=== PATIENT | female | born 1980 | race Caucasian/White ===

== ENCOUNTER → 2020-10-15 07:30 | Outpatient (BNVA) | payer MEDICAID, SELFPAY | PROVIDERS: Visit Provider Internal Medicine | DX: Z13.89 Encounter for screening for other disorder (principal) ==

== ENCOUNTER → 2020-12-03 07:49 | Outpatient (BNVA) | payer MEDICAID, SELFPAY | PROVIDERS: PCP Registered Nurse; Visit Provider Internal Medicine ==

== ENCOUNTER 2020-12-09 08:33 | Outpatient (REF) | payer MEDICAID, SELFPAY ==
--- NOTE | 2020-12-09 08:45 | US_ITS ---
EXAMINATION: US THYROID CLINICAL INFORMATION: Hyperparathyroidism. COMPARISON: None TECHNIQUE: Linear transducer sahni-scale and color Doppler examination with attention to the region of the thyroid. FINDINGS: SIZE: Measurements of the thyroid lobes and nodules are given in sagittal, anteroposterior and transverse dimensions respectively. Right Thyroid Lobe: 4.6 x 1.8 x 1.4 cm, volume 5.9 mL. Parenchyma: The gland echotexture is homogeneous. Thyroid vascularity is normal. Left Thyroid Lobe: 4.2 x 1.5 x 1.3 cm, volume 4.0 mL. Parenchyma: The gland echotexture is homogeneous. Thyroid vascularity is normal. Isthmus: 0.4 cm in maximum AP dimension. RIGHT THYROID LOBE: No nodules. ISTHMUS: No nodules. LEFT THYROID LOBE: No nodules. NODES: No lymphadenopathy is seen in the tissue surrounding the thyroid gland. No parathyroid adenoma is seen. US/US thyroid IMPRESSION: Normal thyroid ultrasound. No parathyroid adenoma identified by ultrasound.
[2020-12-09 09:40] LABS: Albumin Level 4.5 g/dL (3.5-5.0); Calcium 9.3 mg/dL (8.4-10.2); Estimated Glomerular Filt Rate > 60; Phosphorus 2.6 mg/dL (2.7-4.5)
[2020-12-09 10:03] LABS: Vitamin D 25-OH Total 23.5 ng/mL (>30)
[2020-12-10 15:07] LABS: Calcium, Ionized 5.1 mg/dL (4.8-5.6)
[2020-12-10 15:52] LABS: Calcium (PTHI) 9.6 mg/dL (8.6-10.2); PTHI 89 pg/mL (14-64)
== END 2020-12-09 08:34 | disposition home or self-care (01) ==
LOC: HO.US 08:33
PROVIDERS: Visit Provider Internal Medicine
DX: E21.3 Hyperparathyroidism, unspecified (principal); E55.9 Vitamin D deficiency, unspecified
CPT/HCPCS: 36415; 76536; 82040; 82306; 82310; 82330; 82565; 83970; 84100

== ENCOUNTER 2021-01-08 10:47 | Outpatient (REF) | payer MEDICAID, SELFPAY ==
--- NOTE | 2021-01-08 10:55 | ECG_ITS ---
Test Reason : R42 Blood Pressure : / mmHG Vent. Rate : 095 BPM Atrial Rate : 095 BPM P-R Int : 154 ms QRS Dur : 072 ms QT Int : 330 ms P-R-T Axes : 057 062 041 degrees QTc Int : 414 ms Normal sinus rhythm Possible Left atrial enlargement Borderline ECG No previous ECGs available Referred By: Carolynn Humphreys Electronically Signed By:THOMPSON SUE MD
== END 2021-01-08 10:48 | disposition home or self-care (01) ==
LOC: HO.LAB 10:47
PROVIDERS: PCP Registered Nurse; Visit Provider Registered Nurse
DX: M79.602 Pain in left arm (principal); R03.0 Elevated blood-pressure reading, without diagnosis of hypertension; R07.9 Chest pain, unspecified; R11.2 Nausea with vomiting, unspecified; R19.7 Diarrhea, unspecified; R42 Dizziness and giddiness; R61 Generalized hyperhidrosis
CPT/HCPCS: 93005

== ENCOUNTER → 2021-01-14 08:35 | Outpatient (BNVA) | payer MEDICAID, SELFPAY | PROVIDERS: PCP Registered Nurse; Visit Provider Internal Medicine ==

== ENCOUNTER 2021-02-03 09:11 | Outpatient (REF) | payer MEDICAID, SELFPAY ==
--- NOTE | ~2021-02-03 | MM_ITS ---
EXAMINATION: BONE DENSITOMETRY CLINICAL INDICATION: Hyperparathyroidism, unspecified. COMPARISON: Baseline BD dated 07/04/2020. TECHNIQUE: Using a ip.access DXA System (software version: 13.1) manufactured by [employer], dual-energy x-ray absorptiometry was performed of the lumbar spine, left hip and left forearm radius 33%. The images are of good technical quality. Based on ISCD (International Society for Clinical Densitometry) standards of reporting, Z-scores instead of T-scores are reported in this premenopausal woman. Summary results are attached. FINDINGS: AP SPINE L1-L3 (excluding L4): The data of L1-L4 has been changed to exclude the L4 vertebral body, because probable degenerative changes at this level may cause overestimation of lumbar spine density. Current: BMD 1.258 g/cm2, T-score 0.7, Z-score 0.6, Z-score within expected range for age, 2.1% increase from baseline (<5% change is not significant). Baseline: BMD 1.232 g/cm2. LEFT FEMUR, NECK: Current: BMD 1.073 g/cm2, T-score 0.3, Z-score 0.6, Z-score within expected range for age. Baseline: BMD 1.001 g/cm2. LEFT FEMUR, TOTAL: Current: BMD 1.153 g/cm2, T-score 1.2, Z-score 1.3, Z-score within expected range for age, 9.1% increase from baseline (<5% change is not significant). Baseline: BMD 1.057 g/cm2. LEFT FOREARM RADIUS 33%: Current: BMD 0.865 g/cm2, T-score -0.1, Z-score -0.1, Z-score within expected range for age, 1.9% decrease from baseline (<5% change is not significant). Baseline: BMD 0.882 g/cm2. IDENTIFIED RISK FACTORS: Hyperparathyroidism. Low calcium intake. Rheumatoid arthritis. HISTORY OF FRACTURE: None listed. MEDICATIONS: Vitamin D. MM/XR DEXA appendicular skeleton IMPRESSION: 1. DIAGNOSIS: Based on the lowest Z-score value of -0.1 in the left forearm radius 33%, the patient's bone density is within the expected range for age. 2. 10-YEAR FRACTURE RISK PREDICTION, FRAX: Not performed in this patient outside the age range of 40-90 years. 3. Treatment Recommendations: NOF guidelines recommend consideration for treatment in postmenopausal women and men age 50 and older presenting with the following: -A hip or vertebral (clinical or morphometric) fracture. -T-score less than or equal to -2.5 at the femoral neck or spine after appropriate evaluation to exclude secondary causes. -Low bone mass at the hip or spine and a 10-year fracture probability by FRAX of greater than or equal to 3% for hip fracture or greater than or equal to 20% for major osteoporotic fracture based on the [place] adapted WHO algorithm. 4. Other Recommendations: All treatment decisions require clinical judgment and consideration of individual patient factors, including patient preferences, comorbidities, previous drug use, risk factors not captured in the FRAX model (e.g. frailty, falls, vitamin D deficiency, increased bone turnover, interval significant decline in bone density) and possible under or overestimation of fracture risk by FRAX. FUTURE SCAN RECOMMENDATION: People with diagnosed cases of osteoporosis or at high risk for fracture should have regular bone mineral density tests. For patients eligible for Medicare, routine testing is allowed once every 2 years. The testing frequency can be increased to one year for patients who have rapidly progressing disease, those who are receiving or discontinuing medical therapy to restore bone mass, or have additional risk factors.
== END 2021-02-03 09:12 | disposition home or self-care (01) ==
LOC: HO.MAMMO 09:11
PROVIDERS: Visit Provider Internal Medicine
DX: Z13.820 Encounter for screening for osteoporosis (principal); E21.3 Hyperparathyroidism, unspecified; M06.9 Rheumatoid arthritis, unspecified
CPT/HCPCS: 77081

== ENCOUNTER 2021-03-09 08:35 | Outpatient (REF) | payer MEDICAID, SELFPAY ==
--- NOTE | ~2021-03-09 | XR_ITS ---
EXAMINATION: XR CHEST CLINICAL INFORMATION: Cough. Chest pain. COMPARISON: None TECHNIQUE: 2 views of the chest were obtained. FINDINGS: The cardiac and mediastinal contours are normal. The lungs are clear. There is no pleural effusion or pneumothorax. There is a thoracolumbar scoliosis. XR/XR chest 2V IMPRESSION: No evidence for acute disease in the chest. Thoracolumbar scoliosis.
== END 2021-03-09 08:36 | disposition home or self-care (01) ==
LOC: HO.XRAY 08:35
PROVIDERS: PCP Registered Nurse; Visit Provider Registered Nurse
DX: R07.9 Chest pain, unspecified (principal); R05 Cough
CPT/HCPCS: 71046

== ENCOUNTER 2021-03-19 08:45 | Outpatient (REF) | payer MEDICAID, SELFPAY ==
[2021-03-19 11:46] LABS: Albumin Level 4.7 g/dL (3.5-5.0); Calcium 9.7 mg/dL (8.4-10.2)
[2021-03-19 11:55] LABS: Vitamin D 25-OH Total 26.5 ng/mL (>30)
[2021-03-20 17:57] LABS: Calcium (PTHI) 9.8 mg/dL (8.6-10.2); PTHI 76 pg/mL (14-64)
== END 2021-03-19 08:46 | disposition home or self-care (01) ==
LOC: HO.LAB 08:45
PROVIDERS: PCP Registered Nurse; Visit Provider Internal Medicine
DX: E21.3 Hyperparathyroidism, unspecified (principal); E55.9 Vitamin D deficiency, unspecified; E83.52 Hypercalcemia; F41.9 Anxiety disorder, unspecified; Z79.899 Other long term (current) drug therapy
CPT/HCPCS: 36415; 82040; 82306; 82310; 82330; 83970; 84100

== ENCOUNTER 2021-06-19 14:21 | Outpatient (REF) | payer MEDICAID, SELFPAY ==
--- NOTE | ~2021-06-19 | MR_ITS ---
EXAMINATION: MR ABDOMEN WITHOUT CONTRAST CLINICAL INFORMATION: Abdominal pain. Hepatomegaly. Tiny nonspecific hypodense lesion liver on outside ultrasound (6 x 4 x 6 mm). COMPARISON: Outside abdominal ultrasound 03/12/2021 ([facility]), CT abdomen and pelvis with contrast 04/11/2020. TECHNIQUE: MR abdomen without and with gadolinium contrast was originally protocoled. Patient experienced claustrophobia during scanning and unable to continue. Noncontrast images in 3 planes were obtained. FINDINGS: LUNG BASES: The visualized lung bases are unremarkable. LIVER, GALLBLADDER, AND BILIARY TREE: The liver is borderline enlarged measuring 19.6 cm in length. The liver surface is smooth. There is mild decreased signal on out of phase imaging consistent with hepatic steatosis. There is a solitary 0.5 cm subcapsular lesion inferior medial right hepatic lobe corresponding to the finding on ultrasound. This shows circumscribed margins and uniform high signal on T2 imaging. Finding is new from the CT 2019. This may represent a tiny benign hepatic hemangioma or cyst. The remainder of the liver is homogeneous with no other hepatic parenchymal lesions. The gallbladder is unremarkable. There is no stone or wall thickening. No intrahepatic or extrahepatic biliary ductal dilatation. PANCREAS: Unremarkable. SPLEEN: Unremarkable. ADRENAL GLANDS: Unremarkable. KIDNEYS AND URETERS: The kidneys are normal in size and shape. No hydronephrosis. No perinephric stranding. GASTROINTESTINAL TRACT: No bowel obstruction. No ascites or fluid collection. ABDOMINAL WALL: Abdominal wall mesh is seen with scattered dephasing artifacts from the mesh tacks. LYMPH NODES: No lymphadenopathy. VASCULAR: Unremarkable. OSSEOUS STRUCTURES: Curvature lower thoracic and lumbar spine. Normal marrow signal. ADDITIONAL: The pelvis is partly included in the large [id number] planning images. There are fibroids present in the uterus both anterior and posterior body similar to CT. MR/MR abdomen wo con IMPRESSION: 1. Patient experienced claustrophobia and only noncontrast images obtained. 2. Borderline hepatomegaly secondary to hepatic steatosis. 3. Subcentimeter subcapsular lesion inferior medial right lobe corresponding to recent ultrasound. This most likely represents a tiny cyst or benign hemangioma. Finding may be followed with right upper quadrant ultrasound in 1 year. 4. Uterine fibroids.
== END 2021-06-19 14:22 | disposition home or self-care (01) ==
LOC: HO.MRI 14:21
PROVIDERS: PCP Registered Nurse; Visit Provider Registered Nurse
DX: R10.9 Unspecified abdominal pain (principal); R16.0 Hepatomegaly, not elsewhere classified; Z87.19 Personal history of other diseases of the digestive system
CPT/HCPCS: 74181

== ENCOUNTER → 2021-09-02 07:38 | Outpatient (BNVA) | payer MEDICAID, SELFPAY | PROVIDERS: PCP Registered Nurse; Visit Provider Internal Medicine ==

== ENCOUNTER 2021-09-04 08:44 | Outpatient (REF) | payer MEDICAID, SELFPAY ==
[2021-09-04 09:41] LABS: Alanine Aminotransferase 20 U/L (0-31); Albumin Level 4.4 g/dL (3.5-5.0); Alkaline Phosphatase 43 U/L (39-117); Anion Gap 9 (12-20); Aspartate Amino Transferase 18 U/L (5-31); Bilirubin Total 0.3 mg/dL (0.0-1.0); Blood Urea Nitrogen 14 mg/dL (9-16); Calcium 9.9 mg/dL (8.4-10.2); Carbon Dioxide 29 mmol/L (22-29); Chloride 104 mmol/L (96-108); Estimated Glomerular Filt Rate > 60; Glucose Random 115 mg/dL (60-115); Phosphorus 2.6 mg/dL (2.7-4.5); Potassium 4.1 mmol/L (3.3-5.1); Sodium 138 mmol/L (135-145); Total Protein 7.5 g/dL (6.5-8.0)
[2021-09-04 10:03] LABS: Vitamin D 25-OH Total 24.1 ng/mL (>30)
[2021-09-08 01:37] LABS: Calcium (PTHI) 9.7 mg/dL (8.6-10.2); PTHI 60 pg/mL (14-64)
== END 2021-09-04 08:45 | disposition home or self-care (01) ==
LOC: HO.LAB 08:44
PROVIDERS: PCP Registered Nurse Community Health; Visit Provider Internal Medicine
DX: E55.9 Vitamin D deficiency, unspecified (principal); E21.3 Hyperparathyroidism, unspecified
CPT/HCPCS: 36415; 80053; 82306; 83970; 84100

== ENCOUNTER 2022-03-03 10:13 | Emergency (ER) | payer MEDICAID, SELFPAY ==
[2022-03-03 10:34] VITALS: BP 135/65; PULSE 83; RESP 16; TEMP 36.7; O2SAT 98; BMI 26.6
--- NOTE | 2022-03-03 10:38 | ED.GENADULT ---
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 Patient states that she has been having pain with urination and is having lower abdominal pain for the last few days. Patient denies any dizziness, lightheadedness, nausea, vomiting, fever, chills, blurry vision, double vision, loss of vision, chest pain, difficulty breathing, shortness of breath, back pain, night sweats, increased urinary frequency, increased urinary urgency, blood in her urine or stool, syncope or a near syncopal episode, recent trauma or falls, bowel incontinence, bladder incontinence, bowel retention, bladder retention, or any other complaints at this time. Onset (ago): day(s) Location: abdomen Radiation: non-radiation Severity: mild Severity scale (1-10): 3 Quality: dull Pain Consistency: constant Relieving factors: none Exacerbating factors: none Associated symptoms: denies other symptoms Treatments prior to arrival: none Related Data Home Medications Medication Instructions Recorded Confirmed citalopram 20 mg tablet 20 mg PO DAILY 01/14/21 09/02/21 naproxen 500 mg tablet 500 mg PO DAILY PRN tab 01/14/21 09/02/21 Previous Rx's Medication Instructions Recorded cholecalciferol (vitamin D3) 50 50 mcg PO DAILY 30 Days #30 cap 09/02/21 mcg (2,000 unit) capsule cephalexin 500 mg capsule 500 mg PO Q6H 7 Days #28 cap 03/03/22 Allergies Allergy/AdvReac Type Severity Reaction Status Date / Time aspirin Allergy Unknown swelling Verified 09/02/21 07:50 Review of Systems Constitutional: Constitutional: Reports no additional constitutional complaints, Denies chills, Denies fever(s) and Denies night sweats Eyes: Eyes: Reports no additional eye complaints, Denies blurry vision, Denies change in vision, Denies diplopia, Denies eye discharge, Denies loss of vision and Denies eye pain ENT: Denies dizziness Cardiovascular: Cardiovascular: Reports no additional cardiovascular complaints, Denies chest pain, Denies lightheadedness, Denies Loss of Consciousness and Denies dyspnea Respiratory: Respiratory: Reports no additional respiratory complaints and Denies dyspnea Gastrointestinal: Gastrointestinal: Reports no additional gastrointestinal complaints, Reports abdominal pain, Denies melena, Denies hematochezia, Denies change in bowel habits and Denies change in stool character Genitourinary: Genitourinary: Denies hematuria, Denies urinary frequency, Reports dysuria, Denies urinary incontinence, Denies urinary hesitancy and Denies urinary urgency Musculoskeletal: Musculoskeletal: Reports no additional musculoskeletal complaints, Denies numbness and Denies tingling Neurologic: Denies dizziness, Denies loss of vision, Denies numbness and Denies tingling Psychiatric: Psychiatric: Reports no additional psychiatric complaints Endocrine: Endocrine: Reports no additional endocrine complaints Hematologic/Lymphatic: Hematologic/Lymphatic: Reports no additional hematologic/lymphatic complaints Allergic/Immunologic: Allergic/Immunologic: Reports no additional allergic/immunologic complaints PMFSH Past Medical History Attestation statement: The following information was validated with the patient. Source: old records reviewed Medical History Hypercalcemia Hyperparathyroidism Vitamin D deficiency Surgical History History of umbilical hernia repair Hx of section Family History Family History Father Diabetes Hypertension Alzheimer disease FH: prostate cancer Emphysema of lung Mother Hypertension Diabetes Social History Social History Alcohol intake: never Patient Tobacco Use Status: Never used Tobacco Advance Directives: No Advance Directives Information Provided: No Patient : No Physical Exam ED Vital Signs: Vital Signs - 24 hr 03/03/22 10:34 03/03/22 11:16 03/03/22 13:11 Temperature 98.0 F 98.7 F 98.5 F Pulse Rate 83 85 77 Respiratory Rate 16 18 19 Blood Pressure 135/65 119/72 118/71 Pulse Oximetry 98 98 100 BMI result Body Mass Index 26.6 Const General: cooperative, no acute distress, alert and awake Nutritional Appearance: well nourished Orientation/consciousness: patient oriented x3 Limitations: no limitations HENMT Head: Yes normal to inspection and Yes atraumatic Ears: hearing grossly normal bilaterally and external ears normal General nose exam: Normal external nose present, no nasal discharge noted and no epistaxis Face and sinus: Yes normal facial exam, No abrasion and No laceration Mouth: Normal oral and palatal mucosa present, no drooling and no muffled voice Eyes General: appearance normal, both eyes and all related structures Periorbital: periorbital findings normal Eyelids: Yes eyelids normal Conjunctivae: conjunctivae normal Pupils: Equal, round and reactive pupils present EOM: EOMs intact bilaterally Neck Neck: Yes normal visual inspection, Yes full ROM and Yes no lymphadenopathy Chest Chest palpation & inspection: normal inspection of the chest Resp Effort & Inspection: normal respiratory effort and able to speak in complete sentences Auscultation: clear to auscultation bilaterally Cardio Rate: regular rate Rhythm: regular rhythm GI Inspection: Yes normal to inspection Palpation (GI): Soft to palpation, not firm, nontender, no guarding and not rigid Auscultation: normal bowel sounds Neuro General: patient oriented x3 and moves all extremities Cranial nerves: Yes Equal, round and reactive pupils present Cognition (Neuro): normal cognition Motor exam (neuro): 5/5 motor strength present throughout Sensory Exam: Normal double simultaneous stimulation for sensation Coordination: [id number] test normal Extrem General: Yes normal to inspection, Yes full ROM and Yes capillary refill normal Psych Appearance: grossly normal Mental Status: mental status grossly normal Affect: normal affect Attitude: cooperative Thought process: Normal thought process present Thought content: Normal thought content present Insight: Good insight present (Psych) Medical Decision Making MDM Narrative Medical decision making narrative: Patient is a 41 year old female presenting to the emergency department today with painful urination and lower abdominal pain. Patient's physical exam was unremarkable. Patient's blood work was unremarkable. Patient's urine showed an acute urinary tract infection. I explained my physical exam findings as well as all test results to the patient. I answered all questions asked by the patient. I stressed the importance of the patient taking her medication as prescribed. I stressed the importance of the patient following up with her primary care provider. I stressed the importance of the patient returning to the emergency department immediately if her symptoms were to worsen or if she were to develop any dizziness, shortness of breath, difficulty breathing, chest pain, blurry vision, loss of vision, nausea, vomiting, abdominal pain, fever, chills, back pain, or any other complaints. Patient verbalized agreement and understanding with this treatment plan and discharge. Differential Diagnosis Differential Diagnosis: urinary tract infection Medical Records Medical records reviewed: Yes I reviewed the patient's medical records. Lab Data Lab results reviewed: Yes I reviewed the patient's lab results. Result diagrams: 03/03/22 12:44 03/03/22 12:44 Labs: Lab Results 03/03/22 03/03/22 03/03/22 Range/Units 10:48 12:44 12:44 WBC 7.2 (4.8-10.8) X10*3/uL RBC 4.47 (4.20-5.50) X10*6/uL Hgb 12.5 (12.0-16.0) g/dl Hct 39.0 (37.0-47.0) % MCV 87.2 (80.0-98.0) fL MCH 28.0 (27.0-33.0) pg MCHC 32.1 (31.0-35.0) g/dl RDW 13.2 (11.0-16.0) % Plt Count 276 (160-400) X10*3/uL MPV 9.7 (9.4-12.3) fL Immature Gran % (Auto) 0.4 (0.0-0.4) % Neut % (Auto) 72.2 (45-73) % Lymph % (Auto) 20.7 (20-40) % [place] % (Auto) 6.0 (2-11) % Eos % (Auto) 0.4 (0-4) % Baso % (Auto) 0.3 (0-2) % Lymph # (Auto) 1.5 (1.2-4.9) X10*3/uL [place] # (Auto) 0.4 (0.1-1.2) X10*3/uL Eos # (Auto) 0.0 (0.0-0.4) X10*3/uL Baso # (Auto) 0.0 (0.0-0.2) X10*3/uL Abs Immat Gran (auto) 0.03 (0.00-0.03) X10*3/uL Absolute Neuts (auto) 5.2 (2.0-8.3) x10*3/uL Absolute Nucleated RBC 0.000 (0.0-0.012) X10*3/uL Nucleated RBC % (auto) 0.0 (0.0-0.2) /100WBC Sodium 137 (135-145) mmol/L Potassium 4.6 (3.3-5.1) mmol/L Chloride 106 (96-108) mmol/L Carbon Dioxide 25 (22-29) mmol/L Anion Gap 11 L (12-20) BUN 12 (9-16) mg/dL Creatinine 0.75 (0.5-1.4) mg/dL Estim Creat Clear Calc 95.9 Estimated GFR > 60 Random Glucose 70 (60-115) mg/dL Calcium 9.9 (8.4-10.2) mg/dL Total Bilirubin 0.3 (0.0-1.0) mg/dL AST 15 (5-31) U/L ALT 17 (0-31) U/L Alkaline Phosphatase 40 (39-117) U/L Total Protein 7.6 (6.5-8.0) g/dL Albumin 4.5 (3.5-5.0) g/dL Beta HCG, Quant < 2 mIU/mL Urine Color YELLOW Urine Appearance CLEAR Urine pH 5.5 (5.0-8.0) Ur Specific [place] >= 1.030 H (1.005-1.025) Urine Protein NEG (NEG-TRACE) MG/DL Urine Glucose (UA) NEG (NEG) MG/DL Urine Ketones NEG (NEG) MG/DL Urine Blood 1+ H (NEG) Urine Nitrite NEG (NEG) Ur Leukocyte Esterase NEG (NEG) Urine RBC 5-9 H (0) /HPF Urine WBC 5-9 H (0-4) /HPF Ur Squamous Epith Cells 2+ /LPF Urine Bacteria TRACE /LPF Urine Mucus 3+ /LPF Discharge Plan Discharge Clinical Impression: Urinary tract infection Patient Disposition: Home, Self-Care Instructions: Urinary Tract Infection in Women (DC) Additional Instructions: Follow up with your primary care provider. Return to the emergency department immediately if your symptoms worsen or if you develop any dizziness, shortness of breath, difficulty breathing, chest pain, blurry vision, loss of vision, nausea, vomiting, abdominal pain, fever, chills, back pain, or any other complaints. Prescriptions: New cephalexin 500 mg capsule 500 mg PO Q6H 7 Days Qty: 28 0RF No Action naproxen 500 mg tablet 500 mg PO DAILY PRN0RF citalopram 20 mg tablet 20 mg PO DAILY 0RF cholecalciferol (vitamin D3) 50 mcg (2,000 unit) capsule 50 mcg PO DAILY 30 Days Qty: 30 11RF Referrals: Temi Herrera NP [Primary Care Provider] - Stand Alone Forms: Work/School Release Interventions: ED Discharge Assessment Last Done: 03/03/22 13:48 Discharge Date/Time: 03/03/22 13:49 Print Language: [place]
[2022-03-03 10:58] LABS: Appearance Urine CLEAR; Color Urine YELLOW; Glucose Urine UA NEG (NEG); Leukocyte Esterase Urine NEG (NEG); Nitrite Urine NEG (NEG); PH 5.5 (5.0-8.0); Specific Gravity - Urine >= 1.030 (1.005-1.025); UACC Culture Trigger NO; Urine Blood 1+ (NEG); Urine Ketones NEG (NEG); Urine Protein NEG (NEG-TRACE)
[2022-03-03 11:09] LABS: Mucus Urine 3+ /LPF; Squamous Epithelial Cell Urine 2+ /LPF
[2022-03-03 11:10] LABS: Bacteria Urine TRACE /LPF; UACC CULT YES
[2022-03-03] MEDS: Ondansetron ODT 4 MG TAB.RAPDIS TRANSLINGU (11:14)
[2022-03-03 11:16] VITALS: BP 119/72; PULSE 85; RESP 18; TEMP 37.1; O2SAT 98
[2022-03-03 13:02] LABS: MANUAL DIFF FLAG NO
[2022-03-03 13:04] LABS: Basophils Percent Auto 0.3 % (0-2); Eosinophils Percent Auto 0.4 % (0-4); Hemoglobin 12.5 g/dl (12.0-16.0); Imm Gran Abs Auto 0.03 X10*3/uL (0.00-0.03); Imm Gran Pct Auto 0.4 % (0.0-0.4); Lymphocytes Absolute Auto 1.5 X10*3/uL (1.2-4.9); Lymphocytes Percent Auto 20.7 % (20-40); Mean Corpuscular HGB Conc 32.1 g/dl (31.0-35.0); Mean Corpuscular Volume 87.2 fL (80.0-98.0); Mean Platelet Volume 9.7 fL (9.4-12.3); Monocytes Absolute Auto 0.4 X10*3/uL (0.1-1.2); Neutrophils Absolute Auto 5.2 x10*3/uL (2.0-8.3); Neutrophils Percent Auto 72.2 % (45-73); Platelet Count 276 X10*3/uL (160-400); Red Blood Count 4.47 X10*6/uL (4.20-5.50); Red Cell Distribution Width 13.2 % (11.0-16.0); White Blood Count 7.2 X10*3/uL (4.8-10.8)
[2022-03-03 13:11] VITALS: BP 118/71; PULSE 77; RESP 19; TEMP 36.9; O2SAT 100
[2022-03-03 13:34] LABS: Alanine Aminotransferase 17 U/L (0-31); Albumin Level 4.5 g/dL (3.5-5.0); Alkaline Phosphatase 40 U/L (39-117); Anion Gap 11 (12-20); Aspartate Amino Transferase 15 U/L (5-31); Bilirubin Total 0.3 mg/dL (0.0-1.0); Blood Urea Nitrogen 12 mg/dL (9-16); Calcium 9.9 mg/dL (8.4-10.2); Carbon Dioxide 25 mmol/L (22-29); Chloride 106 mmol/L (96-108); Creatinine Clr Calc Pharmacy 95.9; Estimated Glomerular Filt Rate > 60; Glucose Random 70 mg/dL (60-115); Potassium 4.6 mmol/L (3.3-5.1); Sodium 137 mmol/L (135-145); Total Protein 7.6 g/dL (6.5-8.0)
[2022-03-03 13:40] LABS: HCG Quantitative < 2 mIU/mL
== END 2022-03-03 13:49 | disposition home or self-care (01) ==
PROVIDERS: Physician Assistant Medical; Emergency Provider Emergency Medicine; PCP Registered Nurse Community Health
DX: N39.0 Urinary tract infection, site not specified (principal)
CPT/HCPCS: 36415; 80053; 81001; 81003; 84702; 85025; 87086; 99283; 99284

== ENCOUNTER → 2022-04-08 07:32 | Outpatient (BNVA) | payer MEDICAID, SELFPAY | PROVIDERS: PCP Registered Nurse Community Health; Visit Provider Internal Medicine | DX: Z13.89 Encounter for screening for other disorder (principal) ==

== ENCOUNTER 2022-04-09 09:13 | Outpatient (REF) | payer MEDICAID, SELFPAY ==
[2022-04-09 10:46] LABS: Alanine Aminotransferase 20 U/L (0-31); Albumin Level 4.4 g/dL (3.5-5.0); Alkaline Phosphatase 44 U/L (39-117); Anion Gap 12 (12-20); Aspartate Amino Transferase 17 U/L (5-31); Bilirubin Total 0.6 mg/dL (0.0-1.0); Blood Urea Nitrogen 12 mg/dL (9-16); Calcium 9.8 mg/dL (8.4-10.2); Carbon Dioxide 26 mmol/L (22-29); Chloride 103 mmol/L (96-108); Estimated Glomerular Filt Rate > 60; Glucose Random 73 mg/dL (60-115); Potassium 4.4 mmol/L (3.3-5.1); Sodium 137 mmol/L (135-145); Total Protein 7.5 g/dL (6.5-8.0)
[2022-04-09 11:09] LABS: Thyroid Stimulating Hormone 1.35 uIU/mL (0.32-4.0); Vitamin D 25-OH Total 21.5 ng/mL (>30)
[2022-04-13 13:41] LABS: Calcium (PTHI) 9.7 mg/dL (8.6-10.2); PTHI 85 pg/mL (16-77)
== END 2022-04-09 09:14 | disposition home or self-care (01) ==
LOC: HO.LAB 09:13
PROVIDERS: PCP Registered Nurse Community Health; Visit Provider Internal Medicine
DX: E21.3 Hyperparathyroidism, unspecified (principal); E55.9 Vitamin D deficiency, unspecified
CPT/HCPCS: 36415; 80053; 82306; 83970; 84100; 84443

== ENCOUNTER 2022-04-13 12:27 | Outpatient (REF) | payer MEDICAID, SELFPAY ==
[2022-04-13 13:01] LABS: Total Volume 24 Hour Urine 1400 mL
[2022-04-13 13:38] LABS: Creatinine, 24Hr Urine 1.3 G/Day (1.0-2.0); Creatinine, mg/dL 93.34
[2022-04-14 18:51] LABS: Calcium, 24 Hr Urine 293 mg/24 h; Calcium/Creatinine Ratio 222 mg/g creat (30-275); Creatinine 24Hr Urine 1.32 g/24 h (0.50-2.15)
== END 2022-04-13 12:28 | disposition home or self-care (01) ==
LOC: HO.LNP 12:27
PROVIDERS: Visit Provider Internal Medicine
DX: E21.3 Hyperparathyroidism, unspecified (principal)
CPT/HCPCS: 82340; 82570

== ENCOUNTER 2022-06-10 10:24 | Outpatient (REF) | payer MEDICAID, SELFPAY ==
--- NOTE | ~2022-06-10 | US_ITS ---
EXAMINATION: US PELVIS TRANSVAGINAL CLINICAL INFORMATION: Pelvic pain. COMPARISON: Previous CT of the abdomen and pelvis March 2020. TECHNIQUE: Ultrasound of the pelvis is performed using both transabdominal and transvaginal transducers along with Doppler. Transvaginal imaging is performed due to inadequate visualization transabdominally. FINDINGS: The uterus is anteverted and measures 11 x 7 x 7 cm in dimension. There are multiple uterine lesions suggestive of fibroids. At least 5 separate fibroids are identified measuring 2.5 x 2.3 x 2.5 cm in the posterior uterine body, 2.9 x 3 x 3.3 cm in the posterior upper uterine body or posterior fundus, 3.1 x 2.1 x 2.2 cm in the high anterior uterine body, 1 x 1.1 x 1.2 cm in the uterine fundus and 2 x 1.8 x 1.7 cm in the right cornual region. Endometrial thickness is normal measuring 1.2 cm. There are nabothian cysts in the cervix. The right ovary measures 3.3 x 2.1 x 2.2 cm. There is a 2.7 x 2 x 2 cm complex right ovarian cyst with thick echogenic wall probably representing a corpus luteum. The left ovary measures 2.5 x 2 x 2.2 cm and is normal-appearing. There is a ljrjr-ib-jjzjnysa amount of fluid in the pelvis. US/US pelvic and transvaginal IMPRESSION: Enlarged fibroid uterus. 2.7 x 2 x 2 cm complex right ovarian cyst probably representing a physiologic cyst. Normal left ovary. Small to moderate amount of fluid in the pelvis
--- NOTE | ~2022-06-10 | US_ITS ---
EXAMINATION: US ABDOMEN COMPLETE CLINICAL INFORMATION: Abdominal pain. COMPARISON: MR abdomen 06/19/2021. CT abdomen pelvis 04/11/2020. TECHNIQUE: Real-time imaging of the abdominal viscera. FINDINGS: PANCREAS: Normal. ABDOMINAL AORTA: The proximal, mid, and distal segments are normal in caliber. INFERIOR VENA CAVA: Visualized portions are normal. LIVER: Normal. The liver is normal in size. The liver contour is normal. Parenchymal echogenicity is normal. No focal hepatic lesion is appreciated. There is no intrahepatic biliary duct dilatation seen. GALLBLADDER: Normal. The gallbladder is physiologically distended without evidence of stones, sludge, polyps, wall thickening or pericholecystic fluid. COMMON BILE DUCT: Normal in caliber measuring 0.3 cm in diameter. RIGHT KIDNEY: Normal. No hydronephrosis. No renal calculi or focal parenchymal lesions. The kidney measures 11.6 cm in maximum dimension. LEFT KIDNEY: Normal. No hydronephrosis. No renal calculi or focal parenchymal lesions. The kidney measures 10.8 cm in maximum dimension. SPLEEN: Normal. The spleen measures 9.5 cm in maximum dimension. FREE FLUID: None. US/US abdomen complete IMPRESSION: Unremarkable exam.
== END 2022-06-10 10:25 | disposition home or self-care (01) ==
LOC: HO.US 10:24
PROVIDERS: PCP Registered Nurse Community Health; Visit Provider Registered Nurse Community Health
DX: R10.2 Pelvic and perineal pain (principal); R10.84 Generalized abdominal pain; R16.0 Hepatomegaly, not elsewhere classified
CPT/HCPCS: 76700; 76830; 76856

== ENCOUNTER 2022-07-05 16:36 | Emergency (ER) | payer MEDICAID, SELFPAY ==
[2022-07-05 16:45] VITALS: BP 143/94; PULSE 102; RESP 18; TEMP 37; O2SAT 98; BMI 25.7
--- NOTE | 2022-07-05 16:48 | PC.NURSE ---
pt was triaged and decided she was leaving and going to [facility] because she wasnt being brought right back to a room. pt was left without being seen.
== END 2022-07-05 18:52 | disposition left against medical advice (07) ==
PROVIDERS: Emergency Provider Emergency Medicine; PCP Registered Nurse Community Health
DX: R51.9 Headache, unspecified (principal); R11.0 Nausea; M79.10 Myalgia, unspecified site
CPT/HCPCS: 99281

== ENCOUNTER 2022-07-15 11:27 | Outpatient (REF) | payer MEDICAID, SELFPAY ==
[2022-07-15 13:23] LABS: Hematocrit 37.8 % (37.0-47.0); Hemoglobin 12.2 g/dl (12.0-16.0); Mean Corpuscular HGB Conc 32.3 g/dl (31.0-35.0); Mean Corpuscular Hemoglobin 27.7 pg (27.0-33.0); Mean Corpuscular Volume 85.7 fL (80.0-98.0); Mean Platelet Volume 9.7 fL (9.4-12.3); Platelet Count 311 X10*3/uL (160-400); Red Blood Count 4.41 X10*6/uL (4.20-5.50); Red Cell Distribution Width 13.2 % (11.0-16.0); White Blood Count 6.5 X10*3/uL (4.8-10.8)
[2022-07-15 14:15] LABS: HCG Quantitative < 2 mIU/mL; TSH reflex Free T4 1.44 uIU/mL (0.32-4.0)
[2022-07-15 17:04] LABS: CT PCR NOT DETECTED (Not Detect.); NG PCR NOT DETECTED (Not Detect.)
[2022-07-17 08:37] LABS: CA-125 7 U/mL (<35)
[2022-07-21 00:37] LABS: HPV mRNA E6/E7 rflx Not Detected (Not Detected)
== END 2022-07-15 11:28 | disposition home or self-care (01) ==
LOC: HO.LAB 11:27
PROVIDERS: PCP Registered Nurse Community Health; Visit Provider Obstetrics & Gynecology
DX: Z01.419 Encounter for gynecological examination (general) (routine) without abnormal findings (principal); Z11.51 Encounter for screening for human papillomavirus (HPV); N83.299 Other ovarian cyst, unspecified side; N93.9 Abnormal uterine and vaginal bleeding, unspecified; D25.9 Leiomyoma of uterus, unspecified
CPT/HCPCS: 36415; 84443; 84702; 85027; 86304; 87491; 87591; 87624; 88142; 99202

== ENCOUNTER 2022-07-28 16:39 | Outpatient (REF) | payer MEDICAID, SELFPAY | END 2022-07-28 16:40 | disposition home or self-care (01) | LOC: HO.LNP 16:39 | PROVIDERS: Visit Provider Obstetrics & Gynecology | DX: N93.9 Abnormal uterine and vaginal bleeding, unspecified (principal) | CPT/HCPCS: 58100; 88305 ==

== ENCOUNTER 2022-08-17 09:34 | Outpatient (REF) | payer MEDICAID, SELFPAY ==
--- NOTE | ~2022-08-17 | MM_ITS ---
EXAMINATION: MM SCREENING DIGITAL BREAST TOMOSYNTHESIS, BILATERAL CLINICAL INFORMATION: Screening. Asymptomatic. No prior breast imaging. Age 42. No known family history breast cancer. The lifetime risk of breast cancer based on the Tyrer-Cuzick Model is 12%. COMPARISON: None (current study represents initial baseline exam). TECHNIQUE: Digital breast tomosynthesis is performed in both the craniocaudal and mediolateral oblique views along with computer-aided detection (CAD). Synthesized 2D images are generated from the tomosynthesis. Additional left MLO view is provided. FINDINGS: The breasts are heterogeneously dense, which may obscure small masses (ACR BI-RADS breast composition Category c). There is no significant mass or architectural abnormality. Diffuse bilateral similar appearing punctate and some coarse calcifications are present in both breasts. A minority of the calcifications show layering on the MLO views. The axilla and skin contours are unremarkable. MM/MM tomosynthesis screening BI IMPRESSION: No mammographic evidence of malignancy. ASSESSMENT: BI-RADS 2: Benign RECOMMENDATION: Routine annual mammography screening. This patient's information was entered into a reminder system with a target due date for their next mammogram.
== END 2022-08-17 09:35 | disposition home or self-care (01) ==
LOC: HO.MAMMO 09:34
PROVIDERS: PCP Registered Nurse Community Health; Visit Provider Obstetrics & Gynecology
DX: Z12.31 Encounter for screening mammogram for malignant neoplasm of breast (principal); N93.9 Abnormal uterine and vaginal bleeding, unspecified; N83.299 Other ovarian cyst, unspecified side
CPT/HCPCS: 77063; 77067; 99212

== ENCOUNTER 2022-08-20 07:27 | Emergency (ER) | payer MEDICAID, SELFPAY | END 2022-08-20 08:23 | disposition left against medical advice (07) | PROVIDERS: Emergency Provider Emergency Medicine | DX: R07.89 Other chest pain (principal) ==

== ENCOUNTER 2022-08-20 09:23 | Outpatient (REF) | payer MEDICAID, SELFPAY ==
--- NOTE | ~2022-08-20 | XR_ITS ---
EXAMINATION: XR CHEST CLINICAL INFORMATION: Cough COMPARISON: Previous chest x-ray February 2021 TECHNIQUE: 2 views of the chest were obtained. FINDINGS: No significant abnormality is noted involving the heart, lungs, mediastinum, bony thorax or soft tissues. There is a lumbar scoliosis convex to the left. There is evidence of previous abdominal wall hernia repair with mesh. XR/XR chest 2V IMPRESSION: No evidence for acute chest.
== END 2022-08-20 09:24 | disposition home or self-care (01) ==
LOC: HO.XRAY 09:23
PROVIDERS: Absent Provider Registered Nurse; PCP Registered Nurse; Visit Provider Emergency Medicine
DX: R05.1 Acute cough (principal)
CPT/HCPCS: 71046

== ENCOUNTER → 2022-08-26 11:23 | Outpatient (BNVA) | payer MEDICAID, SELFPAY | PROVIDERS: PCP Registered Nurse Community Health; Visit Provider Obstetrics & Gynecology | DX: N93.9 Abnormal uterine and vaginal bleeding, unspecified (principal) | CPT/HCPCS: 99212 ==

== ENCOUNTER 2022-09-10 06:14 | Day surgery (SDC) | payer MEDICAID, SELFPAY ==
--- NOTE | 2022-09-09 08:43 | HO.ANESPROP2 ---
Documented by User: Kia Valdes NP 09/09/22 08:44 HPI - Anesthesia Eval Consult details Narrative: 42yo F for D&C Hysteroscopy, possible polypectomy and myomectomy PMFSH Active Problems Active Problems: All Active Problems (Updated 08/26/22 @ 11:40 by Fly De Souza MD) Abnormal uterine bleeding (AUB) (Acute) Complex ovarian cyst (Acute) Uterine myoma (Acute) Vitamin D deficiency (Acute) Hyperparathyroidism (Acute) Hypercalcemia (Acute) Past Medical History Medical History Hypercalcemia Hyperparathyroidism Vitamin D deficiency Family History Family History Father Diabetes Hypertension Alzheimer disease FH: prostate cancer Emphysema of lung Mother Hypertension Diabetes Surgical History Surgical History History of umbilical hernia repair Hx of section Social History Social History Alcohol intake: never Patient Tobacco Use Status: Never used Tobacco Use of substances other than those prescribed or required for medical reasons: No Are you DNR?: No Advance Directives: No Advance Directives Information Provided: Yes Meds Allergies Allergy/AdvReac Type Severity Reaction Status Date / Time aspirin Allergy Unknown swelling Verified 09/06/22 12:25 Home Medications Medication Instructions Recorded Confirmed Last Taken Type citalopram 20 mg tablet 20 mg PO DAILY 01/14/21 09/06/22 Unknown History hydroxyzine pamoate 25 mg capsule 1 cap PO BID PRN Anxiety 09/06/22 09/06/22 Unknown History montelukast 10 mg tablet 1 tab PO BEDTIME 09/06/22 09/06/22 Unknown History Exam Exam Date and Time: September 09, 2022 0843 Pertinent Lab Results Pertinent Lab Results: Laboratory Tests 04/09/22 07/15/22 09:40 12:30 WBC 6.5 Hgb 12.2 Hct 37.8 Plt Count 311 Sodium 137 Potassium 4.4 Chloride 103 Carbon Dioxide 26 BUN 12 Creatinine 0.74 Assessment and Plan Assessment Anesthesia Assessment: Chart Reviewed Documented by User: Ghazala Ly MD 09/10/22 07:29 [facility] Active Problems Active Problems: All Active Problems (Updated 08/26/22 @ 11:40 by Fly De Souza MD) Abnormal uterine bleeding (AUB) (Acute) Complex ovarian cyst (Acute) Uterine myoma (Acute) Vitamin D deficiency (Acute) Hyperparathyroidism (Acute) Hypercalcemia (Acute) asthma Past Medical History Medical History Hypercalcemia Hyperparathyroidism Vitamin D deficiency Family History Family History Father Diabetes Hypertension Alzheimer disease FH: prostate cancer Emphysema of lung Mother Hypertension Diabetes Surgical History Surgical History History of umbilical hernia repair Hx of section History of Problems with Anesthesia: No Social History Social History Alcohol intake: never Patient Tobacco Use Status: Never used Tobacco Use of substances other than those prescribed or required for medical reasons: No Are you DNR?: No Advance Directives: No Advance Directives Information Provided: Yes Meds Allergies Allergy/AdvReac Type Severity Reaction Status Date / Time aspirin Allergy Unknown swelling Verified 09/06/22 12:25 Home Medications Medication Instructions Recorded Confirmed Last Taken Type citalopram 20 mg tablet 20 mg PO DAILY 01/14/21 09/06/22 Unknown History hydroxyzine pamoate 25 mg capsule 1 cap PO BID PRN Anxiety 09/06/22 09/06/22 Unknown History montelukast 10 mg tablet 1 tab PO BEDTIME 09/06/22 09/06/22 Unknown History Exam Airway Mallampati Class: II TM Dist: >3cm Neck ROM: Full Loose/Missing/Broken Teeth: No Heart: RRR Lungs: CTA Assessment and Plan Assessment Anesthesia Assessment: Anesthesia Plan Discussed Final Anesthetic Review History of Problems with Anesthesia: No NPO: Yes ASA Class: II Final Preanesthetic Review: Meds/Allgs Chart Reviewed, Consent Obtained/Reviewed and Anes Risks/Benef Reviewed Patient Risk: Low Procedure Risk: Low Anesthetic Plan Anesthetic Plan: GA Disposition: Standard PACU
[2022-09-10] VITALS (12 sets, daily range): BP systolic 107–146; BP diastolic 59–95; PULSE 66–109; RESP 18; TEMP 36.7–37.3; O2SAT 98–99; BMI 26.4
[2022-09-10 06:55] LABS: UPreg QC Valid YES; Urine Pregnancy NEGATIVE (NEGATIVE)
[2022-09-10] MEDS: Lactated Ringers 1,000 ML 100 ML IVCONT (07:29)
[2022-09-10 07:30] LABS: COVID-19 Test Negative (Negative); IDNOW Serial# 16C4AD1C
--- NOTE | 2022-09-10 08:05 | MHC.SHP ---
Pre-Procedural Eval Section A Date of Service: 09/10/22 The patient is an INPATIENT: No Changes since office visit: No Cold of Flu in the past 2 weeks, No New Medical Problems, No Changes in Medication and No Patient answered all questions The History & Physical has been completed within 30 days and I have reviewed it.: Yes Section B Chief Complaint: Abnormal uterine and vaginal bleeding, unspecified Allergies: Allergies Allergy/AdvReac Type Severity Reaction Status Date / Time aspirin Allergy Unknown swelling Verified 09/06/22 12:25 Plan Diagnosis/Plan: Unchanged I have reviewed the history and physical and performed a pertinent physical examination on my patient. No changes have occurred unless specified.
--- NOTE | 2022-09-10 08:37 | P.BOP_ITS ---
Brief Operative Note Date of Service: 09/10/22 Pre-op diagnosis: AUB, features of a polyp by pathology Post-op diagnosis: same (AUB, no evidence of endometrial/endocervical polyp) Procedure: Hysteroscopy D& Surgeon: Fly De Souza MD Anesthesia: GLMA Was an Facilities Officer used for this Procedure?: No Estimated blood loss (mL): 0 Pathology: other (Endometrial Scrapping.) Condition: stable Disposition: PACU
--- NOTE | 2022-09-10 08:38 | W.PM.OPN ---
Operative Note Operative Note Date of Service: 09/10/22 Narrative: Preop Diagnosis: Abnormal uterine bleeding, features of a polyp by pathology Operation: Diagnostic Hysteroscopy, Dilataion & Curettage Post Op Diagnosis: Normal endometrial and endocervical cavity, no evidence of pathology QBL: Minimal Anesthesia: GLMA Surgeon: Fly De Souza MD Waste Cotton Cleaner: None Complication: None Pathology: Endometrial Scrapings Procedure: The patient was put in the dorsal lithotomy position, scrubbed, and draped in the usual manner. A sterile speculum was inserted in the patient's vagina. The anterior lip of the cervix was grasped with a single tooth tenaculum. The cervix was dilated up to 5 mm, then the scope was inserted in the patient's uterus. Inspection revealed normal endocervical & endometrial cavity with no evidence of pathology. The scope was taken out of the uterine cavity , then sharp curetting was carried on with no complications. At the end of the procedure, all instruments were taken out of the patient uterine and vaginal cavity. The single tooth tenaculum was removed and homeostasis was assured using pressure. The patient tolerated the procedure well and was transferred to the PACU in a stable condition.
[2022-09-10] MEDS: oxyCODONE HCl Immed Release 5 MG TABLET PO (09:23)
[2022-09-10] MEDS: fentaNYL citrate/PF 100 MCG/2 ML VIAL 25 MCG IVPUSH (09:23)
== END 2022-09-10 11:08 | disposition home or self-care (01) ==
PROVIDERS: Anesthesiology; Nurse Practitioner; Visit Provider Obstetrics & Gynecology
PROC: 0UDB8ZZ Extraction of Endometrium, Via Natural or Artificial Opening Endoscopic (ICD-10-PCS; CPT 58558; principal; 2022-09-10 08:10)
DX: N93.9 Abnormal uterine and vaginal bleeding, unspecified (principal); E83.52 Hypercalcemia; E21.3 Hyperparathyroidism, unspecified; E55.9 Vitamin D deficiency, unspecified; Z79.899 Other long term (current) drug therapy; Z88.8 Allergy status to other drugs, medicaments and biological substances; Z20.822 Contact with and (suspected) exposure to COVID-19
CPT/HCPCS: 58558; 81025; 87635; 88305; J1100; J1885; J2250; J2405; J3010

== ENCOUNTER → 2022-09-23 08:48 | Outpatient (BNVA) | payer MEDICAID, SELFPAY | PROVIDERS: PCP Registered Nurse Community Health; Visit Provider Obstetrics & Gynecology | DX: N93.9 Abnormal uterine and vaginal bleeding, unspecified (principal); D25.9 Leiomyoma of uterus, unspecified; N83.299 Other ovarian cyst, unspecified side | CPT/HCPCS: 99212 ==

== ENCOUNTER 2022-10-05 09:26 | Outpatient (REF) | payer MEDICAID, SELFPAY ==
[2022-10-05 10:53] LABS: Alanine Aminotransferase 21 U/L (0-31); Albumin Level 4.4 g/dL (3.5-5.0); Alkaline Phosphatase 48 U/L (39-117); Anion Gap 13 (12-20); Aspartate Amino Transferase 17 U/L (5-31); Bilirubin Total 0.5 mg/dL (0.0-1.0); Blood Urea Nitrogen 14 mg/dL (9-16); Calcium 9.3 mg/dL (8.4-10.2); Carbon Dioxide 26 mmol/L (22-29); Chloride 104 mmol/L (96-108); Estimated Glomerular Filt Rate > 60; Glucose Random 81 mg/dL (60-115); Phosphorus 3.1 mg/dL (2.7-4.5); Sodium 139 mmol/L (135-145); Total Protein 7.4 g/dL (6.5-8.0)
[2022-10-05 13:38] LABS: Vitamin D 25-OH Total 21.9 ng/mL (>30)
[2022-10-08 13:06] LABS: Calcium (PTHI) 9.5 mg/dL (8.6-10.2); PTHI 83 pg/mL (16-77)
== END 2022-10-05 09:27 | disposition home or self-care (01) ==
LOC: HO.LAB 09:26
PROVIDERS: Absent Provider Physician Assistant; PCP Registered Nurse Community Health; Visit Provider Internal Medicine
DX: E21.3 Hyperparathyroidism, unspecified (principal); E55.9 Vitamin D deficiency, unspecified; T78.1XXD Other adverse food reactions, not elsewhere classified, subsequent encounter
CPT/HCPCS: 36415; 80053; 82306; 82785; 83970; 84100; 86003

== ENCOUNTER → 2022-10-11 07:30 | Outpatient (BNVA) | payer MEDICAID, SELFPAY | PROVIDERS: PCP Registered Nurse Community Health; Visit Provider Internal Medicine | DX: E21.3 Hyperparathyroidism, unspecified (principal); E55.9 Vitamin D deficiency, unspecified | CPT/HCPCS: 99212 ==

== ENCOUNTER 2022-10-14 10:58 | Outpatient (REF) | payer MEDICAID, SELFPAY ==
--- NOTE | ~2022-10-14 | US_ITS ---
EXAMINATION: US PELVIS CLINICAL INFORMATION: Ovarian cyst. COMPARISON: Previous pelvic ultrasound May 2022. TECHNIQUE: Ultrasound of the pelvis is performed using both transabdominal and transvaginal transducers along with Doppler. Transvaginal imaging is performed due to inadequate visualization transabdominally. FINDINGS: UTERUS: The uterus is anteverted and measures 11.3 x 7 x 7.4 cm. There are multiple at least 7 focal uterine lesions seen suggestive of fibroids. Largest measure 4 x 3.6 x 3.5 cm in the upper right uterine body, 3.1 x 3.4 x 3 cm in the lower right uterine body and 2.9 x 2.9 x 2.8 cm in the left uterine body. Endometrial thickness is normal measuring 1.4 cm. There are nabothian cysts in the cervix. The right ovary measures 4.3 x 2.9 x 2.8 cm. There is a 2.1 x 2.4 x 2 cm minimally complex right ovarian cyst with slightly thickened echogenic wall. The left ovary measures 3.3 x 2.3 x 2.6 cm. There is a small echogenic focus in the left ovary questionable for calcification. There is a thick-walled echogenic structure with hypoechoic or cystic center that is new. This measures 7 x 6 x 8 mm, appears avascular, and probably represents a complex cyst. This is new from previous exam. There is no fluid in the pelvis. US/US pelvic and transvaginal IMPRESSION: Enlarged fibroid uterus. Small bilateral ovarian complex cysts.
== END 2022-10-14 10:59 | disposition home or self-care (01) ==
LOC: HO.US 10:58
PROVIDERS: Visit Provider Obstetrics & Gynecology
DX: N83.299 Other ovarian cyst, unspecified side (principal)
CPT/HCPCS: 76830; 76856

== ENCOUNTER → 2022-10-28 10:02 | Outpatient (BNVA) | payer MEDICAID, SELFPAY | PROVIDERS: PCP Registered Nurse Community Health; Visit Provider Obstetrics & Gynecology | DX: N83.299 Other ovarian cyst, unspecified side (principal); D25.9 Leiomyoma of uterus, unspecified | CPT/HCPCS: 99212 ==

== ENCOUNTER 2022-11-01 09:02 | Outpatient (REF) | payer MEDICAID, SELFPAY ==
[2022-11-04 09:43] LABS: CA-125 7 U/mL (<35)
== END 2022-11-01 09:03 | disposition home or self-care (01) ==
LOC: HO.LAB 09:02
PROVIDERS: PCP Registered Nurse Community Health; Visit Provider Obstetrics & Gynecology
DX: N83.299 Other ovarian cyst, unspecified side (principal)
CPT/HCPCS: 36415; 86304

== ENCOUNTER 2022-11-29 07:27 | Emergency (ER) | payer MEDICAID, SELFPAY ==
[2022-11-29 07:48] VITALS: BP 138/89; PULSE 104; RESP 18; TEMP 36.6; O2SAT 96; BMI 27.4
--- NOTE | 2022-11-29 09:13 | ED.URI ---
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 Patient tells me she travels from [place] 1 week ago. No known sick contact. No fevers, chills, difficulty breathing, chest pain, abdominal pain. Related Data Home Medications Medication Instructions Recorded Confirmed citalopram 20 mg tablet 20 mg PO DAILY 01/14/21 10/11/22 hydroxyzine pamoate 25 mg capsule 1 cap PO BID PRN Anxiety 09/06/22 10/11/22 montelukast 10 mg tablet 1 tab PO BEDTIME 09/06/22 10/11/22 Previous Rx's Medication Instructions Recorded cholecalciferol (vitamin D3) 50 50 mcg PO DAILY 30 days #30 caps 10/11/22 mcg (2,000 unit) capsule benzonatate 200 mg capsule 200 mg PO TID PRN cough #30 caps 11/29/22 ondansetron 4 mg disintegrating 4 mg PO Q6H PRN nausea and 11/29/22 tablet vomiting #10 tabs Allergies Allergy/AdvReac Type Severity Reaction Status Date / Time aspirin Allergy Unknown swelling Verified 10/11/22 07:58 Review of Systems Review of Systems: Yes all other systems are reviewed and are negative Constitutional: Constitutional: Reports no additional constitutional complaints, Denies body ache(s), Denies chills, Denies fever(s), Denies headache(s) and Reports weakness Eyes: Eyes: Reports no additional eye complaints and Denies change in vision ENT: Reports system reviewed and no additional complaints, except as documented, Denies dizziness, Denies headache(s), Denies nasal congestion, Denies nasal discharge and Denies neck pain Cardiovascular: Cardiovascular: Reports no additional cardiovascular complaints, Denies chest pain, Denies leg edema and Denies dyspnea Respiratory: Respiratory: Reports no additional respiratory complaints, Reports cough and Denies dyspnea Gastrointestinal: Gastrointestinal: Reports no additional gastrointestinal complaints, Denies abdominal pain, Reports diarrhea, Reports nausea and Denies vomiting Genitourinary: Genitourinary: Reports no additional female genitourinary complaints and Denies urinary incontinence Musculoskeletal: Musculoskeletal: Reports no additional musculoskeletal complaints, Denies back pain, Denies arthralgias, Denies joint swelling, Denies neck pain, Denies numbness and Denies tingling Integumentary/Breasts: Skin/Breast: Reports system reviewed and no additional complaints, except as docu and Denies rash Neurologic: Reports system reviewed and no additional complaints, except as documented, Denies Abnormal speech present, Denies dizziness, Denies headache(s), Denies numbness, Denies tingling and Reports weakness PMFSH Past Medical History Attestation statement: The following information was validated with the patient. Source: old records reviewed and nursing notes reviewed Medical History Goiter Hypercalcemia Hyperparathyroidism Vitamin D deficiency Surgical History History of surgery History of umbilical hernia repair Hx of section Family History Family History Father Diabetes Hypertension Alzheimer disease FH: prostate cancer Emphysema of lung Mother Hypertension Diabetes Social History Social History Alcohol intake: never Patient Tobacco Use Status: Never used Tobacco Smoked in Last 30 Days: No Advance Directives: No Advance Directives Information Provided: Yes Patient : No Physical Exam Vital Signs: Vital Signs: Last Vital Signs Temp 97.9 F 11/29/22 07:48 Pulse 104 H 11/29/22 07:48 Resp 18 11/29/22 07:48 BP 138/89 11/29/22 07:48 Pulse Ox 96 11/29/22 07:48 O2 Del Method 11/29/22 07:48 BMI result Body Mass Index 27.4 Const: General: cooperative, healthy appearing, comfortable and no acute distress Orientation/consciousness: patient oriented x3 Limitations: no limitations HEENT: Head: Yes normal to inspection Ears: hearing grossly normal bilaterally and TM's normal bilaterally General nose exam: Normal external nose present Face and sinus: Yes normal facial exam Mouth: Normal oral and palatal mucosa present Throat: Yes posterior oropharynx normal, Yes tonsils normal and Yes uvula midline Eyes: General: appearance normal, both eyes and all related structures Pupils: Equal, round and reactive pupils present Neck: Neck: Yes normal visual inspection, Yes full ROM, Yes no lymphadenopathy and Yes no meningeal signs Chest: Chest palpation & inspection: normal inspection of the chest Resp: Effort & Inspection: normal respiratory effort Auscultation: clear to auscultation bilaterally Cardio: Rate: regular rate Rhythm: regular rhythm Peripheral pulses: Peripheral pulses 2+ throughout GI: Inspection: Yes normal to inspection Palpation (GI): Soft to palpation and nontender Auscultation: normal bowel sounds Back/Spine/Pelvis: Thoracic/Lumbar Spine: thoracic and lumbar spine normal to inspection Skin: General skin exam: no rashes or lesions noted Neuro: General: patient oriented x3, no meningeal signs, no focal motor deficits and normal sensation to monofilament Cranial nerves: Yes Equal, round and reactive pupils present Cognition (Neuro): normal cognition Speech: No Abnormal speech present Gait exam (Neuro): Normal gait present Motor exam (neuro): 5/5 motor strength present throughout Extrem: General: Yes normal to inspection, Yes no pedal edema and Yes no calf tenderness Medical Decision Making Medical Decision Making [facility] Narrative: 42-year-old female here with flu-like symptoms for 3 days. Vitals stable. Lungs clear. Abdomen soft nontender. Likely viral syndrome. Will send testing for flu, COVID, RSV Differential Diagnosis Differential Diagnoses: The differential diagnosis associated with the presentation includes Viral syndrome, influenza Lab Data [facility] Lab Attestation statement: I reviewed the patient's lab results. Labs: Lab Results 11/29/22 Range/Units 08:43 Influenza Type A (PCR) NEGATIVE (Negative) Influenza Type B (PCR) NEGATIVE (Negative) RSV RNA Qual (PCR) NEGATIVE (Negative) SARS-CoV-2 RNA (RT-PCR) POSITIVE A (Negative) Prescription Management I considered prescription management with: Antiviral COVID screen is positive. I did consider Paxlovid and discuss this with the patient. However due to her GI symptoms already I did not think that it would be helpful and may actually be harmful This was discussed with the patient and she was agreeable plan of care Discharge Plan Discharge Clinical Impression: COVID-19 Patient Disposition: Home, Self-Care Instructions: COVID-19 (Coronavirus Disease 2019) (ED) Additional Instructions: Tu positivo por COVID. Por favor, ponga en cuarentena ángel 5 d?as y luego use saravanan mascarilla ángel 5 d?as m?s. Aumenta los l?quidos, descansa. Alterne Motrin o Tylenol si es posible seg?n sea necesario para el dolor o la fiebre Discutimos que hay un medicamento disponible para COVID, sin embargo, tiene efectos secundarios de v?mitos y diarrea, por lo que creo que esto lo philomena?a sentir peor. Por lo tanto, no estamos prescribiendo lucien medicamento. Regrese si hay s?ntomas que empeoran. Your positive for COVID. Please quarantine for 5 days then mask up for additional 5 more days. Increase fluids, rest. Alternate Motrin or Tylenol if able as needed for pain or fever We discussed that there is an available medication for COVID however it has side effects of vomiting and diarrhea so I believe this would make you feel worse. Therefore we are not prescribing this medication. Please return for any worsening symptoms Prescriptions: New ondansetron 4 mg tablet,disintegrating 4 mg PO Q6H PRN (Reason: nausea and vomiting) Qty: 10 0RF benzonatate 200 mg capsule 200 mg PO TID PRN (Reason: cough) Qty: 30 0RF No Action montelukast 10 mg tablet 1 tab PO BEDTIME hydroxyzine pamoate 25 mg capsule 1 cap PO BID PRN (Reason: Anxiety) citalopram 20 mg tablet 20 mg PO DAILY cholecalciferol (vitamin D3) 50 mcg (2,000 unit) capsule 50 mcg PO DAILY 30 Days Qty: 30 11RF Referrals: Temi Herrera NP [Primary Care Provider] - 1 week Interventions: ED Discharge Assessment Last Done: 11/29/22 10:05 Discharge Date/Time: 11/29/22 10:05 Print Language: Wallisian
[2022-11-29 09:45] LABS: Influenza A PCR NEGATIVE (Negative); Influenza B PCR NEGATIVE (Negative); Resp Syncy Virus RNA Qual PCR NEGATIVE (Negative); SARS COV2 PCR INHOUSE POSITIVE (Negative)
== END 2022-11-29 10:05 | disposition home or self-care (01) ==
PROVIDERS: Emergency Provider Emergency Medicine; PCP Registered Nurse Community Health
DX: U07.1 COVID-19 (principal)
CPT/HCPCS: 0241U; 99283; 99284

== ENCOUNTER 2023-01-26 10:51 | Outpatient (REF) | payer MEDICAID, SELFPAY ==
--- NOTE | ~2023-01-26 | US_ITS ---
EXAMINATION: US PELVIS CLINICAL INFORMATION: Ovarian cyst. COMPARISON: Pelvic ultrasound 10/14/2022. TECHNIQUE: Ultrasound of the pelvis is performed using both transabdominal and transvaginal transducers along with Doppler. Transvaginal imaging is performed due to inadequate visualization transabdominally. FINDINGS: UTERUS: The uterus is anteverted and enlarged measuring 12.1 x 6.7 x 8.3 cm for a volume of 352 mL. The double wall endometrial thickness is 1.0 cm. 3 uterine fibroids are measured, ranging in size from 2 cm to 4.4 cm. There has been no significant interval change when compared to the prior study. ADNEXA: Both ovaries are visualized. There is normal color flow to the adnexa. There is no ovarian torsion. There is no pelvic ascites or fluid collection. Right ovary measures 3.9 x 2.4 x 2.0 cm for a volume of 9.8 mL. A single benign-appearing cyst present measuring 1.6 cm. The previously seen 2.7 cm complex right ovarian cyst is no longer present. Left ovary measures 3.3 x 2.3 x 2.5 cm for a volume of 9.9 mL with small follicular cysts. A tiny amount of free fluid is present adjacent to the left ovary as well as in the cul-de-sac. US/US pelvic and transvaginal IMPRESSION: 1. Multiple uterine fibroids without significant change. 2. Resolved complex right ovarian cyst.
== END 2023-01-26 10:52 | disposition home or self-care (01) ==
LOC: HO.US 10:51
PROVIDERS: PCP Registered Nurse Community Health; Visit Provider Obstetrics & Gynecology
DX: D25.9 Leiomyoma of uterus, unspecified (principal); N83.299 Other ovarian cyst, unspecified side
CPT/HCPCS: 76830; 76856

== ENCOUNTER → 2023-02-09 10:15 | Outpatient (BNVA) | payer MEDICAID, SELFPAY | PROVIDERS: PCP Registered Nurse Community Health; Visit Provider Obstetrics & Gynecology | DX: N83.299 Other ovarian cyst, unspecified side (principal); D25.9 Leiomyoma of uterus, unspecified | CPT/HCPCS: 99212 ==

== ENCOUNTER 2023-02-15 | Outpatient (REF) | payer MEDICAID, SELFPAY ==
[2023-02-17 13:29] LABS: OBS Int Ctl Valid YES; OBS1 NEGATIVE (NEGATIVE); OBS2 NEGATIVE (NEGATIVE); OBS3 NEGATIVE (NEGATIVE)
== END 2023-02-15 00:01 | disposition home or self-care (01) ==
LOC: HO.LNP
PROVIDERS: Visit Provider Registered Nurse
DX: R10.13 Epigastric pain (principal)
CPT/HCPCS: 82270

== ENCOUNTER 2023-03-09 12:51 | Outpatient (REF) | payer MEDICAID, SELFPAY ==
--- NOTE | ~2023-03-09 | US_ITS ---
EXAMINATION: US SOFT TISSUE OF THE NECK CLINICAL INFORMATION: Dysphagia. History of thyroid dysfunction. COMPARISON: Ultrasound soft tissue head/neck thyroid dated 12/09/2020. TECHNIQUE: Linear transducer grayscale and color Doppler examination of the midline neck proximal to distal. FINDINGS: Imaging through the midline neck there is no soft tissue mass, nodules or lymph nodes seen. US/US soft tiss head and/or neck IMPRESSION: Unremarkable ultrasound of the soft tissue of the neck.
== END 2023-03-09 12:52 | disposition home or self-care (01) ==
LOC: HO.US 12:51
PROVIDERS: Visit Provider Registered Nurse
DX: R13.10 Dysphagia, unspecified (principal)
CPT/HCPCS: 76536

== ENCOUNTER 2023-03-28 10:22 | Outpatient (REF) | payer MEDICAID, SELFPAY ==
[2023-03-28 11:46] LABS: Alanine Aminotransferase 14 U/L (0-31); Albumin Level 4.2 g/dL (3.5-5.0); Alkaline Phosphatase 46 U/L (39-117); Anion Gap 9 (12-20); Aspartate Amino Transferase 14 U/L (5-31); Bilirubin Total 0.6 mg/dL (0.0-1.0); Blood Urea Nitrogen 15 mg/dL (9-16); Calcium 9.3 mg/dL (8.4-10.2); Carbon Dioxide 28 mmol/L (22-29); Chloride 105 mmol/L (96-108); Estimated Glomerular Filt Rate > 60; Glucose Random 81 mg/dL (60-115); Phosphorus 2.8 mg/dL (2.7-4.5); Potassium 4.2 mmol/L (3.3-5.1); Sodium 138 mmol/L (135-145); Total Protein 7.1 g/dL (6.5-8.0)
[2023-03-28 12:05] LABS: Free T4 (Free Thyroxine) 0.95 ng/dL (0.71-1.85); Thyroid Stimulating Hormone 1.07 uIU/mL (0.32-4.0)
[2023-03-29 16:25] LABS: Calcium (PTHI) 9.6 mg/dL (8.6-10.2); PTHI 98 pg/mL (16-77)
== END 2023-03-28 10:23 | disposition home or self-care (01) ==
LOC: HO.LAB 10:22
PROVIDERS: Visit Provider Internal Medicine
DX: E55.9 Vitamin D deficiency, unspecified (principal); E04.9 Nontoxic goiter, unspecified; E21.3 Hyperparathyroidism, unspecified
CPT/HCPCS: 36415; 80053; 82306; 83970; 84100; 84439; 84443

== ENCOUNTER 2023-03-30 10:56 | Outpatient (REF) | payer MEDICAID, SELFPAY ==
[2023-03-30 11:58] LABS: Creatinine, mg/dL 97.32
[2023-03-30 14:13] LABS: Creatinine, 24Hr Urine 1.2 G/Day (1.0-2.0); Total Volume 24 Hour Urine 1225 mL
[2023-04-01 17:03] LABS: Calcium, 24 Hr Urine 246 mg/24 h; Calcium/Creatinine Ratio 203 mg/g creat (30-275); Creatinine 24Hr Urine 1.21 g/24 h (0.50-2.15)
== END 2023-03-30 10:57 | disposition home or self-care (01) ==
LOC: HO.LNP 10:56
PROVIDERS: Visit Provider Internal Medicine
DX: E21.3 Hyperparathyroidism, unspecified (principal)
CPT/HCPCS: 82340; 82570

== ENCOUNTER → 2023-04-04 08:42 | Outpatient (BNVA) | payer MEDICAID, SELFPAY | PROVIDERS: PCP Registered Nurse Community Health; Visit Provider Internal Medicine | DX: E21.3 Hyperparathyroidism, unspecified (principal); E55.9 Vitamin D deficiency, unspecified | CPT/HCPCS: 99212 ==

== ENCOUNTER 2023-06-07 12:10 | Emergency (ER) | payer MEDICAID, SELFPAY ==
[2023-06-07 12:42] VITALS: BP 132/70; PULSE 93; RESP 18; TEMP 36.1; O2SAT 100; BMI 26.6
--- NOTE | 2023-06-07 12:43 | ED.GENADULT ---
HPI - General Adult General Chief complaint: Upper Respiratory Symptoms Stated complaint: Not Feeling Well Time Seen by Provider: 06/07/23 15:01 Source: patient, RN notes reviewed and certified court/medical interpreter Mode of arrival: ambulatory Limitations: language barrier History of Present Illness HPI narrative: This is a 42-year-old female, with a past medical history of asthma, presenting to the emergency department with complaints of sore throat, congestion, cough, body aches x4 days. No shortness of breath. Patient endorses subjective fevers. She reports she has been unable today use her albuterol solution as she has been without this medication at home. She has been taking TheraFlu for her symptoms without any relief. Last dose was this morning. No sick contacts. No abdominal pain, nausea or diarrhea. No urinary symptoms. No other complaints or concerns at this time. Onset (ago): day(s) Relieving factors: none Exacerbating factors: none Associated symptoms: cough, fever/chills and shortness of breath Treatments prior to arrival: none Related Data Home Medications Medication Instructions Recorded Confirmed citalopram 20 mg tablet 20 mg PO DAILY 01/14/21 04/04/23 hydroxyzine pamoate 25 mg capsule 1 cap PO BID PRN Anxiety 09/06/22 04/04/23 montelukast 10 mg tablet 1 tab PO BEDTIME 09/06/22 04/04/23 Previous Rx's Medication Instructions Recorded cholecalciferol (vitamin D3) 50 50 mcg PO DAILY 30 days #30 caps 10/11/22 mcg (2,000 unit) capsule benzonatate 200 mg capsule 200 mg PO TID PRN cough #30 caps 11/29/22 ondansetron 4 mg disintegrating 4 mg PO Q6H PRN nausea and 11/29/22 tablet vomiting #10 tabs albuterol sulfate 2.5 mg/3 mL 2.5 mg (3 mL) inhalation QID PRN 06/07/23 (0.083 %) solution for nebulization shortness of breath or wheezing #75 mL benzonatate 200 mg capsule 200 mg PO TID PRN cough #14 caps 06/07/23 Allergies Allergy/AdvReac Type Severity Reaction Status Date / Time aspirin Allergy Unknown swelling Verified 06/07/23 12:42 Review of Systems Review of Systems: Yes all other systems are reviewed and are negative Constitutional: Constitutional: Reports as per HPI [facility] Past Medical History Medical History Goiter Hypercalcemia Hyperparathyroidism Vitamin D deficiency Surgical History History of surgery History of umbilical hernia repair Hx of section Family History Family History Father Diabetes Hypertension Alzheimer disease FH: prostate cancer Emphysema of lung Mother Hypertension Diabetes Social History Social History Alcohol intake: never Patient Tobacco Use Status: Never used Tobacco Advance Directives: No Advance Directives Information Provided: No Physical Exam ED Vital Signs: Vital Signs - 24 hr 06/07/23 12:42 06/07/23 15:03 06/07/23 15:10 Temperature 96.9 F 99.0 F Pulse Rate 93 77 Respiratory Rate 18 16 Blood Pressure 132/70 124/73 Pulse Oximetry 100 100 Oxygen Delivery Method Room Air Room Air 06/07/23 15:11 Temperature Pulse Rate Respiratory Rate Blood Pressure Pulse Oximetry 100 Oxygen Delivery Method Room Air BMI result Body Mass Index 26.6 Const General: cooperative, comfortable and no acute distress Orientation/consciousness: patient oriented x3 Limitations: no limitations HENMT Other: Posterior oropharynx is mildly erythematous, no tonsillar hypertrophy or exudates noted, uvula is midline. No trismus or drooling. Head: Yes normal to inspection, Yes normocephalic and Yes atraumatic Ears: hearing grossly normal bilaterally and TM's normal bilaterally General nose exam: Normal external nose present Face and sinus: Yes normal facial exam Throat: Yes posterior oropharynx normal Eyes General: appearance normal, both eyes and all related structures Eyelids: Yes eyelids normal Conjunctivae: conjunctivae normal Sclerae: sclerae normal Pupils: Equal, round and reactive pupils present EOM: EOMs intact bilaterally Neck Neck: Yes normal visual inspection, Yes full ROM and Yes no lymphadenopathy Lymphatic: no lymphadenopathy noted Chest Chest palpation & inspection: normal inspection of the chest Resp Effort & Inspection: normal respiratory effort and able to speak in complete sentences Auscultation: clear to auscultation bilaterally, no crackles, no rales, no rhonchi and no wheezes Cardio Rate: regular rate Rhythm: regular rhythm Heart sounds: S1 normal heart sound present and S2 normal heart sound present GI Inspection: Yes normal to inspection Skin General skin exam: no rashes or lesions noted Trauma: no lacerations or abrasions Wounds: no wounds Neuro General: patient oriented x3 and moves all extremities Cranial nerves: Yes Equal, round and reactive pupils present Extrem General: Yes normal to inspection Right upper extremity: normal to inspection Left upper extremity: normal to inspection Right lower extremity: normal to inspection Left lower extremity: normal to inspection Course Course Course Narrative: RME- 42-year-old female presents for evaluation of sinus congestion, sore throat, cough. Plan for strep test and COVID test Medical Decision Making Medical Decision Making [facility] Narrative: 42-year-old female presenting to the emergency department for evaluation of congestion, sore throat, body aches, cough, and shortness of breath. On arrival, all vital signs within normal limits, oxygen saturation 100% on room air. Oropharynx is mildly erythematous, no tonsillar hypertrophy or exudates. Lungs clear to auscultation bilaterally. Normal respiratory effort. Strep testing, and COVID testing negative today. Patient has no sinus tenderness on examination, vital signs within normal limits, lungs clear to auscultation bilaterally. Patient symptoms likely viral, will discharge with conservative measures. Given lungs are clear to auscultation bilaterally and vital signs are within normal limits I am deferring chest x-ray at this time. Advised to drink plenty of fluids get plenty of rest. Discussed the importance of following up with primary care physician regarding this visit and to return if any new or worsening symptoms occur. Patient understands and agrees with plan. Patient stable for discharge. Plan: Viral swab, strep test Differential Diagnosis Differential Diagnoses: The differential diagnosis associated with the presentation includes Viral syndrome, upper respiratory infection, sinusitis, pharyngitis, pneumonia-unlikely, strep pharyngitis Lab Data [facility] Lab Attestation statement: I reviewed the patient's lab results. See above Labs: Lab Results 06/07/23 06/07/23 Range/Units 15:05 15:05 COVID-19 (SANJAY) Negative (Negative) COVID-19 Clin Com See Note S. pyogenes GrpA DEBORA Negative (Negative) Radiology Impression Discussion of test interpretation with radiology: I have reviewed the radiologist's reading. Discharge Plan Discharge Clinical Impression: Acute viral syndrome, Cough Patient Disposition: Home, Self-Care Instructions: Viral Syndrome (ED), Cold Symptoms (ED), Acute Cough (ED) Additional Instructions: You tested negative for COVID today. You likely have a virus causing you to have the symptoms. You do not need antibiotics at this time to treat your symptoms. Please drink plenty of fluids, and get plenty of rest. Take ibuprofen and Tylenol as needed for your symptoms. Please follow-up with your primary care physician, call tomorrow to make an appointment. If any new or worsening symptoms occur please return for re-evaluation. Prescriptions: New benzonatate 200 mg capsule 200 mg PO TID PRN (Reason: cough) Qty: 14 0RF albuterol sulfate 2.5 mg /3 mL (0.083 %) solution for nebulization 2.5 mg inhalation QID PRN (Reason: shortness of breath or wheezing) Qty: 75 0RF No Action montelukast 10 mg tablet 1 tab PO BEDTIME hydroxyzine pamoate 25 mg capsule 1 cap PO BID PRN (Reason: Anxiety) ondansetron 4 mg tablet,disintegrating 4 mg PO Q6H PRN (Reason: nausea and vomiting) Qty: 10 0RF benzonatate 200 mg capsule 200 mg PO TID PRN (Reason: cough) Qty: 30 0RF citalopram 20 mg tablet 20 mg PO DAILY cholecalciferol (vitamin D3) 50 mcg (2,000 unit) capsule 50 mcg PO DAILY 30 Days Qty: 30 11RF Interventions: ED Discharge Assessment Last Done: 06/07/23 16:51 Discharge Date/Time: 06/07/23 16:52
[2023-06-07 15:03] VITALS: BP 124/73; PULSE 77; RESP 16; O2SAT 100
[2023-06-07 15:10] VITALS: TEMP 37.2
[2023-06-07 15:11] VITALS: O2SAT 100
--- NOTE | 2023-06-07 15:12 | PC.NURSE ---
pt a&ox3. respirations even and unlabored o2 sats 100%.pt resting comfortably.
[2023-06-07 15:20] LABS: IDNOW Serial# 08D9AD1C; Strep A Nucleic Acid Negative (Negative)
[2023-06-07 15:28] LABS: COVID-19 Test Negative (Negative); IDNOW Serial# BCCEAD1C
== END 2023-06-07 16:52 | disposition home or self-care (01) ==
PROVIDERS: Physician Assistant; Emergency Provider Emergency Medicine; PCP Registered Nurse
DX: B34.9 Viral infection, unspecified (principal); J02.9 Acute pharyngitis, unspecified; Z20.822 Contact with and (suspected) exposure to COVID-19; Z20.828 Contact with and (suspected) exposure to other viral communicable diseases; Z79.899 Other long term (current) drug therapy
CPT/HCPCS: 87635; 87651; 99283; 99284

== ENCOUNTER 2023-06-27 11:08 | Outpatient (AMB) | payer MEDICAID, SELFPAY ==
--- NOTE | 2023-06-27 11:09 | MHC.OFFVIS ---
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 No complaints. Ultrasound done in 02/03 showed multiple uterine myomas. Last Pap/HPV was negative in 08/05 Last Mammogram was BI-RADS 2 in 09/04 [facility] Medical History Goiter Hypercalcemia Hyperparathyroidism Vitamin D deficiency Surgical History History of surgery History of umbilical hernia repair Hx of section Family History Father Diabetes Hypertension Alzheimer disease FH: prostate cancer Emphysema of lung Mother Hypertension Diabetes Social History Household Members: Spouse Household Members Other:: son Housing: Apartment Alcohol intake: never Patient Tobacco Use Status: Never used Tobacco Current occupational status: unemployed Sexually active: Yes Sexual orientation: Straight/Heterosexual Gender identity: Female Female Reproductive History Menstrual Age of Menarche: 13 Duration of menses: 3-5 days Date of last menstrual period: 06/12/23 Total pregnancies: 1 Full term: 1 Number of Living Children: 1 Date of last pap smear: 07/16/22 Date of Mammogram: 08/17/22 Review of Systems Const All systems reviewed & are unremarkable except as noted in HPI and below Card Reports as per HPI Resp Reports as per HPI GI Reports as per HPI and Reports no additional complaints Reports as per HPI Physical Exam Vital Signs: BMI result Body Mass Index 26.5 Const General: cooperative, healthy appearing and comfortable Chest Chest palpation & inspection: normal inspection of the chest and normal palpation of entire chest wall Breast/axilla inspection: normal inspection of the breasts and normal inspection of the axillae Breast/axilla palpation: normal palpation of the breasts, normal palpation of the axillae and no axillary lymphadenopathy Resp Effort & Inspection: normal respiratory effort Auscultation: clear to auscultation bilaterally Percussion: percussion normal Cardio Palpation: normal PMI Rate: regular rate Rhythm: regular rhythm Heart sounds: no murmurs and no rubs Peripheral pulses: Peripheral pulses 2+ throughout GI Inspection: Yes normal to inspection Palpation (GI): Soft to palpation, nontender, no guarding, not rigid and No hepatosplenomegaly present Percussion: Yes normal to percussion Auscultation: normal bowel sounds Rectal Exam - Female: deferred General: Yes bladder normal to palpation External Female Exam: No lesion Speculum Exam - Vagina: normal appearance of the vagina, normal palpation, normal vaginal discharge and not erythematous Speculum Exam - Cervix: normal appearance of the cervix and normal palpation Bimanual exam- vagina & uterus: normal bimanual exam, normal palpation, uterine size normal, bladder normal to palpation, consistency normal and normal palpation Bimanual Exam- Adnexa, other: normal adnexae, no masses and no tenderness Assessment & Plan Assessment & Plan (1) Well woman exam: Code(s): Z01.419 - Encounter for gynecological examination (general) (routine) without abnormal findings Plan: Cotesting not indicated this year. Mammogram ordered. Counseled the patient about the recommended dietary allowance of 1000 mg of Calcium & 600 IU of vitamin D. The patient was instructed to perform monthly self-breast exams and to schedule an annual exam in a year; All questions answered and the patient verbalized understanding. Instructed the patient to schedule annual exam in a year (2) Uterine myoma: Code(s): D25.9 - Leiomyoma of uterus, unspecified Plan: Will order pelvic ultrasound to follow-up on the previous identified myomas on an ultrasound done in 02/03. Instructions given the patient to schedule a follow-up ultrasound appointment in few weeks. Orders: Orders MM screening mammo BI Today Z12.31 - Encounter for screening mammogram for malignant neoplasm of breast US pelvic and transvaginal Today D25.9 - Leiomyoma of uterus, unspecified Coding Level of Care Code Est Pt Prev Care 40-64y(25131) Diagnoses Well woman exam Z01.419 Uterine myoma D25.9
[2023-06-27 11:10] VITALS: BP 120/72; BMI 26.5
== END 2023-06-27 11:54 | disposition home or self-care (01) ==
LOC: HO.HWS 11:08
PROVIDERS: PCP Registered Nurse; Visit Provider Obstetrics & Gynecology
DX: Z01.419 Encounter for gynecological examination (general) (routine) without abnormal findings (principal); D25.9 Leiomyoma of uterus, unspecified
CPT/HCPCS: 99396

== ENCOUNTER → 2023-06-27 11:08 | Outpatient (BNVA) | payer MEDICAID, SELFPAY | PROVIDERS: PCP Registered Nurse; Visit Provider Obstetrics & Gynecology ==

== ENCOUNTER 2023-07-05 10:52 | Outpatient (REF) | payer MEDICAID, SELFPAY ==
--- NOTE | ~2023-07-05 | US_ITS ---
EXAMINATION: US PELVIS COMPLETE CLINICAL INFORMATION: Uterine fibroids; the last menstrual period was on 06/12/2023. COMPARISON: Pelvic ultrasound dated 01/26/2023. TECHNIQUE: Transabdominal and transvaginal imaging were performed. FINDINGS: The uterus is of normal size and echogenicity, measuring 12.1 x 8 0.5, 8.1 cm. The uterus is anteverted. A regular, homogeneous endometrium is identified measuring 1.7 cm. Nabothian cysts are seen within the cervix. FIBROIDS: There are 4 fibroids seen. 1. Location: Upper rightward body, myometrial. Size: 3.6 x 3.8 x 3.4 cm. Prior: 4.0 x 3.6 x 4.4 cm. Fibroid characteristics: Allergies echotexture. 2. Location: Lower rightward body, myometrial. Size: 2.5 x 2.2 x 2.2 cm. Prior: 3.1 x 3.4 x 3.0 cm. Fibroid characteristics: Heterogeneous echotexture. 3. Location: Mid leftward body, myometrial. Size: 3.7 x 4.0 x 4.2 cm. Prior: 2.9 x 2.9 x 2.8 cm. Fibroid characteristics: Heterogeneously hyperechoic. 4. Location: Mid fundal, subserosal. Size: 1.8 x 1.5 x 1.9 cm. Prior: Not seen. Fibroid characteristics: Hypoechoic. Both ovaries are of normal size and echogenicity. The right ovary measures 4.9 x 2.0 x 2.6 cm for a volume of 13.3 mL. The left ovary measures 3.3 x 2.7 x 2.2 cm for a volume of 10.3 mL. Physiologic follicles are seen within the bilateral ovaries. There is no pelvic free fluid. US/US pelvic and transvaginal IMPRESSION: 1. There is increased endometrial thickness to 1.7 cm. Gynecology evaluation management is recommended, with consideration for tissue sampling. 2. There are multiple uterine fibroids again seen. 3. Nabothian cysts are seen within the cervix.
== END 2023-07-05 10:53 | disposition home or self-care (01) ==
LOC: HO.US 10:52
PROVIDERS: PCP Registered Nurse; Visit Provider Obstetrics & Gynecology
DX: D25.9 Leiomyoma of uterus, unspecified (principal)
CPT/HCPCS: 76830; 76856

== ENCOUNTER 2023-07-08 09:58 | Outpatient (AMB) | payer MEDICAID, SELFPAY ==
--- NOTE | 2023-07-08 10:00 | MHC.OFFVIS ---
Intake Vital Signs 07/08/23 10:04 Height 5 ft 4 in Weight 156 lb 15.506 oz BMI 26.9 BP 131/81 Blood Pressure Location Lt brachial Position Sitting Pulse 90 Intake Visit Reasons: Epigastric Pain Intake Note: Patient presents to in office visit today as a new patient for epiagastric pain. CC: Patient c/o tiredness, weakness, and about 10 years of episodes of sudden excrutiating abdominal pain. She states she feels pain comes for her intestines, and she gets diarrhea, vomiting and sweats when she gets pain. She states sometimes pain wakes her up. Per patient she gets about 3 episodes of excruciating abdominal pain per year. Patient states that she also suffers from constipation. Reports blood in stool in the past, rectal pressure, and pain. Last episode was a few weeks ago, and states I feel like Im going to when I get this pain . Manager Leadership Development Required: Yes Accompanied by: Spouse Allergies aspirin Allergy (Unknown, Verified 06/27/23 11:13) swelling HPI Epigastric Pain HPI Details 42-year-old female here for initial evaluation of epigastric pain. She is referred by Haydee Jacinto NP of [facility]. PMX Hyperparathyroidism Dysphagia Uterine leiomyoma Hepatomegaly Chronic low back pain/generalized arthralgias a Anxiety/depression Varicose veins History of chronic abdominal pain * SURGICAL HISTORY section Umbilical hernia repair * ALLERGIES Aspirin-anaphylaxis * [employer] LABS: Laboratory Tests 03/28/23 03/28/23 10:40 10:40 Estimated GFR > 60 Total Bilirubin 0.6 AST 14 ALT 14 Alkaline Phosphata se 46 TSH 1.07 PTH Intact 98 H Calcium (PTH Intac t) 9.6 Review of [address] Dunaway RECAP ?chronic abdominal pain for years ?intestines feel twisted in side, usu around umbilicus, cramps a lot ?she sweats and she has nausea and vomiting, diarrhea ?attacks last for 30 mins at a time ?can be intermittent can go days or weeks without attacks ?there are no triggers she has identiifed, can happen at any time 1. Periumbilical abdominal pain - R 10.33 (Primary) 1/ episodic attac ks of abdominal pa in, with sweats, n ausea and diarrhea , no triggers samantha ntified ddx: hormo ne secreting tumou rs, phaeo, carcino id, mast cell d/o , mastocytosis, fo od allergies, IBD madi crohns, intus sception PLAN: 1/ labs with only fi nding of mild egg white allergy, ra ised cortisol--ref er endocrinology 2/ EGd, colonsocop y, may need VCE, t dinesh bx for mast c ell staining 3/ c ont with levsin as needed, miralax 4/ she can try av oiding eggs see if helps symptoms or not time sent 15 mins. Treatment1.?Perium bilical abdominal pain? Start SuPre p Bowel Prep Kit ( Na Sulfate-K Sulf ate-Mg Sulfate) So lution, 17.5g/1.13 g/1.6g per 6 ounce s, Follow instruc tion sheet given t o you at your doct or's office, Orall y, as directed, 1 day, 1 kit, Refil ls 0 ?IMAGING: Colonoscopy ? IMAGING: EGD Follow Up3 Months after endoscopies and endocrine appt m THE EGD/COLONOSCOPY WERE NEVER OBTAINED. TODAY'S VISIT [place] # [place] She has had troubles for many years (10 years) with HB, diarrhea, vomiting, and a feeling like her intestines are gathering together and then she has pain that leads to N/V. She will have sweating and feel very weak. The pain starts periumbilically but when it is bad will radiate down to her midline to her rectum. This happens 4-5 times a year. She does not feel it is food related as it can start, sometimes, in the middle of the night. There is no consistent time of onset. It iwll be a 10/10 and will last 30 minutes and is colicky in nature. She will have the pain r/t when she tries to take laxatives or teas to lose weight. She admits she suffers CIC. She will only move her bowels every 3-4 days and the stools are hard and she has only had some success with mag citrate which she takes not very often but this also causes her pain. Her father has similar problems and she has an older aunt who will get very weak with this. She does not remember ever seeing Dr. Dunaway in the past I have only been in the ER. She has not been good about following up with endo and is not on any diuretic therapy. She generally does not like to take medications. She has troubler swallowing pills and frequently she has to crush them. She has an extreme fear of choking since childhood and she has anxiety. She has GERD and is on famotidine but she only take is prn. She has a FHX of crc and polyps in her father, but she fears prepping for scope r/t fear of invoking the pain. ROV 5 weeks. PFS Medical History Chronic abdominal pain Goiter Hypercalcemia Hyperparathyroidism Vitamin D deficiency Surgical History History of surgery History of umbilical hernia repair Hx of section Family History Father Diabetes Hypertension Alzheimer disease FH: prostate cancer Emphysema of lung Mother Hypertension Diabetes Social History Household Members: Spouse Household Members Other:: son Housing: Apartment Alcohol intake: never Patient Tobacco Use Status: Never used Tobacco Current occupational status: unemployed Sexual orientation: Straight/Heterosexual Gender identity: Female Female Reproductive History Menstrual Age of Menarche: 13 Review of Systems Const Denies fatigue, Denies fever(s), Denies night sweats, Denies poor appetite and Denies weight loss ENT Reports Normal hearing present, Denies dental pain, Reports dysphagia, Denies hearing loss, Denies mouth pain, Denies odynophagia, Denies throat swelling, Denies tongue swelling and Reports other (Dentition adequate) Card Reports no additional complaints Resp Reports no additional complaints GI Reports abdominal pain, Denies melena, Reports bloating, Denies hematochezia, Reports constipation, Denies GI cramping, Reports dysphagia, Denies excessive flatus, Denies early satiety, Reports heartburn, Denies diarrhea, Reports nausea, Denies odynophagia, Denies vomiting and Denies hematemesis Skin/Breast Denies pruritus, Denies lesions, Denies rash and Denies jaundice Neuro Reports Normal hearing present and Denies Abnormal speech present Psych Reports anxiety Endo Denies fatigue Aller/Immun Denies throat swelling and Denies tongue swelling Physical Exam Vital Signs: Last Vital Signs Pulse 90 07/08/23 10:04 BP 131/81 07/08/23 10:04 BMI result Body Mass Index 26.9 Const General: cooperative, no acute distress, well developed and well groomed Nutritional Appearance: average body habitus and well nourished Orientation/consciousness: oriented to person, oriented to place and oriented to time Limitations: language barrier HEENT Head: Yes normocephalic and Yes atraumatic Eyes General: appearance normal, both eyes and all related structures Pupils: Equal, round and reactive pupils present Neck Neck: Yes normal visual inspection and Yes no lymphadenopathy Thyroid: Thyroid normal Resp Effort & Inspection: normal respiratory effort and able to speak in complete sentences Auscultation: clear to auscultation bilaterally Cardio Rate: regular rate Rhythm: regular rhythm Heart sounds: Normal, physiologic split S2 sound present Peripheral pulses: radial pulses present and posterior tibial pulses present GI Inspection: Yes distended, No Abdominal panniculus present, Yes obesity, Yes scar and Yes striae Palpation (GI): Soft to palpation, Tenderness to palpation present (GI) periumbilically, no guarding, not rigid and No hepatosplenomegaly present Percussion: Yes normal to percussion Auscultation: normal bowel sounds Rectal Exam - Female: deferred Abdomen image: 1. surgical scar Skin General skin exam: no rashes or lesions noted, turgor normal, skin not dry, no jaundice, No spider nevi and no striae Rashes: no rashes Nails: normal Neuro General: oriented to person, oriented to place and oriented to time Cranial nerves: Yes Equal, round and reactive pupils present and Yes Normal hearing present Speech: No Abnormal speech present Extrem General: Yes normal to inspection, No clubbing, No cyanosis and No edema Psych Appearance: grossly normal and well kempt Mental Status: mental status grossly normal Speech and movement: Normal speech and movement present Affect: normal affect Attitude: cooperative Thought process: Normal thought process present and not confabulating Thought content: Normal thought content present Insight: Limited insight present (Psych) Judgement: Limited judgement present (Psych) Assessment & Plan Assessment & Plan (1) Chronic abdominal pain: Code(s): R10.9 - Unspecified abdominal pain; G89.29 - Other chronic pain Plan: [place] # [place] She has had troubles for many years (10 years) with HB, diarrhea, vomiting, and a feeling like her intestines are gathering together and then she has pain that leads to N/V. She will have sweating and feel very weak. The pain starts periumbilically but when it is bad will radiate down to her midline to her rectum. This happens 4-5 times a year. She does not feel it is food related as it can start, sometimes, in the middle of the night. There is no consistent time of onset. It iwll be a 10/10 and will last 30 minutes and is colicky in nature. She will have the pain r/t when she tries to take laxatives or teas to lose weight. She admits she suffers CIC. She will only move her bowels every 3-4 days and the stools are hard and she has only had some success with mag citrate which she takes not very often but this also causes her pain. Her father has similar problems and she has an older aunt who will get very weak with this. She does not remember ever seeing Dr. Dunaway in the past I have only been in the ER. She has not been good about following up with endo and is not on any diuretic therapy. She generally does not like to take medications. She has troubler swallowing pills and frequently she has to crush them. She has an extreme fear of choking since childhood and she has anxiety. She has GERD and is on famotidine but she only take is prn. She has a FHX of crc and polyps in her father, but she fears prepping for scope r/t fear of invoking the pain. ROV 5 weeks. (2) Hyperparathyroidism: Code(s): E21.3 - Hyperparathyroidism, unspecified (3) Chronic idiopathic constipation: Code(s): K59.04 - Chronic idiopathic constipation Orders: Orders FL upper GI small bowel 07/08/23 G89.29 - Other chronic pain, K59.04 - Chronic idiopathic constipation, R10.9 - Unspecified abdominal pain Medications: New linaclotide (Linzess) 145 mcg PO QAM 30 caps 3RF G89.29 - Other chronic pain, K59.04 - Chronic idiopathic constipation, R10.9 - Unspecified abdominal pain Coding Level of Care Code New Pt Level 3 (92532) Diagnoses Chronic abdominal pain R10.9; G89.29 Hyperparathyroidism E21.3 Chronic idiopathic constipation K59.04
[2023-07-08 10:04] VITALS: BP 131/81; PULSE 90; BMI 26.9
== END 2023-07-08 11:02 | disposition home or self-care (01) ==
PROVIDERS: PCP Registered Nurse; Visit Provider Nurse Practitioner
DX: R10.9 Unspecified abdominal pain (principal); G89.29 Other chronic pain; E21.3 Hyperparathyroidism, unspecified; K59.04 Chronic idiopathic constipation
CPT/HCPCS: 99203

== ENCOUNTER → 2023-07-08 09:58 | Outpatient (BNVA) | payer MEDICAID, SELFPAY | PROVIDERS: PCP Registered Nurse; Visit Provider Nurse Practitioner | DX: G89.29 Other chronic pain (principal); R10.9 Unspecified abdominal pain; E21.3 Hyperparathyroidism, unspecified; K59.04 Chronic idiopathic constipation | CPT/HCPCS: 99212 ==

== ENCOUNTER 2023-08-09 13:49 | Outpatient (AMB) | payer MEDICAID, SELFPAY ==
--- NOTE | 2023-08-09 14:04 | A.OFFVIS_ITS ---
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 Complaints include swelling and some spider telangiectasias in particular the ankle. It has been affecting there daily activities including walking. It is noted more so in left leg. Patient denies any previous venous surgery or injections. Patient denies any history of DVT/ PE. Patient denies any history of phlebitis. Trial of compression includes - [id number] They now present for vascular evaluation regarding their varicose veins. PFSH Medical History Chronic abdominal pain Goiter Hypercalcemia Hyperparathyroidism Vitamin D deficiency Surgical History History of surgery History of umbilical hernia repair Hx of section Family History Father Diabetes Hypertension Alzheimer disease FH: prostate cancer Emphysema of lung Mother Hypertension Diabetes Social History Household Members: Spouse Household Members Other:: son Housing: Apartment Alcohol intake: never Patient Tobacco Use Status: Never used Tobacco Current occupational status: unemployed Sexual orientation: Straight/Heterosexual Gender identity: Female Female Reproductive History Menstrual Age of Menarche: 13 Review of Systems Const All systems reviewed & are unremarkable except as noted in HPI and below Reports no additional complaints ENT Reports Normal hearing present Card Denies chest pain, Denies chest pain at rest, Denies chest pain with activity and Denies pedal edema Resp Denies cough GI Denies abdominal pain Musc Denies abnormal gait, Denies muscle cramps and Denies radiating pain into limb Skin/Breast Denies skin ulcer and Denies wounds Neuro Reports Normal hearing present and Denies abnormal gait Psych Reports no additional complaints Physical Exam Vital Signs: BMI result Body Mass Index 25.7 Const General: cooperative, healthy appearing and comfortable Orientation/consciousness: oriented to person, oriented to place and oriented to time HEENT Head: Yes normal to inspection Neck Neck: Yes normal visual inspection Carotids: no bruits Chest Chest palpation & inspection: normal inspection of the chest Resp Effort & Inspection: normal respiratory effort and able to speak in complete sentences Auscultation: clear to auscultation bilaterally, no crackles, no rales, no rhonchi and no wheezes Cardio Rate: regular rate Rhythm: regular rhythm Heart sounds: S1 normal heart sound present and S2 normal heart sound present Bruits: no carotid bruits Peripheral pulses: Peripheral pulses 2+ throughout GI Inspection: Yes normal to inspection Skin Wounds: no wounds Hair: normal Neuro General: oriented to person, oriented to place and oriented to time Cranial nerves: Yes CN's II-XII intact bilaterally and Yes Normal hearing present Cognition (Neuro): normal cognition Motor exam (neuro): 5/5 motor strength present throughout Extrem Other: venous exam: +1 edema with spider telangiectasias left greater than right General: No clubbing, No cyanosis and Yes edema Psych Appearance: grossly normal Mental Status: mental status grossly normal Speech and movement: Normal speech and movement present Assessment & Plan Assessment & Plan (1) Varicose veins of left lower extremity with inflammation: Code(s): I83.12 - Varicose veins of left lower extremity with inflammation Plan: In short patient has some mild swelling with concerns spider telangiectasias. We did discuss conservative measures including compression elevation and exercise. I did take the liberty of ordering venous insufficiency to rule that out. Thank you for allowing us to assist in her care. Coding Level of Care Code New Pt Level 4 (65191) Diagnoses Varicose veins of left lower extremity with inflammation I83.12
[2023-08-09 14:05] VITALS: BMI 25.7
== END 2023-08-09 14:46 | disposition home or self-care (01) ==
PROVIDERS: PCP Registered Nurse; Visit Provider Surgery Vascular Surgery
DX: I83.12 Varicose veins of left lower extremity with inflammation (principal)
CPT/HCPCS: 99203

== ENCOUNTER → 2023-08-09 13:49 | Outpatient (BNVA) | payer MEDICAID, SELFPAY | PROVIDERS: PCP Registered Nurse; Visit Provider Surgery Vascular Surgery ==

== ENCOUNTER 2023-08-18 10:02 | Outpatient (REF) | payer MEDICAID, SELFPAY ==
--- NOTE | ~2023-08-18 | MM_ITS ---
EXAMINATION: MM SCREENING DIGITAL BREAST TOMOSYNTHESIS, BILATERAL CLINICAL INFORMATION: Screening. Asymptomatic. COMPARISON: Mammography: This study is compared with prior exams dating back to 2021. TECHNIQUE: Digital breast tomosynthesis is performed in both the craniocaudal and mediolateral oblique views along with computer-aided detection (CAD). Synthesized 2D images are generated from the tomosynthesis. FINDINGS: The breasts are heterogeneously dense, which may obscure small masses (ACR BI-RADS breast composition Category c). There are no significant masses, abnormal calcifications, or other abnormalities. There are scattered, benign calcifications present in each breast. MM/MM tomosynthesis screening BI IMPRESSION: No mammographic evidence of malignancy. ASSESSMENT: BI-RADS BI-RADS 2 - Benign Findings RECOMMENDATION: Routine annual mammography screening. 1 year F/U This examination should not preclude the clinical evaluation of a suspicious palpable abnormality. This patient's information was entered into a reminder system with a target due date for their next mammogram.
== END 2023-08-18 10:03 | disposition home or self-care (01) ==
LOC: HO.MAMMO 10:02
PROVIDERS: PCP Registered Nurse; Visit Provider Registered Nurse Community Health
DX: Z12.31 Encounter for screening mammogram for malignant neoplasm of breast (principal)
CPT/HCPCS: 77063; 77067

== ENCOUNTER → 2023-08-18 10:15 | Outpatient (BNV) | payer MEDICAID, SELFPAY | PROVIDERS: PCP Registered Nurse; Visit Provider Radiology Diagnostic Radiology | DX: Z12.31 Encounter for screening mammogram for malignant neoplasm of breast (principal) | CPT/HCPCS: 77063; 77067 ==

== ENCOUNTER 2023-08-25 10:15 | Outpatient (REF) | payer MEDICAID, SELFPAY ==
--- NOTE | ~2023-08-25 | US_ITS ---
EXAMINATION: US LOWER EXTREMITY VENOUS (REFLUX EXAM), BILATERAL CLINICAL INDICATION: Chronic venous insufficiency with lower extremity varicose veins with inflammation COMPARISON: None. TECHNIQUE: Color flow triplex imaging and compression Doppler was performed to evaluate both the deep and the superficial systems bilaterally. To evaluate the superficial system, the examination was performed in the upright position. Color-flow Doppler ultrasound and compression ultrasound were utilized. In addition, maneuvers were utilized to demonstrate reflux. FINDINGS: 1. DEEP VENOUS ULTRASOUND OF THE RIGHT LOWER EXTREMITY: Common Femoral Vein: Compressible, normal respiratory variation and augmented flow. Femoral Vein: Compressible, normal color flow and augmentation. Popliteal Vein: Compressible, normal augmentation. Deep Reflux: There is no evidence of reflux in the deep system in either the common femoral vein or the popliteal vein. There is no evidence of a Brunson's cyst. 2. SUPERFICIAL ULTRASOUND WITH DOPPLER OF RIGHT LOWER EXTREMITY: GREAT SAPHENOUS VEIN: Saphenofemoral Junction: 0.7 cm; Reflux: 0 ms Proximal Thigh: 0.4 cm; Reflux: 0 ms Mid Thigh: 0.4 cm; Reflux: 0 ms Above Knee: 0.3 cm; Reflux: 1924 ms At Knee: 0.3 cm; Reflux: 0 ms Below Knee: 0.3 cm; Reflux: 2344 ms Mid Calf: 0.3 cm; Reflux: 1500 ms Ankle: 0.2 cm; Reflux: 2340 ms DUPLICATED MEDIAL GREAT SAPHENOUS VEIN: Diameter: None imaged Reflux: NA DUPLICATED LATERAL GREAT SAPHENOUS VEIN: Diameter: 0.4 cm Reflux: None SMALL SAPHENOUS VEIN: Proximal: 0.2 cm; Reflux: 0 ms Distal: 0.2 cm; Reflux: 0 ms VEIN OF GIACOMINI: Size: NA Reflux: NA PERFORATORS: Location: Mid thigh and midcalf Size: 0.2 to 0.3 cm Reflux: None VARICOSITIES: Location: None significant Size: NA Reflux: NA 3. DEEP VENOUS ULTRASOUND OF THE LEFT LOWER EXTREMITY: Common Femoral Vein: Compressible, normal respiratory variation and augmented flow. Femoral Vein: Compressible, normal color flow and augmentation. Popliteal Vein: Compressible, normal augmentation. Deep Reflux: Deep venous reflux is seen within the mid to superficial femoral vein measuring 1216 ms There is no evidence of a Brunson's cyst. 4. SUPERFICIAL ULTRASOUND WITH DOPPLER OF LEFT LOWER EXTREMITY: GREAT SAPHENOUS VEIN: Saphenofemoral Junction: 0.6 cm; Reflux: 0 ms Proximal Thigh: 0.6 cm; Reflux: 0 ms Mid Thigh: 0.3 cm; Reflux: 1024 ms Above Knee: 0.4 cm; Reflux: 1268 ms At Knee: 0.3 cm; Reflux: 0 ms Below Knee: 0.3 cm; Reflux: 0 ms Mid Calf: 0.3 cm; Reflux: 0 ms Ankle: 0.2 cm; Reflux: 0 ms DUPLICATED MEDIAL GREAT SAPHENOUS VEIN: Diameter: None imaged Reflux: NA DUPLICATED LATERAL GREAT SAPHENOUS VEIN: Diameter: 0.3 cm Reflux: None SMALL SAPHENOUS VEIN: Proximal: 0.2 cm; Reflux: 0 ms Distal: 0.2 cm; Reflux: 0 ms VEIN OF GIACOMINI: Size: NA Reflux: NA PERFORATORS: Location: None significant Size: NA Reflux: NA VARICOSITIES: Location: Mid thigh Size: 0.3 cm Reflux: None US/US venous duplex LE BI IMPRESSION: Right: Segmental areas of reflux within the great saphenous vein in the distal thigh and throughout the calf as described above. No significant varicose veins. Left: Segmental areas of reflux within the great saphenous vein in the mid and distal thigh. There is an associated varicose vein in the mid to thigh without significant reflux. Deep venous reflux is seen in the mid superficial femoral vein
== END 2023-08-25 10:16 | disposition home or self-care (01) ==
LOC: HO.US 10:15
PROVIDERS: PCP Registered Nurse; Visit Provider Surgery Vascular Surgery
DX: I83.12 Varicose veins of left lower extremity with inflammation (principal)
CPT/HCPCS: 93970

== ENCOUNTER 2023-08-31 09:32 | Outpatient (AMB) | payer MEDICAID, SELFPAY ==
--- NOTE | 2023-08-31 09:39 | MHC.OFFVIS ---
Intake Vital Signs 08/31/23 09:41 Height 5 ft 4 in Weight 149 lb 14.629 oz BMI 25.7 BP 130/72 Intake Visit Reasons: ultrasound follow up Wagon Person Required: Yes Wagon Person Language: Case Finisher Name: Ailin DSOUZA Information Interpreted: non-clinical & clinical Accompanied by: Self / Same As Patient Allergies aspirin Allergy (Unknown, Verified 08/31/23 09:42) swelling HPI HPI Comments History of Present Illness Details Presenting for follow-up ultrasound regarding myoma seen on ultrasound in 02/03. The patient is doing well with no complaints no pelvic pain, pressure or abnormal uterine bleeding. Ultrasound done recently showed the following: The uterus is of normal size and echogenicity, measuring 12.1 x 8 0.5, 8.1 cm. The uterus is anteverted. A regular, homogeneous endometrium is identified measuring 1.7 cm. Nabothian cysts are seen within the cervix. FIBROIDS: There are 4 fibroids seen. 1. Location: Upper rightward body, myometrial. Size: 3.6 x 3.8 x 3.4 cm. Prior: 4.0 x 3.6 x 4.4 cm. Fibroid characteristics: Allergies echotexture. 2. Location: Lower rightward body, myometrial. Size: 2.5 x 2.2 x 2.2 cm. Prior: 3.1 x 3.4 x 3.0 cm. Fibroid characteristics: Heterogeneous echotexture. 3. Location: Mid leftward body, myometrial. Size: 3.7 x 4.0 x 4.2 cm. Prior: 2.9 x 2.9 x 2.8 cm. Fibroid characteristics: Heterogeneously hyperechoic. 4. Location: Mid fundal, subserosal. Size: 1.8 x 1.5 x 1.9 cm. Prior: Not seen. Fibroid characteristics: Hypoechoic. Both ovaries are of normal size and echogenicity. The right ovary measures 4.9 x 2.0 x 2.6 cm for a volume of 13.3 mL. The left ovary measures 3.3 x 2.7 x 2.2 cm for a volume of 10.3 mL. Physiologic follicles are seen within the bilateral ovaries. There is no pelvic free fluid. [facility] Medical History Chronic abdominal pain Goiter Vitamin D deficiency Hyperparathyroidism Hypercalcemia Surgical History History of surgery History of umbilical hernia repair Hx of section Family History Father Diabetes Hypertension Alzheimer disease FH: prostate cancer Emphysema of lung Mother Hypertension Diabetes Social History Household Members: Spouse Household Members Other:: son Housing: Apartment Alcohol intake: never Patient Tobacco Use Status: Never used Tobacco Current occupational status: unemployed Sexual orientation: Straight/Heterosexual Gender identity: Female Female Reproductive History Menstrual Age of Menarche: 13 Review of Systems Const All systems reviewed & are unremarkable except as noted in HPI and below Reports as per HPI and Reports no additional complaints GI Reports no additional complaints Reports no additional complaints Physical Exam Vital Signs: Last Vital Signs BP 130/72 08/31/23 09:41 BMI result Body Mass Index 25.7 Assessment & Plan Assessment & Plan (1) Uterine myoma: Code(s): D25.9 - Leiomyoma of uterus, unspecified Plan: Discussed with the patient the findings on pelvic ultrasound & the risk of myosarcoma; discussed with the patient the options of treatment including expectant management versus hysterectomy; the pros and cons, risks benefits of each approach were discussed with the patient including the fact that in cases of myosarcoma, surgical treatment can lead to early diagnosis and positively affects the prognosis; after further discussion, the patient decided to proceed with expectant management. Will repeat pelvic ultrasound periodically. Instructions given to patient to call in case any of the following occurs: pressure symptoms, abnormal uterine bleeding, pelvic pain; and to schedule a future office follow-up appointment for reassessment and to order a repeat ultrasound . All questions answered, the patient verbalized understanding and agreed with the plan . Coding Level of Care Code Est Pt Level 3 (35765) Diagnoses Uterine myoma D25.9
[2023-08-31 09:41] VITALS: BP 130/72; BMI 25.7
== END 2023-08-31 10:05 | disposition home or self-care (01) ==
PROVIDERS: PCP Registered Nurse; Visit Provider Obstetrics & Gynecology
DX: D25.9 Leiomyoma of uterus, unspecified (principal)
CPT/HCPCS: 99213

== ENCOUNTER → 2023-08-31 09:32 | Outpatient (BNVA) | payer MEDICAID, SELFPAY | PROVIDERS: PCP Registered Nurse; Visit Provider Obstetrics & Gynecology | DX: D25.9 Leiomyoma of uterus, unspecified (principal) | CPT/HCPCS: 99212 ==

== ENCOUNTER 2023-09-14 10:55 | Outpatient (REF) | payer MEDICAID, SELFPAY ==
[2023-09-14 11:09] LABS: MANUAL DIFF FLAG NO
[2023-09-14 11:53] LABS: Basophils Percent Auto 0.6 % (0-2); Eosinophils Absolute Auto 0.1 X10*3/uL (0.0-0.4); Hematocrit 37.9 % (37.0-47.0); Hemoglobin 12.3 g/dl (12.0-16.0); Imm Gran Abs Auto 0.01 X10*3/uL (0.00-0.03); Imm Gran Pct Auto 0.2 % (0.0-0.4); Lymphocytes Percent Auto 39.1 % (20-40); Mean Corpuscular HGB Conc 32.5 g/dl (31.0-35.0); Mean Corpuscular Hemoglobin 28.1 pg (27.0-33.0); Mean Corpuscular Volume 86.7 fL (80.0-98.0); Mean Platelet Volume 9.8 fL (9.4-12.3); Monocytes Absolute Auto 0.4 X10*3/uL (0.1-1.2); Monocytes Percent Auto 8.6 % (2-11); Neutrophils Absolute Auto 2.5 x10*3/uL (2.0-8.3); Neutrophils Percent Auto 49.5 % (45-73); Platelet Count 286 X10*3/uL (160-400); Red Blood Count 4.37 X10*6/uL (4.20-5.50); Red Cell Distribution Width 12.9 % (11.0-16.0)
[2023-09-14 12:23] LABS: Alanine Aminotransferase 20 U/L (0-31); Albumin Level 4.6 g/dL (3.5-5.0); Alkaline Phosphatase 46 U/L (39-117); Anion Gap 12 (12-20); Aspartate Amino Transferase 18 U/L (5-31); Bilirubin Total 0.5 mg/dL (0.0-1.0); Blood Urea Nitrogen 12 mg/dL (9-16); Calcium 9.8 mg/dL (8.4-10.2); Carbon Dioxide 28 mmol/L (22-29); Chloride 104 mmol/L (96-108); Cholesterol 223 mg/dL (<200); Estimated Glomerular Filt Rate > 60; Glucose Random 76 mg/dL (60-115); HDL Cholesterol 46 mg/dL (>40); LDL Cholesterol Calculated 157 mg/dL (<100); Potassium 3.9 mmol/L (3.3-5.1); Sodium 140 mmol/L (135-145); Total Protein 8.1 g/dL (6.5-8.0); Triglycerides 102 mg/dL (<150)
[2023-09-14 12:46] LABS: Ferritin 23 ng/mL (10-250); Vitamin D 25-OH Total 24.3 ng/mL (>30)
== END 2023-09-14 10:56 | disposition home or self-care (01) ==
LOC: HO.LAB 10:55
PROVIDERS: PCP Registered Nurse; Visit Provider Registered Nurse
DX: R53.83 Other fatigue (principal); E78.5 Hyperlipidemia, unspecified
CPT/HCPCS: 36415; 80053; 80061; 82306; 82728; 85025

== ENCOUNTER 2023-09-26 08:26 | Outpatient (REF) | payer MEDICAID, SELFPAY ==
--- NOTE | ~2023-09-26 | FL_ITS ---
EXAMINATION: XR FLUOROSCOPY UPPER GI WITH AIR CLINICAL INFORMATION: Abdominal pain, constipation COMPARISON: None TECHNIQUE: Fluoroscopic air contrast upper GI examination was performed utilizing standard techniques with thin and thick barium and effervescent granules. Numerous spot images were obtained. FINDINGS: Patient is status post ventral hernia repair Dual and single contrast images of the esophagus demonstrate normal caliber, contour, and mucosal pattern. No evidence of stricture, mass, or ulcerations identified. Primary esophageal peristalsis was normal. There are some nonpropulsive tertiary contractions of the distal esophagus. A small hiatal hernia is identified. No significant gastroesophageal reflux was seen during the course of the examination and on reflux views. Dual contrast and single contrast images of the stomach demonstrated normal contour and mucosal pattern without evidence of mass, ulceration, or other abnormality. Contrast freely passed into the gastric antrum and duodenal bulb without delay. Single and air-contrast images of the duodenal bulb demonstrate no abnormality. The duodenal sweep has a normal appearance, course, and mucosal fold appearance. The imaged proximal jejunum has a normal fold pattern and caliber. There are no dilated loops of small bowel noted. No mucosal abnormality or strictures. No small bowel masses. Terminal ileum is normal. The barium enters the right colon at the 1 hour simone. Herniorrhaphy clips were noted. 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 There is a mild levoconvex lumbar scoliosis. FLUOROSCOPY TIME: 3 minutes 29 seconds Number of Spot Images: 9 Number of Cine: 8 DOSE AREA PRODUCT: 3105 uGy-m2 (microgray-meter squared) FL/FL upper GI small bowel IMPRESSION: 1. Mild esophageal dysmotility 2. Small hiatal hernia 3. Status post ventral hernia repair 4. Normal small bowel series. This procedure was performed by Pasquale Chamorro PA-C, and supervised by Dr. Colon
== END 2023-09-26 08:27 | disposition home or self-care (01) ==
LOC: HO.XRAY 08:26
PROVIDERS: PCP Registered Nurse; Visit Provider Nurse Practitioner
DX: R10.9 Unspecified abdominal pain (principal); K59.04 Chronic idiopathic constipation; G89.29 Other chronic pain
CPT/HCPCS: 74240; 74246; 74248

== ENCOUNTER → 2023-09-26 08:27 | Outpatient (BNV) | payer MEDICAID, SELFPAY | PROVIDERS: PCP Registered Nurse; Visit Provider Radiology Diagnostic Radiology | DX: K22.4 Dyskinesia of esophagus (principal) | CPT/HCPCS: 74246 ==

== ENCOUNTER 2023-10-11 08:46 | Emergency (ER) | payer MEDICAID, SELFPAY ==
--- NOTE | ~2023-10-11 | XR_ITS ---
EXAMINATION: XR CHEST CLINICAL INFORMATION: Cough for 6 days. COMPARISON: August 20, 2022. TECHNIQUE: 2 views of the chest were obtained. FINDINGS: No significant abnormality is noted involving the heart, lungs, mediastinum, or soft tissues. Partially imaged spinal curvature. XR/XR chest 2V IMPRESSION: No acute finding.
[2023-10-11 08:54] VITALS: BP 148/81; PULSE 84; RESP 16; TEMP 36.5; O2SAT 97; BMI 27.1
[2023-10-11 09:53] LABS: Influenza A PCR NEGATIVE (Negative); Influenza B PCR NEGATIVE (Negative); Resp Syncy Virus RNA Qual PCR NEGATIVE (Negative); SARS COV2 PCR INHOUSE NEGATIVE (Negative)
--- NOTE | 2023-10-11 11:55 | PC.NURSE ---
patient a&ox3, vss, swab performed, xray performed, noted non productive cough- chest rise equal and non labored, pt awaiting radiology results, call ornelas within reach, will continue to monitor
--- NOTE | 2023-10-11 12:50 | ED_ITS ---
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 She denies fever, sore throat, ear pain. Denies chest pain, palpitations. States she has used OTC medications with little relief. Specifically requesting a chest x-ray to rule out pneumonia. MD complaint: cough Onset (ago): day(s) Location: chest Severity: moderate Relieving factors: none Exacerbating factors: movement Associated symptoms: cough Treatments prior to arrival: other (OTC cold medicine) Related Data Home Medications Medication Instructions Recorded Confirmed citalopram 20 mg tablet 20 mg PO DAILY 01/14/21 04/04/23 hydroxyzine pamoate 25 mg capsule 1 cap PO BID PRN Anxiety 09/06/22 04/04/23 montelukast 10 mg tablet 1 tab PO BEDTIME 09/06/22 04/04/23 famotidine 20 mg tablet 20 mg PO BID 07/08/23 sertraline 100 mg tablet 100 mg PO QAM 07/08/23 triamcinolone acetonide 0.025 % appl topical 07/08/23 topical cream Previous Rx's Medication Instructions Recorded cholecalciferol (vitamin D3) 50 50 mcg PO DAILY 30 days #30 caps 10/11/22 mcg (2,000 unit) capsule ondansetron 4 mg disintegrating 4 mg PO Q6H PRN nausea and 11/29/22 tablet vomiting #10 tabs albuterol sulfate 2.5 mg/3 mL 2.5 mg (3 mL) inhalation QID PRN 06/07/23 (0.083 %) solution for nebulization shortness of breath or wheezing #75 mL benzonatate 200 mg capsule 200 mg PO TID PRN cough #14 caps 06/07/23 linaclotide 145 mcg capsule 145 mcg PO QAM #30 caps 07/08/23 (Linzess) albuterol sulfate 90 mcg/actuation 2 puff inhalation Q4-6H PRN 10/11/23 aerosol inhaler shortness of breath or wheezing #6.7 grams azithromycin 250 mg tablet See Rx Instructions PO .COMPLEX #6 10/11/23 tabs benzonatate 100 mg capsule 100 mg PO TID PRN cough #20 caps 10/11/23 prednisone 20 mg tablet 40 mg (2 x 20 mg) PO DAILY #10 tabs 10/11/23 Allergies Allergy/AdvReac Type Severity Reaction Status Date / Time aspirin Allergy Unknown swelling Verified 08/31/23 09:42 Review of Systems Review of Systems: As per HPI. Yes all other systems are reviewed and are negative Constitutional: Constitutional: Reports as per HPI [facility] Past Medical History Medical History Chronic abdominal pain Goiter Vitamin D deficiency Hyperparathyroidism Hypercalcemia Surgical History History of surgery History of umbilical hernia repair Hx of section Family History Family History Father Diabetes Hypertension Alzheimer disease FH: prostate cancer Emphysema of lung Mother Hypertension Diabetes Social History Social History Household Members: Spouse Household Members Other:: son Housing: Apartment Alcohol intake: never Patient Tobacco Use Status: Never used Tobacco Advance Directives: No Current occupational status: unemployed Sexual orientation: Straight/Heterosexual Gender identity: Female Physical Exam ED Vital Signs: Vital Signs - 24 hr 10/11/23 08:54 Temperature 97.7 F Pulse Rate 84 Respiratory Rate 16 Blood Pressure 148/81 H Pulse Oximetry 97 Oxygen Delivery Method Room Air BMI result Body Mass Index 27.1 Vital signs have been reviewed and appear to be correct. Blood pressure normal. Heart rate normal. Respiratory rate normal. Temperature normal. Oxygen saturation normal. Const General: cooperative, healthy appearing and no acute distress Orientation/consciousness: oriented to person, oriented to place, oriented to time and patient oriented x3 Limitations: no limitations HENMT Head: Yes normocephalic and Yes atraumatic Ears: external ears normal, TM's normal bilaterally and EAC's normal General nose exam: Normal external nose present and Normal nasal mucous membranes and turbinates present Face and sinus: Yes face symmetric Mouth: Normal oral and palatal mucosa present, oropharynx normal and moist mucous membranes Throat: Yes posterior oropharynx normal, Yes tonsils normal, Yes uvula midline and No uvular edema Eyes Pupils: Equal, round and reactive pupils present Neck Neck: Yes normal visual inspection, Yes no lymphadenopathy and Yes supple Resp Effort & Inspection: normal respiratory effort and able to speak in complete sentences Auscultation: clear to auscultation bilaterally and wheezes scattered wheezes Cardio Rate: regular rate Rhythm: regular rhythm Heart sounds: S1 normal heart sound present and S2 normal heart sound present GI Palpation (GI): Soft to palpation and nontender Auscultation: normoactive bowel sounds General: Yes no CVA tenderness Back/Spine/Pelvis Back: no CVA tenderness Skin General skin exam: elasticity normal and turgor normal Neuro General: oriented to person, oriented to place, oriented to time, patient oriented x3, moves all extremities, no focal motor deficits and CN's II-XI intact bilaterally Cranial nerves: Yes Equal, round and reactive pupils present Cognition (Neuro): normal cognition Extrem General: Yes full ROM, Yes no pedal edema and Yes no calf tenderness Psych Mental Status: mental status grossly normal Affect: normal affect Thought process: Normal thought process present Medical Decision Making Medical Decision Making [facility] Narrative: Patient is a 43-year-old Pakistani speaking female presenting to the emergency department with complaint of 6 days of nonproductive cough and hoarse voice. On exam patient is awake, A+Ox3, VS WNL, afebrile, normal neurological exam without focal deficits, physical exam findings as above. Given reported symptoms and physical exam findings, initial differential includes viral illness, Covid, flu, bronchitis, pneumonia. Swabs for flu and Covid negative. X-ray notable for no evidence of pneumonia. My interpretation is in agreement with the radiologist's interpretation. Will treat for bronchitis with azithromycin, prednisone, benzonatate and albuterol. Instructed patient to follow-up with primary care provider. Return precautions discussed at bedside. Patient verbalized unde rstanding of and agreement with plan. Differential Diagnosis Differential Diagnoses: The differential diagnosis associated with the present ation includes As per [facility]. Lab Data [facility] Lab Attestation statement: I reviewed the patient's lab results. As per MDM. Labs: Lab Results 10/11/23 Range/Units 09:06 Influenza Type A (PCR) NEGATIVE (Negative) Influenza Type B (PCR) NEGATIVE (Negative) RSV RNA Qual (PCR) NEGATIVE (Negative) SARS-CoV-2 RNA (RT-PCR) NEGATIVE (Negative) Independent Interpretation I performed an independent interpretation of an: Plain X-Ray Interpretation: No evidence of pneumonia Radiology Impression Discussion of test interpretation with radiology: I have reviewed the radiologist's reading. Radiologist Impression: XR/XR chest 2V IMPRESSION: No acute finding. External Record Review External record reviewed: Inpatient record, Office record and Outpatient record Prescription Management I considered prescription management with: Antibiotic and Other Discharge Plan Discharge Clinical Impression: Bronchitis Patient Disposition: Home, Self-Care Instructions: How to Use a Metered-Dose Inhaler (ED), Acute Bronchitis (ED) Additional Instructions: Usted fue evaluado hoy en el departamento de emergencias por tos y dificultad para respirar. Est? recibiendo tratamiento para la bronquitis con un antibi?isaak; complete el tratamiento completo seg?n lo prescrito. Tambi?n le recetan un tratamiento breve con esteroides para disminuir la inflamaci?n. Le recetan un inhalador que puede usar cada 4 a 6 horas seg?n sea necesario para la dificultad para respirar. Le recetan medicamentos para la tos que puede usar cada 8 horas seg?n sea necesario. Melissa un seguimiento con huber proveedor de atenci?n primaria esta semana. Regrese al departamento de emergencias si presenta dificultad para respirar que empeora, dolor en el pecho, fiebre que no mejora con Tylenol o ibuprofeno, o cualquier otro s?ntoma preocupante. Prescriptions: New azithromycin 250 mg tablet See Rx Instructions .ROUTE .COMPLEX Qty: 6 0RF Rx Instructions: For 250 mg dose pack: take 500 mg today (day 1), then 250 mg for 4 days (days 2-5) prednisone 20 mg tablet 40 mg PO DAILY Qty: 10 0RF albuterol sulfate 90 mcg/actuation HFA aerosol inhaler 2 puff inhalation Q4-6H PRN (Reason: shortness of breath or wheezing) Qty: 6.7 0RF benzonatate 100 mg capsule 100 mg PO TID PRN (Reason: cough) Qty: 20 0RF No Action montelukast 10 mg tablet 1 tab PO BEDTIME hydroxyzine pamoate 25 mg capsule 1 cap PO BID PRN (Reason: Anxiety) ondansetron 4 mg tablet,disintegrating 4 mg PO Q6H PRN (Reason: nausea and vomiting) Qty: 10 0RF benzonatate 200 mg capsule 200 mg PO TID PRN (Reason: cough) Qty: 14 0RF albuterol sulfate 2.5 mg /3 mL (0.083 %) solution for nebulization 2.5 mg inhalation QID PRN (Reason: shortness of breath or wheezing) Qty: 75 0RF citalopram 20 mg tablet 20 mg PO DAILY cholecalciferol (vitamin D3) 50 mcg (2,000 unit) capsule 50 mcg PO DAILY 30 Days Qty: 30 11RF famotidine 20 mg tablet 20 mg PO BID sertraline 100 mg tablet 100 mg PO QAM triamcinolone acetonide 0.025 % cream topical Linzess 145 mcg capsule 145 mcg PO QAM Qty: 30 3RF
== END 2023-10-11 13:04 | disposition home or self-care (01) ==
PROVIDERS: Emergency Provider Emergency Medicine; PCP Registered Nurse
DX: J40 Bronchitis, not specified as acute or chronic (principal); Z20.822 Contact with and (suspected) exposure to COVID-19; Z20.828 Contact with and (suspected) exposure to other viral communicable diseases
CPT/HCPCS: 0241U; 71046; 99282; 99283

== ENCOUNTER → 2023-10-28 10:57 | Outpatient (REF) | payer MEDICAID, SELFPAY ==
--- NOTE | 2023-10-28 11:01 | CA_ITS ---
Acquisition Time: 2023-10-28 11:04:52 Total Exercise Time: 00:07:46 Test Indications: CP Medications: SEE H Protocol: ADY Max HR: 184 BPM 103% of Pred: 178 BPM Max BP: 162/070 mmHG Max Work Load: 9.7 METS Exercise stress test exercise 7 min 46 sec of Ady protocol achieivng 92% MPHR, with 9/10 stabbing center chest pain, mild SOB, with nromotensive response to exercuse, without EKG changes. Echo images obtained by tech at rest and immediately post peak exercise. Definity contrast used. Chest pain slowly resolved with rest, Test reviewed with Dr. Garza. Referred By: Homero Basilio Overread By: Rhea Colon
== END ==
LOC: HO.CARD 10:57
PROVIDERS: PCP Registered Nurse; Visit Provider Internal Medicine Cardiovascular Disease
DX: R07.9 Chest pain, unspecified (principal)
CPT/HCPCS: 93350; Q9957

== ENCOUNTER → 2023-10-28 11:01 | Outpatient (BNV) | payer MEDICAID, SELFPAY | PROVIDERS: PCP Registered Nurse; Visit Provider Nurse Practitioner | DX: R07.9 Chest pain, unspecified (principal) | CPT/HCPCS: 93350 ==

== ENCOUNTER 2023-11-16 13:02 | Outpatient (AMB) | payer MEDICAID, SELFPAY ==
[2023-11-16 14:04] VITALS: BMI 27.8
--- NOTE | 2023-11-16 14:04 | MHC.OFFVIS ---
Intake Vital Signs 11/16/23 14:04 Height 5 ft 4 in Weight 161 lb 13.109 oz BMI 27.8 Intake Visit Reasons: follow up Intake Note: Patient presents to in office visit today in follow up of upper GI and small darren x ray CC: Patient reports she hasn't have the epigastric pain. She reports constipation, and occasional pain below rib cage, and nausea Associate Application Developer Required: Yes Accompanied by: Spouse Allergies aspirin Allergy (Unknown, Verified 11/16/23 14:09) swelling HPI follow up HPI Details Assessment & Plan (1) Chronic abdominal pain: Code(s): R10.9 - Unspecified abdominal pain; G89.29 - Other chronic pain Plan: Swedish # [place] She has had troubles for many years (10 years) with HB, diarrhea, vomiting, and a feeling like her intestines are gathering together and then she has pain that leads to N/V. She will have sweating and feel very weak. The pain starts periumbilically but when it is bad will radiate down to her midline to her rectum. This happens 4-5 times a year. She does not feel it is food related as it can start, sometimes, in the middle of the night. There is no consistent time of onset. It iwll be a 10/10 and will last 30 minutes and is colicky in nature. She will have the pain r/t when she tries to take laxatives or teas to lose weight. She admits she suffers CIC. She will only move her bowels every 3-4 days and the stools are hard and she has only had some success with mag citrate which she takes not very often but this also causes her pain. Her father has similar problems and she has an older aunt who will get very weak with this. She does not remember ever seeing Dr. Dunaway in the past I have only been in the ER. She has not been good about following up with endo and is not on any diuretic therapy. She generally does not like to take medications. She has troubler swallowing pills and frequently she has to crush them. She has an extreme fear of choking since childhood and she has anxiety. She has GERD and is on famotidine but she only take is prn. She has a FHX of crc and polyps in her father, but she fears prepping for scope r/t fear of invoking the pain. ROV 5 weeks. (2) Hyperparathyroidism: Code(s): E21.3 - Hyperparathyroidism, unspecified (3) Chronic idiopathic constipation: Code(s): K59.04 - Chronic idiopathic constipation Orders: Orders FL upper GI small bowel 07/08/23 G89.29 - Other chr onic pain, K59.04 - Chronic idiopath ic constipation, R 10.9 - Unspecified abdominal pain Medications: New linaclotide (Linze ss) 145 mcg PO QAM 30 caps 3RF G89.29 - Other chr onic pain, K59.04 - Chronic idiopath ic constipation, R 10.9 - Unspecified abdominal pain UPPER GI WITH SMALL-BOWEL FOLLOW-THROUGH 09/26/23 FINDINGS: Patient is status post ventral hernia repair Dual and single contrast images of the esophagus demonstrate normal caliber, contour, and mucosal pattern. No evidence of stricture, mass, or ulcerations identified. Primary esophageal peristalsis was normal. There are some nonpropulsive tertiary contractions of the distal esophagus. A small hiatal hernia is identified. No significant gastroesophageal reflux was seen during the course of the examination and on reflux views. Dual contrast and single contrast images of the stomach demonstrated normal contour and mucosal pattern without evidence of mass, ulceration, or other abnormality. Contrast freely passed into the gastric antrum and duodenal bulb without delay. Single and air-contrast images of the duodenal bulb demonstrate no abnormality. The duodenal sweep has a normal appearance, course, and mucosal fold appearance. The imaged proximal jejunum has a normal fold pattern and caliber. There are no dilated loops of small bowel noted. No mucosal abnormality or strictures. No small bowel masses. Terminal ileum is normal. The barium enters the right colon at the 1 hour simone. Herniorrhaphy clips were noted. 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 There is a mild levoconvex lumbar scoliosis. FLUOROSCOPY TIME: 3 minutes 29 seconds Number of Spot Images: 9 Number of Cine: 8 DOSE AREA PRODUCT: 3105 uGy-m2 (microgray-meter squared) FL/FL upper GI small bowel IMPRESSION: 1. Mild esophageal dysmotility 2. Small hiatal hernia 3. Status post ventral hernia repair 4. Normal small bowel series. TODAY'S VISIT Swedish Sandi Kelly (She has had troubles for many years (10 years) with HB, diarrhea, vomiting, and a feeling like her intestines are gathering together and then she has pain that leads to N/V. She will have sweating and feel very weak. The pain starts periumbilically but when it is bad will radiate down to her midline to her rectum. ) She did not try the LInzess because she feared it would cause her severe colick pain as all OTC's do to her. Now she says that she only has the severe attacks 3-4 times a year and the pain is of very sudden onset and she can not ID any foods, medicines or exact timing that seem to set it off. I considered an EGD/colonoscpoy, but she has fear that this will also set off her cramping r/t the prep. BUT I understand today that she has severe diarrhea when she has the pain and can be on the toilet all day. I do not think I understood that last time. Given these factors and the normal small-bowel follow-through study I think we should do a trial of dicyclomine at the onset of pain to see if we can abort it. She has associated symptoms of nausea vomiting diaphoresis and dizziness so it certainly sounds like she has a vasovagal reaction secondary to the pain and nausea and vomiting secondary to the overactivity of the bowels. It can frequently be difficult to figure out what is setting the bowels off but usually it is not something of severe pathology. Of note she does suffer hyperparathyroidism so it is difficult to say if there are any hormonal shifts that may be provoking her bowels. I explained this to her and she is agreeable for now. We will hold on the Linzess and she does not feel that constipation is the problem and because of her fears even though I tried to educate her that also addresses pain of irritable bowel syndrome. Return office visit in 8 weeks. [facility] Medical History Chronic abdominal pain Goiter Vitamin D deficiency Hyperparathyroidism Hypercalcemia Surgical History History of surgery History of umbilical hernia repair Hx of section Family History Father Diabetes Hypertension Alzheimer disease FH: prostate cancer Emphysema of lung Mother Hypertension Diabetes Social History Household Members: Spouse Household Members Other:: son Housing: Apartment Alcohol intake: never Patient Tobacco Use Status: Never used Tobacco Current occupational status: unemployed Sexual orientation: Straight/Heterosexual Gender identity: Female Female Reproductive History Menstrual Age of Menarche: 13 Review of Systems Const Denies fatigue, Denies fever(s), Denies night sweats, Denies poor appetite and Denies weight loss ENT Reports Normal hearing present, Denies dental pain, Denies dysphagia, Denies hearing loss, Denies mouth pain, Denies odynophagia, Denies throat swelling, Denies tongue swelling and Reports other (Dentition adequate) Card Reports no additional complaints Resp Reports no additional complaints GI Denies abdominal pain, Denies melena, Denies bloating, Denies hematochezia, Reports constipation, Reports GI cramping, Denies dysphagia, Denies excessive flatus, Denies early satiety, Reports heartburn, Denies diarrhea, Reports nausea, Denies odynophagia, Reports vomiting and Denies hematemesis Skin/Breast Denies pruritus, Denies lesions, Denies rash and Denies jaundice Neuro Reports Normal hearing present and Denies Abnormal speech present Endo Denies fatigue Aller/Immun Denies throat swelling and Denies tongue swelling Physical Exam Vital Signs: BMI result Body Mass Index 27.8 Const General: cooperative, no acute distress, well developed and well groomed Nutritional Appearance: average body habitus and well nourished Orientation/consciousness: oriented to person, oriented to place and oriented to time Limitations: No language barrier HEENT Head: Yes normocephalic and Yes atraumatic Eyes General: appearance normal, both eyes and all related structures Pupils: Equal, round and reactive pupils present Neck Neck: Yes normal visual inspection and Yes no lymphadenopathy Thyroid: Thyroid normal Resp Effort & Inspection: normal respiratory effort and able to speak in complete sentences Auscultation: clear to auscultation bilaterally Cardio Rate: regular rate Rhythm: regular rhythm Heart sounds: Normal, physiologic split S2 sound present Peripheral pulses: radial pulses present and posterior tibial pulses present GI Inspection: No distended and No Abdominal panniculus present Palpation (GI): Soft to palpation, nontender, no guarding, not rigid and No hepatosplenomegaly present Percussion: Yes normal to percussion Auscultation: normal bowel sounds Rectal Exam - Female: deferred Skin General skin exam: no rashes or lesions noted, turgor normal, skin not dry, no jaundice, No spider nevi and no striae Rashes: no rashes Nails: normal Neuro General: oriented to person, oriented to place and oriented to time Cranial nerves: Yes Equal, round and reactive pupils present and Yes Normal hearing present Speech: No Abnormal speech present Extrem General: Yes normal to inspection, No clubbing, No cyanosis and No edema Psych Appearance: grossly normal and well kempt Mental Status: mental status grossly normal Speech and movement: Normal speech and movement present Affect: normal affect Attitude: cooperative Thought process: Normal thought process present and not confabulating Thought content: Normal thought content present Insight: Fair insight present (Psych) Judgement: Fair judgement present (Psych) Results Reviewed Results Reviewed: UPPER GI WITH SMALL-BOWEL FOLLOW-THROUGH 09/26/23 FINDINGS: Patient is status post ventral hernia repair Dual and single contrast images of the esophagus demonstrate normal caliber, contour, and mucosal pattern. No evidence of stricture, mass, or ulcerations identified. Primary esophageal peristalsis was normal. There are some nonpropulsive tertiary contractions of the distal esophagus. A small hiatal hernia is identified. No significant gastroesophageal reflux was seen during the course of the examination and on reflux views. Dual contrast and single contrast images of the stomach demonstrated normal contour and mucosal pattern without evidence of mass, ulceration, or other abnormality. Contrast freely passed into the gastric antrum and duodenal bulb without delay. Single and air-contrast images of the duodenal bulb demonstrate no abnormality. The duodenal sweep has a normal appearance, course, and mucosal fold appearance. The imaged proximal jejunum has a normal fold pattern and caliber. There are no dilated loops of small bowel noted. No mucosal abnormality or strictures. No small bowel masses. Terminal ileum is normal. The barium enters the right colon at the 1 hour simone. Herniorrhaphy clips were noted. 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 There is a mild levoconvex lumbar scoliosis. FLUOROSCOPY TIME: 3 minutes 29 seconds Number of Spot Images: 9 Number of Cine: 8 DOSE AREA PRODUCT: 3105 uGy-m2 (microgray-meter squared) FL/FL upper GI small bowel IMPRESSION: 1. Mild esophageal dysmotility 2. Small hiatal hernia 3. Status post ventral hernia repair 4. Normal small bowel series. Assessment & Plan Assessment & Plan (1) Chronic abdominal pain: Code(s): R10.9 - Unspecified abdominal pain; G89.29 - Other chronic pain (2) Chronic idiopathic constipation: Code(s): K59.04 - Chronic idiopathic constipation Plan Swedish #[place]ois Robin (She has had troubles for many years (10 years) with HB, diarrhea, vomiting, and a feeling like her intestines are gathering together and then she has pain that leads to N/V. She will have sweating and feel very weak. The pain starts periumbilically but when it is bad will radiate down to her midline to her rectum. ) She did not try the LInzess because she feared it would cause her severe colick pain as all OTC's do to her. Now she says that she only has the severe attacks 3-4 times a year and the pain is of very sudden onset and she can not ID any foods, medicines or exact timing that seem to set it off. I considered an EGD/colonoscpoy, but she has fear that this will also set off her cramping r/t the prep. BUT I understand today that she has severe diarrhea when she has the pain and can be on the toilet all day. I do not think I understood that last time. Given these factors and the normal small-bowel follow-through study I think we should do a trial of dicyclomine at the onset of pain to see if we can abort it. She has associated symptoms of nausea vomiting diaphoresis and dizziness so it certainly sounds like she has a vasovagal reaction secondary to the pain and nausea and vomiting secondary to the overactivity of the bowels. It can frequently be difficult to figure out what is setting the bowels off but usually it is not something of severe pathology. Of note she does suffer hyperparathyroidism so it is difficult to say if there are any hormonal shifts that may be provoking her bowels. I explained this to her and she is agreeable for now. We will hold on the Linzess and she does not feel that constipation is the problem and because of her fears even though I tried to educate her that also addresses pain of irritable bowel syndrome. Return office visit in 8 weeks. Medications: New dicyclomine 20 mg PO QID 120 tabs 1RF 30 days On Hold linaclotide (Linzess) Hold Comment: Doctor's Order 145 mcg PO QAM 30 caps 3RF G89.29 - Other chronic pain, K59.04 - Chronic idiopathic constipation, R10.9 - Unspecified abdominal pain Coding Level of Care Code Est Pt Level 3 (36127) Diagnoses Chronic abdominal pain R10.9; G89.29 Chronic idiopathic constipation K59.04
== END 2023-11-16 15:02 | disposition home or self-care (01) ==
PROVIDERS: PCP Registered Nurse; Visit Provider Nurse Practitioner
DX: R10.9 Unspecified abdominal pain (principal); G89.29 Other chronic pain; K59.04 Chronic idiopathic constipation
CPT/HCPCS: 99213

== ENCOUNTER → 2023-11-16 13:02 | Outpatient (BNVA) | payer MEDICAID, SELFPAY | PROVIDERS: PCP Registered Nurse; Visit Provider Nurse Practitioner | DX: R10.9 Unspecified abdominal pain (principal); K59.04 Chronic idiopathic constipation; G89.29 Other chronic pain | CPT/HCPCS: 99212 ==

== ENCOUNTER 2023-12-15 18:56 | Emergency (ER) | payer MEDICAID, SELFPAY ==
[2023-12-15 19:25] VITALS: BP 150/95; PULSE 123; RESP 20; TEMP 37.4; O2SAT 97; BMI 25.7
--- NOTE | 2023-12-15 19:25 | ED_ITS ---
HPI - General Adult General Chief complaint: Upper Respiratory Symptoms Stated complaint: throat/ head/ ear infection Time Seen by Provider: 12/15/23 20:25 Source: patient Mode of arrival: ambulatory Limitations: language barrier (Lao-speaking boat engine mechanic utilized) History of Present Illness HPI narrative: Patient is a 43-year-old female who presents emergency department for evaluation of 2 days with nasal congestion, sore throat, fever, nausea without vomiting, intermittent headache, and left ear pain. Reports that she is trialed Tylenol, Chloraseptic throat spray, Cepacol drops without any improvement in her symptoms. She reports that her son was ill about 3 weeks ago with strep, otherwise denies any additional sick contacts. Related Data Home Medications Medication Instructions Recorded Confirmed citalopram 20 mg tablet 20 mg PO DAILY 01/14/21 04/04/23 hydroxyzine pamoate 25 mg capsule 1 cap PO BID PRN Anxiety 09/06/22 04/04/23 montelukast 10 mg tablet 1 tab PO BEDTIME 09/06/22 04/04/23 famotidine 20 mg tablet 20 mg PO BID 07/08/23 sertraline 100 mg tablet 100 mg PO QAM 07/08/23 triamcinolone acetonide 0.025 % appl topical 07/08/23 topical cream Previous Rx's Medication Instructions Recorded cholecalciferol (vitamin D3) 50 50 mcg PO DAILY 30 days #30 caps 10/11/22 mcg (2,000 unit) capsule ondansetron 4 mg disintegrating 4 mg PO Q6H PRN nausea and 11/29/22 tablet vomiting #10 tabs albuterol sulfate 2.5 mg/3 mL 2.5 mg (3 mL) inhalation QID PRN 06/07/23 (0.083 %) solution for nebulization shortness of breath or wheezing #75 mL linaclotide 145 mcg capsule 145 mcg PO QAM #30 caps 07/08/23 (Linzess) albuterol sulfate 90 mcg/actuation 2 puff inhalation Q4-6H PRN 10/11/23 aerosol inhaler shortness of breath or wheezing #6.7 grams dicyclomine 20 mg tablet 20 mg PO QID 30 days #120 tabs 11/16/23 amoxicillin 875 mg-potassium 1 tab PO BID #14 tabs 12/15/23 clavulanate 125 mg tablet Allergies Allergy/AdvReac Type Severity Reaction Status Date / Time aspirin Allergy Unknown swelling Verified 11/16/23 14:09 Review of Systems Review of Systems: Yes all other systems are reviewed and are negative [facility] Past Medical History Attestation statement: The following information was validated with the patient. Source: old records reviewed Medical History Chronic abdominal pain Goiter Vitamin D deficiency Hyperparathyroidism Hypercalcemia Surgical History History of surgery History of umbilical hernia repair Hx of section Family History Family History Father Diabetes Hypertension Alzheimer disease FH: prostate cancer Emphysema of lung Mother Hypertension Diabetes Social History Social History Household Members: Spouse Household Members Other:: son Housing: Apartment Alcohol intake: never Patient Tobacco Use Status: Never used Tobacco Advance Directives: No Advance Directives Information Provided: No Current occupational status: unemployed Sexual orientation: Straight/Heterosexual Gender identity: Female Physical Exam ED Vital Signs: Vital Signs - 24 hr 12/15/23 19:25 Temperature 99.4 F Pulse Rate 123 H Respiratory Rate 20 Blood Pressure 150/95 H Pulse Oximetry 97 Oxygen Delivery Method Room Air BMI result Body Mass Index 25.7 Appearance: Alert.?Oriented to person, place and time. No acute distress.?Normal affect. Eyes: Pupils equal, round and reactive to light.? ENT: Pharynx erythematous with 1+ tonsillar hypertrophy, no exudates. Uvula midline. No trismus. No drooling. Right TM normal. Left TM erythematous and bulging Neck: Normal inspection.? Neck supple.??No nuchal rigidity. No cervical lymphadenopathy. CVS: Heart sounds normal. Normal heart rate and rhythm.? Pulses normal.?? Respiratory: No respiratory distress.? Lung sounds clear to auscultation bilaterally?? Abdomen: Soft and non-tender. Normoactive bowel sounds. No pulsatile mass.?? Skin: Skin warm and dry.? Normal skin color.? Normal skin turgor.?? Extremities: No lower extremity edema.? No calf ttp? Neuro: Moves all extremities spontaneously. Sensation intact bilaterally. CN II- XII intact. No focal neuro deficits. Ambulates with normal steady gait. Course Course Course Narrative: RME- 43 year old female presents for evaluation of headaches, body aches, congestion, sore throat, fevers, and chills. Plan for viral swabs and strep swab Medications Administered Discontinued Medications Generic Name Dose Route Start Last Admin Trade Name Rogerioq PRN Reason Stop Dose Admin Lidocaine HCl 15 ml 12/15/23 21:02 12/15/23 21:21 Lidocaine Hcl Viscous 2 % 15 Ml Solution MUCOUS MEM 12/15/23 21:03 15 ml ONCE ONE Administration Medical Decision Making Medical Decision Making [facility] Narrative: Patient is a 43-year-old female, presenting for evaluation of upper respiratory symptoms. COVID-19 /influenza/strep a testing are negative.. At this time history and physical exam not consistent with ACS/PE/pneumonia. No evidence of peritonsillar retropharyngeal abscess. Left TM concerning for acute otitis media without spontaneous rupture. She appears fatigued, is mildly tachycardic with low-grade temp, she is without hypoxia or tachypnea. I do not suspect sepsis. Speaking clear full sentences, ambulatory with steady gait. Will send prescription for antibiotic to pharmacy, and Discussed conservative treatment including rest, hydration, Tylenol/ibuprofen as needed for fever and body aches, saline nasal spray, humidifier, [id number] cold medication. Advised to follow-up with primary care provider as needed, discussed reasons to return back to the emergency department. All questions were answered. Patient discharged home in stable condition. Differential Diagnosis Differential Diagnoses: The differential diagnosis associated with the presentation includes (As noted above) Admission/Observation Consideration of admission/observation: Escalation of care including admission/observation considered (As noted above) Lab Data [facility] Lab Attestation statement: I reviewed the patient's lab results. (As noted above) Labs: Lab Results 12/15/23 12/15/23 Range/Units 20:06 20:56 COVID-19 (SANJAY) Negative (Negative) COVID-19 Clin Com See Note Influenza Type A (DEBORA) Negative (Negative) Influenza Type B ([facility]ORA) Negative (Negative) Influenza A & B Note See Note S. pyogenes GrpA [place]A Negative (Negative) Independent Historian Clinical information obtained from an independent historian. History obtained from or confirmed by: Spouse (Present who confirms history) Prescription Management I considered prescription management with: Antibiotic Discharge Plan Discharge Clinical Impression: Upper respiratory infection Acute otitis media Qualifiers: Laterality: left Recurrence: non-recurrent Spontaneous tympanic membrane rupture: without spontaneous rupture Patient Disposition: Home, Self-Care Instructions: Ear Infection (ED), Upper Respiratory Infection (ED) Additional Instructions: Do not insert anything into the ear canal as this may increase the chances of ruptured your ear drum Be sure to rest, stay well hydrated drinking plenty of fluids, eat small frequent meals. Tylenol/ibuprofen can be used as needed for fever/pain. [id number] cold medications may be helpful as well for symptoms. Saline nasal spray, humidifier may be helpful for nasal congestion. You may return to the emergency department with any new or worsening symptoms or concerns. Follow-up with your primary care provider as needed. Should remain out of school/ work until symptoms have resolved and have been without a fever for 24 hours without the use of Tylenol or ibuprofen. Prescriptions: New amoxicillin-pot clavulanate 875-125 mg tablet 1 tab PO BID Qty: 14 0RF No Action montelukast 10 mg tablet 1 tab PO BEDTIME hydroxyzine pamoate 25 mg capsule 1 cap PO BID PRN (Reason: Anxiety) ondansetron 4 mg tablet,disintegrating 4 mg PO Q6H PRN (Reason: nausea and vomiting) Qty: 10 0RF albuterol sulfate 2.5 mg /3 mL (0.083 %) solution for nebulization 2.5 mg inhalation QID PRN (Reason: shortness of breath or wheezing) Qty: 75 0RF albuterol sulfate 90 mcg/actuation HFA aerosol inhaler 2 puff inhalation Q4-6H PRN (Reason: shortness of breath or wheezing) Qty: 6.7 0RF citalopram 20 mg tablet 20 mg PO DAILY cholecalciferol (vitamin D3) 50 mcg (2,000 unit) capsule 50 mcg PO DAILY 30 Days Qty: 30 11RF dicyclomine 20 mg tablet 20 mg PO QID 30 Days Qty: 120 1RF famotidine 20 mg tablet 20 mg PO BID sertraline 100 mg tablet 100 mg PO QAM triamcinolone acetonide 0.025 % cream topical Linzess 145 mcg capsule 145 mcg PO QAM Qty: 30 3RF Hold Instructions: Doctor's Order Referrals: Haydee Jacinto, BINDERY MACHINE OPERATOR [Primary Care Provider] -
[2023-12-15 20:40] LABS: COVID-19 Test Negative (Negative); IDNOW Serial# 08D9AD1C; IDNOW Serial# 152EDE1D; Influenza A Negative (Negative); Influenza B2 Negative (Negative)
[2023-12-15 21:09] LABS: IDNOW Serial# 58CA691E; Strep A Nucleic Acid Negative (Negative)
[2023-12-15] MEDS: Lidocaine HCl Viscous 2 % 15 ML SOLUTION MUCOUS MEM (21:21)
[2023-12-15] MEDS: Acetaminophen Oral Liquid 650 MG/20.3 ML SOLUTION PO (22:05)
--- NOTE | 2023-12-15 22:12 | PC.NURSE ---
pt continues to be tearful sending her son and spouse to advise this greeting card writer that the medication (lidocaine) is making her throat burn. pt managing secretions, airway patent. [facility] parachute panel joiner called to bedside, advised pt has an ear infection and throat pain is common- pt tells nurse via parachute panel joiner that she needs something else for pain, because she cannot swallow Attempted to provide education on analgesia, APAP administered per order. pt extremely tearful, stating that she needs somthing more for pain. MOLD SANDER Maninder notified via [employer]
[2023-12-15 22:36] VITALS: BP 130/90; PULSE 98; RESP 20; TEMP 37.4; O2SAT 98
== END 2023-12-15 22:54 | disposition home or self-care (01) ==
PROVIDERS: Physician Assistant; Emergency Provider Student in an Organized Health Care Education/Training Program; PCP Registered Nurse
DX: J06.9 Acute upper respiratory infection, unspecified (principal); H66.92 Otitis media, unspecified, left ear; Z11.52 Encounter for screening for COVID-19
CPT/HCPCS: 87502; 87635; 87651; 99283

== ENCOUNTER 2024-01-11 11:04 | Outpatient (AMB) | payer MEDICAID, SELFPAY ==
--- NOTE | 2024-01-11 11:15 | MHC.OFFVIS ---
Intake Vital Signs 01/11/24 11:16 Height 5 ft 4 in Weight 160 lb 14.999 oz BMI 27.6 BP 141/82 H Blood Pressure Location Lt brachial Position Sitting Pulse 83 Intake Visit Reasons: 8 week f/u IBS Intake Note: Patient presents to in office visit today in follow up of IBS. CC: Patient reports that she only took the dicyclomine only once but then she d/c d/t fear to have abdominal pain flare up. 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 She will have sweating and feel very weak. The pain starts periumbilically but when it is bad will radiate down to her midline to her rectum. ) She did not try the LInzess because she feared it would cause her severe colick pain as all OTC's do to her. Now she says that she only has the severe attacks 3-4 times a year and the pain is of very sudden onset and she can not ID any foods, medicines or exact timing that seem to set it off. I considered an EGD/colonoscpoy, but she has fear that this will also set off her cramping r/t the prep. BUT I understand today that she has severe diarrhea when she has the pain and can be on the toilet all day. I do not think I understood that last time. Given these factors and the normal small-bowel follow-through study I think we should do a trial of dicyclomine at the onset of pain to see if we can abort it. She has associated symptoms of nausea vomiting diaphoresis and dizziness so it certainly sounds like she has a vasovagal reaction secondary to the pain and nausea and vomiting secondary to the over- beactivity of the bowels. It can frequently be difficult to figure out what is setting the bowels off but usually it is not something of severe pathology. Of note she does suffer hyperparathyroidism so it is difficult to say if there are any hormonal shifts that may be provoking her bowels. I explained this to her and she is agreeable for now. We will hold on the Linzess and she does not feel that constipation is the problem and because of her fears even though I tried to educate her that also addresses pain of irritable bowel syndrome. Return office visit in 8 weeks. Medications: New dicyclomine 20 mg PO QID 120 t abs 1RF 30 days On Hold linaclotide (Linze ss) Hold Commen t: Doctor's Order 145 mcg PO QAM 30 caps 3RF G89.29 - Other chr onic pain, K59.04 - Chronic idiopath ic constipation, R 10.9 - Unspecified abdominal pain TODAY'S VISIT Georgian #Adamaris Live (She has had troubles for many years (10 years) with HB, diarrhea, vomiting, and a feeling like her intestines are gathering together and then she has pain that leads to N/V. She will have sweating and feel very weak. The pain starts periumbilically but when it is bad will radiate down to her midline to her rectum. ) Her strong pain has not happened since [facility] last saw me. She has a new pain in the LUQ recently. She says I don't know of it is CIC or the spleen. She got the bentyl and took one because she thought it was a laxative and I am afraid to take anything that would make me move my bowels that may make the pain come back. This is the pain when she will have N/V and a vasovagal response. This happens about 3 times a year. LONG TIME educating her and convincing her to try the bentyl if she has pain or for the LUQ pain. Also again mentioned the sacral iliac dysfunction and wrote it down for her seen on small bowel study. For now we will watch and wait to see if her symptoms return and if the Bentyl is affective. ROEdson 3 mos. [facility] Medical History Chronic abdominal pain Goiter Vitamin D deficiency Hyperparathyroidism Hypercalcemia Surgical History History of surgery History of umbilical hernia repair Hx of section Family History Father Diabetes Hypertension Alzheimer disease FH: prostate cancer Emphysema of lung Mother Hypertension Diabetes Social History Household Members: Spouse Household Members Other:: son Housing: Apartment Alcohol intake: never Patient Tobacco Use Status: Never used Tobacco Current occupational status: unemployed Sexual orientation: Straight/Heterosexual Gender identity: Female Female Reproductive History Menstrual Age of Menarche: 13 Review of Systems Const Denies fatigue, Denies fever(s), Denies night sweats, Denies poor appetite and Denies weight loss ENT Reports Normal hearing present, Denies dental pain, Denies dysphagia, Denies hearing loss, Denies mouth pain, Denies odynophagia, Denies throat swelling, Denies tongue swelling and Reports other (Dentition adequate) Card Reports no additional complaints Resp Reports no additional complaints GI Details: Denies abdominal pain, Denies melena, Denies bloating, Denies hematochezia, Reports constipation, Denies GI cramping, Denies dysphagia, Denies excessive flatus, Denies early satiety, Denies heartburn, Denies diarrhea, Denies nausea, Denies odynophagia, Denies vomiting and Denies hematemesis Musc Reports back pain Skin/Breast Denies pruritus, Denies lesions, Denies rash and Denies jaundice Neuro Reports Normal hearing present and Denies Abnormal speech present Psych Reports anxiety Endo Denies fatigue Aller/Immun Denies throat swelling and Denies tongue swelling Physical Exam Vital Signs: Last Vital Signs Pulse 83 01/11/24 11:16 BP 141/82 H 01/11/24 11:16 BMI result Body Mass Index 27.6 Const General: cooperative, no acute distress, well developed and well groomed Nutritional Appearance: average body habitus and well nourished Orientation/consciousness: oriented to person, oriented to place and oriented to time Limitations: language barrier HEENT Head: Yes normocephalic and Yes atraumatic Eyes General: appearance normal, both eyes and all related structures Pupils: Equal, round and reactive pupils present Neck Neck: Yes normal visual inspection and Yes no lymphadenopathy Thyroid: Thyroid normal Resp Effort & Inspection: normal respiratory effort and able to speak in complete sentences Auscultation: clear to auscultation bilaterally Cardio Rate: regular rate Rhythm: regular rhythm Heart sounds: Normal, physiologic split S2 sound present Peripheral pulses: radial pulses present and posterior tibial pulses present GI Inspection: No distended and No Abdominal panniculus present Palpation (GI): Soft to palpation, nontender, no guarding, not rigid and No hepatosplenomegaly present Percussion: Yes normal to percussion Auscultation: normal bowel sounds Rectal Exam - Female: deferred Skin General skin exam: no rashes or lesions noted, turgor normal, skin not dry, no jaundice, No spider nevi and no striae Rashes: no rashes Nails: normal Neuro General: oriented to person, oriented to place and oriented to time Cranial nerves: Yes Equal, round and reactive pupils present and Yes Normal hearing present Speech: No Abnormal speech present Extrem General: Yes normal to inspection, No clubbing, No cyanosis and No edema Psych Appearance: grossly normal and well kempt Mental Status: mental status grossly normal Speech and movement: Normal speech and movement present Affect: normal affect Attitude: cooperative Thought process: Circumstantial thought process present and not confabulating Thought content: Normal thought content present Insight: Limited insight present (Psych) Judgement: Limited judgement present (Psych) Assessment & Plan Assessment & Plan (1) Chronic abdominal pain: Code(s): R10.9 - Unspecified abdominal pain; G89.29 - Other chronic pain (2) Chronic idiopathic constipation: Code(s): K59.04 - Chronic idiopathic constipation (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 She will have sweating and feel very weak. The pain starts periumbilically but when it is bad will radiate down to her midline to her rectum. ) Her strong pain has not happened since [facility] last saw me. She has a new pain in the LUQ recently. She says I don't know of it is CIC or the spleen. She got the bentyl and took one because she thought it was a laxative and I am afraid to take anything that would make me move my bowels that may make the pain come back. This is the pain when she will have N/V and a vasovagal response. This happens about 3 times a year. LONG TIME educating her and convincing her to try the bentyl if she has pain or for the LUQ pain. Also again mentioned the sacral iliac dysfunction and wrote it down for her seen on small bowel study. For now we will watch and wait to see if her symptoms return and if the Bentyl is affective. ROV 3 mos. Coding Level of Care Code Est Pt Level 3 (13827) Diagnoses Chronic abdominal pain R10.9; G89.29 Chronic idiopathic constipation K59.04 Osteitis condensans ilii M85.38
[2024-01-11 11:16] VITALS: BP 141/82; PULSE 83; BMI 27.6
== END 2024-01-11 12:11 | disposition home or self-care (01) ==
PROVIDERS: PCP Registered Nurse; Visit Provider Nurse Practitioner
DX: R10.9 Unspecified abdominal pain (principal); G89.29 Other chronic pain; K59.04 Chronic idiopathic constipation; M85.38 Osteitis condensans, other site
CPT/HCPCS: 99213

== ENCOUNTER → 2024-01-11 11:04 | Outpatient (BNVA) | payer MEDICAID, SELFPAY | PROVIDERS: PCP Registered Nurse; Visit Provider Nurse Practitioner | DX: K59.04 Chronic idiopathic constipation (principal); R10.9 Unspecified abdominal pain; M85.38 Osteitis condensans, other site; G89.29 Other chronic pain | CPT/HCPCS: 99212 ==

== ENCOUNTER 2024-02-18 10:19 | Emergency (ER) | payer MEDICAID, SELFPAY ==
--- NOTE | ~2024-02-18 | XR_ITS ---
EXAMINATION: XR CHEST CLINICAL INFORMATION: Cough COMPARISON: Chest x-ray on 10/03/2023 TECHNIQUE: Frontal view of the chest was obtained. FINDINGS: The cardiac silhouette is normal. There is mild diffuse bronchial wall thickening. There are no areas of consolidation. There are no pleural effusions or pneumothoraces. The bones and soft tissues are unremarkable for the patient's age. XR/XR chest 1V IMPRESSION: Bronchial wall thickening may be infectious and/or inflammatory in etiology.
[2024-02-18 10:25] VITALS: BP 143/82; PULSE 107; RESP 18; TEMP 36.5; O2SAT 98; BMI 28.3
--- NOTE | 2024-02-18 10:28 | PC.NURSE ---
walked to x-ray well. no distress. in x-ray
--- NOTE | 2024-02-18 10:38 | ED.URI ---
HPI - URI/Sore Throat General Chief Complaint: Upper Respiratory Symptoms Stated Complaint: Cough, Congestion Time Seen by Provider: 02/18/24 10:37 Source: patient Mode of arrival: ambulatory Limitations: no limitations History of Present Illness HPI Narrative: 43 year old female with PMH: osteitis, condensans II, chronic abdominal pain chronic constipation,hyperparathyroidism who presents for to the ED for two days of not feeling well cough, sore throat congestion and chest tightness. She states her sister has influenza she has not been vaccinated for COVID or flu this year she denies any falls or injuries she has no lung problems at baseline she has had bronchitis in the past. MD elicited complaint: cough and nasal congestion Related Data Home Medications ?Medication ?Instructions ?Recorded ?Confirmed citalopram 20 mg tablet 20 mg PO DAILY 01/14/21 04/04/23 hydroxyzine pamoate 25 mg capsule 1 cap PO BID PRN Anxiety 09/06/22 04/04/23 montelukast 10 mg tablet 1 tab PO BEDTIME 09/06/22 04/04/23 famotidine 20 mg tablet 20 mg PO BID 07/08/23 sertraline 100 mg tablet 100 mg PO QAM 07/08/23 triamcinolone acetonide 0.025 % appl topical 07/08/23 topical cream Previous Rx's ?Medication ?Instructions ?Recorded cholecalciferol (vitamin D3) 50 50 mcg PO DAILY 30 days #30 caps 10/11/22 mcg (2,000 unit) capsule ondansetron 4 mg disintegrating 4 mg PO Q6H PRN nausea and 11/29/22 tablet vomiting #10 tabs albuterol sulfate 2.5 mg/3 mL 2.5 mg (3 mL) inhalation QID PRN 06/07/23 (0.083 %) solution for nebulization shortness of breath or wheezing #75 mL linaclotide 145 mcg capsule 145 mcg PO QAM #30 caps 07/08/23 (Linzess) albuterol sulfate 90 mcg/actuation 2 puff inhalation Q4-6H PRN 10/11/23 aerosol inhaler shortness of breath or wheezing #6.7 grams dicyclomine 20 mg tablet 20 mg PO QID 90 days #360 tabs 12/16/23 benzonatate 100 mg capsule 100 mg PO BID PRN cough #20 caps 02/18/24 Allergies Allergy/AdvReac Type Severity Reaction Status Date / Time aspirin Allergy Unknown swelling Verified 02/18/24 10:27 Review of Systems Review of Systems: Review of systems: General: Patient denies any fever chills recent illness or falls Musculoskeletal: Denies back pain or body aches or other injuries HEENT: runny nose headache denies , ear pain Respiratory: cough denies shortness of breath, Cardiovascular: no chest pain or palpitations : denies dysuria, frequency Abdomen: no nausea vomiting denies abdominal pain Extremities: no swelling, no pain Skin: no diaphoresis Yes all other systems are reviewed and are negative PMFSH Past Medical History Medical History Chronic abdominal pain Goiter Vitamin D deficiency Hyperparathyroidism Hypercalcemia Surgical History History of surgery History of umbilical hernia repair Hx of section Family History Family History Father Diabetes Hypertension Alzheimer disease FH: prostate cancer Emphysema of lung Mother Hypertension Diabetes Social History Social History Household Members: Spouse Household Members Other:: son Housing: Apartment Alcohol intake: never Patient Tobacco Use Status: Never used Tobacco Advance Directives: No Advance Directives Information Provided: No Current occupational status: unemployed Sexual orientation: Straight/Heterosexual Gender identity: Female Physical Exam Vital Signs: Vital Signs: Last Vital Signs Temp 97.7 F 02/18/24 10:25 Pulse 107 H 02/18/24 10:25 Resp 18 02/18/24 10:25 BP 143/82 H 02/18/24 10:25 Pulse Ox 98 02/18/24 10:25 O2 Del Method Room Air 02/18/24 10:25 BMI result Body Mass Index 28.3 General: Well-appearing well-nourished in no signs of distress HEENT: Normocephalic atraumatic Neck: No signs of JVD, no masses no tenderness or lymphadenopathy Cardiovascular: Regular rate and rhythm Respiratory: Clear to auscultation bilaterally Abdomen: Soft nontender no masses rectal exam performed guiac negative 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 Extremities: Normal pedal pulses no signs of edema Skin: Dry warm no rashes Back: No tenderness full ROM Course Reevaluation(s) Reevaluation #1: Patient looks well I explained all the results the patient will discharge home with close PCP follow-up Time: 11:37 Medications Administered Discontinued Medications Generic Name Dose Route Start Last Admin Trade Name Freq PRN Reason Stop Dose Admin Acetaminophen 650 mg 02/18/24 10:45 02/18/24 11:08 Acetaminophen 325 Mg Tablet PO 02/18/24 10:46 650 mg ONCE ONE Administration Benzonatate 100 mg 02/18/24 10:45 02/18/24 10:56 Benzonatate 100 Mg Capsule PO 02/18/24 10:46 Not Given ONCE ONE Ibuprofen 400 mg 02/18/24 10:45 02/18/24 11:08 Ibuprofen 400 Mg Tablet PO 02/18/24 10:46 400 mg ONCE ONE Administration Medical Decision Making Medical Decision Making [facility] Narrative: Patient looks well I will check labs including RSV COVID and flu patient did not want to have a strep swab x-ray was done which was unremarkable Differential Diagnosis Differential Diagnoses: The differential diagnosis associated with the presentation includes Pneumonia RSV COVID flu dehydration pharyngitis Admission/Observation Consideration of admission/observation: Escalation of care including admission/observation considered Lab Data [facility] Lab Attestation statement: I reviewed the patient's lab results. Labs: Lab Results 02/18/24 Range/Units 10:45 Influenza Type A (PCR) NEGATIVE (Negative) Influenza Type B (PCR) NEGATIVE (Negative) RSV RNA Qual (PCR) NEGATIVE (Negative) SARS-CoV-2 RNA (RT-PCR) NEGATIVE (Negative) Discharge Plan Discharge Clinical Impression: Laryngitis, acute, Cough, Headache, Bronchitis Patient Disposition: Home, Self-Care Instructions: Laryngitis (ED), Acute Bronchitis (ED), Acute Headache (DC), Acute Cough (ED) Additional Instructions: You were seen today for cough shortness of breath and loss of voice. You had swab sent for COVID flu RSV and an x-ray which were all normal Please call follow up with her doctor also new home with [facility] and please take Tylenol or ibuprofen for headache. Prescriptions: New benzonatate 100 mg capsule 100 mg PO BID PRN (Reason: cough) Qty: 20 0RF No Action dicyclomine 20 mg tablet 20 mg PO QID 90 Days Qty: 360 1RF montelukast 10 mg tablet 1 tab PO BEDTIME hydroxyzine pamoate 25 mg capsule 1 cap PO BID PRN (Reason: Anxiety) ondansetron 4 mg tablet,disintegrating 4 mg PO Q6H PRN (Reason: nausea and vomiting) Qty: 10 0RF albuterol sulfate 2.5 mg /3 mL (0.083 %) solution for nebulization 2.5 mg inhalation QID PRN (Reason: shortness of breath or wheezing) Qty: 75 0RF albuterol sulfate 90 mcg/actuation HFA aerosol inhaler 2 puff inhalation Q4-6H PRN (Reason: shortness of breath or wheezing) Qty: 6.7 0RF citalopram 20 mg tablet 20 mg PO DAILY cholecalciferol (vitamin D3) 50 mcg (2,000 unit) capsule 50 mcg PO DAILY 30 Days Qty: 30 11RF famotidine 20 mg tablet 20 mg PO BID sertraline 100 mg tablet 100 mg PO QAM triamcinolone acetonide 0.025 % cream topical Linzess 145 mcg capsule 145 mcg PO QAM Qty: 30 3RF Hold Instructions: Doctor's Order Print Language: Kittitian
--- NOTE | 2024-02-18 11:00 | PC.NURSE ---
provider mary gleason declined strep test multiple times
[2024-02-18] MEDS: Ibuprofen 400 MG TABLET PO (11:08)
[2024-02-18] MEDS: Acetaminophen 325 MG TABLET 650 MG PO (11:08)
[2024-02-18 11:35] LABS: Influenza A PCR NEGATIVE (Negative); Influenza B PCR NEGATIVE (Negative); Resp Syncy Virus RNA Qual PCR NEGATIVE (Negative); SARS COV2 PCR INHOUSE NEGATIVE (Negative)
[2024-02-18 11:53] VITALS: BP 125/80; PULSE 85; RESP 22; TEMP 35.7; O2SAT 98
[2024-02-18 12:05] VITALS: O2SAT 98
[2024-02-18 12:10] VITALS: BP 125/80; PULSE 85; RESP 20; TEMP 36.1; O2SAT 98
== END 2024-02-18 12:09 | disposition home or self-care (01) ==
PROVIDERS: Emergency Provider Student in an Organized Health Care Education/Training Program; PCP Registered Nurse
DX: J04.0 Acute laryngitis (principal); J40 Bronchitis, not specified as acute or chronic; R51.9 Headache, unspecified; J02.9 Acute pharyngitis, unspecified; R05.9 Cough, unspecified; Z11.52 Encounter for screening for COVID-19; Z20.822 Contact with and (suspected) exposure to COVID-19
CPT/HCPCS: 0241U; 71045; 99283; 99285

== ENCOUNTER 2024-03-12 11:38 | Outpatient (REF) | payer MEDICAID, SELFPAY ==
[2024-03-12 13:13] LABS: MANUAL DIFF FLAG NO
[2024-03-12 13:25] LABS: Basophils Percent Auto 0.4 % (0-2); Eosinophils Absolute Auto 0.1 X10*3/uL (0.0-0.4); Eosinophils Percent Auto 1.4 % (0-4); Hematocrit 38.8 % (37.0-47.0); Hemoglobin 12.3 g/dl (12.0-16.0); Imm Gran Abs Auto 0.02 X10*3/uL (0.00-0.03); Imm Gran Pct Auto 0.4 % (0.0-0.4); Lymphocytes Absolute Auto 1.8 X10*3/uL (1.2-4.9); Lymphocytes Percent Auto 35.9 % (20-40); Mean Corpuscular HGB Conc 31.7 g/dl (31.0-35.0); Mean Corpuscular Hemoglobin 27.5 pg (27.0-33.0); Mean Corpuscular Volume 86.6 fL (80.0-98.0); Mean Platelet Volume 9.8 fL (9.4-12.3); Monocytes Absolute Auto 0.4 X10*3/uL (0.1-1.2); Monocytes Percent Auto 7.8 % (2-11); Neutrophils Absolute Auto 2.7 x10*3/uL (2.0-8.3); Neutrophils Percent Auto 54.1 % (45-73); Platelet Count 318 X10*3/uL (160-400); Red Blood Count 4.48 X10*6/uL (4.20-5.50); Red Cell Distribution Width 13.4 % (11.0-16.0); White Blood Count 4.9 X10*3/uL (4.8-10.8)
[2024-03-12 14:01] LABS: Anion Gap 8 (12-20); Blood Urea Nitrogen 16 mg/dL (9-16); Calcium 10.3 mg/dL (8.4-10.2); Carbon Dioxide 29 mmol/L (22-29); Chloride 103 mmol/L (96-108); Estimated Glomerular Filt Rate > 60; Glucose Random 83 mg/dL (60-115); Potassium 3.9 mmol/L (3.3-5.1); Sodium 136 mmol/L (135-145)
[2024-03-12 14:07] LABS: Parathyroid Hormone Intact 66.6 pg/mL (8.7-77.1)
[2024-03-12 14:09] LABS: Vitamin D 25-OH Total 35.4 ng/mL (>30)
== END 2024-03-12 11:39 | disposition home or self-care (01) ==
LOC: HO.HHCL 11:38
PROVIDERS: Visit Provider Registered Nurse
DX: E21.3 Hyperparathyroidism, unspecified (principal)
CPT/HCPCS: 36415; 80048; 82306; 83970; 85025

== ENCOUNTER 2024-04-10 09:14 | Outpatient (AMB) | payer MEDICAID, SELFPAY ==
[2024-04-10 09:19] VITALS: BP 130/64; PULSE 90; BMI 28.3
--- NOTE | 2024-04-10 09:19 | A.OFFVIS_ITS ---
Vital Signs 3 04/10/24 09:19 Height 5 ft 4 in Weight 164 lb 14.492 oz BMI 28.3 BP 130/64 Blood Pressure Location Rt brachial Position Sitting Pulse 90 Intake Visit Reasons: 3 month follow up abdominal pain Intake Note: Patient returns to in office follow up of abd pain and CIC. CC: Patient states that she recently had an episode of abdominal pain. She states that tried taking the dicyclomine but it was making her too drowsy and she d/c'd. 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 She will have sweating and feel very weak. The pain starts periumbilically but when it is bad will radiate down to her midline to her rectum. ) Her strong pain has not happened since she last saw me. She has a new pain in the LUQ recently. She says I don't know of it is CIC or the spleen. She got the bentyl and took one because she thought it was a laxative and I am afraid to take anything that would make me move my bowels that may make the pain come back. This is the pain when she will have N/V and a vasovagal response. This happens about 3 times a year. LONG TIME educating her and convincing her to try the bentyl if she has pain or for the LUQ pain. Also again mentioned the sacral iliac dysfunction and wrote it down for her seen on small bowel study. For now we will watch and wait to see if her symptoms return and if the Bentyl is effective. ROV 3 mos. TODAY'S VISIT Czech #[id number], Jeff (She has had troubles for many years (10 years) with HB, diarrhea, vomiting, and a feeling like her intestines are gathering together and then she has pain that leads to N/V. She will have sweating and feel very weak. The pain starts periumbilically but when it is bad will radiate down to her midline to her rectum. ) The strong pain returned and she tried the bentyl and it did help, but it made her very sleepy. When she has the pain she can not leave the house, so this is very life limiting. But she does not feel that the bentyl is a fit for her (she also had this medication in [place]). She never tried the LInzess at 145mcg because she was fearful of more pain. I try to explain that this medication is geared to relieving the pain as well as acting as a laxative. She suffers underlying CIC with very hard, small pebble- like Bm's and a lot of straining. She had a small bowel follow through study 09/2023 that was unremarkable. She has never had an EGD/colonoscopy and would desire these studies. She has had a cough for 3 mos with hoarse voice and rhonchi w/o a specific dx, has upcoming CT of lungs with PCP. Will refer to Pulmonlolgy to be safe and get PFT's to help her along. Sh eis u sing albuterol. She has a heart murmur followed by cardiology. There are no prior problems with anesthesia or sedation. NO ID problems. She had a cousin with CRC but no known 1st degree relatives. Her father has a history of intestinal torsion and a lot of colon problems. She was told in the past that she had a fatty liver or an enlarged liver and this is not noted in my diagnostic list. She has normal liver function tests and an ultrasound showing a normal size of the liver; however, she had an MRI in 2020 showing an undetermined liver lesion with the recommendation of a 1 year follow-up that does not appear to have been ordered. This was not ordered by me but another provider and I am uncertain what prompted the initial study. However, I will see if we can get a repeat MRI to be safe. She says she has claustrophobia so I will request an open MRI if possible. We can also consider a benzodiazepine. ROV 2 weeks to [facility] Medical History Chronic abdominal pain Goiter Vitamin D deficiency Hyperparathyroidism Hypercalcemia Surgical History History of surgery History of umbilical hernia repair Hx of section Family History Father Diabetes Hypertension Alzheimer disease FH: prostate cancer Emphysema of lung Mother Hypertension Diabetes Social History Household Members: Spouse Household Members Other:: son Housing: Apartment Alcohol intake: never Patient Tobacco Use Status: Never used Tobacco Current occupational status: unemployed Sexual orientation: Straight/Heterosexual Gender identity: Female Female Reproductive History Menstrual Age of Menarche: 13 Review of Systems Const Denies fatigue, Denies fever(s), Denies night sweats, Denies poor appetite and Denies weight loss ENT Reports Normal hearing present, Denies dental pain, Denies dysphagia, Denies hearing loss, Denies mouth pain, Denies odynophagia, Denies throat swelling, Denies tongue swelling and Reports other (Dentition adequate) Card Reports no additional complaints and Reports dyspnea on exertion Resp Reports cough and Reports dyspnea on exertion GI Details: Reports abdominal pain, Denies melena, Reports bloating, Denies hematochezia, Reports constipation, Reports GI cramping, Denies dysphagia, Denies excessive flatus, Denies early satiety, Denies heartburn, Reports diarrhea, Denies nausea, Denies odynophagia, Denies vomiting and Denies hematemesis Skin/Breast Denies pruritus, Denies lesions, Denies rash and Denies jaundice Neuro Reports Normal hearing present and Denies Abnormal speech present Endo Denies fatigue Aller/Immun Denies throat swelling and Denies tongue swelling Physical Exam Vital Signs: Last Vital Signs Pulse 90 04/10/24 09:19 BP 130/64 04/10/24 09:19 BMI result Body Mass Index 28.3 Const General: cooperative, no acute distress, well developed and well groomed Nutritional Appearance: well nourished and overweight Orientation/consciousness: oriented to person, oriented to place and oriented to time Limitations: language barrier HEENT Head: Yes normocephalic and Yes atraumatic Eyes General: appearance normal, both eyes and all related structures Pupils: Equal, round and reactive pupils present Neck Neck: Yes normal visual inspection and Yes no lymphadenopathy Thyroid: Thyroid normal Resp Other: hoarse voice, chest hurts from coughing Effort & Inspection: normal respiratory effort, able to speak in complete sentences and Actively coughing Quality: productive (moderate yellow/green) Auscultation: clear to auscultation bilaterally Cardio Rate: regular rate Rhythm: regular rhythm Heart sounds: Normal, physiologic split S2 sound present Peripheral pulses: radial pulses present and posterior tibial pulses present GI Inspection: Yes distended, No Abdominal panniculus present, Yes obesity, Yes scar and Yes striae Palpation (GI): Soft to palpation, nontender, no guarding, not rigid and No hepatosplenomegaly present Percussion: Yes normal to percussion Auscultation: normal bowel sounds Rectal Exam - Female: deferred Abdomen image: 2 1. surgical scars 2. 3. Skin General skin exam: no rashes or lesions noted, turgor normal, skin not dry, no jaundice, No spider nevi and no striae Rashes: no rashes Nails: normal Neuro General: oriented to person, oriented to place and oriented to time Cranial nerves: Yes Equal, round and reactive pupils present and Yes Normal hearing present Speech: No Abnormal speech present Extrem General: Yes normal to inspection, No clubbing, No cyanosis and No edema Psych Appearance: grossly normal and well kempt Mental Status: mental status grossly normal Speech and movement: Normal speech and movement present Affect: normal affect Attitude: cooperative Thought process: Normal thought process present and not confabulating Thought content: Normal thought content present Insight: Limited insight present (Psych) Judgement: Limited judgement present (Psych) Assessment & Plan Assessment & Plan (1) Chronic idiopathic constipation: Code(s): K59.04 - Chronic idiopathic constipation Category: Medical (2) Chronic abdominal pain: Code(s): R10.9 - Unspecified abdominal pain; G89.29 - Other chronic pain Category: Medical (3) Periumbilical abdominal pain: Code(s): R10.33 - Periumbilical pain Category: Medical (4) Nausea and vomiting: Code(s): R11.2 - Nausea with vomiting, unspecified Category: Medical (5) Asthma: Code(s): J45.909 - Unspecified asthma, uncomplicated Category: Medical (6) Cough due to bronchospasm: Comment: ongoing for 3 mos Code(s): J98.01 - Acute bronchospasm Category: Medical (7) Shortness of breath: Code(s): R06.02 - Shortness of breath Category: Medical (8) Liver lesion: Comment: Liver MRI 2020: . Subcentimeter subcapsular lesion inferior medial right lobe corresponding to recent ultrasound. This most likely represents a tiny cyst or benign hemangioma. Finding may be followed with right upper quadrant ultrasound in 1 year. Code(s): K76.9 - Liver disease, unspecified Category: Medical Plan Czech #[id number], Jeff (She has had troubles for many years (10 years) with HB, diarrhea, vomiting, and a feeling like her intestines are gathering together and then she has pain that leads to N/V. She will have sweating and feel very weak. The pain starts periumbilically but when it is bad will radiate down to her midline to her rectum. ) The strong pain returned and she tried the bentyl and it did help, but it made her very sleepy. When she has the pain she can not leave the house, so this is very life limiting. But she does not feel that the bentyl is a fit for her (she also had this medication in [place]). She never tried the LInzess at 145mcg because she was fearful of more pain. I try to explain that this medication is geared to relieving the pain as well as acting as a laxative. She suffers underlying CIC with very hard, small pebble- like Bm's and a lot of straining. She had a small bowel follow through study 09/2023 that was unremarkable. She has never had an EGD/colonoscopy and would desire these studies. She has had a cough for 3 mos with hoarse voice and rhonchi w/o a specific dx, has upcoming CT of lungs with PCP. Will refer to Pulmonlolgy to be safe and get PFT's to help her along. Sh bren u sing albuterol. She has a heart murmur followed by cardiology. There are no prior problems with anesthesia or sedation. NO ID problems. She had a cousin with CRC but no known 1st degree relatives. Her father has a history of intestinal torsion and a lot of colon problems. She was told in the past that she had a fatty liver or an enlarged liver and this is not noted in my diagnostic list. She has normal liver function tests and an ultrasound showing a normal size of the liver; however, she had an MRI in 2020 showing an undetermined liver lesion with the recommendation of a 1 year follow-up that does not appear to have been ordered. This was not ordered by me but another provider and I am uncertain what prompted the initial study. However, I will see if we can get a repeat MRI to be safe. She says she has claustrophobia so I will request an open MRI if possible. We can also consider a benzodiazepine. ROV 2 weeks to [facility] Orders: Orders 2 EGD/[place] Combo - GI Use Only Today R10.33 - Periumbilical pain, R11.2 - Nausea with vomiting, unspecified MR abdomen wo/w con Today K76.9 - Liver disease, unspecified PFT pulmonary function test Today J98.01 - Acute bronchospasm, R06.02 - Shortness of breath Referrals 2 Pulmonology Referral J98.01 - Acute bronchospasm, R06.02 - Shortness of breath Medications: New 2 peg 3350-electrolytes 236-22.74-6.74 -5.86 gram (Golytely) until fecal effluent is clear; do not exceed a total volume of 2,000 mL 240 mL PO Q10M 4,000 mL 0RF 1 day Z12.11 - Encounter for screening for malignant neoplasm of colon bisacodyl (Dulcolax (bisacodyl)) 10 mg (2 x 5 mg) PO BEDTIME 4 tabs 0RF 2 days Resumed 2 linaclotide (Linzess) 145 mcg PO QAM 30 caps 3RF G89.29 - Other chronic pain, K59.04 - Chronic idiopathic constipation, R10.9 - Unspecified abdominal pain linaclotide (Linzess) 145 mcg PO QAM 30 caps 3RF G89.29 - Other chronic pain, K59.04 - Chronic idiopathic constipation, R10.9 - Unspecified abdominal pain Coding Level of Care Code Est Pt Level 4 (73867) Diagnoses Chronic idiopathic constipation K59.04 Chronic abdominal pain R10.9; G89.29 Periumbilical abdominal pain R10.33 Nausea and vomiting R11.2 Asthma J45.909 Cough due to bronchospasm J98.01 Shortness of breath R06.02 Liver lesion K76.9
== END 2024-04-10 10:42 | disposition home or self-care (01) ==
PROVIDERS: PCP Registered Nurse; Visit Provider Nurse Practitioner
DX: K59.04 Chronic idiopathic constipation (principal); R11.2 Nausea with vomiting, unspecified; K76.9 Liver disease, unspecified; J45.909 Unspecified asthma, uncomplicated; J98.01 Acute bronchospasm; R06.02 Shortness of breath
CPT/HCPCS: 99214

== ENCOUNTER → 2024-04-10 09:14 | Outpatient (BNVA) | payer MEDICAID, SELFPAY | PROVIDERS: PCP Registered Nurse; Visit Provider Nurse Practitioner | DX: K59.04 Chronic idiopathic constipation (principal); R10.33 Periumbilical pain; G89.29 Other chronic pain; R11.2 Nausea with vomiting, unspecified; K76.9 Liver disease, unspecified; J98.01 Acute bronchospasm; R06.02 Shortness of breath | CPT/HCPCS: 99212 ==

== ENCOUNTER 2024-04-11 09:48 | Outpatient (REF) | payer MEDICAID, SELFPAY ==
--- NOTE | ~2024-04-11 | US_ITS ---
EXAMINATION: US ABDOMEN LIMITED CLINICAL INFORMATION: 43-year-old female with suspected umbilical hernia. COMPARISON: MRI abdomen 06/19/2021. CT abdomen and pelvis 04/11/2020. TECHNIQUE: Real-time imaging of the periumbilical area in the region of pain. FINDINGS: Targeted ultrasound images were obtained by the back tender cloth printing of the area of concern as indicated by the patient in the periumbilical region. Echogenic shadowing material may be related to postsurgical change, but is difficult to characterize. Radiologist was not in attendance. Images were later provided for intpretation. US/US abdomen limited IMPRESSION: Targeted ultrasound images were obtained by the back tender cloth printing of the area of concern as indicated by the patient in the periumbilical region. CT scan could be considered for further evaluation.
== END 2024-04-11 09:49 | disposition home or self-care (01) ==
LOC: HO.US 09:48
PROVIDERS: PCP Registered Nurse; Visit Provider Registered Nurse
DX: K42.9 Umbilical hernia without obstruction or gangrene (principal)
CPT/HCPCS: 76705

== ENCOUNTER 2024-04-30 08:59 | Outpatient (AMB) | payer MEDICAID, SELFPAY ==
--- NOTE | 2024-04-30 09:04 | MHC.OFFVIS ---
Vital Signs 04/30/24 09:07 Height 5 ft 4 in Weight 166 lb 7.184 oz BMI 28.6 BP 120/56 L Blood Pressure Location Lt brachial Position Sitting Pulse 91 Pulse Source Pulse Oximeter Pulse Oximetry (%) 98 Oxygen Delivery Method Room Air Intake Visit Reasons: Shortness of Breath/Clearance EGD/Colonoscopy Director Of Casework Services Required: Yes Director Of Casework Services Name: [id number] sebastian Information Interpreted: non-clinical & clinical Allergies aspirin Allergy (Unknown, Verified 04/30/24 09:12) swelling HPI HPI Shortness of Breath/Clearance EGD/Colonoscopy: Details: Jocelynn is a pleasant 43 year old female, never smoker, with underlying asthma, hyperparathyroidism and hypercalcemia. She was referred by GI for preoperative pulmonary evaluation for proposed EGD/colonscopy. She reports worsening respiratory control over the last year with dry cough, wheezing, chest tightness, and hoarseness. She was recently seen in the ED for bronchitis, treated with bezonatate. She notes every two months she has worsening symptoms. She reports asthma diagnosis as an adult, never requiring intubations. Recent PFT performed at [facility], report not available. She has an upcoming chest CT ordered by PCP scheduled in 2 weeks. She has been using Symbicort 80 mcg, albuterol MDI 1-2 per day and singulair with suboptimal effect. She reports seasonal allergies and dog at home, no recent allergy tesing. She reports father, smoker, with emphysema otherwise no pertinent family history. She denies any occupational exposures. [facility] Medical History Chronic abdominal pain Goiter Vitamin D deficiency Hyperparathyroidism Hypercalcemia Surgical History History of surgery History of umbilical hernia repair Hx of section Family History Father Diabetes Hypertension Alzheimer disease FH: prostate cancer Emphysema of lung Mother Hypertension Diabetes Social History Household Members: Spouse Household Members Other:: son Housing: Apartment Alcohol intake: never Patient Tobacco Use Status: Never used Tobacco Current occupational status: unemployed Sexual orientation: Straight/Heterosexual Gender identity: Female Female Reproductive History Menstrual Age of Menarche: 13 Review of Systems Const Denies chills, Denies excessive sweating, Denies fever(s), Denies headache(s) and Denies night sweats Eyes Denies dry eyes, Denies irritation and Denies itchy eyes ENT Reports Normal hearing present, Denies headache(s), Denies nasal congestion, Denies nasal discharge, Denies post nasal drip and Denies sore throat Card Denies chest pain, Denies chest pain at rest, Denies chest pain with activity, Denies claudication, Denies leg edema, Reports dyspnea and Denies paroxysmal nocturnal dyspnea Resp Denies chest congestion, Reports cough, Denies excessive phlegm production, Denies pain on inspiration, Denies pain with cough, Reports dyspnea, Denies stridor and Reports wheezing Musc Denies myalgias Neuro Reports Normal hearing present and Denies headache(s) Endo Denies excessive sweating Frank/Lymph Denies lymphadenopathy Aller/Immun Denies itchy eyes, Denies seasonal rhinorrhea and Reports wheezing Physical Exam Vital Signs: Last Vital Signs Pulse 91 04/30/24 09:07 BP 120/56 L 04/30/24 09:07 Pulse Ox 98 04/30/24 09:07 Oxygen Delivery Method Room Air 04/30/24 09:07 BMI result Body Mass Index 28.6 Const General: cooperative, healthy appearing, comfortable, no acute distress, well developed and alert Nutritional Appearance: average body habitus Orientation/consciousness: patient oriented x3 Limitations: no limitations HEENT Head: Yes normal to inspection, Yes normocephalic and Yes atraumatic Ears: hearing grossly normal bilaterally and external ears normal Eyes General: appearance normal, both eyes and all related structures Eyelids: Yes eyelids normal Sclerae: sclerae normal EOM: EOMs intact bilaterally Neck Neck: Yes normal visual inspection and Yes no lymphadenopathy Lymphatic: no lymphadenopathy noted Chest Chest palpation & inspection: normal inspection of the chest Resp Effort & Inspection: normal respiratory effort, able to speak in complete sentences, no audible wheezes, no stridor, not tachypneic, no tripod positioning and no use of accessory muscles Auscultation: clear to auscultation bilaterally Cardio Jugular venous distension: no JVD Rate: regular rate Rhythm: regular rhythm Skin Other: warm, dry General skin exam: no rashes or lesions noted Neuro General: patient oriented x3 Cranial nerves: Yes Normal hearing present Cognition (Neuro): normal cognition Gait exam (Neuro): Normal gait present Extrem General: Yes normal to inspection, Yes capillary refill normal, Yes no clubbing, cyanosis or edema and Yes no pedal edema Psych Appearance: grossly normal and well kempt Speech and movement: Normal speech and movement present and Clear speech present Affect: normal affect Attitude: cooperative Thought process: Normal thought process present Thought content: Normal thought content present Insight: Good insight present (Psych) Judgement: Good judgement present (Psych) Assessment & Plan Assessment & Plan (1) Asthma: Code(s): J45.909 - Unspecified asthma, uncomplicated Category: Medical (2) Shortness of breath: Code(s): R06.02 - Shortness of breath Category: Medical (3) Environmental allergies: Code(s): Z91.09 - Other allergy status, other than to drugs and biological substances Category: Medical (4) Encounter for preoperative pulmonary examination: Code(s): Z01.811 - Encounter for preprocedural respiratory examination Category: Medical Plan Jocelynn presents for preoperative evaluation for proposed EGD/colonscopy. She reports poorly controlled asthma with persistent dry cough, chest tigthness, dyspnea and wheezing. She was prescribed Symbicort 80 mcg, albuterol MDI and singulair however patient denies symptomatic relief. Will increase to Symbicort 160 mcg. Will also send for RAST testing and obtain prior PFT. Will follow-up to review results to further risk stratify as well as response to Symbicort. She is aware she needs to be seen sooner to call the office. All questions were answered and patient is in agreement of plan. Orders: Orders Complete Blood Count Auto Diff 04/30/24 J45.909 - Unspecified asthma, uncomplicated Immunoglobulin E 04/30/24 Z91.09 - Other allergy status, other than to drugs and biological substances Resp Allergy Profile Region I 04/30/24 Z91.09 - Other allergy status, other than to drugs and biological substances Medications: New budesonide-formoterol 160-4.5 mcg/actuation (Symbicort) 2 puffs inhalation Q12H 10.2 grams 3RF Coding Level of Care Code New Pt Level 4 (72915) Diagnoses Asthma J45.909 Shortness of breath R06.02 Environmental allergies Z91.09 Encounter for preoperative pulmonary examination Z01.811
[2024-04-30 09:07] VITALS: BP 120/56; PULSE 91; O2SAT 98; BMI 28.6
== END 2024-04-30 09:43 | disposition home or self-care (01) ==
PROVIDERS: PCP Registered Nurse; Referring Provider Nurse Practitioner; Visit Provider Nurse Practitioner Family
DX: J45.909 Unspecified asthma, uncomplicated (principal); R06.02 Shortness of breath; Z91.09 Other allergy status, other than to drugs and biological substances; Z01.811 Encounter for preprocedural respiratory examination
CPT/HCPCS: 99204

== ENCOUNTER 2024-04-30 08:59 | Outpatient (REF) | payer MEDICAID, SELFPAY ==
[2024-04-30 10:03] LABS: MANUAL DIFF FLAG NO
[2024-04-30 10:41] LABS: Basophils Percent Auto 0.6 % (0-2); Eosinophils Absolute Auto 0.1 X10*3/uL (0.0-0.4); Eosinophils Percent Auto 1.2 % (0-4); Hematocrit 38.5 % (37.0-47.0); Hemoglobin 12.4 g/dl (12.0-16.0); Imm Gran Abs Auto 0.02 X10*3/uL (0.00-0.03); Imm Gran Pct Auto 0.4 % (0.0-0.4); Lymphocytes Absolute Auto 1.4 X10*3/uL (1.2-4.9); Lymphocytes Percent Auto 29.1 % (20-40); Mean Corpuscular HGB Conc 32.2 g/dl (31.0-35.0); Mean Corpuscular Hemoglobin 27.9 pg (27.0-33.0); Mean Corpuscular Volume 86.5 fL (80.0-98.0); Mean Platelet Volume 9.7 fL (9.4-12.3); Monocytes Absolute Auto 0.4 X10*3/uL (0.1-1.2); Monocytes Percent Auto 7.3 % (2-11); Neutrophils Percent Auto 61.4 % (45-73); Platelet Count 292 X10*3/uL (160-400); Red Blood Count 4.45 X10*6/uL (4.20-5.50); Red Cell Distribution Width 13.4 % (11.0-16.0)
[2024-05-02 05:38] LABS: Class Alternaria alternata 0; Class Aspergillus fumigatus 0; Class Bermuda Grass 0; Class Birch 0; Class Cat Dander 0; Class Cladosporium herbarum 0; Class Cockroach 0; Class Common Ragweed 0; Class Cottonwood 0; Class Derm. pterony 0; Class Dermatophagoides farinae 0; Class Dog Dander 0/1; Class Elm 0; Class Maple Box Elder 0; Class Mountain Cedar 0; Class Mouse Urine Protein 0; Class Mugwort 0; Class Oak 0; Class Penicillium crysogenum 0; Class Rough Pigweed 0; Class Sheep Sorrel 0; Class Sycamore 0; Class Timothy Grass 0; Class Walnut Tree 0; Class White Ash 0; Class White Mulberry 0; D001 IgE D pteronyssinus <0.10 kU/L; D002 - IgE D farinae <0.10 kU/L; E001 - IgE Cat Dander <0.10 kU/L; E005 - IgE Dog Dander 0.18 kU/L; E072-IgE Mouse Urine <0.10 kU/L; G002 IgE Bermuda Grass <0.10 kU/L; G006 - IgE Timothy Grass <0.10 kU/L; I006-IgE Cockroach, German <0.10 kU/L; Immunoglobulin E 119 kU/L (<OR=114); M001 IgE Penicillium chrysogen <0.10 kU/L; M002 - IgE Cladosporium herbar <0.10 kU/L; M003 - IgE Aspergillus fumigat <0.10 kU/L; M006 - IgE Alternaria alternat <0.10 kU/L; T001 IgE Maple/Box Elder <0.10 kU/L; T003 IgE Common Silver Birch <0.10 kU/L; T006 - IgE Cedar, Mountain <0.10 kU/L; T007 - IgE Oak, White <0.10 kU/L; T008 IgE Elm, American <0.10 kU/L; T010 - IgE Walnut <0.10 kU/L; T011 - IgE Maple Leaf Sycamore <0.10 kU/L; T014 - IgE Cottonwood <0.10 kU/L; T015 - IgE Ash, White <0.10 kU/L; T070 - IgE White Mulberry <0.10 kU/L; W001 - IgE Ragweed, Short <0.10 kU/L; W006 - IgE Mugwort <0.10 kU/L; W014 IgE Pigweed, Common <0.10 kU/L; W018 IgE Sheep Sorrel <0.10 kU/L
== END 2024-04-30 09:00 | disposition home or self-care (01) ==
LOC: HO.LAB 08:59
PROVIDERS: PCP Registered Nurse; Referring Provider Nurse Practitioner; Visit Provider Nurse Practitioner Family
DX: J45.909 Unspecified asthma, uncomplicated (principal); Z91.09 Other allergy status, other than to drugs and biological substances
CPT/HCPCS: 36415; 82785; 85025; 86003; 99212

== ENCOUNTER 2024-05-02 09:27 | Outpatient (AMB) | payer MEDICAID, SELFPAY ==
--- NOTE | 2024-05-02 09:42 | A.OFFVIS_ITS ---
Vital Signs 05/02/24 09:48 Height 5 ft 4 in Weight 165 lb BMI 28.3 BP 130/62 Blood Pressure Location Rt brachial Position Sitting Pulse 79 Intake Visit Reasons: Umbilical Hernia Intake Note: Patient referred by pcp for umbilical hernia. Hx of previous hernia 9yrs ago. Patient c/o: bulging out. Stabbing pain when laying on it. ABD US on 04-11-24. Accounting Software Specialist Required: Yes Accounting Software Specialist Name: Linda CastanedaBrendan MEET Accompanied by: Self / Same As Patient Allergies aspirin Allergy (Unknown, Verified 05/02/24 09:48) swelling HPI Comments Details: Patient presents for evaluation of her umbilicus. She had umbilical hernia repair in recent past and has had discomfort at the hernia site. She has not noticed any bulge or swelling. She has otherwise tolerating a diet, having regular bowel habits. Her activity levels are not limited. Patient had ultrasound of the area was demonstrated no obvious pathology. [facility] Medical History Chronic abdominal pain Goiter Vitamin D deficiency Hyperparathyroidism Hypercalcemia Surgical History History of surgery History of umbilical hernia repair Hx of section Family History Father Diabetes Hypertension Alzheimer disease FH: prostate cancer Emphysema of lung Mother Hypertension Diabetes Social History Household Members: Spouse Household Members Other:: son Housing: Apartment Alcohol intake: never Patient Tobacco Use Status: Never used Tobacco Current occupational status: unemployed Sexual orientation: Straight/Heterosexual Gender identity: Female Female Reproductive History Menstrual Age of Menarche: 13 Physical Exam Vital Signs: Last Vital Signs Pulse 79 05/02/24 09:48 BP 130/62 05/02/24 09:48 BMI result Body Mass Index 28.3 GI Other: Patient was evaluated both supine and standing with Valsalva. Abdomen is soft and benign. Umbilical hernia incision clean dry and intact . No evidence of any recurrence. No evidence of any infection. Assessment & Plan Assessment & Plan (1) Periumbilical abdominal pain: Code(s): R10.33 - Periumbilical pain Category: Surgical Plan At present, no acute surgical issues. Patient was reassured. Her symptoms may be related to scar tissue which is expected after this type of procedure. Should she have persistence of her symptoms or develop a bulge or swelling in the area, she has been instructed to call the office. She will otherwise follow-up p.r.n.. All questions answered. Coding Level of Care Code New Pt Level 4 (66510) Diagnoses Periumbilical abdominal pain R10.33
[2024-05-02 09:48] VITALS: BP 130/62; PULSE 79; BMI 28.3
== END 2024-05-02 09:57 | disposition home or self-care (01) ==
PROVIDERS: PCP Registered Nurse; Referring Provider Registered Nurse; Visit Provider Surgery
DX: R10.33 Periumbilical pain (principal)
CPT/HCPCS: 99203

== ENCOUNTER → 2024-05-02 09:27 | Outpatient (BNVA) | payer MEDICAID, SELFPAY | PROVIDERS: PCP Registered Nurse; Visit Provider Surgery | DX: R10.33 Periumbilical pain (principal) | CPT/HCPCS: 99202 ==

== ENCOUNTER 2024-05-16 08:28 | Outpatient (REF) | payer MEDICAID, SELFPAY ==
--- NOTE | ~2024-05-16 | CT_ITS ---
EXAMINATION: CT CHEST WITH CONTRAST CLINICAL INFORMATION: Cough, shortness of breath, hoarseness, bronchial thickening. COMPARISON: No prior CT available. Correlation made with chest radiograph 02/18/2024, 10/03/2023. TECHNIQUE: Multidetector volumetric CT imaging of the chest was obtained after the administration of 65 mL of Omnipaque 350 intravenous contrast without immediate adverse reactions. Axial MIP volume rendering provided. Sagittal and coronal reformatted images were obtained. This CT examination was performed using dose optimization techniques as appropriate, variously including the following: *Automated exposure control *Adjustment of mA and/or kV according to patient size (this includes techniques or standardized protocols for targeted exams where dose is matched to indication/reason for exam; i.e. extremities or head) *Use of iterative reconstruction technique DLP: 115 mGy-cm Please note, due to [employer] technical systems, staffing issues, and internal issues, this examination was not available for dictation until 06/22/2024. 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 There is a mild to moderate right convex thoracolumbar scoliosis with compensatory left convex lumbar scoliosis. LUNGS: -Respiratory motion artifact is present in the mid and lower aspect of the thorax, mildly limiting sensitivity for subtle findings and nodules. -There is no bronchiectasis, or evidence of bronchial wall thickening or filling defect. A small airways, main bronchi, and trachea appear normal. -There are no consolidations or abnormal groundglass opacities. -Within the confines of motion artifact, there are no suspicious pulmonary nodules. -Trace atelectasis or scarring in the medial segment right middle lobe. -In review of the recent x-ray 02/18/2024, I personally appreciate no bronchial thickening (which was mentioned by the reading radiologist as a finding). This x-ray appears normal. -Pulmonary arteries appear somewhat larger than their accompanying bronchi, which could indicate pulmonary hypertension. PLEURA: There is no pleural effusion. No pleural mass or thickening. MEDIASTINUM: -Heart is borderline enlarged based on cardiothoracic ratio. -No significant coronary calcifications. -Aorta normal in caliber and course. Two-vessel branching pattern. -Main pulmonary artery is normal in size and configuration. -Normal thyroid. -No mediastinal lymphadenopathy or hilar lymphadenopathy. -Distal esophagus appears mildly patulous with a probable small type I hiatus hernia. AXILLA/CHEST WALL: No masses or lymphadenopathy identified. UPPER ABDOMEN: -there is mild diffuse fatty infiltration of the liver. Remainder of the imaged upper abdominal viscera appear normal. OSSEOUS STRUCTURES: -No suspicious lytic or blastic bone lesions. -S-shaped thoracolumbar scoliosis as described above. Associated mild spinal degenerative changes, more significant in the lumbar region. CT/CT chest w IV con IMPRESSION: 1. Exam mildly limited by respiratory motion. There is no active pulmonary disease identified. Specifically, there is no bronchial or small airway thickening, bronchiectasis, or filling defects. No consolidations or pulmonary opacities. 2. Borderline cardiac enlargement based on cardiothoracic ratio. 3. Segmental and small pulmonary arteries are somewhat larger than their accompanying bronchi, raising the possibility of pulmonary hypertension. Consider correlating with echocardiogram. 4. No suspicious pulmonary nodules identified. 5. Mild fatty infiltration of the liver. Fleischner guidelines were followed.
[2024-05-16] MEDS: iohexoL 350 MG/ML 75 ML INFUS..BTL 65 ML IV (10:51)
== END 2024-05-16 08:29 | disposition home or self-care (01) ==
LOC: HO.CT 08:28
PROVIDERS: PCP Registered Nurse; Visit Provider Registered Nurse
DX: R06.02 Shortness of breath (principal); R05.9 Cough, unspecified; R49.0 Dysphonia
CPT/HCPCS: 71260; Q9967

== ENCOUNTER → 2024-05-16 08:36 | Outpatient (BNV) | payer MEDICAID, SELFPAY | PROVIDERS: PCP Registered Nurse; Visit Provider Radiology Diagnostic Radiology | DX: R05.9 Cough, unspecified (principal); R49.0 Dysphonia; R06.02 Shortness of breath | CPT/HCPCS: 71260 ==

== ENCOUNTER 2024-06-06 13:25 | Outpatient (AMB) | payer MEDICAID, SELFPAY ==
--- NOTE | 2024-06-06 13:27 | A.OFFVIS_ITS ---
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 She was initially referred by GI for preoperative pulmonary evaluation for proposed EGD/colonscopy. She had reported worsening respiratory control over the last year with dry cough, wheezing, chest tightness, and hoarseness. She was switched from Symbicort 80 mcg to 160mcg with significant improvement in symptoms. Patient was sent for chest CT from PCP however not officially read by radiology. She denies any visits to urgent care or hospitalizations since the last visit. At this time she feels symptoms are well controlled. [facility] Medical History Chronic abdominal pain Goiter Vitamin D deficiency Hyperparathyroidism Hypercalcemia Surgical History History of surgery History of umbilical hernia repair Hx of section Family History Father Diabetes Hypertension Alzheimer disease FH: prostate cancer Emphysema of lung Mother Hypertension Diabetes Social History (Reviewed 06/06/24 @ 13:34 by [place] Howard [facility]) Household Members: Spouse Household Members Other:: son Housing: Apartment Alcohol intake: never Patient Tobacco Use Status: Never used Tobacco Current occupational status: unemployed Sexual orientation: Straight/Heterosexual Gender identity: Female Female Reproductive History Menstrual Age of Menarche: 13 Review of Systems Const Denies chills, Denies excessive sweating, Denies fever(s), Denies headache(s) and Denies night sweats Eyes Denies dry eyes, Denies irritation and Denies itchy eyes ENT Reports Normal hearing present, Denies headache(s), Denies nasal congestion, Denies nasal discharge, Denies post nasal drip and Denies sore throat Card Denies chest pain, Denies chest pain at rest, Denies chest pain with activity, Denies claudication, Denies leg edema, Denies dyspnea, Denies dyspnea on exertion, Denies orthopnea and Denies paroxysmal nocturnal dyspnea Resp Denies chest congestion, Denies cough, Denies excessive phlegm production, Denies pain on inspiration, Denies pain with cough, Denies dyspnea, Denies dyspnea on exertion, Denies stridor and Denies wheezing Musc Denies myalgias Neuro Reports Normal hearing present and Denies headache(s) Endo Denies excessive sweating Frank/Lymph Denies lymphadenopathy Aller/Immun Denies itchy eyes, Denies seasonal rhinorrhea and Denies wheezing Physical Exam Vital Signs: Last Vital Signs Pulse 88 06/06/24 13:28 BP 108/60 06/06/24 13:28 Pulse Ox 98 06/06/24 13:28 Oxygen Delivery Method Room Air 06/06/24 13:28 BMI result Body Mass Index 28.0 Const General: cooperative, healthy appearing, comfortable, no acute distress, well developed and alert Orientation/consciousness: patient oriented x3 Limitations: no limitations HEENT Head: Yes normal to inspection, Yes normocephalic and Yes atraumatic Ears: hearing grossly normal bilaterally and external ears normal Eyes General: appearance normal, both eyes and all related structures Eyelids: Yes eyelids normal Sclerae: sclerae normal EOM: EOMs intact bilaterally Neck Neck: Yes normal visual inspection and Yes no lymphadenopathy Lymphatic: no lymphadenopathy noted Chest Chest palpation & inspection: normal inspection of the chest Resp Effort & Inspection: normal respiratory effort, able to speak in complete sentences, no audible wheezes, no cough, no stridor, not tachypneic, no tripod positioning and no use of accessory muscles Auscultation: clear to auscultation bilaterally Cardio Jugular venous distension: no JVD Rate: regular rate Rhythm: regular rhythm Skin Other: warm, dry General skin exam: no rashes or lesions noted Neuro General: patient oriented x3 Cranial nerves: Yes Normal hearing present Cognition (Neuro): normal cognition Gait exam (Neuro): Normal gait present Extrem General: Yes normal to inspection, Yes capillary refill normal, Yes no clubbing, cyanosis or edema and Yes no pedal edema Psych Appearance: grossly normal and well kempt Speech and movement: Normal speech and movement present and Clear speech present Affect: normal affect Attitude: cooperative Thought process: Normal thought process present Thought content: Normal thought content present Insight: Good insight present (Psych) Judgement: Good judgement present (Psych) Office Procedures Spirometry Testing Spirometry Comments: In office spirometry completed with results given to provider. [id number]- Spirometry Assessment & Plan Assessment & Plan (1) Asthma: Code(s): J45.909 - Unspecified asthma, uncomplicated Category: Medical (2) Shortness of breath: Code(s): R06.02 - Shortness of breath Category: Medical (3) Environmental allergies: Code(s): Z91.09 - Other allergy status, other than to drugs and biological substances Category: Medical Plan Jocelynn reports good control of symptoms on current regimen, advised to continue. RAST revealed allergy to dog, otherwise negative. Denies respiratory symptoms today. Respiratory exam unremarkable. Denies any recent need for prednisone or antibiotics. Spirometry attempted in office however poor effort. Will again attempt to obtain prior PFT. At this time, she is considered low risk for perioperative pulmonary complications. Consider bronchodilators during the perioperative period. All questions were answered and patient is in agreement of plan. Will follow up for regularly scheduled appointment or sooner if needed.? Coding Level of Care Code Est Pt Level 4 (45263) Diagnoses Asthma J45.909 Shortness of breath R06.02 Environmental allergies Z91.09 CPT Codes Spirometry - CPT: 08307- Spirometry ([id number])
[2024-06-06 13:28] VITALS: BP 108/60; PULSE 88; O2SAT 98; BMI 28.0
== END 2024-06-06 14:13 | disposition home or self-care (01) ==
PROVIDERS: PCP Registered Nurse; Visit Provider Nurse Practitioner Family
DX: J45.909 Unspecified asthma, uncomplicated (principal); R06.02 Shortness of breath; Z91.09 Other allergy status, other than to drugs and biological substances
CPT/HCPCS: 94010; 99214

== ENCOUNTER → 2024-06-06 13:25 | Outpatient (BNVA) | payer MEDICAID, SELFPAY | PROVIDERS: PCP Registered Nurse; Visit Provider Nurse Practitioner Family | DX: J45.909 Unspecified asthma, uncomplicated (principal); Z91.09 Other allergy status, other than to drugs and biological substances; R06.02 Shortness of breath | CPT/HCPCS: 94010; 99212 ==

== ENCOUNTER 2024-07-04 12:57 | Outpatient (AMB) | payer MEDICAID, SELFPAY ==
--- NOTE | 2024-07-04 12:59 | MHC.OFFVIS ---
Vital Signs 07/04/24 13:01 Height 5 ft 4 in Weight 165 lb 12.602 oz BMI 28.5 BP 120/68 Blood Pressure Location Lt brachial Position Sitting Pulse 101 H Pulse Source Pulse Oximeter Intake Visit Reasons: Hyperparathyroidism/CONFIRMED Intake Note: Patient present today for Hyperparathyroidism follow up visit. 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 Was previously seeing Dr. Marin. Last visit was 04/05. HPI from prior visit The patient had been complaining of chronic abdominal pain. She has episodes with severe cramping abdominal pain accompanied by watery diarrhea, facial flushing and sweating. She also has nausea at these times. She was referred to GI and underwent a thorough evaluation. 5HIAA was negative. Serum and Urinary 24 hour metanephrines were negative. Her 24 hour urine free cortisol level was elevated to 56.9. This was an adequate collection with a volume of 1.45 L and a Creatinine of 1.27. She was subsequently referred to Endocrinology. She had a CT of the abdomen 04/11/2020 which revealed no adrenal adenoma. This was not a dedicated adrenal protocol. After our initial visit we repeated her 24 hour urine cortisol, which was WNL. She also had a DSST which was WNL. Midnight salivary Cortisol was also WNL, effectively ruling out bandar's disease. She underwent lab workup for hypoglycemia, and this was also WNL. Gastrin was WNL. Her Calcium was, however, noted to have been elevated in the past. She underwent a biochemical evaluation for hyperparathyroidism which is concerning with Vitamin D 22.1, Calcium 9.9, and PTH inappropriately normal at 50. Albumin in the past was 5.0. Her 24 hour urine Calcium was elevated to 396 and this was an adequate collection. Labs were repeated 12/09/2020 with Calcium 9.6, Albumin 4.5, Vitamin D 23.5, PTH elevated to 89 and Phos 2.6. She was asked to increase her Vitamin D to 2000 IU daily and have labs repeated. Repeat labs 03/19/2021 with Calcium 9.8, PTH 76, Vitamin D 26.5 and Albumin 4.7. She had an US of the neck which revealed no evidence of a parathyroid adenoma. DEXA was completely WNL. Last visit she was noted to have poor adherence with vitamin-D. Most recent blood work done in March 07, Laboratory Tests 03/12/24 11:40 Creatinine 0.70 Estimated GFR > 60 Calcium 10.3 H 25-OH Vitamin D Total 35.4 PTH Intact 66.6 currently, not taking vitamin D. Describes she cannot swallow big pills but she can do gummies. No kidney stones No fractures. Father: lots of kidney stones She is also complaining of ongoing abdominal pain episodes of diarrhea associated with episodes of anxiety. She is following with Gastroenterology and is due for a colonoscopy. In the past we have done an extensive workup as outlined above. She is also noted to be tachycardic today. With pulse of 101. Work up reviewed Thyroid US: 12/09/2020 Right Thyroid Lobe: 4.6 x 1.8 x 1.4 cm, volume 5.9 mL. Parenchyma: The gland echotexture is homogeneous. Thyroid vascularity is normal. Left Thyroid Lobe: 4.2 x 1.5 x 1.3 cm, volume 4.0 mL. Parenchyma: The gland echotexture is homogeneous. Thyroid vascularity is normal. Isthmus: 0.4 cm in maximum AP dimension. RIGHT THYROID LOBE: No nodules. ISTHMUS: No nodules. LEFT THYROID LOBE: No nodules. NODES: No lymphadenopathy is seen in the tissue surrounding the thyroid gland. No parathyroid adenoma is seen. DEXA 02/03/2021: FINDINGS: AP SPINE L1-L3 (excluding L4): The data of L1-L4 has been changed to exclude the L4 vertebral body, because probable degenerative changes at this level may cause overestimation of lumbar spine density. Current: BMD 1.258 g/cm2, T-score 0.7, Z-score 0.6, Z-score within expected range for age, 2.1% increase from baseline (<5% change is not significant). Baseline: BMD 1.232 g/cm2. LEFT FEMUR, NECK: Current: BMD 1.073 g/cm2, T-score 0.3, Z-score 0.6, Z-score within expected range for age. Baseline: BMD 1.001 g/cm2. LEFT FEMUR, TOTAL: Current: BMD 1.153 g/cm2, T-score 1.2, Z-score 1.3, Z-score within expected range for age, 9.1% increase from baseline (<5% change is not significant). Baseline: BMD 1.057 g/cm2. LEFT FOREARM RADIUS 33%: Current: BMD 0.865 g/cm2, T-score -0.1, Z-score -0.1, Z-score within expected range for age, 1.9% decrease from baseline (<5% change is not significant). Baseline: BMD 0.882 g/cm2. Labs: Laboratory Tests 03/28/23 03/28/23 03/30/23 10:40 10:40 08:25 Sodium 138 Potassium 4.2 Creatinine 0.77 Estimated GFR > 60 Albumin 4.2 25-OH Vitamin D Total 26.0 PTH Intact 98 H Calcium (PTH Intact) 9.6 Ur 24 Hour Volume Ur Creatinine 24 Hour 1.21 Ur Calcium 24 Hr 246 03/30/23 08:25 Sodium Potassium Creatinine Estimated GFR Albumin 25-OH Vitamin D Total PTH Intact Calcium (PTH Intact) Ur 24 Hour Volume 1225 Ur Creatinine 24 Hour Ur Calcium 24 Hr Review of systems Constitutional: no fevers, chills or weight loss HEENT: no changes in vision Cardiac: Does report intermittent palpitations Pulmonary: No SOB GI: Chronic abdominal pain and diarrhea : no burning micturition, dysuria or increase in urinary frequency Neurologic: No dizziness, no weakness in extremities MSK: no back pain or joint stiffness Physical exam General: sitting comfortably in bed in no acute distress HEENT: normocephalic/atraumatic, moist oral mucosa Neck: supple, symmetrical, no thyromegaly , no dorsocervical or supraclavicular fat pads Cardiac: normal heart sounds Pulm: normal breath sounds B/L, no added breath sounds Abd: not distended, no tenderness Extremities: no edema, no signs of myxedema Neuro: AAO x3, Speech: normal, no facial droop, moving all 4 extremities Skin: no rash PFSH Medical History Chronic abdominal pain Goiter Vitamin D deficiency Hyperparathyroidism Hypercalcemia Surgical History History of surgery History of umbilical hernia repair Hx of section Family History Father Diabetes Hypertension Alzheimer disease FH: prostate cancer Emphysema of lung Mother Hypertension Diabetes Social History Household Members: Spouse Household Members Other:: son Housing: Apartment Alcohol intake: never Patient Tobacco Use Status: Never used Tobacco Current occupational status: unemployed Sexual orientation: Straight/Heterosexual Gender identity: Female Female Reproductive History Menstrual Age of Menarche: 13 Physical Exam Vital Signs: Last Vital Signs Pulse 101 H 07/04/24 13:01 BP 120/68 07/04/24 13:01 BMI result Body Mass Index 28.5 Results Reviewed Results Reviewed: Laboratory Tests 04/11/20 04/21/20 05/29/20 12:27 09:00 10:45 Creatinine Estimated GFR Calcium 25-OH Vitamin D Total PTH Intact Plasma Free Metaneph <25 Plasma Free Normeta 68 Plas Total Metaneph 68 Ur Calcium 24 Hr Calcium/Creat 24 Hr U 5-Hydroxyindoleacetic 3.3 Saliva Cortisol Chromogranin A 62 Tiss Transglutamin IgG 3 Tiss Transglutamin IgA 1 06/01/20 06/02/20 04/13/22 23:00 08:20 11:30 Creatinine Estimated GFR Calcium 25-OH Vitamin D Total PTH Intact Plasma Free Metaneph Plasma Free Normeta Plas Total Metaneph Ur Calcium 24 Hr 396 H 293 H Calcium/Creat 24 Hr 257 222 U 5-Hydroxyindoleacetic Saliva Cortisol <0.03 Chromogranin A Tiss Transglutamin IgG Tiss Transglutamin IgA 03/30/23 03/12/24 08:25 11:40 Creatinine 0.70 Estimated GFR > 60 Calcium 10.3 H 25-OH Vitamin D Total 35.4 PTH Intact 66.6 Plasma Free Metaneph Plasma Free Normeta Plas Total Metaneph Ur Calcium 24 Hr 246 Calcium/Creat 24 Hr 203 U 5-Hydroxyindoleacetic Saliva Cortisol Chromogranin A Tiss Transglutamin IgG Tiss Transglutamin IgA Assessment & Plan Assessment & Plan (1) Anxiety: Code(s): F41.9 - Anxiety disorder, unspecified Category: Medical Plan: She has longstanding history of severe cramping abdominal pain accompanied by watery diarrhea, facial flushing and sweating. She also has nausea at these times. Also has episodes of anxiety. She was referred to GI and underwent a thorough evaluation. In 2019 we did an extensive workup. 5HIAA was negative. Serum and Urinary 24 hour metanephrines were negative. Her 24 hour urine free cortisol level was elevated to 56.9. This was an adequate collection with a volume of 1.45 L and a Creatinine of 1.27.. She had a CT of the abdomen 04/11/2020 which revealed no adrenal adenoma. This was not a dedicated adrenal protocol. After our initial visit we repeated her 24 hour urine cortisol, which was WNL. She also had a DSST which was WNL. Midnight salivary Cortisol was also WNL, effectively ruling out bandar's disease. She underwent lab workup for hypoglycemia, and this was also WNL. Gastrin was WNL. At this point it has been around 4 years since she had testing for metanephrines, and she continues to have these symptoms. She is also reporting anxiety. We will plan to repeat her plasma metanephrine and normetanephrine levels. She is also tachycardic during today's visit, and I will check her TSH. Plan: -ordered TSH, plasma metanephrine and normetanephrine levels (2) Hypercalcemia: Code(s): E83.52 - Hypercalcemia Category: Medical Plan: In the past she has history of hypercalcemia. More recent blood work over the last few years, showed elevated PTH levels, normal calcium levels and low vitamin-D levels. Was thought that she has secondary hyperparathyroidism in the setting of vitamin-D deficiency. She has had trouble being adherent to her vitamin-D tablets due to anxiety with swallowing big pills. I discussed with her today to start taking gummies. She is amenable to that idea. Once she has been adherent to vitamin-D for 2 months, I have asked her to repeat her blood work. Her more recent blood work in March 07, showed improved vitamin-D levels of 35, and her PTH level is normal. Her total calcium level is mildly elevated at 10.3, though no albumin or ionized calcium was done. It could be that the total calcium as high in the setting of high albumin albumin. I would like to repeat this test after she is adequately supplemented with vitamin-D Plan: -start vitamin-D gummies 2000 units for 2 months -repeat blood work in 2 months -follow up in 2 months Plan I spent 30 minutes in reviewing the record, seeing the patient and documenting in the medical record. Orders: Orders Albumin Level 2 Months E83.52 - Hypercalcemia, F41.9 - Anxiety disorder, unspecified Calcium, Ionized 2 Months E83.52 - Hypercalcemia, F41.9 - Anxiety disorder, unspecified Vitamin D 25-OH Total 2 Months E83.52 - Hypercalcemia, F41.9 - Anxiety disorder, unspecified Metanephrines, Plasma 2 Months E83.52 - Hypercalcemia, F41.9 - Anxiety disorder, unspecified Parathyroid Hormone Intact 2 Months E83.52 - Hypercalcemia, F41.9 - Anxiety disorder, unspecified Calcium 2 Months E83.52 - Hypercalcemia, F41.9 - Anxiety disorder, unspecified Phosphorus 2 Months E83.52 - Hypercalcemia, F41.9 - Anxiety disorder, unspecified TSH reflex Free T4 2 Months E83.52 - Hypercalcemia, F41.9 - Anxiety disorder, unspecified Magnesium 2 Months E83.52 - Hypercalcemia, F41.9 - Anxiety disorder, unspecified Patient Instructions: Start taking vitamin D 2000 units daily you can do gummies, chewables Do blood work 2 months after doing this which would be before your follow up visit with me do blood work 1.5 weeks / 10 days before seeing me next so we can discuss the results Comienza a joe vitamina D 2000 unidades diarias puedes hacer gomitas, masticables H?gase un an?lisis de derrell 2 meses despu?s de hacer esto, que ser?a antes de huber visita de seguimiento conmigo. hacer an?lisis de derrell 1,5 semanas / 10 d?as antes de verme la pr?xima vez para que podamos discutir los resultados Coding Level of Care Code Est Pt Level 4 (49409) Diagnoses Anxiety F41.9 Hypercalcemia E83.52
[2024-07-04 13:01] VITALS: BP 120/68; PULSE 101; BMI 28.5
== END 2024-07-04 13:40 | disposition home or self-care (01) ==
PROVIDERS: PCP Registered Nurse; Referring Provider Registered Nurse; Visit Provider Student in an Organized Health Care Education/Training Program
DX: E83.52 Hypercalcemia (principal); F41.9 Anxiety disorder, unspecified
CPT/HCPCS: 99214

== ENCOUNTER → 2024-07-04 12:57 | Outpatient (BNVA) | payer MEDICAID, SELFPAY | PROVIDERS: PCP Registered Nurse; Visit Provider Student in an Organized Health Care Education/Training Program | DX: E21.3 Hyperparathyroidism, unspecified (principal); E83.52 Hypercalcemia; R10.9 Unspecified abdominal pain; G89.29 Other chronic pain; F41.9 Anxiety disorder, unspecified | CPT/HCPCS: 99212 ==

== ENCOUNTER 2024-07-17 10:43 | Outpatient (AMB) | payer MEDICAID, SELFPAY ==
--- NOTE | 2024-07-17 10:47 | MHC.OFFVIS ---
Vital Signs 07/17/24 10:49 Height 5 ft 4 in Weight 164 lb 8 oz BMI 28.2 BP 116/64 Blood Pressure Location Rt brachial Position Sitting Pulse 93 Pulse Source Pulse Oximeter Pulse Oximetry (%) 98 Oxygen Delivery Method Room Air Intake Visit Reasons: Shortness of breath Wood Handler Required: Yes Wood Handler Language: Director Food And Beverage Name: [id number] Stephie Allergies dog dander Allergy (Intermediate, Verified 07/17/24 10:57) Unknown seafood Allergy (Intermediate, Verified 07/17/24 10:55) Itching aspirin Allergy (Unknown, Verified 07/17/24 10:55) swelling HPI HPI Shortness of breath: Details: Jocelynn is a pleasant 43 year old female, never smoker, with underlying asthma, hyperparathyroidism and hypercalcemia. She has been moderately controlled on Symbicort 160 mcg and albuterol MDI PRN, however continues with dry cough and chest tightness which she attributes to allergies. She has been using zyrtec with suboptimal effect. She denies any visits to urgent care or hospitalizations since the last visit. She has been followed by cardiology for cardiomegaly and has an upcoming echo scheduled this week. Recent chest CT revealed mild enlargement of pulmonary arteries suggestive of pulmonary hypertension. [facility] Medical History (Updated 07/04/24 @ 14:36 by Ginger White MD) Flushing Anxiety Chronic abdominal pain Goiter Vitamin D deficiency Hyperparathyroidism Hypercalcemia Surgical History History of surgery History of umbilical hernia repair Hx of section Family History Father Diabetes Hypertension Alzheimer disease FH: prostate cancer Emphysema of lung Mother Hypertension Diabetes Social History Household Members: Spouse Household Members Other:: son Housing: Apartment Alcohol intake: never Patient Tobacco Use Status: Never used Tobacco Current occupational status: unemployed Sexual orientation: Straight/Heterosexual Gender identity: Female Female Reproductive History Menstrual Age of Menarche: 13 Review of Systems Const Denies chills, Denies excessive sweating, Denies fever(s), Denies headache(s) and Denies night sweats Eyes Denies dry eyes, Denies irritation and Denies itchy eyes ENT Reports Normal hearing present, Denies headache(s), Denies nasal congestion, Denies nasal discharge, Denies post nasal drip and Denies sore throat Card Denies chest pain, Denies chest pain at rest, Denies chest pain with activity, Denies claudication, Denies leg edema, Denies dyspnea, Denies dyspnea on exertion, Denies orthopnea and Denies paroxysmal nocturnal dyspnea Resp Denies chest congestion, Reports cough, Denies excessive phlegm production, Denies pain on inspiration, Denies pain with cough, Denies dyspnea, Denies dyspnea on exertion, Denies stridor and Denies wheezing Musc Denies myalgias Neuro Reports Normal hearing present and Denies headache(s) Endo Denies excessive sweating Frank/Lymph Denies lymphadenopathy Aller/Immun Denies itchy eyes, Denies seasonal rhinorrhea and Denies wheezing Physical Exam Vital Signs: Last Vital Signs Pulse 93 07/17/24 10:49 BP 116/64 07/17/24 10:49 Pulse Ox 98 07/17/24 10:49 Oxygen Delivery Method Room Air 07/17/24 10:49 BMI result Body Mass Index 28.2 Const General: cooperative, healthy appearing, comfortable, no acute distress, well developed and alert Orientation/consciousness: patient oriented x3 Limitations: no limitations HEENT Head: Yes normal to inspection, Yes normocephalic and Yes atraumatic Ears: hearing grossly normal bilaterally and external ears normal Eyes General: appearance normal, both eyes and all related structures Eyelids: Yes eyelids normal Sclerae: sclerae normal EOM: EOMs intact bilaterally Neck Neck: Yes normal visual inspection and Yes no lymphadenopathy Lymphatic: no lymphadenopathy noted Chest Chest palpation & inspection: normal inspection of the chest Resp Effort & Inspection: normal respiratory effort, able to speak in complete sentences, no audible wheezes, no cough, no stridor, not tachypneic, no tripod positioning and no use of accessory muscles Auscultation: clear to auscultation bilaterally Cardio Jugular venous distension: no JVD Rate: regular rate Rhythm: regular rhythm Skin Other: warm, dry General skin exam: no rashes or lesions noted Neuro General: patient oriented x3 Cranial nerves: Yes Normal hearing present Cognition (Neuro): normal cognition Gait exam (Neuro): Normal gait present Extrem General: Yes normal to inspection, Yes capillary refill normal, Yes no clubbing, cyanosis or edema and Yes no pedal edema Psych Appearance: grossly normal and well kempt Speech and movement: Normal speech and movement present and Clear speech present Affect: normal affect Attitude: cooperative Thought process: Normal thought process present Thought content: Normal thought content present Insight: Good insight present (Psych) Judgement: Good judgement present (Psych) Results Reviewed Results Reviewed: [address] [address] [address] Scan Report Signed Patient: Jocelynn Osborn MR#: [id number] : 1980 Acct:[id number] Age/Sex: 43 / F ADM Date: 05/16/24 Loc: HO.CT Attending Dr: Haydee BRADLEY Ordering Physician: Haydee Jacinto Date of Service: 05/16/24 Procedure(s): CT chest w IV con Accession Number(s): [id number] cc: Haydee Jacinto~ EXAMINATION: CT CHEST WITH CONTRAST CLINICAL INFORMATION: Cough, shortness of breath, hoarseness, bronchial thickening. COMPARISON: No prior CT available. Correlation made with chest radiograph 02/18/2024, 10/03/2023. TECHNIQUE: Multidetector volumetric CT imaging of the chest was obtained after the administration of 65 mL of Omnipaque 350 intravenous contrast without immediate adverse reactions. Axial MIP volume rendering provided. Sagittal and coronal reformatted images were obtained. This CT examination was performed using dose optimization techniques as appropriate, variously including the following: *Automated exposure control *Adjustment of mA and/or kV according to patient size (this includes techniques or standardized protocols for targeted exams where dose is matched to indication/reason for exam; i.e. extremities or head) *Use of iterative reconstruction technique DLP: 115 mGy-cm Please note, due to [employer] technical systems, staffing issues, and internal issues, this examination was not available for dictation until 06/22/2024. 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 There is a mild to moderate right convex thoracolumbar scoliosis with compensatory left convex lumbar scoliosis. LUNGS: -Respiratory motion artifact is present in the mid and lower aspect of the thorax, mildly limiting sensitivity for subtle findings and nodules. -There is no bronchiectasis, or evidence of bronchial wall thickening or filling defect. A small airways, main bronchi, and trachea appear normal. -There are no consolidations or abnormal groundglass opacities. -Within the confines of motion artifact, there are no suspicious pulmonary nodules. -Trace atelectasis or scarring in the medial segment right middle lobe. -In review of the recent x-ray 02/18/2024, I personally appreciate no bronchial thickening (which was mentioned by the reading radiologist as a finding). This x-ray appears normal. -Pulmonary arteries appear somewhat larger than their accompanying bronchi, which could indicate pulmonary hypertension. PLEURA: There is no pleural effusion. No pleural mass or thickening. MEDIASTINUM: -Heart is borderline enlarged based on cardiothoracic ratio. -No significant coronary calcifications. -Aorta normal in caliber and course. Two-vessel branching pattern. -Main pulmonary artery is normal in size and configuration. -Normal thyroid. -No mediastinal lymphadenopathy or hilar lymphadenopathy. -Distal esophagus appears mildly patulous with a probable small type I hiatus hernia. AXILLA/CHEST WALL: No masses or lymphadenopathy identified. UPPER ABDOMEN: -there is mild diffuse fatty infiltration of the liver. Remainder of the imaged upper abdominal viscera appear normal. OSSEOUS STRUCTURES: -No suspicious lytic or blastic bone lesions. -S-shaped thoracolumbar scoliosis as described above. Associated mild spinal degenerative changes, more significant in the lumbar region. CT/CT chest w IV con IMPRESSION: 1. Exam mildly limited by respiratory motion. There is no active pulmonary disease identified. Specifically, there is no bronchial or small airway thickening, bronchiectasis, or filling defects. No consolidations or pulmonary opacities. 2. Borderline cardiac enlargement based on cardiothoracic ratio. 3. Segmental and small pulmonary arteries are somewhat larger than their accompanying bronchi, raising the possibility of pulmonary hypertension. Consider correlating with echocardiogram. 4. No suspicious pulmonary nodules identified. 5. Mild fatty infiltration of the liver. Fleischner guidelines were followed. Assessment & Plan Assessment & Plan (1) Asthma: Code(s): J45.909 - Unspecified asthma, uncomplicated Category: Medical (2) Shortness of breath: Code(s): R06.02 - Shortness of breath Category: Medical (3) Environmental allergies: Code(s): Z91.09 - Other allergy status, other than to drugs and biological substances Category: Medical Plan Advised to continue Symbicort and will add Singulair. Side effects reviewed. Discussed findings of enlarged pulmonary arteries on chest CT and has upcoming echo scheduled by cardiology. Will review results when available. All questions were answered and patient is in agreement of plan. Will follow up in 6-8 weeks or sooner if needed. Medications: New montelukast (Singulair) 10 mg PO BEDTIME 30 tabs 3RF Refilled budesonide-formoterol 160-4.5 mcg/actuation (Symbicort) 2 puffs inhalation Q12H 10.2 grams 3RF Coding Level of Care Code Est Pt Level 4 (05869) Diagnoses Asthma J45.909 Shortness of breath R06.02 Environmental allergies Z91.09
[2024-07-17 10:49] VITALS: BP 116/64; PULSE 93; O2SAT 98; BMI 28.2
== END 2024-07-17 11:19 | disposition home or self-care (01) ==
PROVIDERS: PCP Registered Nurse; Visit Provider Nurse Practitioner Family
DX: J45.909 Unspecified asthma, uncomplicated (principal); R06.02 Shortness of breath; Z91.09 Other allergy status, other than to drugs and biological substances
CPT/HCPCS: 99214

== ENCOUNTER → 2024-07-17 10:43 | Outpatient (BNVA) | payer MEDICAID, SELFPAY | PROVIDERS: PCP Registered Nurse; Visit Provider Nurse Practitioner Family | DX: J45.909 Unspecified asthma, uncomplicated (principal); R06.02 Shortness of breath; Z91.09 Other allergy status, other than to drugs and biological substances | CPT/HCPCS: 99212 ==

== ENCOUNTER → 2024-07-20 14:57 | Outpatient (REF) | payer MEDICAID, SELFPAY ==
--- NOTE | 2024-07-20 15:01 | CA_ITS ---
Transthoracic Echocardiogram Patient (Last, First, Middle): Jocelynn Osborn, Gender: Female Date of : 1980 Age: 43 Procedure Date: 07/20/2024 Procedure Type: Transthoracic Echocardiogram Location: OP Height: 162.56 cm Weight: 72.58 kg BSA: 1.78 m2 Heart Rate: bpm BP: 112 / 72 mmHg Medical Investigator: TO Referring MD: Haydee BRADLEY Symptoms: I51.7 CARDIOMEGALY Study Quality: Fair/Contrast ECG Rhythm: Sinus Conclusions: - The left ventricular systolic function is normal. The calculated ejection fraction is 61% by biplane method. - No obvious valvular pathology seen on this study. Findings Procedure Information Contrast agent, definity, is being given per protocol without apparent complications. Left Ventricle Normal left ventricular cavity size. There is normal left ventricular wall thickness. The left ventricular systolic function is normal. The calculated ejection fraction is 61% by biplane method. There is no evidence of regional wall motion abnormalities. Diastolic function is normal for age. Right Ventricle Normal right ventricular cavity size and systolic function. Atria Both atria are normal in size. Aortic Valve There is a normal trileaflet aortic valve. There is no aortic valve stenosis. There is no aortic valve regurgitation. Mitral Valve The mitral valve appears normal. There is no mitral valve regurgitation. There is no mitral valve stenosis. Pulmonic Valve The pulmonic valve is likely normal. Tricuspid Valve There is trace tricuspid valve regurgitation. There is no evidence of pulmonary hypertension. Great Vessels The asc aorta and aortic arch are normal in size. Venous The inferior vena cava is normal in size and collapses greater than 50% with inspiration. Pericardium/Pleural There is no evidence of pericardial effusion. Prior Study Comparison No prior study available for comparison. Recommendations, Care & Conclusions No obvious valvular pathology seen on this study. Measurements 2D Linear Measurements IVSd: 0.75 0.6-0.9/0.6-1.0 cm LVIDd: 4.51 3.9-5.3/4.2-5.9 cm LVIDd Index: 2.53 2.4-3.2/2.2-3.1 cm/m2 LVIDs: 3.00 2.0-3.6 cm LVPWd: 0.67 0.7-1.1 cm LA Diam: 3.50 2.7-3.8/3.0-4.0 cm LAIDs Index: 1.97 1.5-2.3 cm/m2 LV Mass: 120.48 67-162/88-224 g LV Mass Index: 67.69 43-95/49-115 g/m2 LVOT Diam: 2.00 3.0+(-)1.3 cm 2D Systolic Function EF 4C: 61.40 >55% EF 2C: 60.30 >55% EF BiP: 61.30 >55% Mitral Valve MV Pk E: 0.63 MV PK A: 0.67 MV Decel Time: 191.00 E/A: 0.90 E'Lateral: 8.49 E'Medial: 6.20 E/E' Med: 10.20 E/E' Lat: 7.40 PHT: 56.00 MVA PHT: 3.93 Decel Ogle: 3.29 Aortic Valve AoV Pk Juve: 1.32 AoV Mn Juve: 0.90 AoV VTI: 0.25 AoV Pk Grad: 7.00 Aov Mn Grad: 4.00 ADENIKE Cont.VTI: 2.67 LVOT LVOT Pk Juve: 1.00 LVOT Mn Juve: 0.66 LVOT VTI: 0.22 LVOT Pk Grad: 4.00 LVOT Mn Grad: 2.00 LVOT Diam: 2.00 LVOT Area: 3.14 Diastolic Function MV Pk E: 0.63 MV Pk A: 0.67 E/A: 0.90 E'Medial: 6.20 E/E' Med: 10.20 E' Laterial: 8.49 E/E' Lat: 7.40 Right Ventricle TAPSE (mm): 21.20 TVS' Juve: 12.80 Tricuspid Valve TR Pk Juve: 1.81 TR Pk Grad: 13.00 RA Press: 3.00 RVSP: 16.00 Great Vessels Aorta Sinus of Valsalva: 2.61 2.0-3.5 cm Ao Asc: 2.60 2.1-3.4 cm Ao Arch: 2.80 Updated in Other Vendor System with Status of Final Sebastien Mcdaniel MD electronically signed on 07/21/2024 2:31:31 PM with status of Final
== END ==
LOC: HO.CARD 14:57
PROVIDERS: PCP Registered Nurse; Visit Provider Registered Nurse
DX: I51.7 Cardiomegaly (principal)
CPT/HCPCS: 93306; Q9957

== ENCOUNTER → 2024-07-20 15:01 | Outpatient (BNV) | payer MEDICAID, SELFPAY | PROVIDERS: PCP Registered Nurse; Visit Provider Internal Medicine | DX: I51.7 Cardiomegaly (principal) | CPT/HCPCS: 93306 ==

== ENCOUNTER 2024-08-10 12:32 | Outpatient (REF) | payer MEDICAID, SELFPAY ==
[2024-08-10 13:31] LABS: Anion Gap 11 (12-20); Blood Urea Nitrogen 13 mg/dL (9-16); Calcium 10.1 mg/dL (8.4-10.2); Carbon Dioxide 27 mmol/L (22-29); Chloride 105 mmol/L (96-108); Estimated Glomerular Filt Rate > 60; Glucose Random 85 mg/dL (60-115); Potassium 3.8 mmol/L (3.3-5.1); Sodium 139 mmol/L (135-145)
== END 2024-08-10 12:33 | disposition home or self-care (01) ==
LOC: HO.LAB 12:32
PROVIDERS: PCP Registered Nurse; Visit Provider Registered Nurse
DX: E83.52 Hypercalcemia (principal)
CPT/HCPCS: 36415; 80048

== ENCOUNTER 2024-08-13 10:12 | Outpatient (AMB) | payer MEDICAID, SELFPAY ==
[2024-08-13 10:25] VITALS: BMI 28.0
--- NOTE | 2024-08-13 10:25 | A.OFFVIS_ITS ---
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 Complaining of urinary frequency, urgency with urge incontinence in addition to leakage of urine upon coughing, laughing and lifting heavy objects over the last 3 months. Last Pap/HPV was negative in 08/05 Last Mammogram was BI-RADS 1 in 08/06 [facility] Medical History Flushing Anxiety Chronic abdominal pain Goiter Vitamin D deficiency Hyperparathyroidism Hypercalcemia Surgical History History of surgery History of umbilical hernia repair Hx of section Family History Father Diabetes Hypertension Alzheimer disease FH: prostate cancer Emphysema of lung Mother Hypertension Diabetes Social History Household Members: Spouse Household Members Other:: son Housing: Apartment Alcohol intake: never Patient Tobacco Use Status: Never used Tobacco Current occupational status: unemployed Sexual orientation: Straight/Heterosexual Gender identity: Female Female Reproductive History Menstrual Age of Menarche: 13 Date of last menstrual period: 07/30/24 Total pregnancies: 1 Full term: 1 Number of Living Children: 1 Date of last pap smear: 07/16/22 Date of Mammogram: 08/18/23 Review of Systems Const All systems reviewed & are unremarkable except as noted in HPI and below Card Reports as per HPI Resp Reports as per HPI GI Reports as per HPI and Reports no additional complaints Reports as per HPI Physical Exam Vital Signs: BMI result Body Mass Index 28.0 Const General: cooperative, healthy appearing and comfortable Chest Chest palpation & inspection: normal inspection of the chest and normal palpation of entire chest wall Breast/axilla inspection: normal inspection of the breasts and normal inspection of the axillae Breast/axilla palpation: normal palpation of the breasts, normal palpation of the axillae and no axillary lymphadenopathy Resp Effort & Inspection: normal respiratory effort Auscultation: clear to auscultation bilaterally Percussion: percussion normal Cardio Palpation: normal PMI Rate: regular rate Rhythm: regular rhythm Heart sounds: no murmurs and no rubs Peripheral pulses: Peripheral pulses 2+ throughout GI Inspection: Yes normal to inspection Palpation (GI): Soft to palpation, nontender, no guarding, not rigid and No hepatosplenomegaly present Percussion: Yes normal to percussion Auscultation: normal bowel sounds Rectal Exam - Female: deferred General: Yes bladder normal to palpation External Female Exam: No lesion Speculum Exam - Vagina: normal appearance of the vagina, normal palpation, normal vaginal discharge and not erythematous Speculum Exam - Cervix: normal appearance of the cervix and normal palpation Bimanual exam- vagina & uterus: normal bimanual exam, normal palpation, uterine size normal, bladder normal to palpation, consistency normal and normal palpation Bimanual Exam- Adnexa, other: normal adnexae (Left adnexa within normal), no masses, no tenderness and Other (Right adnexal fullness) Results AMB Urinalysis Dipstick UR Leukocytes Negative Last Edit by Ailin Estevez CMA on 08/13/24 11:09 UR Nitrite Negative Last Edit by Ailin Estevez CMA on 08/13/24 11:09 UR Urobilinogen Normal Last Edit by Ailin Estevez CMA on 08/13/24 11:09 UR Protein Negative Last Edit by Ailin Estevez CMA on 08/13/24 11:09 UR Ph 5.5 Last Edit by Ailin Estevez CMA on 08/13/24 11:09 UR Blood Negative Last Edit by Ailin Estevez CMA on 08/13/24 11:09 UR Specific [place] 1.025 Last Edit by Ailin Estevez CMA on 08/13/24 11:09 UR Ketone Negative Last Edit by Ailin Estevez CMA on 08/13/24 11:09 UR Bilirubin Negative Last Edit by Ailin Estevez CMA on 08/13/24 11:09 UR Glucose 1000 Last Edit by Ailin Estevez CMA on 08/13/24 11:09 Assessment & Plan Assessment & Plan (1) Well woman exam: Code(s): Z01.419 - Encounter for gynecological examination (general) (routine) without abnormal findings Category: Medical Plan: Cotesting not indicated this year. Mammogram ordered. Counseled the patient about the recommended dietary allowance of 1000 mg of Calcium & 600 IU of vitamin D. The patient was instructed to perform monthly self-breast exams and to schedule an annual exam in a year; All questions answered and the patient verbalized understanding. Instructed the patient to schedule annual exam in a year (2) Adnexal fullness: Comment: Right side Code(s): N94.9 - Unspecified condition associated with female genital organs and menstrual cycle Category: Medical Plan: Discussed with the patient the finding on pelvic exam, right adnexal fullness. Pelvic ultrasound ordered, instructions given the patient to schedule an ultrasound follow-up appointment within 2 weeks. All questions answered, the patient verbalized understanding. (3) Urine incontinence: Code(s): R32 - Unspecified urinary incontinence Category: Medical Plan: Urine dip in the office was negative. Discussed with the patient the different types of Urine incontinence, stress urinary incontinence, intrinsic sphincter deficiency, overactive bladder and its work up. We will refer to Urology. All questions answered, the patient verbalized understanding. Orders: Orders AMB Urinalysis Dipstick Today R32 - Unspecified urinary incontinence MM tomosynthesis screening BI Today Z12.31 - Encounter for screening mammogram for malignant neoplasm of breast US pelvic complete Today N94.9 - Unspecified condition associated with female genital organs and menstrual cycle Referrals Urology Referral R32 - Unspecified urinary incontinence Coding Level of Care Code Est Pt Prev Care 40-64y(38786) Diagnoses Well woman exam Z01.419 Adnexal fullness N94.9 Urine incontinence R32
== END 2024-08-13 11:38 | disposition home or self-care (01) ==
LOC: HO.HWS 10:12
PROVIDERS: PCP Registered Nurse; Visit Provider Obstetrics & Gynecology
DX: Z01.419 Encounter for gynecological examination (general) (routine) without abnormal findings (principal); N94.9 Unspecified condition associated with female genital organs and menstrual cycle; R32 Unspecified urinary incontinence
CPT/HCPCS: 99396

== ENCOUNTER → 2024-08-13 10:12 | Outpatient (BNVA) | payer MEDICAID, SELFPAY | PROVIDERS: PCP Registered Nurse; Visit Provider Obstetrics & Gynecology | DX: Z01.419 Encounter for gynecological examination (general) (routine) without abnormal findings (principal); N94.9 Unspecified condition associated with female genital organs and menstrual cycle; R32 Unspecified urinary incontinence | CPT/HCPCS: 81002; 99396 ==

== ENCOUNTER 2024-08-17 11:30 | Outpatient (REF) | payer MEDICAID, SELFPAY ==
--- NOTE | ~2024-08-17 | US_ITS ---
EXAMINATION: US PELVIS CLINICAL INFORMATION: Adnexal fullness. COMPARISON: Ultrasound pelvis 07/05/2023. TECHNIQUE: Ultrasound of the pelvis is performed using both transabdominal and transvaginal transducers along with Doppler. Transvaginal imaging is performed due to inadequate visualization transabdominally. FINDINGS: Uterus: The uterus is anteverted, anteflexed and enlarged measuring 11.4 x 7.6 x 8.9 cm for a volume of 404 mL. The double wall endometrial thickness is 13 mm. Multiple uterine fibroids are seen as follows: Right near fundus 4.0 x 3.2 x 4.0 cm (previously 3.6 x 3.8 x 3.4 cm) Right lower uterine segment 2.6 x 2.0 x 2.2 cm (previous 2.5 x 2.2 x 2.2 cm) Left uterine body 3.1 x 3.2 x 2.6 cm (3.7 x 4.0 x 4.2 cm) Fundus 1.6 x 1.2 x 1.6 cm (previously 1.8 x 1.5 x 1.9 cm). A Nabothian cyst is seen in the cervix. Adnexa: Both ovaries are visualized. There is normal color flow to the adnexa. There is no ovarian torsion. There is no pelvic ascites or fluid collection. Right ovary measures 3.0 x 2.4 x 2.2 cm for a volume of 8.3 mL which includes multiple cysts the largest 1.5 cm. Left ovary measures 4.4 x 2.3 x 2.6 cm for a volume of 13.8 mL with multiple follicular cysts present. US/US pelvic complete IMPRESSION: 1. Enlarged fibroid uterus. 2. Bilateral ovarian cysts. No follow-up is needed. Electronically signed by: Gabriel Valadez MD 10/18/2024 12:53 AM [facility]
== END 2024-08-17 11:31 | disposition home or self-care (01) ==
LOC: HO.US 11:30
PROVIDERS: PCP Registered Nurse; Visit Provider Obstetrics & Gynecology
DX: N94.9 Unspecified condition associated with female genital organs and menstrual cycle (principal)
CPT/HCPCS: 76856

== ENCOUNTER 2024-08-24 10:14 | Outpatient (REF) | payer MEDICAID, SELFPAY ==
--- NOTE | ~2024-08-24 | MM_ITS ---
EXAMINATION: MM SCREENING DIGITAL BREAST TOMOSYNTHESIS, BILATERAL CLINICAL INFORMATION: Screening. Asymptomatic. COMPARISON: Mammography: Comparison is made with available priors TECHNIQUE: Digital breast mammography with tomosynthesis is performed in both the craniocaudal and mediolateral oblique views along with computer-aided detection (CAD). FINDINGS: The breasts are heterogeneously dense, which may obscure small masses (ACR BI-RADS breast composition Category c). There are no significant masses, abnormal calcifications, or other abnormalities. MM/MM tomosynthesis screening BI IMPRESSION: No mammographic evidence of malignancy. ASSESSMENT: BI-RADS BI-RADS 1 - Negative RECOMMENDATION: Routine annual mammography screening. 1 year F/U This examination should not preclude the clinical evaluation of a suspicious palpable abnormality. This patient's information was entered into a reminder system with a target due date for their next mammogram. Electronically signed by: Arabella Glaser DO 09/05/2024 08:15 AM EDT
== END 2024-08-24 10:15 | disposition home or self-care (01) ==
LOC: HO.MAMMO 10:14
PROVIDERS: PCP Registered Nurse; Visit Provider Registered Nurse
DX: Z12.31 Encounter for screening mammogram for malignant neoplasm of breast (principal)
CPT/HCPCS: 77063; 77067

== ENCOUNTER → 2024-08-24 10:19 | Outpatient (BNV) | payer MEDICAID, SELFPAY | PROVIDERS: PCP Registered Nurse; Visit Provider Internal Medicine | DX: Z12.31 Encounter for screening mammogram for malignant neoplasm of breast (principal) | CPT/HCPCS: 77063; 77067 ==

== ENCOUNTER 2024-09-03 11:00 | Outpatient (REF) | payer MEDICAID, SELFPAY ==
[2024-09-03 11:42] LABS: MANUAL DIFF FLAG NO
[2024-09-03 12:26] LABS: Basophils Percent Auto 0.4 % (0-2); Eosinophils Absolute Auto 0.1 X10*3/uL (0.0-0.4); Eosinophils Percent Auto 1.3 % (0-4); Hematocrit 39.3 % (37.0-47.0); Hemoglobin 12.7 g/dl (12.0-16.0); Imm Gran Abs Auto 0.02 X10*3/uL (0.00-0.03); Imm Gran Pct Auto 0.4 % (0.0-0.4); Lymphocytes Absolute Auto 1.8 X10*3/uL (1.2-4.9); Lymphocytes Percent Auto 37.1 % (20-40); Mean Corpuscular HGB Conc 32.3 g/dl (31.0-35.0); Mean Corpuscular Volume 86.6 fL (80.0-98.0); Mean Platelet Volume 9.9 fL (9.4-12.3); Monocytes Absolute Auto 0.3 X10*3/uL (0.1-1.2); Monocytes Percent Auto 5.9 % (2-11); Neutrophils Absolute Auto 2.6 x10*3/uL (2.0-8.3); Neutrophils Percent Auto 54.9 % (45-73); Platelet Count 318 X10*3/uL (160-400); Red Blood Count 4.54 X10*6/uL (4.20-5.50); Red Cell Distribution Width 13.3 % (11.0-16.0); White Blood Count 4.8 X10*3/uL (4.8-10.8)
[2024-09-03 12:42] LABS: Estimated Average Glucose 114 mg/dL; Hemoglobin A1C 118.1661 umol/L; Hemoglobin A1c % 5.6 % (<6.0); Total Hemoglobin (HGBA1C) 3117.5998 umol/L
[2024-09-03 13:04] LABS: Parathyroid Hormone Intact 104.4 pg/mL (8.7-77.1)
[2024-09-03 13:09] LABS: Albumin Level 4.7 g/dL (3.5-5.0); Calcium 10.2 mg/dL (8.4-10.2); Magnesium 2.4 mg/dL (1.6-2.6); Phosphorus 2.5 mg/dL (2.7-4.5)
[2024-09-03 13:18] LABS: Ferritin 22 ng/mL (10-250)
[2024-09-03 13:28] LABS: TSH reflex Free T4 1.11 uIU/mL (0.32-4.0); Vitamin D 25-OH Total 26.8 ng/mL (>30)
[2024-09-04 13:57] LABS: Immunoglobulin E 128 kU/L (<OR=114)
[2024-09-06 11:29] LABS: Calcium, Ionized 5.1 mg/dL (4.7-5.5)
[2024-09-07 06:09] LABS: Metanephrine, Free <25 pg/mL (<=57); Normetanephrines, Free 74 pg/mL (<=148); Total Metanephrine, Free 74 pg/mL (<=205)
[2024-09-09 13:53] LABS: Calcitonin 2 pg/mL (<=5)
== END 2024-09-03 11:01 | disposition home or self-care (01) ==
LOC: HO.LAB 11:00
PROVIDERS: Nurse Practitioner Family; Student in an Organized Health Care Education/Training Program; PCP Registered Nurse; Visit Provider Registered Nurse
DX: F41.9 Anxiety disorder, unspecified (principal); E83.52 Hypercalcemia; R23.2 Flushing; M79.10 Myalgia, unspecified site; R35.89 Other polyuria
CPT/HCPCS: 36415; 82040; 82306; 82308; 82310; 82330; 82728; 82785; 83036; 83735; 83835; 83970; 84100; 84443; 85025

== ENCOUNTER 2024-09-25 11:14 | Outpatient (AMB) | payer MEDICAID, SELFPAY ==
--- NOTE | 2024-09-25 11:16 | MHC.OFFVIS ---
Vital Signs 09/25/24 11:17 Height 5 ft 4 in Weight 166 lb 2 oz BMI 28.5 BP 110/54 L Blood Pressure Location Rt brachial Position Sitting Pulse 93 Pulse Source Pulse Oximeter Pulse Oximetry (%) 98 Oxygen Delivery Method Room Air Intake Visit Reasons: Shortness of breath Papier Mache' Molder Required: Yes Papier Mache' Molder Language: Building Official Services: Papier Mache' Molder Present Papier Mache' Molder Name: Venice Iverson OA Allergies dog dander Allergy (Intermediate, Verified 09/25/24 11:21) Unknown seafood Allergy (Intermediate, Verified 09/25/24 11:21) Itching aspirin Allergy (Unknown, Verified 09/25/24 11:21) swelling HPI HPI Shortness of breath: Details: Jocelynn is a pleasant 44 year old female, never smoker, with underlying asthma, hyperparathyroidism and hypercalcemia. She has been moderately controlled on Symbicort 160 mcg and albuterol MDI PRN, and singulair was added to regimen. She reports overall improvement. She did recently get a dog which she has an allergy to and noticed more allergic symptoms. [facility] Medical History Flushing Anxiety Chronic abdominal pain Goiter Vitamin D deficiency Hyperparathyroidism Hypercalcemia Surgical History History of surgery History of umbilical hernia repair Hx of section Family History Father Diabetes Hypertension Alzheimer disease FH: prostate cancer Emphysema of lung Mother Hypertension Diabetes Social History Household Members: Spouse Household Members Other:: son Housing: Apartment Alcohol intake: never Patient Tobacco Use Status: Never used Tobacco Current occupational status: unemployed Sexual orientation: Straight/Heterosexual Gender identity: Female Female Reproductive History Menstrual Age of Menarche: 13 Review of Systems Const Denies chills, Denies excessive sweating, Denies fever(s), Denies headache(s) and Denies night sweats Eyes Denies dry eyes, Denies irritation and Denies itchy eyes ENT Reports Normal hearing present, Denies headache(s), Denies nasal congestion, Denies nasal discharge, Denies post nasal drip and Denies sore throat Card Denies chest pain, Denies chest pain at rest, Denies chest pain with activity, Denies claudication, Denies leg edema, Denies dyspnea, Denies dyspnea on exertion, Denies orthopnea and Denies paroxysmal nocturnal dyspnea Resp Denies chest congestion, Denies excessive phlegm production, Denies pain on inspiration, Denies pain with cough, Denies dyspnea, Denies dyspnea on exertion, Denies stridor and Denies wheezing Musc Denies myalgias Neuro Reports Normal hearing present and Denies headache(s) Endo Denies excessive sweating Frank/Lymph Denies lymphadenopathy Aller/Immun Denies itchy eyes, Denies seasonal rhinorrhea and Denies wheezing Physical Exam Vital Signs: Last Vital Signs Pulse 93 09/25/24 11:17 BP 110/54 L 09/25/24 11:17 Pulse Ox 98 09/25/24 11:17 Oxygen Delivery Method Room Air 09/25/24 11:17 BMI result Body Mass Index 28.5 Const General: cooperative, healthy appearing, comfortable, no acute distress, well developed and alert Orientation/consciousness: patient oriented x3 Limitations: no limitations HEENT Head: Yes normal to inspection, Yes normocephalic and Yes atraumatic Ears: hearing grossly normal bilaterally and external ears normal Eyes General: appearance normal, both eyes and all related structures Eyelids: Yes eyelids normal Sclerae: sclerae normal EOM: EOMs intact bilaterally Neck Neck: Yes normal visual inspection and Yes no lymphadenopathy Lymphatic: no lymphadenopathy noted Chest Chest palpation & inspection: normal inspection of the chest Resp Effort & Inspection: normal respiratory effort, able to speak in complete sentences, no audible wheezes, no cough, no stridor, not tachypneic, no tripod positioning and no use of accessory muscles Auscultation: clear to auscultation bilaterally Cardio Jugular venous distension: no JVD Rate: regular rate Rhythm: regular rhythm Skin Other: warm, dry General skin exam: no rashes or lesions noted Neuro General: patient oriented x3 Cranial nerves: Yes Normal hearing present Cognition (Neuro): normal cognition Gait exam (Neuro): Normal gait present Extrem General: Yes normal to inspection, Yes capillary refill normal, Yes no clubbing, cyanosis or edema and Yes no pedal edema Psych Appearance: grossly normal and well kempt Speech and movement: Normal speech and movement present and Clear speech present Affect: normal affect Attitude: cooperative Thought process: Normal thought process present Thought content: Normal thought content present Insight: Good insight present (Psych) Judgement: Good judgement present (Psych) Assessment & Plan Assessment & Plan (1) Asthma: Code(s): J45.909 - Unspecified asthma, uncomplicated Category: Medical (2) Shortness of breath: Code(s): R06.02 - Shortness of breath Category: Medical (3) Environmental allergies: Code(s): Z91.09 - Other allergy status, other than to drugs and biological substances Category: Medical Plan Patient has been doing well on current regimen. Advised to continue Symbicort, albuterol MDI, and Singulair. Consider antihistamine. Discussed findings of enlarged pulmonary arteries on chest CT however echo not suggestive of pulmonary HTN. All questions were answered and patient is in agreement of plan. Will follow up in 3 months or sooner if needed. Coding Level of Care Code Est Pt Level 3 (39979) Diagnoses Asthma J45.909 Shortness of breath R06.02 Environmental allergies Z91.09
[2024-09-25 11:17] VITALS: BP 110/54; PULSE 93; O2SAT 98; BMI 28.5
== END 2024-09-25 11:49 | disposition home or self-care (01) ==
PROVIDERS: PCP Registered Nurse; Visit Provider Nurse Practitioner Family
DX: J45.909 Unspecified asthma, uncomplicated (principal); R06.02 Shortness of breath; Z91.09 Other allergy status, other than to drugs and biological substances
CPT/HCPCS: 99213

== ENCOUNTER → 2024-09-25 11:14 | Outpatient (BNVA) | payer MEDICAID, SELFPAY | PROVIDERS: PCP Registered Nurse; Visit Provider Nurse Practitioner Family | DX: J45.909 Unspecified asthma, uncomplicated (principal); R06.02 Shortness of breath; Z91.09 Other allergy status, other than to drugs and biological substances | CPT/HCPCS: 99212 ==

== ENCOUNTER 2024-10-10 12:48 | Outpatient (AMB) | payer MEDICAID, SELFPAY ==
--- NOTE | 2024-10-10 12:57 | A.OFFVIS_ITS ---
Intake Visit Reasons: urinary incontinence Intake Note: New Patient presents for initial visit for urinary incontinence Urology Medications: none Blood Thinner: none PVR: 0ml's Regional Airline Pilot Required: Yes Regional Airline Pilot Name: [facility] Accompanied by: Self / Same As Patient Allergies dog dander Allergy (Intermediate, Verified 10/10/24 13:28) Unknown seafood Allergy (Intermediate, Verified 10/10/24 13:28) Itching aspirin Allergy (Unknown, Verified 10/10/24 13:28) swelling Medication List - Last Reconciled 10/10/24 by KWESI PetersP- albuterol sulfate 2.5 mg (3 mL) inhalation QID PRN albuterol sulfate 90 mcg/actuation 2 puffs inhalation Q4-6H PRN benzonatate 100 mg PO BID PRN bisacodyl (Dulcolax (bisacodyl)) 10 mg (2 x 5 mg) PO BEDTIME 2 days budesonide-formoterol 160-4.5 mcg/actuation (Symbicort) 2 puffs inhalation Q12H citalopram 20 mg PO DAILY clonazepam 0.5 mg PO DAILY PRN dicyclomine 20 mg PO QID 90 days famotidine 20 mg PO BID hydroxyzine pamoate 1 cap PO BID PRN linaclotide (Linzess) 145 mcg PO QAM montelukast (Singulair) 10 mg PO BEDTIME ondansetron 4 mg PO Q6H PRN oxybutynin chloride ER 10 mg PO DAILY 30 days peg 3350-electrolytes 236-22.74-6.74 -5.86 gram (Golytely) 240 mL PO Q10M 1 day sertraline 100 mg PO QAM HPI Comments Details: Jackie is a very pleasant 44-year-old Qatari-speaking female patient of Dr. Jacinto. She has a past medical history of anxiety, goiter, vitamin-D deficiency, hyperparathyroidism, and hypercalcemia. She presents to the office today as a new patient for ongoing lower urinary tract symptoms. In discussion with the patient today she reports having followed up with helpdesk specialist for gynecological visit at which time she was noted to have glucosuria and recommendations were made to seek further assessment evaluation with PCP. She reports having had A1c drawn and it was within normal limits. She reports noting episodes of urinary frequency over the last few months and feels it is worsening. In office urinalysis results reviewed with the patient today. We discussed at length potential causes of urinary frequency as well as further workup to include obtaining imaging, near future in office cystoscopy and or urodynamics. She otherwise denies incontinence, nocturia, hematuria, dysuria, foul smelling urine , changes to urinary stream, flank pain, fever, and or chills. PVR 0 mL. We discussed further treatment options to include pelvic floor therapy, medications, and or obtaining bladder diary for further assessment evaluation. She otherwise offers no other issues or concerns at this time. [facility] Medical History Flushing Anxiety Chronic abdominal pain Goiter Vitamin D deficiency Hyperparathyroidism Hypercalcemia Surgical History History of surgery History of umbilical hernia repair Hx of section Family History Father Diabetes Hypertension Alzheimer disease FH: prostate cancer Emphysema of lung Mother Hypertension Diabetes Social History Household Members: Spouse Household Members Other:: son Housing: Apartment Alcohol intake: never Patient Tobacco Use Status: Never used Tobacco Current occupational status: unemployed Sexual orientation: Straight/Heterosexual Gender identity: Female Female Reproductive History Menstrual Age of Menarche: 13 Review of Systems Const All systems reviewed & are unremarkable except as noted in HPI and below Physical Exam Const General: cooperative, healthy appearing, comfortable, no acute distress, well developed, alert and awake Orientation/consciousness: patient oriented x3 Limitations: no limitations HEENT Head: Yes normal to inspection, Yes normocephalic and Yes atraumatic Ears: hearing grossly normal bilaterally Eyes General: appearance normal, both eyes and all related structures Neck Neck: Yes normal visual inspection and Yes trachea midline Chest Chest palpation & inspection: normal inspection of the chest Resp Effort & Inspection: normal respiratory effort and able to speak in complete sentences Cardio Rate: regular rate GI Inspection: Yes normal to inspection General: Yes no CVA tenderness Back/Spine/Pelvis Back: no CVA tenderness Skin General skin exam: no rashes or lesions noted Neuro General: patient oriented x3 Extrem General: Yes normal to inspection Psych Appearance: grossly normal and well kempt Mental Status: mental status grossly normal Speech and movement: Normal speech and movement present and Clear speech present Affect: normal affect Attitude: cooperative Thought process: Normal thought process present Thought content: Normal thought content present Insight: Fair insight present (Psych) Judgement: Fair judgement present (Psych) Office Procedures Post Void Residual Post Residual Void Post Void Residual (PVR): 0 [id number] Void Residual by ultrasound Results AMB Urinalysis, Automated UA Leukoctes 0 Kailee/uL [facility] 10/10/24 13:16 UA Nitrite [facility] 10/10/24 13:16 UA Urobilinogen 0.2 mg/dL Last Edit by [facility] [employer] [facility] on 10/10/24 13:16 UA Protein 0 mg/dL Last Edit by [facility] [employer] [facility] on 10/10/24 13:16 UA pH 6.0 Last Edit by [facility] [employer] [facility] on 10/10/24 13:16 UA Blood 0 Silverio/uL Last Edit by [facility] [employer] on 10/10/24 13:16 UA Specific [place] 1.030 Last Edit by [employer] on 10/10/24 13:16 UA Ketone Last Edit by [employer] on 10/10/24 13:16 UA Bilirubin 0 mg/dL Last Edit by [employer] on 10/10/24 13:16 UA Glucose 0 mg/dL Last Edit by [employer] on 10/10/24 13:16 Results Reviewed Results Reviewed: Laboratory Last Values Urine pH (Auto) 6.0 10/10/24 13:15 Specific [place] (Auto) 1.030 10/10/24 13:15 Urine Protein (Auto) 0 mg/dL 10/10/24 13:15 Glucose (UA)(Auto) 0 mg/dL 10/10/24 13:15 Urine Blood (Auto) 0 Silverio/uL 10/10/24 13:15 Urine Bilirubin (Auto) 0 mg/dL 10/10/24 13:15 Urine Urobilinogen (Auto) 0.2 mg/dL 10/10/24 13:15 Leukocyte Esterase (Auto) 0 Kailee/uL 10/10/24 13:15 Assessment & Plan Assessment & Plan (1) Urinary frequency: Code(s): R35.0 - Frequency of micturition Category: Medical Plan In office urinalysis results reviewed with the patient today; as noted above. PVR 0 mL Will obtain retroperitoneal ultrasound for further assessment evaluation. Discussed obtaining bladder diary Discussed further treatment options and risks and benefits of these treatment options. Discussed possible near future in office cystoscopy and or urodynamics for further assessment evaluation. Discussed bladder triggers/irritants. Start oxybutynin as discussed and prescribed. Follow-up in 1-3 months with imaging and PVR; or sooner with any issues, concerns, and or questions. Orders: Orders AMB Post Void Residual by ultrasound Today R32 - Unspecified urinary incontinence AMB Urinalysis Automated Today Z13.9 - Encounter for screening, unspecified US retroperitoneal comp Today R35.0 - Frequency of micturition Medications: New oxybutynin chloride ER 10 mg PO DAILY 30 tabs 3RF 30 days N32.81 - Overactive bladder Patient Instructions: The patient had an opportunity to ask questions regarding the treatment plan. All questions were answered. Physical exam, labs, and imaging were discussed and reviewed in detail. As well as risks, benefits, and discussion of treatment choices. No major barriers to understanding were identified. The patient expressed understanding and agreement with the above treatment plan. The patient was made aware they should contact our office by phone for worsening of their current condition, the appearance of new symptoms, or with any questions or concerns. Compliance is encouraged with any medications and follow up testing that is ordered. It is a privilege to be allowed the opportunity to participate in? your urological care.? Again, if you have any questions or concerns If you have any questions or concerns please do not hesitate to contact me. The office is [phone]. This note is constructed using voice recognition software. While every effort has been made to ensure accuracy [employer] errors may have been included. Yours sincerely, URIEL Peters Coding Level of Care Code New Pt Level 4 (19024) Diagnoses Urinary frequency R35.0 CPT Codes Post Residual Void - PVR CPT Code: 69230-Gilp Void Residual by ultrasound ([id number])
== END 2024-10-10 13:31 | disposition home or self-care (01) ==
PROVIDERS: PCP Registered Nurse; Visit Provider Nurse Practitioner Family
DX: R35.0 Frequency of micturition (principal); Z13.9 Encounter for screening, unspecified
CPT/HCPCS: 99204

== ENCOUNTER → 2024-10-10 12:48 | Outpatient (BNVA) | payer MEDICAID, SELFPAY | PROVIDERS: PCP Registered Nurse; Visit Provider Nurse Practitioner Family | DX: R35.0 Frequency of micturition (principal) | CPT/HCPCS: 51798; 81003; 99212 ==

== ENCOUNTER 2024-10-22 10:06 | Outpatient (REF) | payer MEDICAID, SELFPAY ==
[2024-10-22 12:35] LABS: Albumin Level 4.4 g/dL (3.5-5.0); Calcium 9.9 mg/dL (8.4-10.2); Phosphorus 2.5 mg/dL (2.7-4.5)
[2024-10-22 12:39] LABS: Vitamin D 25-OH Total 21.5 ng/mL (>30)
[2024-10-22 12:54] LABS: Parathyroid Hormone Intact 77.3 pg/mL (8.7-77.1)
[2024-10-24 14:18] LABS: Calcium, Ionized 5.3 mg/dL (4.7-5.5)
== END 2024-10-22 10:07 | disposition home or self-care (01) ==
LOC: HO.LAB 10:06
PROVIDERS: PCP Registered Nurse; Visit Provider Student in an Organized Health Care Education/Training Program
DX: E21.3 Hyperparathyroidism, unspecified (principal); E55.9 Vitamin D deficiency, unspecified
CPT/HCPCS: 36415; 82040; 82306; 82310; 82330; 83970; 84100

== ENCOUNTER 2024-11-01 14:04 | Outpatient (AMB) | payer MEDICAID, SELFPAY ==
--- NOTE | 2024-11-01 14:07 | MHC.OFFVIS ---
Vital Signs 11/01/24 14:08 Height 5 ft 4 in Weight 168 lb 3.403 oz BMI 28.9 BP 120/66 Blood Pressure Location Lt brachial Position Sitting Pulse 103 H Pulse Source Pulse Oximeter Intake Visit Reasons: Hyperparathyroidism Intake Note: Patient present today for Hyperparathyroidism office visit. Child Protective Services Social Worker Required: Yes Child Protective Services Social Worker Language: Director Clinical Research Services: Child Protective Services Social Worker Present Child Protective Services Social Worker Name: Misael [id number] Information Interpreted: non-clinical & clinical Accompanied by: Spouse Allergies dog dander Allergy (Intermediate, Verified 11/01/24 14:12) Unknown seafood Allergy (Intermediate, Verified 11/01/24 14:12) Itching aspirin Allergy (Unknown, Verified 11/01/24 14:12) swelling HPI Comments Details: 43 YO Female with a PMHx Anxiety who is seen in F/U for 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 Here today with HPI from prior visit The patient had been complaining of chronic abdominal pain. She has episodes with severe cramping abdominal pain accompanied by watery diarrhea, facial flushing and sweating. She also has nausea at these times. She was referred to GI and underwent a thorough evaluation. 5HIAA was negative. Serum and Urinary 24 hour metanephrines were negative. Her 24 hour urine free cortisol level was elevated to 56.9. This was an adequate collection with a volume of 1.45 L and a Creatinine of 1.27. She was subsequently referred to Endocrinology. She had a CT of the abdomen 04/11/2020 which revealed no adrenal adenoma. This was not a dedicated adrenal protocol. After our initial visit we repeated her 24 hour urine cortisol, which was WNL. She also had a DSST which was WNL. Midnight salivary Cortisol was also WNL, effectively ruling out bandar's disease. She underwent lab workup for hypoglycemia, and this was also WNL. Gastrin was WNL. Her Calcium was, however, noted to have been elevated in the past. She underwent a biochemical evaluation for hyperparathyroidism which is concerning with Vitamin D 22.1, Calcium 9.9, and PTH inappropriately normal at 50. Albumin in the past was 5.0. Her 24 hour urine Calcium was elevated to 396 and this was an adequate collection. Labs were repeated 12/09/2020 with Calcium 9.6, Albumin 4.5, Vitamin D 23.5, PTH elevated to 89 and Phos 2.6. She was asked to increase her Vitamin D to 2000 IU daily and have labs repeated. Repeat labs 03/19/2021 with Calcium 9.8, PTH 76, Vitamin D 26.5 and Albumin 4.7. She had an US of the neck which revealed no evidence of a parathyroid adenoma. DEXA 02/01 was completely WNL. Last visit she was noted to have poor adherence with vitamin-D. Interval history currently, not taking vitamin D. Can not give me a reason why she has not been taking it. No kidney stones No fractures. Father: lots of kidney stones Review of systems Constitutional: no fevers, chills or weight loss HEENT: no changes in vision Cardiac: Does report intermittent palpitations Pulmonary: No SOB GI: Chronic abdominal pain and diarrhea : no burning micturition, dysuria or increase in urinary frequency Neurologic: No dizziness, no weakness in extremities MSK: no back pain or joint stiffness Physical exam General: sitting comfortably in bed in no acute distress HEENT: normocephalic/atraumatic, moist oral mucosa Neck: supple, symmetrical, no thyromegaly , no dorsocervical or supraclavicular fat pads Cardiac: normal heart sounds Pulm: normal breath sounds B/L, no added breath sounds Abd: not distended, no tenderness Extremities: no edema, no signs of myxedema Neuro: AAO x3, Speech: normal, no facial droop, moving all 4 extremities Skin: no rash Thyroid US: 12/09/2020 Right Thyroid Lobe: 4.6 x 1.8 x 1.4 cm, volume 5.9 mL. Parenchyma: The gland echotexture is homogeneous. Thyroid vascularity is normal. Left Thyroid Lobe: 4.2 x 1.5 x 1.3 cm, volume 4.0 mL. Parenchyma: The gland echotexture is homogeneous. Thyroid vascularity is normal. Isthmus: 0.4 cm in maximum AP dimension. RIGHT THYROID LOBE: No nodules. ISTHMUS: No nodules. LEFT THYROID LOBE: No nodules. NODES: No lymphadenopathy is seen in the tissue surrounding the thyroid gland. No parathyroid adenoma is seen. DEXA 02/03/2021: FINDINGS: AP SPINE L1-L3 (excluding L4): The data of L1-L4 has been changed to exclude the L4 vertebral body, because probable degenerative changes at this level may cause overestimation of lumbar spine density. Current: BMD 1.258 g/cm2, T-score 0.7, Z-score 0.6, Z-score within expected range for age, 2.1% increase from baseline (<5% change is not significant). Baseline: BMD 1.232 g/cm2. LEFT FEMUR, NECK: Current: BMD 1.073 g/cm2, T-score 0.3, Z-score 0.6, Z-score within expected range for age. Baseline: BMD 1.001 g/cm2. LEFT FEMUR, TOTAL: Current: BMD 1.153 g/cm2, T-score 1.2, Z-score 1.3, Z-score within expected range for age, 9.1% increase from baseline (<5% change is not significant). Baseline: BMD 1.057 g/cm2. LEFT FOREARM RADIUS 33%: Current: BMD 0.865 g/cm2, T-score -0.1, Z-score -0.1, Z-score within expected range for age, 1.9% decrease from baseline (<5% change is not significant). Baseline: BMD 0.882 g/cm2. Labs: Laboratory Tests 03/28/23 03/28/23 03/30/23 10:40 10:40 08:25 Sodium 138 Potassium 4.2 Creatinine 0.77 Estimated GFR > 60 Albumin 4.2 25-OH Vitamin D Total 26.0 PTH Intact 98 H Calcium (PTH Intact) 9.6 Ur 24 Hour Volume Ur Creatinine 24 Hour 1.21 Ur Calcium 24 Hr 246 03/30/23 08:25 Sodium Potassium Creatinine Estimated GFR Albumin 25-OH Vitamin D Total PTH Intact Calcium (PTH Intact) Ur 24 Hour Volume 1225 Ur Creatinine 24 Hour Ur Calcium 24 Hr Laboratory Tests 09/03/24 10/22/24 11:40 10:19 Phosphorus 2.5 L 2.5 L 25-OH Vitamin D Total 26.8 L 21.5 L PTH Intact 104.4 H 77.3 H Laboratory Tests 09/03/24 10/22/24 11:40 10:19 Calcium 10.2 9.9 Ionized Calcium 5.1 5.3 Albumin 4.7 4.4 Laboratory Tests 09/03/24 11:40 Plasma Free Metaneph <25 Plasma Free Normeta 74 Plas Total Metaneph 74 Laboratory Tests 09/03/24 11:40 TSH 1.10 PFSH Medical History Flushing Anxiety Chronic abdominal pain Goiter Vitamin D deficiency Hyperparathyroidism Hypercalcemia Surgical History History of surgery History of umbilical hernia repair Hx of section Family History Father Diabetes Hypertension Alzheimer disease FH: prostate cancer Emphysema of lung Mother Hypertension Diabetes Social History Household Members: Spouse Household Members Other:: son Housing: Apartment Alcohol intake: never Patient Tobacco Use Status: Never used Tobacco Current occupational status: unemployed Sexual orientation: Straight/Heterosexual Gender identity: Female Female Reproductive History Menstrual Age of Menarche: 13 Assessment & Plan Assessment & Plan (1) Anxiety: Code(s): F41.9 - Anxiety disorder, unspecified Category: Medical Plan: She has longstanding history of severe cramping abdominal pain accompanied by watery diarrhea, facial flushing and sweating. She also has nausea at these times. Also has episodes of anxiety. She was referred to GI and underwent a thorough evaluation. In 2019 we did an extensive workup. 5HIAA was negative. Serum and Urinary 24 hour metanephrines were negative. Her 24 hour urine free cortisol level was elevated to 56.9. This was an adequate collection with a volume of 1.45 L and a Creatinine of 1.27.. She had a CT of the abdomen 04/11/2020 which revealed no adrenal adenoma. This was not a dedicated adrenal protocol. After our initial visit we repeated her 24 hour urine cortisol, which was WNL. She also had a DSST which was WNL. Midnight salivary Cortisol was also WNL, effectively ruling out bandar's disease. She underwent lab workup for hypoglycemia, and this was also WNL. Gastrin was WNL. Labs 09/03/2024 showed normal TSH, plasma metanephrine normetanephrine levels. At this point she has had an exhaustive workup from an endocrine standpoint with no endocrine reason for her symptoms. I have asked her to discuss further with her primary care physician. (2) Hypercalcemia: Code(s): E83.52 - Hypercalcemia Category: Medical Plan: In the past she has history of hypercalcemia. More recent blood work over the last few years, showed elevated PTH levels, normal calcium levels and low vitamin-D levels. Was thought that she has secondary hyperparathyroidism in the setting of vitamin-D deficiency. She has had trouble being adherent to her vitamin-D tablets due to anxiety with swallowing big pills. I discussed with her today to start taking gummies. She is amenable to that idea. Once she has been adherent to vitamin-D for 2 months, I have asked her to repeat her blood work. Her more recent blood work in March 07, showed improved vitamin-D levels of 35, and her PTH level is normal. Her total calcium level is mildly elevated at 10.3, though no albumin or ionized calcium was done. It could be that the total calcium as high in the setting of high albumin albumin. Labs repeated 09/03/2024 showed low vitamin-D levels of 26.8 with PTH elevated at 104.4. Ionized calcium normal at 5.1, calcium 10.2 with albumin of 4.7, corrected calcium would be within normal range. Labs repeated 10/22/2024 showed even worsening vitamin-D of 21.5 with PTH at 77.3. Phosphorus also low at 2.7 in the setting of elevated PTH levels. Normal calcium of 9.9, normal ionized calcium of 5.3. Albumin 4.4. We reviewed that low Vitamin D can lead to elevations in parathyroid hormone levels, which can lead to primary hyperparathyroidism, osteoporosis and fractures. In order to prevent this she needs to increase her Vitamin D. she says she is willing to try, but expresses low motivation. We reviewed today in detail that without her compliance I am unable to help her or properly evaluate her hyperparathyroidism. I explained to her At this point I am unable to provide any additional benefit to her unless she starts taking the vitamin-D. I advised she should follow up with her PCP, but in the future if she is able to be compliant with her Vitamin D supplement I would be happy to see her back in 6 months with repeat labs. If in 6 months she has not been taking her. Vitamin-D I have asked her to reschedule her follow up. All of her questions were answered. She is in agreement with this plan of care. Plan: -start vitamin-D gummies 2000 units for 2 months -repeat blood work in 6 months -follow up in 6 months (3) Hyperparathyroidism: Code(s): E21.3 - Hyperparathyroidism, unspecified Category: Medical Plan: See above (4) Vitamin D deficiency: Code(s): E55.9 - Vitamin D deficiency, unspecified Category: Medical Plan: See above Plan I spent 30 minutes in reviewing the record, seeing the patient and documenting in the medical record. Orders: Orders Albumin Level 6 Months E21.3 - Hyperparathyroidism, unspecified, E55.9 - Vitamin D deficiency, unspecified Calcium 6 Months E21.3 - Hyperparathyroidism, unspecified, E55.9 - Vitamin D deficiency, unspecified Parathyroid Hormone Intact 6 Months E21.3 - Hyperparathyroidism, unspecified, E55.9 - Vitamin D deficiency, unspecified Vitamin D 25-OH Total 6 Months E21.3 - Hyperparathyroidism, unspecified, E55.9 - Vitamin D deficiency, unspecified Phosphorus 6 Months E21.3 - Hyperparathyroidism, unspecified, E55.9 - Vitamin D deficiency, unspecified Patient Instructions: Take 2000 units of vitamin D gummies daily Do blood work in 6 months prior to follow up Coding Level of Care Code Est Pt Level 3 (19891) Diagnoses Anxiety F41.9 Hypercalcemia E83.52 Hyperparathyroidism E21.3 Vitamin D deficiency E55.9
[2024-11-01 14:08] VITALS: BP 120/66; PULSE 103; BMI 28.9
== END 2024-11-01 14:32 | disposition home or self-care (01) ==
PROVIDERS: PCP Registered Nurse; Visit Provider Student in an Organized Health Care Education/Training Program
DX: F41.9 Anxiety disorder, unspecified (principal); E21.3 Hyperparathyroidism, unspecified; E55.9 Vitamin D deficiency, unspecified
CPT/HCPCS: 99213

== ENCOUNTER → 2024-11-01 14:04 | Outpatient (BNVA) | payer MEDICAID, SELFPAY | PROVIDERS: PCP Registered Nurse; Visit Provider Student in an Organized Health Care Education/Training Program | DX: E83.52 Hypercalcemia (principal); E21.3 Hyperparathyroidism, unspecified; E55.9 Vitamin D deficiency, unspecified; F41.9 Anxiety disorder, unspecified | CPT/HCPCS: 99212 ==

== ENCOUNTER 2024-12-26 10:28 | Outpatient (REF) | payer MEDICAID, SELFPAY ==
--- NOTE | ~2024-12-26 | US_ITS ---
CLINICAL HISTORY: R35.0 - Frequency of micturition US Renal Comparison: None Findings: Right kidney normal size and echotexture, 11 cm length. Left kidney normal size and echotexture, 10.5 cm length. Mild collecting system dilatation of both kidneys. Normal color Doppler. Urinary bladder is unremarkable. Prevoid volume 203 mL. Postvoid volume 8.8 mL. Bilateral ureteral jets are visualized. The uterus is enlarged. There are uterine fibroids 4.8 x 4.3 x 4 cm and 3 x 2.4 x 2.5 cm. There is compression of the bladder by the enlarged uterus. IMPRESSION: Pelviectasis of the bilateral kidneys. No evidence of postvoid urinary retention of bladder. Uterine fibroids. There is compression of the bladder by the enlarged uterus. This document has been electronically signed by: Wanda Oliva MD on 12/26/2024 16:04:11
--- OUTSIDE RECORDS SUMMARY | 2024-12-26 12:14 | XMS_ITS | Encounter Summary ---
Author Organization [employer] Address [address] [place] [address] Care Team Providers Care Recording Engineer Name Role Phone [facility] Primary Care Provider [phone] Encounter Details Date Type Department Care Team ([facility] st Contact Info) Description 08/18/2023 Abstract [facility] [address] [place] [address] Kelsey Sims Social History Tobacco Use Types Packs/Day Years Used Date Smoking Tobacco: Never Passive Smoke Exposure: Never Smokeless Tobacco: Never Alcohol Use Standard Drinks/Week Comments Never 0 (1 standard drink = 0.6 oz pur e alcohol) Depression Answer Date Recorded Patient Health Questionnaire-9 Score 0 02/10/2023 Housing Stability Answer Date Recorded What is your housing situation today? I have tawnya montoya 08/22/[address] you li ve. Do you have problems with any of the following? None of the above 08/22/2023 Food Insecurity Answer Date Recorded Within the past 12 months, y ou worried that your food would run out before you got money to buy more: Never True 08/22/2023 Within the past 12 months,th e food you bought just didn't last and you didn't have enough money to get more: Never True 07/2023 Transportation Answer Date Recorded In the past 12 months, has l ack of transportation kept you from medical appts, meetings, work or from getting things needed for daily living? No 08/22/2023 Utilities Answer Date Recorded In the past 12 months, has t he electric, gas, oil or water company threatened to shut off services in your home? No 08/22/2023 Depression Answer Date Recorded Patient Health Questionnaire-2 Score 0 02/10/2023 Comments Unknown Sex and Gender Information Value Date Recorded Sex Assigned at Female 09/13/2022 10:18 AM EDT Legal Sex Female 10:18 AM EDT Gender Identity Female 09/13/2022 10:18 AM EDT Sexual Orientation Don't know 09/13/2022 10 :18 AM EDT documented as of this encounter Plan of Treatment Upcoming Encounters Date Type Department Care Team (Late st Contact Info) Description 01/07/2025 10:30 AM EST Office Visit [facility] [address] [place] [address] Haydee Jacinto FNP [address] [place], [place] [phone] documented as of this encounter Procedures Procedure Name Priority Date/Time Associated Diagnosis Comments PAP/HPV Routine 07/19/2022 documented in this encounter Results * Pap Smear (07/19/2022) Pap Negative for intraephithelial lesion or malignancy Negative for intraephithelial lesion or malignancy, Other HPV Undetected us Historical Provider HEALTH MAINTENANCE Final Result documented in this encounter Visit Diagnoses Not on filedocumented in this encounter Additional Health Concerns Assessment Noted Time PHQ-9 Depression Total Score: 0 02/11/20 23 9:22 AM EDT documented as of this encounter Care Teams Recording Engineer Relationship Specialty Start Date End Date Haydee Jacinto FNP [address] [place] [address] PCP - General Family Medicine 07/12/22 documented as of this encounter
--- OUTSIDE RECORDS SUMMARY | 2024-12-26 12:14 | XMS_ITS | Encounter Summary ---
Author Organization [employer] Address [address] [place] [address] [address] [place] [address] Care Team Providers Care Associate Application Developer Name Role Phone [facility] Primary Care Provider [phone] Reason for Visit * Reason Comments Care Coordination CHW outreach for SDO H PT-1 and food needs-referral completed Encounter Details Date Type Department Care Team (Latest Contact Info) Description 12/24/2024 Patient Outreach [facility] [address] [place] [address] [facility] [address] [place] [address] Care Coordination (CHW outreach for SDOH PT-1 and food needs-referral completed /) Social History Tobacco Use Types Packs/Day Years Used Date Smoking Tobacco: Never Passive Smoke Exposure: Never Smokeless Tobacco: Never Alcohol Use Standard Drinks/Week Comments Never 0 (1 standard drink = 0.6 oz pur e alcohol) Depression Answer Date Recorded Patient Health Questionnaire-9 Score 0 09/03/2024 Patient Health Questionnaire-9 Score 0 09/03/2024 Last PHQ-9: Questionnaire Data Not on file 1 Housing Stability Answer Date Recorded What is your housing situation today? I have tawnya montoya 08/31/[address] you li ve. Do you have problems with any of the following? None of the above 08/31/2023 Food Insecurity Answer Date Recorded Within the past 12 months, y ou worried that your food would run out before you got money to buy more: Sometimes True 2024 Within the past 12 months,th e food you bought just didn't last and you didn't have enough money to get more: Sometimes True 12/24/2024 Transportation Answer Date Recorded In the past 12 months, has l ack of transportation kept you from medical appts, meetings, work or from getting things needed for daily living? No 08/31/2023 Utilities Answer Date Recorded In the past 12 months, has t he electric, gas, oil or water company threatened to shut off services in your home? No 08/31/2023 Depression Answer Date Recorded Patient Health Questionnaire-2 Score 0 09/03/2024 Internet Access Answer Date Recorded Internet Access Q1 Yes 11/23/2024 Internet Access Q2 Not on file 11/23/2024 Comments Unknown Sex and Gender Information Value Date Recorded Sex Assigned at Female 09/13/2022 10:18 AM EDT Legal Sex Female 10:18 AM EDT Gender Identity Female 09/13/2022 10:18 AM EDT Sexual Orientation Don't know 09/13/2022 10 :18 AM EDT documented as of this encounter Progress Notes * Rodolfo Combs - 12/24/2024 10:49 AM EST CHW Rodolfo Combs, placed outbound call to patient for assistance with SDOH as a referral was received by the provider. Patient's name and were confirmed. Patient screened positive for the following SDOH food insecurities. CHW referred patient to the HIP program and [facility] pantries in the local area. Patient agree to follow up with plan. Patient educated on extended clinic hours on Mondays thro wednesdays, and Walk-In Urgent Care Located in [facility]. Patient provided with after-hours line for [facility], , which offer night time triage service and option to transfer to tombstone polisher provider if needed. documented in this encounter Plan of Treatment Upcoming Encounters Date Type Department Care Team (Late st Contact Info) Description 01/07/2025 10:30 AM EST Office Visit [facility] [address] [place] [address] [facility] [address] [place] [address] documented as of this encounter Visit Diagnoses Not on filedocumented in this encounter Additional Health Concerns Assessment Noted Time PHQ-9 Depression Total Score: 0 09/03/20 24 9:57 AM EDT documented as of this encounter Care Teams Associate Application Developer Relationship Specialty Start Date End Date Haydee Jacinto FNP [address] [place] [address] PCP - General Family Medicine 07/12/22 documented as of this encounter
--- OUTSIDE RECORDS SUMMARY | 2024-12-26 12:14 | XMS_ITS | Encounter Summary ---
Author Organization [employer] Address [address] [place] [address] [address] [place] [address] Care Team Providers Care Wood Stainer Name Role Phone [facility] Primary Care Provider [phone] Reason for Visit * Reason Onset Date Comments Returning Call 11/23/2024 Encounter Details Date Type Department Care Team ([facility] st Contact Info) Description 11/23/2024 Telephone [facility] [address] [place], [place] [phone] [facility] [address] [place], [place] [phone] Returning Call Social History Tobacco Use Types Packs/Day Years [...] got money to buy more: Never True 11/23/2024 Within the past 12 months,th e food you bought just didn't last and you didn't have enough money to get more: Never True 08/2025 Transportation Answer Date Recorded In the past [...] AM EDT documented as of this encounter Miscellaneous Notes * Telephone Encounter - Aldo Linares - 11/23/2024 12:06 PM EST Tc from pt returning call regarding message below. CIARAN Christian placed outbound call to patient to complete pre-visit planning. No answer at this time. documented in this encounter Plan of Treatment Upcoming Encounters Date Type Department Care Team (Late st Contact Info) Description 01/07/2025 10:30 AM EST Office Visit [facility] [address] [place] [address] Haydee Jacinto FNP [address] [place] [address] documented as of this encounter Visit Diagnoses Not on filedocumented in this encounter Additional Health Concerns Assessment Noted Time PHQ-9 Depression Total Score: 0 09/03/20 9:57 AM EDT documented as of this encounter Care Teams Wood Stainer Relationship Specialty Start Date End Date Haydee Jacinto FNP [address] [place] [address] PCP - General Family Medicine 07/12/22 documented as of this encounter
--- OUTSIDE RECORDS SUMMARY | 2024-12-26 12:14 | XMS_ITS | Clinical Summary ---
Author Organization [employer] Address [address] [place] [address] 7[address] [place] [address] Care Team Providers Care Health And Wellness Coach Name Role Phone Haydee Jacinto [facility] Primary Care Provider [phone] Allergies Active Allergy Reactions Criticality Noted Date Comments Aspirin Anaphylaxis High 10/27/2021 Medications clonazePAM (KlonoPIN) 0.5 MG tablet Take 0.5 mg by mouth if needed each day. 08/17/20 22 Active fexofenadine (Tsering) 180 MG tablet Take 1 tablet (180 mg) by mouth in the morning. 90 tablet 1 02/05/20 23 Active famotidine (Pepcid) 20 MG tablet Take 1 tablet (20 mg) by mouth 2 times daily. 60 tablet 11 02/05/20 23 Active ceramides (CeraVe) moisturizing creamIndications:X erosis of skin Apply 1 application topically if needed for dry skin. 453 g 2 02/05/20 23 Active D3 Super Strength 50 MCG (2000 UT) capsule TAKE 1 CAPSULE BY MOUTH EVERY DAY 01/07/20 23 Active EPINEPHrine (Epipen) 0.3 MG/0.3ML injection syringe USE DIRECTED FOR ANAPHYLAXIS THEN CALL 911 12/14/19 23 Active hydrOXYzine pamoate (Vistaril) 25 MG capsule TAKE 1 CAPSULE BY MOUTH TWICE A DAY NEEDED 10/18/20 22 Active LORazepam (Ativan) 1 MG tablet PLEASE SEE ATTACHED FOR DETAILED DIRECTIONS 01/26/20 23 Active montelukast (Singulair) 10 MG tablet TAKE 1 TABLET BY MOUTH EVERYDAY AT BEDTIME 08/03/20 22 Active ondansetron ODT (Zofran-ODT) [address] 1 TABLET ON THE TONGUE EVERY 6 HOURS NEEDED FOR NAUSEA AND VOMITING 11/29/19 23 Active triamcinolone (Kenalog) 0.025 % creamIndications:R leon and nonspecific skin eruption Mix entire tube with 16oz jar of cerva ve as instructed. Apply mixture from neck down daily. 80 g 1 02/15/20 23 Active lidocaine (Lidoderm) 5 % patchIndications:M usculoskeletal chest pain Apply topically to affected areas. Leave on for up to 12 hours 30 patch 1 09/12/20 23 Active omeprazole (PriLOSEC) [address] capsuleIndications :Hoarseness of voice TAKE 1 CAPSULE BY MOUTH TWICE A DAY 180 capsule 1 09/14/20 23 Active acetaminophen (Tylenol) 500 MG tablet take 2 tablet by oral route every 6 hours as needed as needed for Pain And/Or Fever 30 tablet 11/23/19 24 Active fluticasone (Flonase) 50 MCG/ACT nasal spray ADMINISTER 1 SPRAY INTO EACH NOSTRIL IN THE AM. SHAKE GENTLY. BEFORE FIRST USE, PRIME PUMP. AFTER USE, CLEAN TIP AND REPLACE CAP. 48 mL 12/16/19 24 Active budesonide-formote rol (Symbicort) 80-4.5 MCG/ACT inhalerIndications :Shortness of breath Inhale 2 puffs twie daily. Rinse mouth with water after use to reduce aftertaste and incidence of candidiasis. Do not swallow. 1 each 11 03/12/20 24 Active oxymetazoline (Afrin Nasal [place]) 0.05 % nasal spray Administer 2 sprays into each nostril every 12 (twelve) hours if needed for congestion for up to 2 days. Do not use for more than 3 days. 30 mL 03/20/20 24 Active sertraline (Zoloft) 100 MG tablet Take 100 mg by mouth in the morning. 07/05/20 23 Active Linzess 145 MCG capsule Take 145 mcg by mouth in the morning. 04/10/20 24 Active dicyclomine (Bentyl) 20 MG tablet Take 20 mg by mouth 4 times daily. 11/16/19 24 Active albuterol 108 (90 Base) MCG/ACT inhaler every 4 to 6 hours 10/11/20 23 Active albuterol (2.5 MG/3ML) 0.083% nebulizer solutionIndication s:Viral URI with cough Take 3 mL (2.5 mg) by nebulization every 6 (six) hours if needed for wheezing or shortness of breath. 75 mL 1 08/14/20 24 025 Active Hospital, Clinic, or Other Facility Administered Medication Ordered Dose Route Frequency Start Date End Date Status hydrOXYzine (Vistaril) injection 25 mgIndications:Hives 25 mg IM Nightly 02/04/2023 Activ e Active Problems Problem Noted Date Diagnosed Date Other irritable bowel syndrome 04/16/2024 Overview (04/16/2024): IBS-had [facility] GI follow up. Plan to trial bentyl PRN. Patient declined EGD/colonoscopy d/t concern that prep would exacerbate GERD sx. Upper GI series with mild esophageal dysmotility and small hiatal hernia otherwise normal. 09/2023 Chronic hoarseness 04/16/2024 Overview (09/03/2024): Persistent hoarseness a/w cough and shortness of breath x several months prompting multiple office and ED visits.All with unremarkable eval and minimal response to supportive care--failed prednisone trial, cough suppressant, abx course. Does note improvement with cough and SOB with albuterol--using daily. No hx of asthma; lifetime non-smoker. On daily allergy medication 09/2023Upper GI series with mild esophageal dysmotility and hiatal hernia. Otherwise negative 03/09/23-negative head/neck ultrasound. 02/2024-negative CXR Chest CT 07/17/24-->concerning for possible pulmonary hypertension--follow up echo 08/14/24 unremarkable Other chest pain 05/29/2023 Overview (05/29/2023): ?? Followed by cardiology-Dr. Gusman ?? Negative echo and stress test in 2020 Healthcare maintenance 05/29/2023 Overview (04/16/2024): Mammo: 08/2023- Birads 2 Pap: 07/2022, NIL HPV neg. Followed by Dr. De Souza [facility]. Hx of uterine fibroids. Serial ultrasound C-scope: Routine age 46 BMD: Negative 2021 Anxiety and depression 05/29/2023 Overview (05/29/2023): ?? Established with psychiatry and therapy ?? Sertraline, hydroxyzine, lorazepam Other dysphagia 05/29/2023 Overview (05/29/2023): ?? Referred to GI Uterine leiomyoma 01/31/2023 Overview (03/12/2024): Followed by [employer] Ultrasound done in 02/03 showed multiple uterine fibroids. Plan for periodic ultrasound to monitor. Hyperparathyroidism 04/08/2022 Hepatomegaly 07/13/2021 Chronic low back pain 07/13/2021 Resolved Problems Problem Noted Date Diagnosed Date Resolved Date Acute frontal sinusitis 02/07/202305/14 Encounters Date Type Department Care Team Description 12/24/2024 Patient Outreach [address] [address] Haydee Jacinto FNP Care Coordination ([facility] outreach for SDOH PT-1 and food needs-referral completed /) 12/24/2024 Patient Outreach [address] [address] Haydee Jacinto FNP Pre-visit Planning (SDOH screening negative and tobacco screening negative) 11/23/2024 Patient Outreach [address] [address] Haydee Jacinto FNP Pre-visit Planning (SDOH screening negative and tobacco screening negative) 11/23/[address] [address] Haydee Jacinto FNP Returning Call 11/23/2024 Patient Outreach [address] [address] Haydee Jacinto FNP Pre-visit Planning ((Unable to reach for PVP screening, LVM)) 10/22/2024 Orders Only GENERIC EXTERNAL DATA DEPARTMENT Provider, Generic External Data from Last 3 Months Immunizations Name Administration Dates Next Due Influenza injectable quadriv alent IIV4 with preservative 01/21/2020 Moderna Covid-19 Vaccine 12+ 07/01/2022,04/10/20 21,03/13/2021 Family History Medical History Relation Name Comments Diabetes type II Father Hypertension Father Prostate cancer Father Diabetes type II Mother Hypertension Mother Breast cancer Neg Hx Colon cancer Neg Hx Relation Name Status Comments Father Mother Social History Tobacco Use Types Packs/Day Years Used Date Smoking Tobacco: Never Passive Smoke Exposure: Never Smokeless Tobacco: Never Tobacco Cessation:Counseling Given: Not Answered Alcohol Use Standard Drinks/Week Comments Never 0 [...] Don't know 09/13/2022 10 :18 AM EDT Last Filed Vital Signs Vital Sign Reading Time Taken Comments Blood Pressure 127/84 09/03/2024 9:51 AM EDT Pulse 80 09/03/2024 9:51 AM EDT Temperature 36.1 ??C (97 ??F) 09/03/2024 9:51 AM EDT Respiratory Rate 18 09/03/2024 9:51 AM EDT Oxygen Saturation 100% 08/14/2024 9:38 AM EDT Inhaled Oxygen Concentration - - Weight 75.5 kg (166 lb 6.4 oz) 09/03/2024 9:51 A M EDT Height 162.6 cm (5' 4 ) 09/03/2024 9:51 AM EDT Body Mass Index 28.56 09/03/2024 9:51 AM EDT Plan of Treatment Upcoming Encounters Date Type Department Care Team (Late st Contact Info) Description 01/07/2025 10:30 AM EST Office Visit [facility] [address] [place] [address] [facility], [facility] [address] [place], [place] [phone] Health Maintenance Due Date Last Done Comments HIV Screening 1981 Alcohol/Substance Use Screening 1993 Family Planning (PISQ) 1996 Hepatitis C Screening 1999 DTaP/Tdap/Td Vaccines (1 - Tdap) 2000 Hepatitis A Vaccines (1 of 2 - Risk 2-dose series) 2000 Hepatitis B Vaccines (1 of 3 - 19+ 3-dose series) 2000 COVID-19 Vaccine ( season) 2024 07/01/2022, 04/10/2021, 03/13/2021 Influenza Vaccine (#1) 2024 01/21/2020 Mammogram 08/24/2025 08/24/2024, 08/18/2023 Depression Screening 09/03/2025 09/03/2024, 09/03/20 24 Tobacco Screening 09/03/2025 09/03/2024 SDOH Screening 12/24/2025 12/24/2024 Cervical Cancer Screening 07/19/2027 HPV/Cotest 07/19/2027 07/19/2022, 11/2021, 07/15/2022, Additional history exists Pap Smear 07/19/2027 07/19/2022, 07/01/2022 Zoster Vaccines (1 of 2) 2031 RSV Patients and Patients Aged 60 years or older (1 - 1-dose 75+ series) 2056 HIB Vaccines Aged Out No longer eligi ble based on patient's age to complete this topic HPV Vaccines Aged Out No longer eligi ble based on patient's age to complete this topic IPV Vaccines Aged Out No longer eligi ble based on patient's age to complete this topic Meningococcal Vaccine Aged Out No john charlie eligible based on patient's age to complete this topic Pneumococcal Vaccine: Pediatrics (0 to 5 Years) and At-Risk Patients (6 to 49) Years) Aged Out No longer eligible based on patient's age to complete this topic RSV under 20 months Aged Out No longe r eligible based on patient's age to complete this topic Rotavirus Vaccines Aged Out No longer eligible based on patient's age to complete this topic Procedures Procedure Name Priority Date/Time Associated Diagnosis Comments CALCIUM, IONIZED Routine 10/22/2024 10:1 9 AM EST PTH, INTACT WITHOUT CALCIUM Routine 10/22/2024 10:19 AM EST VITAMIN D,25-OH,TOTAL,IA Routine 10/22/2024 10:19 AM EST ALBUMIN Routine 10/22/2024 10:19 AM EST PHOSPHATE ( PHOSPHORUS) Routine 10/22/2024 10:19 AM EST CALCIUM Routine 10/22/2024 10:19 AM EST BI MAMMOGRAM SCREENING TOMOSYNTHESIS BILATERAL Routine 08/24/2024 10:30 AM EDT HM PAP/HPV Routine 07/19/2022 from Last 3 Months or Most Recently Relevant to Health Maintenance Results * (ABNORMAL) Vitamin D, 25-Hydroxy, Total, Immunoassay (10/22/2024 10:19 AM EST) Vitamin D 25-OH Total 21.5(L) >30 ng/mL [facility] Comment:Health Based Referen ce Values*< 20 ng/mL [id number] ng/mL Insufficient> 30 ng/mL Sufficient*Juanis STEPHENSON. N Engl J Med. 2007;357:266-280Care must be taken in interpreting Vitamin D results fromdifferent laboratories and methodologies. Published datademonstrated that results from patients undergoinghemodialysis may show a negative bias when tested withvarious automated 25-OH vitamin D assays when compared toLC-MS/MS.When testing samples from patients whose predominant form ofVitamin D is Vitamin D2, such as patients receiving VitaminD2 supplementation, results that are subtherapeutic shouldbe confirmed with another method such as LC-MS/MS. 10/22/2024 10:1 9 AM EST 10/22/2024 10:19 AM EST Generic External Data Provider LAB BLOOD ORDERAB LES Final Result Performing Organization Address [facility]/ZIP Co de Phone Number [facility] [address] [place] [phone] * (ABNORMAL) Phosphate (As Phosphorus) (10/22/2024 10:19 AM EST) Pathologist [facility] Phosphorus 2.5(L) 2.7 - 4.5 mg/dL [facility] 10/22/2024 10:1 9 AM EST 10/22/2024 10:19 AM EST Generic External Data Provider LAB BLOOD ORDERAB LES Final Result Performing Organization Address [facility]/ZIP Co de Phone Number [facility] [address] [place] [phone] * (ABNORMAL) PTH, Intact Without Calcium (10/22/2024 10:19 AM EST) Parathyroid Hormone, Intact 77.3(H) 8.7 - 77.1 pg/mL [facility] 10/22/2024 10:1 9 AM EST 10/22/2024 10:19 AM EST Generic External Data Provider LAB BLOOD ORDERAB LES Final Result Performing Organization Address [facility] Co de Phone Number [facility] [address] [place] [phone] * Calcium, Ionized (10/22/2024 10:19 AM EST) Calcium, Ionized 5.3 4.7 - 5.5 mg/dL [facility] Comment:THIS TEST WAS PERFOR MED AT:[employer] [place] [phone] LEYVA MD 10/22/2024 10:1 9 AM EST 10/22/2024 10:19 AM EST Generic External Data Provider LAB BLOOD ORDERAB LES Final Result Performing Organization Address [facility] Co de Phone Number [facility] [address] [place] [phone] * Calcium (10/22/2024 10:19 AM EST) Calcium 9.9 8.4 - 10.2 mg/dL [facility] 10/22/2024 10:1 9 AM EST 10/22/2024 10:19 AM EST Generic External Data Provider LAB BLOOD ORDERAB LES Final Result Performing Organization Address [facility] de Phone Number [facility] [address] [place] [phone] * Albumin (10/22/2024 10:19 AM EST) Albumin Level 4.4 3.5 - 5.0 g/dL [facility] 10/22/2024 10:1 9 AM EST 10/22/2024 10:19 AM EST us Generic External Data Provider LAB BLOOD ORDERAB LES Final Result [facility] [address] [place] [phone] * BI Mammogram Screening Tomosynthesis Bilateral (08/24/2024 10:30 AM EDT) Anatomical Region Laterality Modality Breast Bilateral Mammography 08/24/2024 10:3 0 AM EDT Narrative 09/05/2024 8:17 AM EDT ? [facility] ? [address] ?[place] [address] ? Mammography Report ? Signed ? Patient: Jocelynn Osborn ?MR#: M ?? [id number] ? : 1980 ?Acct:[id number] ? Age/Sex: 44 / F ?ADM Date: 08/24/24 ? Loc: HO.MAMMO ? Attending Dr: Haydee Jacinto [employer] ? Ordering Physician: Fly De Souza MD ?Results: 1Negativ ?? e ? Date of Service: 08/24/24 ?Follow Up: 1 Year From Orig ?? inal Mammogram ? Procedure(s): MM tomosynthesis screening BI ?? Accession Number(s): [id number] ? cc: Haydee Jacinto [employer]; Fly De Souza MD ? EXAMINATION: ?? MM SCREENING DIGITAL BREAST TOMOSYNTHESIS, BILATERAL ? CLINICAL INFORMATION: ? Screening. Asymptomatic. ? COMPARISON: ?? Mammography: Comparison is made with available priors ? TECHNIQUE: ?? Digital breast mammography with tomosynthesis is performed in both the ?? craniocaudal and mediolateral oblique views along with computer-aided ?? detection (CAD). ? FINDINGS: ?? The breasts are heterogeneously dense, which may obscure small masses ?? (ACR BI-RADS breast composition Category c). ? There are no significant masses, abnormal calcifications, or other ?? abnormalities. ? MM/MM tomosynthesis screening BI ?? IMPRESSION: ?? No mammographic evidence of malignancy. ? ASSESSMENT: ? BI-RADS BI-RADS 1 - Negative ? RECOMMENDATION: ?? Routine annual mammography screening. ? 1 year F/U ? This examination should not preclude the clinical evaluation of a ?? suspicious palpable abnormality. ? This patient's information was entered into a reminder system with a ?? target due date for their next mammogram. ? Electronically signed by: ??Arabella Glaser DO ??09/05/2024 08:15 AM EDT ? Dictated By: ?Arabella Glaser DO ? Signed By: ?<Electronically signed by Arabella Glaser, DO in OV> ? 09/05/24 0815 ? DD/ 1030 ? TD/TT: 08/24/24 1045 ? House Shorer: ? Procedure Note Tyrel Lutz - 09/05/2024 [facility] [address] [place] [address] [place], [place] [address] Mammography Report Signed Patient: Jocelynn Osborn#: M [id number] : 1980Acct:[id number] Age/Sex: 44 / FADM Date: 08/24/24 Loc: [facility] Attending Dr: Haydee Jacinto [employer] Ordering Physician: Fly De Souzaults: 1Negativ e Date of Service: 08/24/24Follow Up: 1 Year From Orig inal Mammogram Procedure(s): MM tomosynthesis screening BI Accession Number(s): [id number] cc: Haydee Jacinto [employer]; Fly De Souza MD EXAMINATION: MM SCREENING DIGITAL BREAST TOMOSYNTHESIS, BILATERAL CLINICAL INFORMATION: Screening. Asymptomatic. COMPARISON: Mammography: Comparison is made with available priors TECHNIQUE: Digital breast mammography with tomosynthesis is performed in both the craniocaudal and mediolateral oblique views along with computer-aided detection (CAD). FINDINGS: The breasts are heterogeneously dense, which may obscure small masses (ACR BI-RADS breast composition Category c). There are no significant masses, abnormal calcifications, or other abnormalities. MM/MM tomosynthesis screening BI IMPRESSION: No mammographic evidence of malignancy. ASSESSMENT: BI-RADS BI-RADS 1 - Negative RECOMMENDATION: Routine annual mammography screening. 1 year F/U This examination should not preclude the clinical evaluation of a suspicious palpable abnormality. This patient's information was entered into a reminder system with a target due date for their next mammogram. Electronically signed by: Arabella Glaser DO 09/05/2024 08:15 AM EDT Dictated By: Arabella Glaser DO Signed By: <Electronically signed by Arabella Glaser DO in OV> 09/05/24 0815 DD/ 1030 TD/TT: 08/24/24 1045 House Shorer: [facility] External Provider IMG BI PROCEDURES Edited Result - Final * Pap Smear (07/19/2022) Pap Negative for intraephithelial lesion or malignancy Negative for intraephithelial lesion or malignancy, Other HPV Undetected Historical Provider HEALTH MAINTENANCE Final Result from Last 3 Months or Most Recently Relevant to Health Maintenance Insurance [address] [place], [place] [address] [employer] Care Teams Health And Wellness Coach Relationship Specialty Start Date End Date Haydee Jacinto FNP [address] [place] [phone] PCP - General Family Medicine 07/12/22
--- OUTSIDE RECORDS SUMMARY | 2024-12-26 12:14 | XMS_ITS | Encounter Summary ---
Author Organization [employer] Address [address] [place] [address] 7 [place] [address] Care Team Providers Care Gun Stock Checker Name Role Phone [facility] Primary Care Provider [phone] Reason for Visit * Reason Comments Pre-visit Planning SDOH screening negat blair and tobacco screening negative Encounter Details Date Type Department Care Team ([facility] st Contact Info) Description 12/24/2024 Patient Outreach [facility] [address] [place], [place] [phone] [facility] [address] [place] [address] Pre-visit Planning (SDOH screening negative and tobacco screening negative) Social History Tobacco Use Types Packs/Day Years [...] as of this encounter Progress Notes * Anahi Navarro - 12/24/2024 10:07 AM EST CC nAahi placed successful outbound call to patient for pre-visit planning. Patient name and confirmed. Patient confirms date and time, and has transportation arrangements. Biggest concern for appointment appt at this time is high B/P Appropriate screening completed in anticipation of appointment. Patient advised to bring to appointment a photo id and insurance card, SDOH positive. Patient looking for assistance with food insecurities Referral will be placed. documented in this encounter Plan of Treatment Upcoming Encounters Date Type Department Care Team (Late st Contact Info) Description 01/07/2025 10:30 AM EST Office Visit [facility] [address] [place] [address] Haydee Jacinto FNP [address] [place] [address] documented as of this encounter Visit Diagnoses Not on filedocumented in this encounter Additional Health Concerns Assessment Noted Time PHQ-9 Depression Total Score: 0 09/03/20 9:57 AM EDT documented as of this encounter Care Teams Gun Stock Checker Relationship Specialty Start Date End Date Haydee Jacinto FNP [address] [place] [phone] PCP - General Family Medicine 07/12/22 documented as of this encounter
== END 2024-12-26 10:29 | disposition home or self-care (01) ==
LOC: HO.US 10:28
PROVIDERS: PCP Registered Nurse; Visit Provider Nurse Practitioner Family
DX: R35.0 Frequency of micturition (principal)
CPT/HCPCS: 76770

== ENCOUNTER → 2024-12-26 10:30 | Outpatient (BNV) | payer MEDICAID, SELFPAY | PROVIDERS: PCP Registered Nurse; Visit Provider Nuclear Medicine | DX: N13.39 Other hydronephrosis (principal); D25.9 Leiomyoma of uterus, unspecified; N32.89 Other specified disorders of bladder | CPT/HCPCS: 76770 ==

== ENCOUNTER 2025-01-16 10:09 | Outpatient (AMB) | payer MEDICAID, SELFPAY ==
--- NOTE | 2025-01-16 09:24 | A.OFFVIS_ITS ---
Vital Signs 01/16/25 10:12 Height 5 ft 4 in Weight 166 lb BMI 28.5 BP 124/62 Blood Pressure Location Rt brachial Position Sitting Pulse 89 Pulse Source Pulse Oximeter Pulse Oximetry (%) 98 Oxygen Delivery Method Room Air Intake Visit Reasons: Shortness of breath Hospitality Coordinator: Hospitality Coordinator offered & declined Accompanied by: Self / Same As Patient Allergies dog dander Allergy (Intermediate, Verified 01/16/25 10:16) Unknown seafood Allergy (Intermediate, Verified 01/16/25 10:16) Itching aspirin Allergy (Unknown, Verified 01/16/25 10:16) swelling Medication List - Last Reconciled 01/16/25 by Candis Mckeon, PRODUCT MANAGEMENT INTERN albuterol sulfate 2.5 mg (3 mL) inhalation QID PRN albuterol sulfate 90 mcg/actuation 2 puffs inhalation Q4-6H PRN benzonatate 100 mg PO BID PRN bisacodyl (Dulcolax (bisacodyl)) 10 mg (2 x 5 mg) PO BEDTIME 2 days budesonide-formoterol 160-4.5 mcg/actuation (Symbicort) 2 puffs inhalation Q12H citalopram 20 mg PO DAILY clonazepam 0.5 mg PO DAILY PRN dicyclomine 20 mg PO QID 90 days famotidine 20 mg PO BID hydroxyzine pamoate 1 cap PO BID PRN linaclotide (Linzess) 145 mcg PO QAM montelukast (Singulair) 10 mg PO BEDTIME ondansetron 4 mg PO Q6H PRN oxybutynin chloride ER 10 mg PO DAILY 30 days peg 3350-electrolytes 236-22.74-6.74 -5.86 gram (Golytely) 240 mL PO Q10M 1 day sertraline 100 mg PO QAM HPI HPI Shortness of breath: Details: Jocelynn is a pleasant 44 year old female, never smoker, with underlying asthma, hyperparathyroidism and hypercalcemia. She has been moderately controlled on Symbicort 160 mcg, albuterol MDI PRN, and singulair however continues to report dry cough and wheezing. She denies dyspnea or chest tightness. Since the last visit, she reports a visit to urgent care related to URI however recovered at home without any medications. [facility] Medical History Flushing Anxiety Chronic abdominal pain Goiter Vitamin D deficiency Hyperparathyroidism Hypercalcemia Surgical History History of surgery History of umbilical hernia repair Hx of section Family History Father Diabetes Hypertension Alzheimer disease FH: prostate cancer Emphysema of lung Mother Hypertension Diabetes Social History Household Members: Spouse Household Members Other:: son Housing: Apartment Alcohol intake: never Patient Tobacco Use Status: Never used Tobacco Current occupational status: unemployed Sexual orientation: Straight/Heterosexual Gender identity: Female Female Reproductive History Menstrual Age of Menarche: 13 Review of Systems Const Denies chills, Denies excessive sweating, Denies fever(s), Denies headache(s) and Denies night sweats Eyes Denies dry eyes, Denies irritation and Denies itchy eyes ENT Reports Normal hearing present, Denies headache(s), Reports nasal congestion and Reports post nasal drip Card Denies chest pain, Denies chest pain at rest, Denies chest pain with activity, Denies claudication, Denies leg edema, Denies dyspnea, Denies dyspnea on exertion, Denies orthopnea and Denies paroxysmal nocturnal dyspnea Resp Denies chest congestion, Reports cough, Denies excessive phlegm production, Denies pain on inspiration, Denies pain with cough, Denies dyspnea, Denies dyspnea on exertion, Denies stridor and Denies wheezing Musc Denies myalgias Neuro Reports Normal hearing present and Denies headache(s) Endo Denies excessive sweating Frank/Lymph Denies lymphadenopathy Aller/Immun Denies itchy eyes, Reports seasonal rhinorrhea and Denies wheezing Physical Exam Vital Signs: Last Vital Signs Pulse 89 01/16/25 10:12 BP 124/62 01/16/25 10:12 Pulse Ox 98 01/16/25 10:12 Oxygen Delivery Method Room Air 01/16/25 10:12 BMI result Body Mass Index 28.5 Const General: cooperative, healthy appearing, comfortable, no acute distress, well developed and alert Orientation/consciousness: patient oriented x3 Limitations: no limitations HEENT Head: Yes normal to inspection, Yes normocephalic and Yes atraumatic Ears: hearing grossly normal bilaterally and external ears normal Eyes General: appearance normal, both eyes and all related structures Eyelids: Yes eyelids normal Sclerae: sclerae normal EOM: EOMs intact bilaterally Neck Neck: Yes normal visual inspection and Yes no lymphadenopathy Lymphatic: no lymphadenopathy noted Chest Chest palpation & inspection: normal inspection of the chest Resp Effort & Inspection: normal respiratory effort, able to speak in complete sentences, no audible wheezes, no cough, no stridor, not tachypneic, no tripod positioning and no use of accessory muscles Auscultation: clear to auscultation bilaterally Cardio Jugular venous distension: no JVD Rate: regular rate Rhythm: regular rhythm Skin Other: warm, dry General skin exam: no rashes or lesions noted Neuro General: patient oriented x3 Cranial nerves: Yes Normal hearing present Cognition (Neuro): normal cognition Gait exam (Neuro): Normal gait present Extrem General: Yes normal to inspection, Yes capillary refill normal, Yes no clubbing, cyanosis or edema and Yes no pedal edema Psych Appearance: grossly normal and well kempt Speech and movement: Normal speech and movement present and Clear speech present Affect: normal affect Attitude: cooperative Thought process: Normal thought process present Thought content: Normal thought content present Insight: Good insight present (Psych) Judgement: Good judgement present (Psych) Assessment & Plan Assessment & Plan (1) Asthma: Code(s): J45.909 - Unspecified asthma, uncomplicated Category: Medical (2) Shortness of breath: Code(s): R06.02 - Shortness of breath Category: Medical (3) Environmental allergies: Code(s): Z91.09 - Other allergy status, other than to drugs and biological substances Category: Medical Plan Patient reports suboptimal control with Symbicort, will trial Breo. If no improvements will switch to Trelegy. All questions were answered and patient is in agreement of plan. Will follow up in 6-8 weeks or sooner if needed. Medications: New fluticasone furoate-vilanterol 200-25 mcg/dose (Breo Ellipta) 1 inh inhalation DAILY 60 ea 6RF Discontinued budesonide-formoterol 160-4.5 mcg/actuation (Symbicort) Discontinued Reason: Patient Completed Course 2 puffs inhalation Q12H 10.2 grams 3RF Coding Level of Care Code Est Pt Level 3 (55733) Diagnoses Asthma J45.909 Shortness of breath R06.02 Environmental allergies Z91.09
[2025-01-16 10:12] VITALS: BP 124/62; PULSE 89; O2SAT 98; BMI 28.5
== END 2025-01-16 10:41 | disposition home or self-care (01) ==
PROVIDERS: PCP Registered Nurse; Visit Provider Nurse Practitioner Family
DX: J45.909 Unspecified asthma, uncomplicated (principal); R06.02 Shortness of breath; Z91.09 Other allergy status, other than to drugs and biological substances
CPT/HCPCS: 99213

== ENCOUNTER → 2025-01-16 10:09 | Outpatient (BNVA) | payer MEDICAID, SELFPAY | PROVIDERS: PCP Registered Nurse; Visit Provider Nurse Practitioner Family | DX: J45.909 Unspecified asthma, uncomplicated (principal); R06.02 Shortness of breath; Z91.09 Other allergy status, other than to drugs and biological substances; Z79.899 Other long term (current) drug therapy | CPT/HCPCS: 99212 ==

== ENCOUNTER 2025-01-31 07:59 | Outpatient (REF) | payer MEDICAID, SELFPAY ==
--- NOTE | ~2025-01-31 | FL_ITS ---
EXAMINATION: XR UPPER GI AIR CONTRAST SERIES WITH SMALL BOWEL CLINICAL INFORMATION: Periumbilical and abdominal pain COMPARISON: None available. TECHNIQUE: Routine upper GI contrast study was performed in upright and lying position. Subsequently small bowel series was obtained up to 2 hours. FINDINGS: Following oral administration of thick barium and effervescent granules is normal propagation bolus from the oral cavity through the pharynx, esophagus into stomach without any evidence of obstruction, narrowing or stricture. The course, caliber and peristalsis in the esophagus is normal. On placing patient in supine and prone lying the course, caliber and peristalsis of this stomach, duodenal bulb and sweep is normal. The mucosal pattern of the stomach and the duodenum is normal. There are surgical springs along the anterior wall just above abdominal wall hernia repair. Sequential images obtained or the abdomen reveals normal course and caliber of the small bowel loops. The transit time is is delayed at approximately 105 minutes. Appendix is visualized and appears normal caliber. FLUOROSCOPY TIME: 1 minute 45 seconds DOSE AREA PRODUCT: 1797 uGy-m2 (microgray-meter squared) FL/FL upper GI small bowel IMPRESSION: Unremarkable upper GI contrast study and small bowel follow-through. There is evidence of abdominal wall hernia repair with mesh in place. Electronically signed by: Flakito Esquivel MD 01/31/2025 02:23 PM EDT
== END 2025-01-31 08:00 | disposition home or self-care (01) ==
LOC: HO.XRAY 07:59
PROVIDERS: PCP Registered Nurse; Visit Provider Nurse Practitioner
DX: R10.33 Periumbilical pain (principal)
CPT/HCPCS: 74240; 74248

== ENCOUNTER → 2025-01-31 08:03 | Outpatient (BNV) | payer MEDICAID, SELFPAY | PROVIDERS: PCP Registered Nurse; Visit Provider Radiology Diagnostic Radiology | DX: R10.33 Periumbilical pain (principal) | CPT/HCPCS: 74246 ==

== ENCOUNTER 2025-02-13 10:30 | Outpatient (AMB) | payer MEDICAID, SELFPAY ==
--- NOTE | 2025-02-13 11:27 | A.OFFVIS_ITS ---
Intake Visit Reasons: Ultrasound follow up/DO NOT RS Allergies dog dander Allergy (Intermediate, Verified 01/16/25 10:16) Unknown seafood Allergy (Intermediate, Verified 01/16/25 10:16) Itching aspirin Allergy (Unknown, Verified 01/16/25 10:16) swelling HPI Comments Details: Presenting for ultrasound follow-up done in 09/06 which showed the following: Uterus: The uterus is anteverted, anteflexed and enlarged measuring 11.4 x 7.6 x 8.9 cm for a volume of 404 mL. The double wall endometrial thickness is 13 mm. Multiple uterine fibroids are seen as follows: Right near fundus 4.0 x 3.2 x 4.0 cm (previously 3.6 x 3.8 x 3.4 cm) Right lower uterine segment 2.6 x 2.0 x 2.2 cm (previous 2.5 x 2.2 x 2.2 cm) Left uterine body 3.1 x 3.2 x 2.6 cm (3.7 x 4.0 x 4.2 cm) Fundus 1.6 x 1.2 x 1.6 cm (previously 1.8 x 1.5 x 1.9 cm). A Nabothian cyst is seen in the cervix. Adnexa: Both ovaries are visualized. There is normal color flow to the adnexa. There is no ovarian torsion. There is no pelvic ascites or fluid collection. Right ovary measures 3.0 x 2.4 x 2.2 cm for a volume of 8.3 mL which includes multiple cysts the largest 1.5 cm. Left ovary measures 4.4 x 2.3 x 2.6 cm for a volume of 13.8 mL with multiple follicular cysts present. [facility] Medical History Flushing Anxiety Chronic abdominal pain Goiter Vitamin D deficiency Hyperparathyroidism Hypercalcemia Surgical History History of surgery History of umbilical hernia repair Hx of section Family History Father Diabetes Hypertension Alzheimer disease FH: prostate cancer Emphysema of lung Mother Hypertension Diabetes Social History Household Members: Spouse Household Members Other:: son Housing: Apartment Alcohol intake: never Patient Tobacco Use Status: Never used Tobacco Current occupational status: unemployed Sexual orientation: Straight/Heterosexual Gender identity: Female Female Reproductive History Menstrual Age of Menarche: 13 Review of Systems Const All systems reviewed & are unremarkable except as noted in HPI and below Reports as per HPI and Reports no additional complaints GI Reports no additional complaints Reports no additional complaints Assessment & Plan Assessment & Plan (1) Uterine myoma: Code(s): 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 Discussed with the patient the options of treatment including expectant management versus hysterectomy; the pros and cons, risks benefits of each approach were discussed with the patient including the fact that in cases of myosarcoma, surgical treatment can lead to early diagnosis and positively affects the prognosis; after further discussion, the patient decided to proceed with expectant management. Will repeat pelvic ultrasound periodically. Instructions given to patient to call in case any of the following occurs: pressure symptoms, abnormal uterine bleeding, pelvic pain; and to schedule a 12 months pelvic ultrasound (order placed) and a follow-up appointment . All questions answered, the patient verbalized understanding and agreed with the plan . Orders: Orders US pelvic and transvaginal 12 Months D25.9 - Leiomyoma of uterus, unspecified Coding Level of Care Code Est Pt Level 3 (19098) Diagnoses Uterine myoma D25.9
--- OUTSIDE RECORDS SUMMARY | 2025-02-13 12:21 | XMS_ITS | Encounter Summary ---
Author Organization [employer] Address [address] [place] [address] Care Team Providers Care Enterprise Resource Planner Name Role Phone [facility] Primary Care Provider [phone] Reason for Visit * Reason Comments Cough Encounter Details Date Type Department Care Team ([facility] Contact Info) Description 02/09/2025 10:40 AM EDT Office Visit [facility] [address] [place] [address] Srini Gooden MD [address] [place] [address] Viral URI with cough (Primary Dx) Social History Tobacco Use Types Packs/Day Years [...] AM EDT documented as of this encounter Last Filed Vital Signs Vital Sign Reading Time Taken Comments Blood Pressure 131/87 02/09/2025 10:46 AM EDT Pulse 95 02/09/2025 10:46 AM EDT Temperature 36.6 ??C (97.8 ??F) 02/09/2025 1 0:46 AM EDT Respiratory Rate 14 02/09/2025 10:4 6 AM EDT Oxygen Saturation 99% 02/09/2025 10: 46 AM EDT Inhaled Oxygen Concentration - - Weight 75.2 kg (165 lb 12.8 oz) 025 10:46 AM EDT Height - - Body Mass Index 28.46 09/03/2024 9:51 AM EDT documented in this encounter Progress Notes * Srini Gooden MD - 02/09/2025 10:40 AM EDT Subjective History was provided by the patient. Jocelynn Navarro is a 44 y.o. female who presents for evaluation of symptoms of a URI. Symptoms include cough, myalgia, runny nose, and congestion. Onset of symptoms was 3 days ago, unchanged since that time. Associated negative symptoms include fever, nausea, vomiting, diarrhea, ear pain, andrash. Evaluation to date: none. Treatment to date: Mucinex Objective Vitals: 02/09/25 1046 BP: 131/87 BP Location: Left arm Patient Position: Sitting BP Cuff Size: Adult Pulse: 95 Resp: 14 Temp: 97.8 ??F (36.6 ??C) TempSrc: Temporal SpO2: 99% Weight: 165 lb 12.8 oz (75.2 kg) Physical Exam Vitals reviewed. Constitutional: Appearance: Normal appearance. She is normal weight. HENT: Head: Normocephalic and atraumatic. Right Ear: Tympanic membrane, ear canal and external ear normal. Left Ear: Tympanic membrane, ear canal and external ear normal. Nose: Congestion present. No rhinorrhea. Mouth/Throat: Mouth: Mucous membranes are dry. Pharynx: Oropharynx is clear. Posterior oropharyngeal erythema present. No oropharyngeal exudate. Eyes: Extraocular Movements: Extraocular movements intact. Conjunctiva/sclera: Conjunctivae normal. Pupils: Pupils are equal, round, and reactive to light. Cardiovascular: Rate and Rhythm: Normal rate and regular rhythm. Heart sounds: Normal heart sounds. Pulmonary: Effort: Pulmonary effort is normal. Breath sounds: Normal breath sounds. Musculoskeletal: General: Normal range of motion. Cervical back: Normal range of motion and neck supple. Lymphadenopathy: Cervical: No cervical adenopathy. Skin: General: Skin is warm and dry. Neurological: General: No focal deficit present. Mental Status: She is alert and oriented to person, place, and time. Mental status is at baseline. Psychiatric: Mood and Affect: Mood normal. Behavior: Behavior normal. Thought Content: Thought content normal. Judgment: Judgment normal. Jocelynn was seen today for cough. Diagnoses and all orders for this visit: Viral URI with cough (Primary) - POCT Rapid Influenza A MONAE ID NOW - POCT Rapid Influenza B MONAE ID NOW - POCT Rapid Covid-19 BinaxNOW - benzonatate (Tessalon Perles) 100 MG capsule; Take 1 capsule (100 mg) by mouth if needed in the morning, at noon, and at bedtime for cough for up to 7 days. Do not crush or chew. Patient with a clinical presentation of viral URI Normal pulmonary exam and no respiratory distress O2 sat reassuring Rapid COVID-19 and Influenza A/B negative today Rx Benzonatate prn for cough Potential adverse effects of the medication reviewed Discussed supportive care with ample hydration, sleep position and rest OTC supportive medications reviewed Droplet precautions discussed Advised to contact the clinic if no improvement of symptoms Indications for UC/ER use reviewed documented in this encounter Plan of Treatment Upcoming Encounters Date Type Department Care Team (Late st Contact Info) Description 02/25/2025 10:30 AM EDT Office Visit [facility] [address] [place] [address] [place], [place], TRAIN CALLER [address] [place] [address] documented as of this encounter Procedures Procedure Name Priority Date/Time Associated Diagnosis Comments POCT RAPID COVID ANTIGEN Routine 02/09/2025 11:29 AM EDT Viral URI with cough POCT INFLUENZA B (ID NOW RAPID MOLECULAR) Routine 02/09/2025 11:28 AM EDT Viral URI with cough POCT INFLUENZA A (ID NOW RAPID MOLECULAR) Routine 02/09/2025 11:28 AM EDT Viral URI with cough documented in this encounter Results * POCT Rapid Covid-19 BinaxNOW (02/09/2025 11:29 AM EDT) Rapid COVID Ag Negative QC Media Lot # [id number] Lot# Expiration Date [id number] Swab 02/09/2025 11:2 9 AM EDT Srini Gooden MD POINT OF CARE TEST ENTER/EDIT OR DERABLES Final Result * POCT Rapid Influenza B MONAE ID NOW (02/09/2025 11:28 AM EDT) Influenza B Negative Negative, Indeterminate [facility] QC Media Lot # [id number] [facility] Lot# Expiration Date [facility] Swab 02/09/2025 11:2 8 AM EDT Srini Gooden MD POINT OF CARE TEST ENTER/EDIT OR DERABLES Final Result Performing Organization Address City/[facility]/ZIP Co de Phone Number [facility] [address] [place] [address] [phone] * POCT Rapid Influenza A MONAE ID NOW (02/09/2025 11:28 AM EDT) Influenza A Negative Negative, Indeterminate [facility] QC Media Lot # [id number] [facility] Lot# Expiration Date [facility] Swab 02/09/2025 11:2 8 AM EDT Srini Gooden MD POINT OF CARE TEST ENTER/EDIT OR DERABLES Final Result Performing Organization Address [facility] Co de Phone Number [facility] [address] [place] [address] [phone] documented in this encounter Visit Diagnoses Diagnosis Viral URI with cough- Primary documented in this encounter Additional Health Concerns Assessment Noted Time PHQ-9 Depression Total Score: 0 09/03/20 24 9:57 AM EDT documented as of this encounter Care Teams Enterprise Resource Planner Relationship Specialty Start Date End Date Haydee Jacinto FNP [address] [place] [address] PCP - General Family Medicine 07/12/22 documented as of this encounter
--- OUTSIDE RECORDS SUMMARY | 2025-02-13 12:21 | XMS_ITS | Clinical Summary ---
Author Organization [employer] Address [address] [place] [address] 7t [place] [address] Care Team Providers Care Vp Strategy Name Role Phone Haydee Jacinto [facility] Primary Care Provider Allergies Active Allergy Reactions Criticality Noted Date [...] 11 03/12/20 24 Active oxymetazoline (Afrin Nasal [place]) 0.05 % nasal spray Administer 2 sprays [...] 75 mL 1 08/14/20 24 025 Active benzonatate (Tessalon Perles) 100 MG capsuleIndications :Viral URI with cough Take 1 capsule (100 mg) by mouth if needed in the morning, at noon, and at bedtime for cough for up to 7 days. Do not crush or chew. 20 capsule 02/10/20 25 025 Active Hospital, Clinic, or Other Facility Administered Medication Ordered Dose Route Frequency Start Date End Date Status hydrOXYzine (Vistaril) injection 25 mgIndications:Hives 25 mg IM Nightly 02/04/2023 Activ e Active Problems Problem Noted Date Diagnosed Date Other irritable bowel syndrome 04/16/2024 Overview (04/16/2024): IBS-had [facility] GI follow up. Plan to trial bentyl [...] ?? Negative echo and stress test in 2021 Healthcare maintenance 05/29/2023 Overview (04/16/2024): Mammo: 08/2023- Birads 2 Pap: 07/2022, NIL HPV neg. Followed by Dr. De Souza [facility]. Hx of uterine fibroids. Serial ultrasound C-scope: Routine age 46 BMD: Negative 2021 Anxiety and depression 05/29/2023 Overview (05/29/2023): ?? Established with psychiatry and therapy ?? Sertraline, hydroxyzine, lorazepam Other dysphagia 05/29/2023 Overview (05/29/2023): ?? Referred to GI Uterine leiomyoma 01/31/2023 Overview (03/12/2024): Followed by [facility] Ultrasound done in 02/03 showed multiple uterine fibroids. Plan for periodic ultrasound to monitor. Hyperparathyroidism 04/08/2022 Hepatomegaly 07/13/2021 Chronic low back pain 07/13/2021 Resolved Problems Problem Noted Date Diagnosed Date Resolved Date Acute frontal sinusitis 02/07/2023 07/1 04/2023 Encounters Date Type Department Care Team Description 02/09/2025 10:40 AM EDT Office Visit [facility] [address] [place] [phone] Srini Gooden MD Viral URI with cough (Primary Dx) 02/06/2025 Telephone [facility] [address] [place] [address] Haydee Jacinto FNP 02/05/[address] [address] Haydee Jacinto FNP chart prep 01/31/2025 Orders Only [facility] External Provider, [facility] 01/28/2025 Patient Outreach [facility] [address] [place] [address] Haydee Jacinto FNP Pre-visit Planning ((Unable to reach for PVP screening and or LVM)) 01/25/2025 Population Health Risk Score Community Care [facility] ([facility]) Department [address] [place] [phone] Provider, Population Health Generic 01/07/[address] [address] Haydee Jacinto FNP No Show 12/26/2024 Orders Only [facility] External Provider, [facility] 12/24/2024 Patient Outreach [facility] [address] [place] [address] Haydee Jacinto FNP Care Coordination (CHW outreach for SDOH PT-1 and food needs-referral completed /) 12/24/2024 Patient Outreach [address] [address] Haydee Jacinto FNP Pre-visit Planning (SDOH screening negative and tobacco screening negative) 11/23/2024 Patient Outreach [address] [address] Haydee Jacinto FNP Pre-visit Planning (SDOH screening negative and tobacco screening negative) 11/23/[address] [address] Haydee Jacinto FNP Returning Call 11/23/2024 Patient Outreach [address] [address] Haydee Jacinto FNP Pre-visit Planning ((Unable to reach for PVP screening, LVM)) from Last 3 Months Immunizations Name Administration [...] 12.8 oz) 025 10:46 AM EDT Height 162.6 cm (5' 4 ) 09/03/2024 9:51 AM EDT Body Mass Index 28.46 09/03/2024 9:51 AM EDT Plan of Treatment Upcoming Encounters Date Type Department Care Team (Late st Contact Info) Description 02/25/2025 10:30 AM EDT Office Visit [facility] [address] [place], [place] [phone] Haydee Jacinto, CONCRETE PANEL INSTALLER [address] [place], [place] [phone] Health Maintenance Due Date Last Done Comments [...] Cervical Cancer Screening 07/19/2027 HPV/Cotest 07/19/2027 07/19/2022, 0911/2021, 07/15/2022, Additional history exists Pap Smear 07/19/2027 [...] 11:28 AM EDT Viral URI with cough FL UPPER GI W SMALL BOWEL Routine 01/31/2025 8:02 AM EDT US RETROPERITONEAL COMPLETE Routine 12/26/2024 4:04 PM EST BI MAMMOGRAM SCREENING TOMOSYNTHESIS BILATERAL Routine 08/24/2024 10:30 AM EDT HM PAP/HPV Routine 07/19/2022 from Last 3 Months or Most Recently Relevant to Health Maintenance Results * POCT Rapid Covid-19 BinaxNOW (02/09/2025 11:29 AM EDT) Rapid COVID Ag Negative QC Media Lot # [id number] Lot# Expiration Date [id number] Swab 02/09/2025 11:2 9 AM EDT Srini Gooden MD POINT OF CARE TEST ENTER/EDIT OR DERABLES Final Result * POCT Rapid Influenza B MONAE ID NOW (02/09/2025 11:28 AM EDT) Influenza B Negative Negative, Indeterminate [facility] QC Media Lot # [id number] [facility] Lot# Expiration Date [facility] Swab 02/09/2025 11:2 8 AM EDT Srini Gooden MD POINT OF CARE TEST ENTER/EDIT OR DERABLES Final Result Performing Organization Address [facility] Co de Phone Number [facility] [address] [place] [address] [phone] * POCT Rapid Influenza A MONAE ID NOW (02/09/2025 11:28 AM EDT) Influenza A Negative Negative, Indeterminate [facility] QC Media Lot # [id number] [facility] Lot# Expiration Date [facility] Swab 02/09/2025 11:2 8 AM EDT Srini Gooden MD POINT OF CARE TEST ENTER/EDIT OR DERABLES Final Result Performing Organization Address [facility] de Phone Number [facility] [address] [place] [address] [phone] * FL Upper GI w/Small Bowel (01/31/2025 8:02 AM EDT) Anatomical Region Laterality Modality Radiographic Stephie ging 01/31/2025 8:02 AM EDT Narrative 01/31/2025 2:26 PM EDT ? [facility] ?[address] ?[place] [address] ? Fluoroscopy Report ? Signed ? Patient: Jocelynn Osborn ?MR#: M ?? [id number] ? : 1980 ?Acct:[id number] ? Age/Sex: 44 / F ?ADM Date: 03/20/25 ? Loc: HO.XRAY ? Attending Dr: Karla LEMUS ? Ordering Physician: Karla Fuller ?? Date of Service: 01/31/25 ?? Procedure(s): FL upper GI small bowel ?? Accession Number(s): [id number] ? cc: Karla Fuller; [facility] ? EXAMINATION: ?? XR UPPER GI AIR CONTRAST SERIES WITH SMALL BOWEL ? CLINICAL INFORMATION: ?? Periumbilical and abdominal pain ? COMPARISON: ?? None available. ? TECHNIQUE: ?? Routine upper GI contrast study was performed in upright and lying ?? position. Subsequently small bowel series was obtained up to 2 hours. ? FINDINGS: ?? Following oral administration of thick barium and effervescent granules ?? is normal propagation bolus from the oral cavity through the pharynx, ?? esophagus into stomach without any evidence of obstruction, narrowing ?? or stricture. The course, caliber and peristalsis in the esophagus is ?? normal. ? On placing patient in supine and prone lying the course, caliber and ?? peristalsis of this stomach, duodenal bulb and sweep is normal. The ?? mucosal pattern of the stomach and the duodenum is normal. There are ?? surgical springs along the anterior wall just above abdominal wall ?? hernia repair. ? Sequential images obtained or the abdomen reveals normal course and ?? caliber of the small bowel loops. The transit time is is delayed at ?? approximately 105 minutes. Appendix is visualized and appears normal ?? caliber. ? FLUOROSCOPY TIME: ?? 1 minute 45 seconds ? DOSE AREA PRODUCT: ?? 1797 uGy-m2 (microgray-meter squared) ? FL/FL upper GI small bowel ?? IMPRESSION: ?? Unremarkable upper GI contrast study and small bowel follow-through. ? There is evidence of abdominal wall hernia repair with mesh in place. ? Electronically signed by: ??Flakito Esquivel MD ??01/31/2025 02:23 PM EDT RP ? Dictated By: ?Flakito Esquivel S ? Signed By: ?<Electronically signed by Flakito S MD Sierra in OV> ?01/31/25 1423 ? DD/ 0802 ? TD/TT: 01/31/25 1227 ? Platemaker: MSM ? Procedure Note Nelda, Tyrel - 01/31/[address] [place] [address] Fluoroscopy Report Signed Patient: Jocelynn OsbornMR#: M [id number] : 1980Acct:[id number] Age/Sex: 44 / FADM Date: 01/31/25 Loc: HO.XRAY Attending Dr: Karla LEMUS Ordering Physician: Karla Fuller Date of Service: 01/31/25 Procedure(s): FL upper GI small bowel Accession Number(s): [id number] cc: Karla Fuller; [facility] CONCRETE PANEL INSTALLER EXAMINATION: XR UPPER GI AIR CONTRAST SERIES WITH SMALL BOWEL CLINICAL INFORMATION: Periumbilical and abdominal pain COMPARISON: None available. TECHNIQUE: Routine upper GI contrast study was performed in upright and lying position. Subsequently small bowel series was obtained up to 2 hours. FINDINGS: Following oral administration of thick barium and effervescent granules is normal propagation bolus from the oral cavity through the pharynx, esophagus into stomach without any evidence of obstruction, narrowing or stricture. The course, caliber and peristalsis in the esophagus is normal. On placing patient in supine and prone lying the course, caliber and peristalsis of this stomach, duodenal bulb and sweep is normal. The mucosal pattern of the stomach and the duodenum is normal. There are surgical springs along the anterior wall just above abdominal wall hernia repair. Sequential images obtained or the abdomen reveals normal course and caliber of the small bowel loops. The transit time is is delayed at approximately 105 minutes. Appendix is visualized and appears normal caliber. FLUOROSCOPY TIME: 1 minute 45 seconds DOSE AREA PRODUCT: 1797 uGy-m2 (microgray-meter squared) FL/FL upper GI small bowel IMPRESSION: Unremarkable upper GI contrast study and small bowel follow-through. There is evidence of abdominal wall hernia repair with mesh in place. Electronically signed by: Flakito Esquivel MD 01/31/2025 02:23 PM EDT Dictated By: Flakito Esquivel MD Signed By: <Electronically signed by Flakito Esquivel MD in OV> 01/31/25 1423 DD/ 0802 TD/TT: 01/31/25 1227 Platemaker: NATY [facility] External Provider IMG FLU OROSCOPY PROCEDURES Final Result * US Retroperitoneal Complete (12/26/2024 4:04 PM EST) Anatomical Region Laterality Modality Ultrasound 12/26/2024 4:04 PM EST Narrative 12/26/2024 4:06 PM EST ? [facility] ?[address] ?[place] [address] ? Ultrasound Report ? Signed ? Patient: Jocelynn Osborn ?MR#: M ?? [id number] ? : 1980 ?Acct:[id number] ? Age/Sex: 44 / F ?ADM Date: 12/26/24 ? Loc: HO.US ? Attending Dr: Shahla TREVINO ? Ordering Physician: Shahla Gonzalez ?? Date of Service: 12/26/24 ?? Procedure(s): US retroperitoneal comp ?? Accession Number(s): [id number] ? cc: Shahla Gonzalez; Haydee Jacinto ? CLINICAL HISTORY: R35.0 - Frequency of micturition ? US Renal ? Comparison: None ? Findings: ?? Right kidney normal size and echotexture, 11 cm length. ?? Left kidney normal size and echotexture, 10.5 cm length. ?? Mild collecting system dilatation of both kidneys. ?? Normal color Doppler. ? Urinary bladder is unremarkable. Prevoid volume 203 mL. Postvoid volume ?? 8.8 mL. ?? Bilateral ureteral jets are visualized. ? The uterus is enlarged. There are uterine fibroids 4.8 x 4.3 x 4 cm and 3 ?? x 2.4 x 2.5 cm. There is compression of the bladder by the enlarged ?? uterus. ? IMPRESSION: ?? Pelviectasis of the bilateral kidneys. ?? No evidence of postvoid urinary retention of bladder. ?? Uterine fibroids. There is compression of the bladder by the enlarged ?? uterus. ? This document has been electronically signed by: Wanda Oliva MD on ?? 12/26/2024 16:04:11 ? Dictated By: ?Wanda Oliva MD ? Signed By: ?<Electronically signed by Wanda Oliva MD in OV> ? 12/26/24 1605 ? DD/ 1604 ? TD/TT: 12/26/24 1604 ? Platemaker: ? Procedure Note Donotuseinterpreter, Image - 12/26/[address] [address] Ultrasound Report Signed Patient: Jocelynn OsbornMR#: M [id number] : 1980Acct:[id number] Age/Sex: 44 / FADM Date: 12/26/24 Loc: HO.US Attending Dr: Shahla Gonzalez [facility]- Ordering Physician: Shahla Gonzalez Date of Service: 12/26/24 Procedure(s): US retroperitoneal comp Accession Number(s): [id number] cc: Shahla Gonzalez [facility]; [facility] CLINICAL HISTORY: R35.0 - Frequency of micturition US Renal Comparison: None Findings: Right kidney normal size and echotexture, 11 cm length. Left kidney normal size and echotexture, 10.5 cm length. Mild collecting system dilatation of both kidneys. Normal color Doppler. Urinary bladder is unremarkable. Prevoid volume 203 mL. Postvoid volume 8.8 mL. Bilateral ureteral jets are visualized. The uterus is enlarged. There are uterine fibroids 4.8 x 4.3 x 4 cm and 3 x 2.4 x 2.5 cm. There is compression of the bladder by the enlarged uterus. IMPRESSION: Pelviectasis of the bilateral kidneys. No evidence of postvoid urinary retention of bladder. Uterine fibroids. There is compression of the bladder by the enlarged uterus. This document has been electronically signed by: Wanda Oliva MD on 12/26/2024 16:04:11 Dictated By: Wanda Oliva MD Signed By: <Electronically signed by Wanda Oliva MD in OV> 12/26/24 1605 DD/ 1604 TD/TT: 12/26/24 1604 Platemaker: [facility] External Provider IMG US PROCEDURES Final Result * BI Mammogram Screening Tomosynthesis Bilateral (08/24/2024 10:30 AM EDT) Anatomical Region Laterality Modality Breast Bilateral Mammography 08/24/2024 10:3 0 AM EDT Narrative 09/05/2024 8:17 AM EDT ? [facility] ? [address] ?[place] [address] ? Mammography Report ? Signed ? Patient: Lulu Navarro,Jocelynn ?MR#: M ?? [id number] ? : 1980 ?Acct:[id number] ? Age/Sex: 44 / F ?ADM Date: 08/24/24 ? Loc: HO.MAMMO ? Attending Dr: Haydee Jacinto CONCRETE PANEL INSTALLER ? Ordering Physician: Fly De Souza MD ?Results: 1Negativ ?? e ? Date of Service: 08/24/24 ?Follow Up: 1 Year From Orig ?? inal Mammogram ? Procedure(s): MM tomosynthesis screening BI ?? Accession Number(s): [id number] ? cc: Haydee Jacinto CONCRETE PANEL INSTALLER; Fly De Souza MD ? EXAMINATION: ?? [...] DD/ 1030 ? TD/TT: 08/24/24 1045 ? Platemaker: ? Procedure Note Nelda, Tyrel - 09/05/2024 [place] [facility] [address] [place] [address] Mammography Report Signed Patient: Jocelynn OsbornMR#: M [id number] : 1980Acct:[id number] Age/Sex: 44 / FADM Date: 08/24/24 Loc: HO.MAMMO Attending Dr: Haydee BRADLEY Ordering Physician: Fly De Souza MDResults: 1Negativ e Date of Service: 08/24/24Follow Up: 1 Year From Orig inal Mammogram Procedure(s): MM tomosynthesis screening BI Accession Number(s): [id number] cc: Haydee Jacinto; Fly De Souza MD EXAMINATION: MM SCREENING [...] 09/05/24 0815 DD/ 1030 TD/TT: 08/24/24 1045 Platemaker: [facility] External Provider IMG BI PROCEDURES Edited Result - Final * Pap Smear (07/19/2022) Pap Negative for intraephithelial lesion or malignancy Negative for intraephithelial lesion or malignancy, Other HPV Undetected Historical Provider HEALTH MAINTENANCE Final Result from Last 3 Months or Most Recently Relevant to Health Maintenance Insurance C3 Care Teams Vp Strategy Relationship Specialty Start Date End Date Haydee Jacinto FNP [address] [place] [address] PCP - General Family Medicine 07/12/22
--- OUTSIDE RECORDS SUMMARY | 2025-02-13 12:21 | XMS_ITS | Encounter Summary ---
Author Organization [employer] Address [address] [facility] [address] [place] [address] Care Team Providers Care Elevator Constructor Hydraulic Name Role Phone [facility] Primary Care Provider [phone] Encounter Details Date Type Department Care Team ([facility] st Contact Info) Description 08/18/2023 Abstract [facility] [address] [place] [address] Kelsey Sims Social History Tobacco Use Types [...] Description 02/25/2025 10:30 AM EDT Office Visit [facility] [address] [place] [address] Haydee Jacinto FNP [address] [place], [place] [phone] documented as of this encounter Procedures Procedure Name Priority Date/Time Associated Diagnosis Comments PAP/HPV Routine 07/19/2022 documented in this encounter Results * Pap Smear (07/19/2022) Pap Negative for intraephithelial lesion or malignancy Negative for intraephithelial lesion or malignancy, Other HPV Undetected us Historical Provider MD HEALTH MAINTENANCE Final Result documented in this encounter Visit Diagnoses Not on filedocumented in this encounter Additional Health Concerns Assessment Noted Time PHQ-9 Depression Total Score: 0 02/11/20 23 9:22 AM EDT documented as of this encounter Care Teams Elevator Constructor Hydraulic Relationship Specialty Start Date End Date Haydee Jacinto FNP [address] [place] [phone] PCP - General Family Medicine 07/12/22 documented as of this encounter
--- OUTSIDE RECORDS SUMMARY | 2025-02-13 12:21 | XMS_ITS | Encounter Summary ---
Author Organization [employer] Address [address] [place] [address] 7 [place] [address] Care Team Providers Care Lens Grinder And Polisher Name Role Phone [facility] Primary Care Provider [phone] Reason for Visit * Reason Onset Date Comments Returning Call 11/23/2024 Encounter Details Date Type Department Care Team ([facility] st Contact Info) Description 11/23/2024 Telephone [facility] [address] [place], [place] [phone] [facility] [address] [place], [place] [phone] Returning Call Social History Tobacco Use Types [...] Description 02/25/2025 10:30 AM EDT Office Visit [facility] [address] [place] [address] Haydee Jacinto FNP [address] [place] [address] documented as of this encounter Visit Diagnoses Not on filedocumented in this encounter Additional Health Concerns Assessment Noted Time PHQ-9 Depression Total Score: 0 09/03/20 24 9:57 AM EDT documented as of this encounter Care Teams Lens Grinder And Polisher Relationship Specialty Start Date End Date Haydee Jacinto FNP [address] [place] [address] PCP - General Family Medicine 07/12/22 documented as of this encounter
== END 2025-02-13 11:30 | disposition home or self-care (01) ==
LOC: HO.HWS 10:30
PROVIDERS: PCP Registered Nurse; Visit Provider Obstetrics & Gynecology
DX: D25.9 Leiomyoma of uterus, unspecified (principal)
CPT/HCPCS: 99213

== ENCOUNTER → 2025-02-13 10:30 | Outpatient (BNVA) | payer MEDICAID, SELFPAY | PROVIDERS: PCP Registered Nurse; Visit Provider Obstetrics & Gynecology | DX: D25.9 Leiomyoma of uterus, unspecified (principal) | CPT/HCPCS: 99212 ==

== ENCOUNTER 2025-02-27 09:58 | Outpatient (AMB) | payer MEDICAID, SELFPAY ==
[2025-02-27 10:03] VITALS: BP 122/64; PULSE 98; O2SAT 97; BMI 28.7
--- NOTE | 2025-02-27 10:03 | MHC.OFFVIS ---
Vital Signs 02/27/25 10:03 Height 5 ft 4 in Weight 167 lb BMI 28.7 BP 122/64 Blood Pressure Location Rt brachial Position Sitting Pulse 98 Pulse Source Pulse Oximeter Pulse Oximetry (%) 97 Oxygen Delivery Method Room Air Intake Visit Reasons: Shortness of breath Hairspring I Inspector Required: Yes Hairspring I Inspector Name: Jamison #[id number] Accompanied by: Self / Same As Patient Allergies dog dander Allergy (Intermediate, Verified 02/27/25 10:08) Unknown seafood Allergy (Intermediate, Verified 02/27/25 10:08) Itching aspirin Allergy (Unknown, Verified 02/27/25 10:08) swelling Medication List - Last Reconciled 02/27/25 by Candis Mckeon, JENNY albuterol sulfate 2.5 mg (3 mL) inhalation QID PRN albuterol sulfate 90 mcg/actuation 2 puffs inhalation Q4-6H PRN benzonatate 100 mg PO BID PRN bisacodyl (Dulcolax (bisacodyl)) 10 mg (2 x 5 mg) PO BEDTIME 2 days citalopram 20 mg PO DAILY clonazepam 0.5 mg PO DAILY PRN dicyclomine 20 mg PO QID 90 days famotidine 20 mg PO BID fluticasone furoate-vilanterol 200-25 mcg/dose (Breo Ellipta) 1 inh inhalation DAILY hydroxyzine pamoate 1 cap PO BID PRN linaclotide (Linzess) 145 mcg PO QAM montelukast (Singulair) 10 mg PO BEDTIME ondansetron 4 mg PO Q6H PRN oxybutynin chloride ER 10 mg PO DAILY 30 days peg 3350-electrolytes 236-22.74-6.74 -5.86 gram (Golytely) 240 mL PO Q10M 1 day sertraline 100 mg PO QAM HPI HPI Shortness of breath: Details: Jocelynn is a pleasant 44 year old female, never smoker, with underlying asthma, hyperparathyroidism and hypercalcemia. She was switched to Breo with moderate effect however develop URI three weeks ago so difficult to assess effectiveness. She reports flu like symptoms that started three weeks ago with worsening respiratory symptoms, including chest congestion, productive cough with yellow sputum, nasal congestion and wheezing. She initally used nebulized albuterol with good effect but has been using albuterol MDI PRN. She denies fevers or chills. She was evaluated at urgent care at the start of symptoms only prescribed tessalon perles, negative for COVID/Flu. PFSH Medical History Flushing Anxiety Chronic abdominal pain Goiter Vitamin D deficiency Hyperparathyroidism Hypercalcemia Surgical History History of surgery History of umbilical hernia repair Hx of section Family History Father Diabetes Hypertension Alzheimer disease FH: prostate cancer Emphysema of lung Mother Hypertension Diabetes Social History Household Members: Spouse Household Members Other:: son Housing: Apartment Alcohol intake: never Patient Tobacco Use Status: Never used Tobacco Current occupational status: unemployed Sexual orientation: Straight/Heterosexual Gender identity: Female Female Reproductive History Menstrual Age of Menarche: 13 Physical Exam Vital Signs: Last Vital Signs Pulse 98 02/27/25 10:03 BP 122/64 02/27/25 10:03 Pulse Ox 97 02/27/25 10:03 Oxygen Delivery Method Room Air 02/27/25 10:03 BMI result Body Mass Index 28.7 Assessment & Plan Assessment & Plan (1) Asthma: Code(s): J45.909 - Unspecified asthma, uncomplicated Category: Medical (2) Shortness of breath: Code(s): R06.02 - Shortness of breath Category: Medical (3) Environmental allergies: Code(s): Z91.09 - Other allergy status, other than to drugs and biological substances Category: Medical Plan Will treat bronchitic symptoms with zpak and prednisone. She is aware to call if symptoms do not improve. Encouraged use of nebulized therapy and will trial antihistamine. Of note, she is requesting chewable Singulair as well as liquid prednisolone as she notes difficultly with swallowing, feeling as though there is tightening within the esophagus. She is under the care of GI and recommended she discuss this with them. If no improvements will switch to Trelegy. All questions were answered and patient is in agreement of plan. Will follow up in 6-8 weeks or sooner if needed. Medications: New montelukast 10 mg (2 x 5 mg) PO BEDTIME 60 tabs 0RF loratadine (Allergy Relief (loratadine)) 10 mg PO DAILY 30 tabs 2RF azithromycin For 250 mg dose pack: take 500 mg today (day 1), then 250 mg for 4 days (days 2-5) PO 6 tabs 0RF prednisolone 30 mg (10 mL) PO DAILY 100 mL 0RF Discontinued montelukast (Singulair) Discontinued Reason: Patient Completed Course 10 mg PO BEDTIME 30 tabs 1RF Coding Level of Care Code Est Pt Level 4 (21684) Diagnoses Asthma J45.909 Shortness of breath R06.02 Environmental allergies Z91.09
--- OUTSIDE RECORDS SUMMARY | 2025-02-27 11:22 | XMS_ITS | Encounter Summary ---
Author Organization [employer] Address [address] [facility] 7t [place] [address] Care Team Providers Care Ethanol Maintenance Mechanic Name Role Phone Haydee Jacinto [facility] Primary Care Provider Encounter Details Date Type Department Care Team (Latest Contact Info) Description 02/25/2025 Travel Social History Tobacco Use Types Packs/Day Years Used Date Smoking Tobacco: Never Passive Smoke Exposure: Never Smokeless Tobacco: Never Alcohol Use Standard Drinks/Week Comments Never 0 (1 standard drink = 0.6 oz pur e alcohol) Depression Answer Date Recorded Patient Health Questionnaire-9 Score 0 02/25/2025 Patient Health Questionnaire-9 Score 0 02/25/2025 Last PHQ-9: Questionnaire Data Not on file 0 02/25/2025 Housing Stability Answer Date Recorded What is [...] Date Recorded Patient Health Questionnaire-2 Score 0 02/25/2025 Internet Access Answer Date Recorded Internet Access [...] as of this encounter Plan of Treatment Not on file documented as of this encounter Visit Diagnoses Not on filedocumented in this encounter Additional Health Concerns Assessment Noted Time PHQ-9 Depression Total Score: 0 02/26/20 25 10:34 AM EDT documented as of this encounter Care Teams Ethanol Maintenance Mechanic Relationship Specialty Start Date End Date Haydee Jacinto FNP [address] [place] [phone] PCP - General Family Medicine 07/12/22 documented as of this encounter
--- OUTSIDE RECORDS SUMMARY | 2025-02-27 11:22 | XMS_ITS | Encounter Summary ---
Author Organization [employer] Address [address] [facility] 7t [place] [address] Care Team Providers Care Behavioral Health Worker Name Role Phone [place] [facility] Primary Care Provider [phone] Encounter Details Date Type Department Care Team ([facility] st Contact Info) Description 08/18/[address] [facility] MEDICINE [address] [place] [address] Kelsey Sims Social History Tobacco Use Types [...] on file documented as of this encounter Procedures Procedure [...] documented as of this encounter Care Teams Behavioral Health Worker Relationship Specialty Start Date End Date Haydee Jacinto FNP [address] [place] [phone] PCP - General Family Medicine 07/12/22 documented as of this encounter
--- OUTSIDE RECORDS SUMMARY | 2025-02-27 11:22 | XMS_ITS | Encounter Summary ---
Author Organization [employer] Address [address] [place] [address] 7 [place] [address] Care Team Providers Care Athletics Teacher Name Role Phone [facility] Primary Care Provider [phone] Reason for Visit * Reason Onset Date Comments Returning Call 11/23/2024 Encounter Details Date Type Department Care Team ([facility] st Contact Info) Description 11/23/2024 Telephone [facility] MEDICINE [address] [place], [place] [phone] [facility] [address] [place], [place] [phone] Returning Call Social History Tobacco Use Types [...] documented in this encounter Plan of Treatment Not on file documented as of this encounter Visit Diagnoses Not on filedocumented in this encounter Additional Health Concerns Assessment Noted Time PHQ-9 Depression Total Score: 0 09/03/20 24 9:57 AM EDT documented as of this encounter Care Teams Athletics Teacher Relationship Specialty Start Date End Date Haydee Jacinto FNP [address] [place] [id number] PCP - General Family Medicine 07/12/22 documented as of this encounter
--- OUTSIDE RECORDS SUMMARY | 2025-02-27 11:22 | XMS_ITS | Clinical Summary ---
Author Organization [employer] Address [address] [place] [address] 7t [place] [address] Care Team Providers Care Meat Grinder Name Role Phone Haydee Jacinto [facility] Primary Care Provider [phone] Allergies Active Allergy Reactions Criticality Noted Date Comments Aspirin Anaphylaxis High 10/27/2021 Medications clonazePAM (KlonoPIN) 0.5 MG tablet Take 0.5 mg by mouth if needed each day. 022 Active fexofenadine (Tsering) 180 MG tablet Take 1 tablet (180 mg) by mouth in the morning. 90 tablet 1 023 Active famotidine (Pepcid) 20 MG tablet Take 1 tablet (20 mg) by mouth 2 times daily. 60 tablet 11 023 Active ceramides (CeraVe) moisturizing creamIndications: Xerosis of skin Apply 1 application topically if needed for dry skin. 453 g 2 023 Active EPINEPHrine (Epipen) 0.3 MG/0.3ML injection syringe USE DIRECTED FOR ANAPHYLAXIS THEN CALL [phone] Active hydrOXYzine pamoate (Vistaril) 25 MG capsule TAKE 1 CAPSULE BY MOUTH TWICE A DAY NEEDED 022 Active LORazepam (Ativan) 1 MG tablet PLEASE SEE ATTACHED FOR DETAILED DIRECTIONS 023 Active montelukast (Singulair) 10 MG tablet TAKE 1 TABLET BY MOUTH EVERYDAY AT BEDTIME 022 Active ondansetron ODT (Zofran-ODT) [address] 1 TABLET ON THE TONGUE EVERY 6 HOURS NEEDED FOR NAUSEA AND VOMITING 023 Active triamcinolone (Kenalog) 0.025 % creamIndications: Rash and nonspecific skin eruption Mix entire tube with 16oz jar of cerva ve as instructed. Apply mixture from neck down daily. 80 g 1 023 Active lidocaine (Lidoderm) 5 % patchIndications: Musculoskeletal chest pain Apply topically to affected areas. Leave on for up to 12 hours 30 patch 1 023 Active omeprazole (PriLOSEC) [address] capsuleIndication s:Hoarseness of voice TAKE 1 CAPSULE BY MOUTH TWICE A DAY 180 capsule 1 Active acetaminophen (Tylenol) 500 MG tablet take 2 tablet by oral route every 6 hours as needed as needed for Pain And/Or Fever 30 tablet 024 Active fluticasone (Flonase) 50 MCG/ACT nasal spray ADMINISTER 1 SPRAY INTO EACH NOSTRIL IN THE AM. SHAKE GENTLY. BEFORE FIRST USE, PRIME PUMP. AFTER USE, CLEAN TIP AND REPLACE CAP. 48 mL Active budesonide-formot thelma (Symbicort) 80-4.5 MCG/ACT inhalerIndication s:Shortness of breath Inhale 2 puffs twie daily. Rinse mouth with water after use to reduce aftertaste and incidence of candidiasis. Do not swallow. 1 each Active oxymetazoline (Afrin Nasal [place]) 0.05 % nasal spray Administer 2 sprays into each nostril every 12 (twelve) hours if needed for congestion for up to 2 days. Do not use for more than 3 days. 30 mL Active sertraline (Zoloft) 100 MG tablet Take 100 mg by mouth in the morning. Active Linzess 145 MCG capsule Take 145 mcg by mouth in the morning. Active dicyclomine (Bentyl) 20 MG tablet Take 20 mg by mouth 4 times daily. Active albuterol 108 (90 Base) MCG/ACT inhaler every 4 to 6 hours Active albuterol (2.5 MG/3ML) 0.083% nebulizer solutionIndicatio ns:Viral URI with cough Take 3 mL (2.5 mg) by nebulization every 6 (six) hours if needed for wheezing or shortness of breath. 75 mL 1 024 2024 Active Vitamin D, Cholecalciferol, 10 MCG (400 UNIT) chewable tabletIndications :Vitamin D deficiency Take 4 tablets by oral route daily 120 tablet 3 025 Active D3 Super Strength 50 MCG (2000 UT) capsule TAKE 1 CAPSULE BY MOUTH EVERY DAY 023 2024 Discontinued benzonatate (Tessalon Perles) 100 MG capsuleIndication s:Viral URI with cough Take 1 capsule (100 mg) by mouth if needed in the morning, at noon, and at bedtime for cough for up to 7 days. Do not crush or chew. 20 capsule 025 2024 Hospital, Clinic, or Other Facility Administered Medication Ordered Dose Route Frequency Start Date End Date Status hydrOXYzine (Vistaril) injection 25 mgIndications:Hives 25 mg IM Nightly 02/04/2023 Activ e Active Problems Problem Noted Date Diagnosed Date Other irritable bowel syndrome 04/16/2024 Overview (04/16/2024): IBS-had [facility] GI follow up. Plan to trial bentyl [...] HPV neg. Followed by Dr. De Souza [facility]. Hx of uterine fibroids. Serial ultrasound C-scope: Routine age 46 BMD: Negative 2021 Anxiety and depression 05/29/2023 Overview (05/29/2023): ?? Established with psychiatry and therapy ?? Sertraline, hydroxyzine, lorazepam Other dysphagia 05/29/2023 Overview (05/29/2023): ?? Referred to GI Uterine leiomyoma 01/31/2023 Overview (03/12/2024): Followed by BEHAVIORAL ASSISTANT Ultrasound done in 02/03 showed multiple uterine fibroids. Plan for periodic ultrasound to monitor. Hyperparathyroidism 04/08/2022 Hepatomegaly 07/13/2021 Chronic low back pain 07/13/2021 Resolved Problems Problem Noted Date Diagnosed Date Resolved Date Acute frontal sinusitis 02/07/2023 07/04/2023 Encounters Date Type Department Care Team Description 02/25/2025 10:30 AM EDT Office Visit [facility] MED[facility] [address] [place] [id number] Haydee Jacinto FNP Uterine leiomyoma, unspecified location (Primary Dx); Hyperparathyroidism (CMS/HCC); Vitamin D deficiency; Dietary counseling; Exercise counseling 02/25/2025 Travel 02/14/2025 Patient Outreach [facility] [address] [place] [address] Haydee Jacinto FNP Pre-visit Planning (SDOH screening completed on 12/24/2024) 02/09/2025 10:40 AM EDT Office Visit [facility] [address] [place] [address] Srini Gooden MD Viral URI with cough (Primary Dx) 02/06/[address] [address] Haydee Jacinto FNP 02/05/2025 Telephone [facility] [address] [place] [address] Haydee Jacinto FNP chart prep 01/31/2025 Orders Only [facility] External Provider, [facility] 01/28/2025 Patient Outreach [address] [address] Haydee Jacinto FNP Pre-visit Planning ((Unable to reach for PVP screening and or LVM)) 01/25/2025 Population Health Risk Score Community Care [facility] ([facility]) Department [address] [place] [phone] Provider, Population Health Generic 01/07/[address] [address] Haydee Jacinto FNP No Show 12/26/2024 Orders Only [facility] External Provider, [facility] 12/24/2024 Patient Outreach [address] [address] Haydee Jacinto FNP Care Coordination (CHW outreach for SDOH PT-1 and food needs-referral completed /) 12/24/2024 Patient Outreach [address] [address] Haydee Jacinto FNP Pre-visit Planning (SDOH screening negative and tobacco screening negative) from Last 3 Months Immunizations Name Administration [...] Sign Reading Time Taken Comments Blood Pressure 128/84 02/25/2025 10:33 AM EDT Pulse 60 02/25/2025 10:33 AM EDT Temperature 36.4 ??C (97.6 ??F) 02/25/2025 10:33 AM E DT Respiratory Rate 20 02/25/2025 10:33 AM EDT Oxygen Saturation 99% 02/09/2025 10:46 AM EDT Inhaled Oxygen Concentration - - Weight 77.2 kg (170 lb 3.2 oz) 02/25/2025 10:33 AM EDT Height 162.6 cm (5' 4 ) 02/25/2025 10:33 AM EDT Body Mass Index 29.21 02/25/2025 10:33 AM EDT Plan of Treatment Health Maintenance Due Date Last Done Comments HIV Screening 1981 Family Planning (PISQ) 1996 Hepatitis C Screening 1999 DTaP/Tdap/Td Vaccines (1 - Tdap) 2000 Hepatitis A Vaccines (1 of 2 - Risk 2-dose series) 2000 Hepatitis B Vaccines (1 of 3 - 19+ 3-dose series) 2000 COVID-19 Vaccine ( season) 2024 07/01/2022, 04/10/2021, 03/13/2021 Influenza Vaccine (#1) 2024 01/21/2020 Mammogram 08/24/2025 08/24/2024, 08/18/2023 SDOH Screening 12/24/2025 12/24/2024 Alcohol/Substance Use Screening 02/25/2026 02/25/2025 Depression Screening 02/25/2026 02/25/2025, 02/26/20 25 Tobacco Screening 02/25/2026 02/25/2025 Cervical Cancer Screening 07/19/2027 HPV/Cotest 07/19/2027 07/19/2022, [...] COVID Ag Negative QC Media Lot # [id number] Lot# Expiration Date [id number] Swab 02/09/2025 11:2 9 AM EDT Srini Gooden MD POINT OF CARE TEST ENTER/EDIT OR DERABLES Final Result * POCT Rapid Influenza B MONAE ID NOW (02/09/2025 11:28 AM EDT) Influenza B Negative Negative, Indeterminate [facility] QC Media Lot # [id number] [facility] Lot# Expiration Date ,025 [facility] Swab 02/09/2025 11:2 8 AM EDT Srini Gooden MD POINT OF CARE TEST ENTER/EDIT OR DERABLES Final Result Performing Organization Address [facility] Co de Phone Number [facility] [address] [place] [address] [phone] * POCT Rapid Influenza A MONAE ID NOW (02/09/2025 11:28 AM EDT) Influenza A Negative Negative, Indeterminate [facility] QC Media Lot # [id number] [facility] Lot# Expiration Date ,025 [facility] Swab 02/09/2025 11:2 8 AM EDT Srini Gooden MD POINT OF CARE TEST ENTER/EDIT OR DERABLES Final Result Performing Organization Address [facility] de Phone Number [facility] [address] [place] [address] [phone] * FL Upper GI w/Small Bowel (01/31/2025 8:02 AM EDT) Anatomical Region Laterality Modality Radiographic Stephie ging 01/31/2025 8:02 AM EDT Narrative 01/31/2025 2:26 PM EDT ? [facility] ?[address] ?[place] [address] ? Fluoroscopy Report ? Signed ? Patient: Jocelynn Osborn ?MR#: M ?? [id number] ? : 1980 ?Acct:[id number] ? Age/Sex: 44 / F ?ADM Date: 03/20/25 ? Loc: HO.XRAY ? Attending Dr: Karla Fuller ANP-C ? Ordering Physician: Karla Fuller ANP-C ?? Date of Service: 01/31/25 ?? Procedure(s): FL upper GI small bowel ?? Accession Number(s): [id number] ? cc: Karla Fuller TALA-C; Haydee Jacinto [facility] ? EXAMINATION: ?? XR UPPER GI AIR [...] Esquivel MD ??01/31/2025 02:23 PM EDT RP ?? Workstation: [employer] ? Dictated By: ?Flakito Esquivel MD ? Signed By: ?<Electronically signed by Flakito Esquivel MD in OV> ?01/31/25 1423 ? DD/ 0802 ? TD/TT: 01/31/25 1227 ? Tanbark Laborer: MSM ? Procedure Note Tyrel Lutz - 01/31/[address] [address] Fluoroscopy Report Signed Patient: Jocelynn OsbornMR#: M [id number] : 1980Acct:[id number] Age/Sex: 44 / FADM Date: 01/31/25 Loc: HO.XRAY Attending Dr: Karla LEMUS Ordering Physician: Karla Fuller Date of Service: 01/31/25 Procedure(s): FL upper GI small bowel Accession Number(s): [id number] cc: Karla Fuller; [facility] EXAMINATION: XR UPPER GI AIR CONTRAST SERIES [...] 01/31/25 1423 DD/ 0802 TD/TT: 01/31/25 1227 Tanbark Laborer: NATY [facility] External Provider IMG FLU OROSCOPY PROCEDURES Final Result * US Retroperitoneal Complete (12/26/2024 4:04 PM EST) Anatomical Region Laterality Modality Ultrasound 12/26/2024 4:04 PM EST Narrative 12/26/2024 4:06 PM EST ? [facility] ?[address] ?[place] [address] ? Ultrasound Report ? Signed ? Patient: Lulu Navarro,Jocelynn ?MR#: M ?? [id number] ? : 1980 ?Acct:[id number] ? Age/Sex: 44 / F ?ADM Date: 12/26/24 ? Loc: HO.US ? Attending Dr: Shahla TREVINO ? Ordering Physician: Shahla Gonzalez ?? Date of Service: 12/26/24 ?? Procedure(s): US retroperitoneal comp ?? Accession Number(s): [id number] ? cc: Shahla Gonzalez; Haydee Jacinto ? [...] DD/ 1604 ? TD/TT: 12/26/24 1604 ? Tanbark Laborer: ? Procedure Note Tyrel Lutz - 12/26/2024 [place] [address] [place] [address] Ultrasound Report Signed Patient: Jocelynn Osborn#: M [id number] : 1980Acct:[id number] Age/Sex: 44 / FADM Date: 12/26/24 Loc: HO.US Attending Dr: Shahla Gonzalez [facility] Ordering Physician: Shahla Gonzalez Date of Service: 12/26/24 Procedure(s): US retroperitoneal comp Accession Number(s): [id number] cc: Shahla Gonzalez [facility]; [facility] CLINICAL HISTORY: R35.0 - Frequency of micturition [...] 12/26/24 1605 DD/ 1604 TD/TT: 12/26/24 1604 Tanbark Laborer: [facility] External Provider IMG US PROCEDURES Final Result * BI Mammogram Screening Tomosynthesis Bilateral (08/24/2024 10:30 AM EDT) Anatomical Region Laterality Modality Breast Bilateral Mammography 08/24/2024 10:3 0 AM EDT Narrative 09/05/2024 8:17 AM EDT ? [place] [facility] ? [address] ?[place] [address] ? Mammography Report ? Signed ? Patient: Lulu Navarro,Jocelynn ?MR#: M ?? [id number] ? : 1980 ?Acct:[id number] ? Age/Sex: 44 / F ?ADM Date: 08/24/24 ? Loc: HO.MAMMO ? Attending Dr: Haydee Jacinto PULP AND PAPER TESTER ? Ordering Physician: Fly De Souza MD ?Results: 1Negativ ?? e ? Date of Service: 08/24/24 ?Follow Up: 1 Year From Orig ?? inal Mammogram ? Procedure(s): MM tomosynthesis screening BI ?? Accession Number(s): [id number] ? cc: Haydee Jacinto; Fly De Souza MD ? EXAMINATION: ?? [...] ??Arabella Glaser DO ??09/05/2024 08:15 AM EDT ?? RP ? Dictated By: ?Arabella Glaser DO ? Signed By: ?<Electronically signed by Arabella Glaser, DO in OV> ? 09/05/24 0815 ? DD/ 1030 ? TD/TT: 08/24/24 1045 ? Tanbark Laborer: ? Procedure Note Donotuseinterpreter, Image - 09/05/[address] [facility]'s [address] [place] [address] Mammography Report Signed Patient: Jocelynn OsbornMR#: M [id number] : 1980Acct:[id number] Age/Sex: 44 / FADM Date: 08/24/24 Loc: MAMMO Attending Dr: Haydee BRADLEY Ordering Physician: Fly De Souzaesults: 1Negativ e Date of Service: 08/24/24Follow Up: 1 Year From Orig inal Mammogram Procedure(s): MM tomosynthesis screening BI Accession Number(s): [id number] cc: Haydee Jacinto; Fly De Souza MD [...] 09/05/24 0815 DD/ 1030 TD/TT: 08/24/24 1045 Tanbark Laborer: [facility] External Provider IMG BI PROCEDURES Edited Result - Final * Pap Smear (07/19/2022) Pap Negative for intraephithelial lesion or malignancy Negative for intraephithelial lesion or malignancy, Other HPV Undetected Historical Provider HEALTH MAINTENANCE Final Result from Last 3 Months or Most Recently Relevant to Health Maintenance Insurance C3 Care Teams Meat Grinder Relationship Specialty Start Date End Date Haydee Jacinto FNP [address] [place] [address] PCP - General Family Medicine 07/12/22
--- OUTSIDE RECORDS SUMMARY | 2025-02-27 11:22 | XMS_ITS | Encounter Summary ---
Author Organization [employer] Address [address] [place] [address] Care Team Providers Care Nca Certified Concierge Name Role Phone Haydee Jacinto Primary Care Provider [phone] Reason for Referral * Consultation (Routine) - Authorized Specialty Diagnoses / Procedures Referred By Sveta pena Referred To Contact Obstetrics and Gynecology Diagnoses Uterine leiomyoma, unspecified location Haydee Jacinto FNP [address] [place] [address] Phone: tel: fax: [facility] [address] [place] [address] Phone: tel: fax: Referral ID Status Reason Start Date Expiration Date Visits Requested Visits Authorized [id number] Authorized Specialty Services Required 02/26/2025 02/26/2026 9 9 Reason for Visit * Reason Comments Follow-up Encounter Details Date Type Department Care Team (Late st Contact Info) Description 02/25/2025 10:30 AM EDT Office Visit [facility] [address] [place], [place] [phone] Haydee Jacinto FNP [address], [place] [phone] Uterine leiomyoma, unspecified location (Primary Dx); Hyperparathyroidism (CMS/HCC); Vitamin D deficiency; Dietary counseling; Exercise counseling Social History Tobacco Use Types Packs/Day Years [...] 20 02/25/2025 10:33 AM EDT Oxygen Saturation - - Inhaled Oxygen Concentration - - Weight 77.2 kg (170 lb 3.2 oz) 02/25/2025 10:33 AM EDT Height 162.6 cm (5' 4 ) 02/25/2025 10:33 AM EDT Body Mass Index 29.21 02/25/2025 10:33 AM EDT documented in this encounter Progress Notes * [facility], PRESIDENT ERGONOMIC CONSULTING - 02/25/2025 10:30 AM EDT SUBJECTIVE: Jocelynn Navarro is a 44 y.o. year old female with a anxiety/depression, hyperparathyroidism and palpitations who presents for chronic disease management. Acute Concerns: Requesting referral to [facility] for second opinion regarding management of her fibroids. She would prefer a female provider. Last saw Dr. De Souza 10/2024 at which time possible total hysterectomy was discussed. Patient opted for serial pelvic ultrasounds with next imaging due 08/2025 Interval History Cardiology-saw Dr. Basilio. Started on diltiazem for palpitations Pulmonology-had asthma follow-up 01/16/2025. Per visit note switch from Symbicort to Breo--reports nochange in sx Endocrinology-had follow-up for hyperparathyroidism. Thought secondary to vitamin D deficiency however patient has been unable to treat deficiency due to anxiety swallowing pills. Per last visit noteendocrinology stated that if patient is noncompliant with vitamin D replacement they would not be able to treat effectively. Social History Social History Narrative Current living environment: Lives with son Children: 1 (age 9), autism Employment/Education: Not currently Tobacco Use: None Alcohol Use: None Marijuana Use: None Other drug use: None Reproductive Health: Sexually Active: Occasionally Partners are: AMAB Control: None, would be OK with Patient Active Problem List Diagnosis Hepatomegaly Hyperparathyroidism (CMS/HCC) Uterine leiomyoma Chronic low back pain Other chest pain Healthcare maintenance Anxiety and depression Other dysphagia Other irritable bowel syndrome Chronic hoarseness Past Surgical History: Procedure Laterality Date SECTION, UNSPECIFIED HERNIA REPAIR Family History Problem Relation Name Age of Onset Diabetes type II Mother Hypertension Mother Prostate cancer Father Diabetes type II Father Hypertension Father Colon cancer Neg Hx Breast cancer Neg Hx Review of Systems Constitutional: Negative for fatigue, fever and unexpected weight change. Eyes: Negative for visual disturbance. Respiratory: Negative for apnea, chest tightness and shortness of breath. Cardiovascular: Negative for chest pain, palpitations and leg swelling. Neurological: Negative for dizziness, light-headedness and headaches. OBJECTIVE: Vitals: 02/25/25 1033 BP: 128/84 Pulse: 60 Resp: 20 Temp: 97.6 ??F (36.4 ??C) Physical Exam Constitutional: General: She is not in acute distress. Appearance: Normal appearance. HENT: Head: Normocephalic and atraumatic. Right Ear: External ear normal. Left Ear: External ear normal. Nose: Nose normal. Eyes: Conjunctiva/sclera: Conjunctivae normal. Cardiovascular: Rate and Rhythm: Normal rate and regular rhythm. Heart sounds: Normal heart sounds. Pulmonary: Effort: Pulmonary effort is normal. Breath sounds: Normal breath sounds. Skin: General: Skin is warm and dry. Neurological: General: No focal deficit present. Mental Status: She is alert and oriented to person, place, and time. Psychiatric: Mood and Affect: Mood normal. Behavior: Behavior normal. ASSESSMENT/PLAN Uterine Fibroids - Will refer to [facility] per patient request Hyperparathyroidism/vitamin D - Elevated PTH secondary to vitamin D deficiency. Patient has had difficulty tolerating vitamin D treatment due to difficulty swallowing pills. Today she states she has not been taking any chewable supplements. Will send in prescription for chewables. Discussed importance of treating vitamin D defic iency to reduce risk of complications from elevated serum calcium and PTH - Patient has repeat labs pending from endocrinology and will follow up with them as scheduled Dietary Recommendations: Fruits, vegetables, whole grains, protein foods, and fat-free or low-fat dairy products are healthychoices. Eat different types of protein foods in your diet. This can include seafood, lean meats, poultry, beans, peas, lentils, nuts, seeds, soy products, and eggs. Limit foods and beverages higher in added sugars, saturated fat, and sodium. Exercise Recommendations: At least 150 minutes of moderate-intensity physical activity per week, or an equivalent combinationof moderate- and vigorous-intensity activity - Patient declines all vaccines today Follow Up: 6 months, routine PE, sooner PRN Current Outpatient Medications on File Prior to Visit Medication Sig Dispense Refill acetaminophen (Tylenol) 500 MG tablet take 2 tablet by oral route every 6 hours as needed as neededfor Pain And/Or Fever 30 tablet 0 albuterol (2.5 MG/3ML) 0.083% nebulizer solution Take 3 mL (2.5 mg) by nebulization every 6 (six) hours if needed for wheezing or shortness of breath. 75 mL 1 albuterol 108 (90 Base) MCG/ACT inhaler every 4 to 6 hours budesonide-formoterol (Symbicort) 80-4.5 MCG/ACT inhaler Inhale 2 puffs twie daily. Rinse mouth with water after use to reduce aftertaste and incidence of candidiasis. Do not swallow. 1 each 11 ceramides (CeraVe) moisturizing cream Apply 1 application topically if needed for dry skin. 453 g 2 clonazePAM (KlonoPIN) 0.5 MG tablet Take 0.5 mg by mouth if needed each day. D3 Super Strength 50 MCG (2000 UT) capsule TAKE 1 CAPSULE BY MOUTH EVERY DAY dicyclomine (Bentyl) 20 MG tablet Take 20 mg by mouth 4 times daily. EPINEPHrine (Epipen) 0.3 MG/0.3ML injection syringe USE DIRECTED FOR ANAPHYLAXIS THEN CALL 911 famotidine (Pepcid) 20 MG tablet Take 1 tablet (20 mg) by mouth 2 times daily. 60 tablet 11 fexofenadine (Tsering) 180 MG tablet Take 1 tablet (180 mg) by mouth in the morning. 90 tablet 1 fluticasone (Flonase) 50 MCG/ACT nasal spray ADMINISTER 1 SPRAY INTO EACH NOSTRIL IN THE AM. SHAKE GENTLY. BEFORE FIRST USE, PRIME PUMP. AFTER USE, CLEAN TIP AND REPLACE CAP. 48 mL 0 hydrOXYzine pamoate (Vistaril) 25 MG capsule TAKE 1 CAPSULE BY MOUTH TWICE A DAY NEEDED lidocaine (Lidoderm) 5 % patch Apply topically to affected areas. Leave on for up to 12 hours 30 patch 1 Linzess 145 MCG capsule Take 145 mcg by mouth in the morning. LORazepam (Ativan) 1 MG tablet PLEASE SEE ATTACHED FOR DETAILED DIRECTIONS montelukast (Singulair) 10 MG tablet TAKE 1 TABLET BY MOUTH EVERYDAY AT BEDTIME omeprazole (PriLOSEC) [address] capsule TAKE 1 CAPSULE BY MOUTH TWICE A DAY 180 capsule 1 ondansetron ODT (Zofran-ODT) [address] 1 TABLET ON THE TONGUE EVERY 6 HOURS NEEDED FOR NAUSEA AND VOMITING oxymetazoline (Afrin Nasal [place]) 0.05 % nasal spray Administer 2 sprays into each nostril every 12(twelve) hours if needed for congestion for up to 2 days. Do not use for more than 3 days. 30 mL 0 sertraline (Zoloft) 100 MG tablet Take 100 mg by mouth in the morning. triamcinolone (Kenalog) 0.025 % cream Mix entire tube with 16oz jar of cerva ve as instructed. Apply mixture from neck down daily. 80 g 1 Current Facility-Administered Medications on File Prior to Visit Medication Dose Route Frequency Provider Last Rate Last Admin hydrOXYzine (Vistaril) injection 25 mg 25 mg Intramuscular Nightly Yahaira Sainz MD Maltese Translation: Provided by [facility] staff member documented in this encounter Plan of Treatment Scheduled Referrals Name Type Priority Associated Diagnoses Orde r Schedule Referral to Obstetrics / Gynecology Outpatient Referral Routine Uterine leiomyoma, unspecified location Expected: 02/25/2025 (Approximate), Expires: 02/25/2026 documented as of this encounter Visit Diagnoses Diagnosis Uterine leiomyoma, unspecified location- Primary Hyperparathyroidism (CMS/HCC) Hyperparathyroidism, unspecified Vitamin D deficiency Dietary counseling Dietary surveillance and counseling Exercise counseling documented in this encounter Additional Health Concerns Assessment Noted Time PHQ-9 Depression Total Score: 0 02/26/20 25 10:34 AM EDT documented as of this encounter Care Teams Nca Certified Concierge Relationship Specialty Start Date End Date Haydee Jacinto FNP [address] [place] [id number] PCP - General Family Medicine 07/12/22 documented as of this encounter
== END 2025-02-27 10:29 | disposition home or self-care (01) ==
PROVIDERS: PCP Registered Nurse; Visit Provider Nurse Practitioner Family
DX: J45.909 Unspecified asthma, uncomplicated (principal); R06.02 Shortness of breath; Z91.09 Other allergy status, other than to drugs and biological substances
CPT/HCPCS: 99214

== ENCOUNTER → 2025-02-27 09:58 | Outpatient (BNVA) | payer MEDICAID, SELFPAY | PROVIDERS: PCP Registered Nurse; Visit Provider Nurse Practitioner Family | DX: J45.909 Unspecified asthma, uncomplicated (principal); R06.02 Shortness of breath; Z91.09 Other allergy status, other than to drugs and biological substances | CPT/HCPCS: 99212 ==

== ENCOUNTER 2025-04-04 11:30 | Outpatient (AMB) | payer MEDICAID, SELFPAY ==
--- NOTE | 2025-04-04 11:32 | A.OFFVIS_ITS ---
Intake Visit Reasons: 1-3M [facility] up [facility] Intake Note: Patient presents today for follow up visit for urinary incontinence Urology Medications: Oxybutynin (pt stated that she never took medicatioin) Blood Thinner: none PVR: 0ml's [employer] Boards Stripper Etcher Required: Yes [employer] Boards Stripper Etcher Name: Blake Abdi Accompanied by: Self / Same As Patient Allergies dog dander Allergy (Intermediate, Verified 04/04/25 14:22) Unknown seafood Allergy (Intermediate, Verified 04/04/25 14:22) Itching aspirin Allergy (Unknown, Verified 04/04/25 14:22) swelling Medication List - Last Reconciled 04/04/25 by KIRK Peters- albuterol sulfate 2.5 mg (3 mL) inhalation QID PRN albuterol sulfate 90 mcg/actuation 2 puffs inhalation Q4-6H PRN bisacodyl (Dulcolax (bisacodyl)) 10 mg (2 x 5 mg) PO BEDTIME 2 days citalopram 20 mg PO DAILY clonazepam 0.5 mg PO DAILY PRN dicyclomine 20 mg PO QID 90 days famotidine 20 mg PO BID fluticasone furoate-vilanterol 200-25 mcg/dose (Breo Ellipta) 1 inh inhalation DAILY hydroxyzine pamoate 1 cap PO BID PRN linaclotide (Linzess) 145 mcg PO QAM loratadine (Allergy Relief (loratadine)) 10 mg PO DAILY montelukast 10 mg (2 x 5 mg) PO BEDTIME 90 days ondansetron 4 mg PO Q6H PRN oxybutynin chloride ER 10 mg PO DAILY 30 days peg 3350-electrolytes 236-22.74-6.74 -5.86 gram (Golytely) 240 mL PO Q10M 1 day sertraline 100 mg PO QAM HPI Comments Details: Jackie is a very pleasant 44-year-old Armenian-speaking female patient of Dr. Jacinto. She has a past medical history of anxiety, goiter, vitamin-D deficiency, hyperparathyroidism, and hypercalcemia. She presents to the office today for follow-up. Of note patient was seen approximately 6 months ago as a new patient for ongoing lower urinary tract symptoms she had been experiencing at which time a retroperitoneal ultrasound was ordered for further assessment evaluation. These results were reviewed and communicated with the patient today. Bilateral kidneys are normal in size and echotexture. Urinary bladder is unremarkable. Pre void bladder volume is approximately 200 mL postvoid bladder volume is approximately 10 mL. Urinary bladder is unremarkable. The uterus is enlarged and with uterine fibroids. There is compression of the bladder by the enlarged uterus. She reports she has not yet started oxybutynin as she wanted to get the results of her retroperitoneal ultrasound prior. She does continue to experience episodes of urinary frequency in office urinalysis results reviewed with the patient today. PVR 0 mL. We discussed at length potential causes of urinary frequency as well as further treatment options and risks and benefits of these treatment options. She denies incontinence, nocturia, hematuria, dysuria, foul smelling urine, changes to urinary stream, flank pain, fever, and or chills. She reports having followed up with career services coordinator for her uterine fibroids. She otherwise offers no other issues or concerns at this time. COUNTS INCLUDE 234 BEDS AT THE [facility] Medical History Flushing Anxiety Chronic abdominal pain Goiter Vitamin D deficiency Hyperparathyroidism Hypercalcemia Surgical History History of surgery History of umbilical hernia repair Hx of section Family History Father Diabetes Hypertension Alzheimer disease FH: prostate cancer Emphysema of lung Mother Hypertension Diabetes Social History Household Members: Spouse Household Members Other:: son Housing: Apartment Alcohol intake: never Patient Tobacco Use Status: Never used Tobacco Current occupational status: unemployed Sexual orientation: Straight/Heterosexual Gender identity: Female Female Reproductive History Menstrual Age of Menarche: 13 Review of Systems Const All systems reviewed & are unremarkable except as noted in HPI and below Physical Exam Const General: cooperative, healthy appearing, comfortable, no acute distress, well developed, alert and awake Orientation/consciousness: patient oriented x3 Limitations: no limitations HEENT Head: Yes normal to inspection, Yes normocephalic and Yes atraumatic Ears: hearing grossly normal bilaterally Eyes General: appearance normal, both eyes and all related structures Neck Neck: Yes normal visual inspection and Yes trachea midline Chest Chest palpation & inspection: normal inspection of the chest Resp Effort & Inspection: normal respiratory effort and able to speak in complete sentences Cardio Rate: regular rate GI Inspection: Yes normal to inspection General: Yes no CVA tenderness Back/Spine/Pelvis Back: no CVA tenderness Skin General skin exam: no rashes or lesions noted Neuro General: patient oriented x3 Extrem General: Yes normal to inspection Psych Appearance: grossly normal and well kempt Mental Status: mental status grossly normal Speech and movement: Normal speech and movement present and Clear speech present Affect: normal affect Attitude: cooperative Thought process: Normal thought process present Thought content: Normal thought content present Insight: Fair insight present (Psych) Judgement: Fair judgement present (Psych) Office Procedures Post Void Residual Post Residual Void Post Void Residual (PVR): 0 65200-Awke Void Residual by ultrasound Results AMB Urinalysis, Automated UA Leukoctes 0 Kailee/uL Last Edit by Evers[employer] on 04/04/25 11:54 UA Nitrite Last Edit by Eversnap on 04/04/25 11:54 UA Urobilinogen 0.2 mg/dL Last Edit by Eversnap on 04/04/25 11:54 UA Protein 0 mg/dL Last Edit by Eversnap on 04/04/25 11:54 UA pH 6.0 Last Edit by Eversnap on 04/04/25 11:54 UA Blood 0 Silverio/uL Last Edit by Eversnap on 04/04/25 11:54 UA Specific [place] 1.015 Last Edit by Eversnap on 04/04/25 11:54 UA Ketone Last Edit by Eversnap on 04/04/25 11:54 UA Bilirubin 0 mg/dL Last Edit by Eversnap on 04/04/25 11:54 UA Glucose 100 mg/dL Last Edit by Eversnap on 04/04/25 11:54 Results Reviewed Results Reviewed: Laboratory Last Values Urine pH (Auto) 6.0 04/04/25 11:40 Specific [place] (Auto) 1.015 04/04/25 11:40 Urine Protein (Auto) 0 mg/dL 04/04/25 11:40 Glucose (UA)(Auto) 100 mg/dL 04/04/25 11:40 Urine Blood (Auto) 0 Silverio/uL 04/04/25 11:40 Urine Bilirubin (Auto) 0 mg/dL 04/04/25 11:40 Urine Urobilinogen (Auto) 0.2 mg/dL 04/04/25 11:40 Leukocyte Esterase (Auto) 0 Kailee/uL 04/04/25 11:40 Date of Service: 12/26/24 Procedure(s): US retroperitoneal comp Findings: Right kidney normal size and echotexture, 11 cm length. Left kidney normal size and echotexture, 10.5 cm length. Mild collecting system dilatation of both kidneys. Normal color Doppler. Urinary bladder is unremarkable. Prevoid volume 203 mL. Postvoid volume 8.8 mL. Bilateral ureteral jets are visualized. The uterus is enlarged. There are uterine fibroids 4.8 x 4.3 x 4 cm and 3 x 2.4 x 2.5 cm. There is compression of the bladder by the enlarged uterus. IMPRESSION: Pelviectasis of the bilateral kidneys. No evidence of postvoid urinary retention of bladder. Uterine fibroids. There is compression of the bladder by the enlarged uterus. Assessment & Plan Assessment & Plan (1) Urinary frequency: Code(s): R35.0 - Frequency of micturition Category: Medical Plan In office urinalysis results reviewed with the patient today; as noted above. PVR 0 mL. Recent retroperitoneal ultrasound results reviewed with the patient today; as noted above. We discussed potential causes for urinary frequency as well as further treatment options and risks and benefits of these treatment options Continue to follow-up with career services coordinator as planned. Start oxybutynin as discussed and prescribed. We did discussed potential near future in office urodynamics and or cystoscopy if symptoms persist and/or worsen. We discussed bladder triggers/irritants. Follow-up in 1-3 months with PVR; or sooner with any issues, concerns, and or questions. Orders: Orders AMB Urinalysis Automated Today Z13.9 - Encounter for screening, unspecified AMB Post Void Residual by ultrasound Today R35.0 - Frequency of micturition Patient Instructions: The patient had an opportunity to ask questions regarding the treatment plan. All questions were answered. Physical exam, labs, and imaging were discussed and reviewed in detail. As well as risks, benefits, and discussion of treatment choices. No major barriers to understanding were identified. The patient expressed understanding and agreement with the above treatment plan. The patient was made aware they should contact our office by phone for worsening of their current condition, the appearance of new symptoms, or with any questions or concerns. Compliance is encouraged with any medications and follow up testing that is ordered. It is a privilege to be allowed the opportunity to participate in? your urological care.? Again, if you have any questions or concerns If you have any questions or concerns please do not hesitate to contact me. The office is [phone]. This note is constructed using voice recognition software. While every effort has been made to ensure accuracy pharmacy manager errors may have been included. Yours sincerely, URIEL Peters Coding Level of Care Code Est Pt Level 3 (65335) Diagnoses Urinary frequency R35.0 CPT Codes Post Residual Void - PVR CPT Code: 38530-Usqc Void Residual by ultrasound ([id number])
--- OUTSIDE RECORDS SUMMARY | 2025-04-04 12:07 | XMS_ITS | Encounter Summary ---
Author Organization [employer] Address [address] [place] [address] [address] [place] [address] Care Team Providers Care Hoop Coiler Name Role Phone [facility] Primary Care Provider [phone] Reason for Visit * Reason Onset Date Comments Returning Call 11/23/2024 Encounter Details Date Type Department Care Team ([facility] st Contact Info) Description 11/23/2024 Telephone [facility] [address] [place], [place] [phone] [facility] [address] [place] [address] Returning Call Social History Tobacco Use Types [...] documented as of this encounter Care Teams Hoop Coiler Relationship Specialty Start Date End Date Haydee Jacinto FNP [address] [place] [id number] PCP - General Family Medicine 07/12/22 documented as of this encounter
--- OUTSIDE RECORDS SUMMARY | 2025-04-04 12:07 | XMS_ITS | Clinical Summary ---
Author Organization [employer] Address [address] [place] [address] 7t [place] [address] Care Team Providers Care Component Assembler Name Role Phone Haydee Jacinto [facility] Primary Care Provider [phone] Allergies Active Allergy Reactions Criticality Noted Date [...] skin. 453 g 2 02/05/20 23 Active EPINEPHrine (Epipen) 0.3 MG/0.3ML injection [...] 11 03/12/20 24 Active oxymetazoline (Afrin Nasal [place]) 0.05 % nasal spray Administer 2 sprays [...] 75 mL 1 08/14/20 24 025 Active Vitamin D, Cholecalciferol, 10 MCG (400 UNIT) chewable tabletIndications: Vitamin D deficiency Take 4 tablets by oral route daily 120 tablet 3 02/26/20 25 Active Hospital, Clinic, or Other Facility Administered Medication Ordered Dose Route Frequency Start Date End Date Status hydrOXYzine (Vistaril) injection 25 mgIndications:Hives 25 mg IM Nightly 02/04/2023 Activ e Active Problems Problem Noted Date Diagnosed Date Other irritable bowel syndrome 04/16/2024 Overview (04/16/2024): IBS-had [facility] follow up. Plan to trial bentyl [...] HPV neg. Followed by Dr. De Souza [facility]. Hx of uterine fibroids. Serial ultrasound C-scope: Routine age 46 BMD: Negative 2021 Anxiety and depression 05/29/2023 Overview (05/29/2023): ?? Established with psychiatry and therapy ?? Sertraline, hydroxyzine, lorazepam Other dysphagia 05/29/2023 Overview (05/29/2023): ?? Referred to GI Uterine leiomyoma 01/31/2023 Overview (03/12/2024): Followed by [facility] Ultrasound done in 02/03 showed multiple uterine fibroids. Plan for periodic ultrasound to monitor. Hyperparathyroidism 04/08/2022 Hepatomegaly 07/13/2021 Chronic low back pain 07/13/2021 Resolved Problems Problem Noted Date Diagnosed Date Resolved Date Acute frontal sinusitis 02/07/2023 07/04/2023 Encounters Date Type Department Care Team Description 02/25/2025 10:30 AM EDT Office Visit [address] [address] Haydee Jacinto FNP Uterine leiomyoma, unspecified location (Primary Dx); Hyperparathyroidis m (CMS/HCC); Vitamin D deficiency; Dietary counseling; Exercise counseling 02/25/2025 Travel 02/14/2025 Patient Outreach [address] [address] Haydee Jacinto FNP Pre-visit Planning (SDOH screening completed on 12/24/2024) 02/09/2025 10:40 AM EDT Office Visit [facility] [address] [place] [address] Srini Gooden MD Viral URI with cough (Primary Dx) 02/06/[address] [address] Haydee Jacinto FNP 02/05/[address] [address] Haydee Jacinto FNP chart prep 01/31/2025 Orders Only [facility] External Provider, [facility] 01/28/2025 Patient Outreach [address] [place] [address] EscalanteHaydee FNP Pre-visit Planning ((Unable to reach for PVP screening and or LVM)) 01/25/2025 Population Health Risk Score [facility] [address] [place] [phone] Provider, Population Health Generic 01/07/2025 Telephone [facility] [address] [place] [address] EscalanteHaydee FNP No Show from Last 3 Months Immunizations Immunization Administration Dates Next Due Influenza injectable quadriv [...] Date Last Done Comments HIV Screening 1980 Disability Screening 1980 Family Planning (PISQ) 1996 Hepatitis [...] 02/25/2026 02/25/2025 Depression Screening 02/25/2026 02/25/2025, 02/26/20 Tobacco Screening 02/25/2026 02/25/2025 Cervical Cancer Screening [...] patient's age to complete this topic Meningococcal B Vaccine Aged Out No l onger eligible based on patient's age to complete [...] SMALL BOWEL Routine 01/31/2025 8:02 AM EDT BI MAMMOGRAM SCREENING TOMOSYNTHESIS BILATERAL Routine 08/24/2024 10:30 AM EDT HM PAP/HPV Routine 07/19/2022 from Last 3 Months or Most Recently Relevant to Health Maintenance Results * POCT Rapid Covid-19 BinaxNOW (02/09/2025 11:29 AM EDT) Rapid COVID Ag Negative QC Media Lot # [id number] Lot# Expiration Date [id number] Swab 02/09/2025 11:2 9 AM EDT us Srini Gooden MD POINT OF CARE TEST ENTER/EDIT OR DERABLES Final Result * POCT Rapid Influenza B MONAE ID NOW (02/09/2025 11:28 AM EDT) Influenza B Negative Negative, Indeterminate [facility] QC Media Lot # [id number] [facility] Lot# Expiration Date [facility] Swab 02/09/2025 11:2 8 AM EDT us Srini Gooden MD POINT OF CARE TEST ENTER/EDIT OR DERABLES Final Result Performing Organization Address [facility] Co de Phone Number [facility] [address] [place] [phone] * POCT Rapid Influenza A MONAE ID NOW (02/09/2025 11:28 AM EDT) Influenza A Negative Negative, Indeterminate [facility] QC Media Lot # [id number] [facility] Lot# Expiration Date [facility] Swab 02/09/2025 11:2 8 AM EDT us Srini Gooden MD POINT OF CARE TEST ENTER/EDIT OR DERABLES Final Result Performing Organization Address City/[facility]/ZIP Co de Phone Number [facility] [address] [place], [place] [address], [place] [address] [phone] * FL Upper GI w/Small Bowel (01/31/2025 8:02 AM EDT) Anatomical Region Laterality Modality Radiographic Stephie ging 01/31/2025 8:02 AM EDT Narrative 01/31/2025 2:26 PM EDT ? [facility] ?[address] ?[place] [address] ? Fluoroscopy Report ? Signed ? Patient: Jocelynn Osborn ?MR#: M ?? [id number] ? : 1980 ?Acct:[id number] ? Age/Sex: 44 / F ?ADM Date: 01/31/25 ? Loc: HO.XRAY ? Attending Dr: Karla LEMUS ? Ordering Physician: Karla Fuller ?? Date of Service: 01/31/25 ?? Procedure(s): FL upper GI small bowel ?? Accession Number(s): [id number] ? cc: Karla Fuller-C; Haydee Jacinto FINANCIAL ACCOUNTING MANAGER ? EXAMINATION: ?? XR UPPER GI AIR [...] EDT RP ? Dictated By: ?Flakito Esquivel MD ? Signed By: ?<Electronically signed by Flakito Esquivel MD in OV> ?01/31/25 1423 ? DD/ 0802 ? TD/TT: 01/31/25 1227 ? Stock Supervisor: MSM ? Procedure Note Nelda, Image - 01/31/2025 [place] [address] Fluoroscopy Report Signed Patient: Jocelynn OsbornMR#: M [id number] : 1980Acct:[id number] Age/Sex: 44 / FADM Date: 01/31/25 Loc: KATLNY Attending Dr: Karla LEMUS Ordering Physician: Karla Fuller Date of Service: 01/31/25 Procedure(s): FL upper GI small bowel Accession Number(s): [id number] cc: Karla Fuller; EscalanteHaydee FINANCIAL ACCOUNTING MANAGER EXAMINATION: XR UPPER GI AIR CONTRAST SERIES [...] Flakito Esquivel MD 01/31/2025 02:23 PM EDT RP Dictated By: Flakito Esquivel MD Signed By: <Electronically signed by Flakito Esquivel MD in OV> 01/31/25 1423 DD/ 0802 TD/TT: 01/31/25 1227 Stock Supervisor: NATY [facility] External Provider IMG FLU OROSCOPY PROCEDURES Final Result * BI Mammogram Screening Tomosynthesis Bilateral (08/24/2024 10:30 AM EDT) Anatomical Region Laterality Modality Breast Bilateral Mammography 08/24/2024 10:3 0 AM EDT Narrative 09/05/2024 8:17 AM EDT ? [facility] [place] ? [address] ?[place] [address] ? Mammography Report ? Signed ? Patient: Jocelynn Osborn ?MR#: M ?? [id number] ? : 1980 ?Acct:[id number] ? Age/Sex: 44 / F ?ADM Date: 10/11/24 ? Loc: HO.MAMMO ? Attending Dr: Haydee Escalante FINANCIAL ACCOUNTING MANAGER ? Ordering Physician: Fly De Souza MD ?Results: 1Negativ ?? e ? Date of Service: 08/24/24 ?Follow Up: 1 Year From Orig ?? inal Mammogram ? Procedure(s): MM tomosynthesis screening BI ?? Accession Number(s): [id number] ? cc: Haydee Jacinto FINANCIAL ACCOUNTING MANAGER; Fly De Souza MD ? EXAMINATION: ?? [...] DD/ 1030 ? TD/TT: 08/24/24 1045 ? Stock Supervisor: ? Procedure Note Donotuseinterpreter, Image - 09/05/2024 [facility] [address] [place], [place] [address] Mammography Report Signed Patient: Jocelynn OsbornMR#: M [id number] : 1980Acct:[id number] Age/Sex: 44 / FADM Date: 08/24/24 Loc: HO.MAMMO Attending Dr: Haydee Jacinto FINANCIAL ACCOUNTING MANAGER Ordering Physician: Fly De Souzaesults: 1Negativ e Date of Service: 08/24/24Follow Up: 1 Year From Orig inal Mammogram Procedure(s): MM tomosynthesis screening BI Accession Number(s): [id number] cc: Haydee Jaicnto; Fly De Souza MD EXAMINATION: MM SCREENING [...] 09/05/24 0815 DD/ 1030 TD/TT: 08/24/24 1045 Stock Supervisor: [facility] External Provider IMG BI PROCEDURES Edited Result - Final * Pap Smear (07/19/2022) Pap Negative for intraephithelial lesion or malignancy Negative for intraephithelial lesion or malignancy, Other HPV Undetected Historical Provider HEALTH MAINTENANCE Final Result from Last 3 Months or Most Recently Relevant to Health Maintenance Insurance [employer] Care Teams Component Assembler Relationship Specialty Start Date End Date Haydee Jacinto FNP [address] [place] [phone] PCP - General Family Medicine 07/12/22
--- OUTSIDE RECORDS SUMMARY | 2025-04-04 12:07 | XMS_ITS | Encounter Summary ---
Author Organization [employer] Address [address] [facility] [address] [place] [address] Care Team Providers Care Personnel Representative Name Role Phone Haydee Jacinto [facility] Primary Care Provider [phone] Encounter Details Date Type Department Care Team ([facility] st Contact Info) Description 08/18/2023 Abstract [facility] [address] [place] [address] Kelsey Sims Social History Tobacco Use Types [...] documented as of this encounter Care Teams Personnel Representative Relationship Specialty Start Date End Date Haydee Jacinto FNP [address] [place] [phone] PCP - General Family Medicine 07/12/22 documented as of this encounter
== END 2025-04-04 12:04 | disposition home or self-care (01) ==
LOC: HO.HUSH 11:30
PROVIDERS: PCP Registered Nurse; Visit Provider Nurse Practitioner Family
DX: R35.0 Frequency of micturition (principal); Z13.9 Encounter for screening, unspecified
CPT/HCPCS: 99213

== ENCOUNTER → 2025-04-04 11:30 | Outpatient (BNVA) | payer MEDICAID, SELFPAY | PROVIDERS: PCP Registered Nurse; Visit Provider Nurse Practitioner Family | DX: R35.0 Frequency of micturition (principal) | CPT/HCPCS: 51798; 81003; 99212 ==

== ENCOUNTER 2025-04-11 12:02 | Outpatient (AMB) | payer MEDICAID, SELFPAY ==
--- NOTE | 2025-04-11 12:04 | MHC.OFFVIS ---
Vital Signs 04/11/25 12:05 Height 5 ft 4 in Weight 170 lb BMI 29.2 BP 108/62 Blood Pressure Location Rt brachial Position Sitting Pulse 88 Pulse Source Pulse Oximeter Pulse Oximetry (%) 98 Oxygen Delivery Method Room Air Intake Visit Reasons: f/u Intake Note: ESTABLISHED PATIENT for mgmt of IBS + chronic abd pain. HAO 2023. CC; C.O. LUQ chronic pain. Pt denies any new sx or concerns at this time. Knitting Machine Tender Required: Yes Knitting Machine Tender Services: Knitting Machine Tender Present Knitting Machine Tender Name: Cris [id number] [place] [facility] [place] Interpreted: clinical only Accompanied by: Self / Same As Patient Allergies dog dander Allergy (Intermediate, Verified 04/11/25 12:06) Unknown seafood Allergy (Intermediate, Verified 04/11/25 12:06) Itching aspirin Allergy (Unknown, Verified 04/11/25 12:06) swelling HPI HPI f/u: Details: Assessment & Plan (1) Chronic idiopathic constipation: Code(s): K59.04 - Chronic idiopathic constipation Category: Medical (2) Chronic abdominal pain: Code(s): R10.9 - Unspecified abdominal pain; G89.29 - Other chronic pain Category: Medical (3) Periumbilical abdominal pain: Code(s): R10.33 - Periumbilical pain Category: Medical (4) Nausea and vomiting: Code(s): R11.2 - Nausea with vomiting, unspecified Category: Medical (5) Asthma: Code(s): J45.909 - Unspecified asthma, uncomplicated Category: Medical (6) Cough due to bronchospasm: Comment: ongoing for 3 mos Code(s): J98.01 - Acute bronchospasm Category: Medical (7) Shortness of breath: Code(s): R06.02 - Shortness of breath Category: Medical (8) Liver lesion: Comment: Liver MRI 2020: . Subcentimeter subcapsular lesion inferior medial right lobe corresponding to recent ultrasound. This most likely represents a tiny cyst or benign hemangioma. Finding may be followed with right upper quadrant ultrasound in 1 year. Code(s): K76.9 - Liver disease, unspecified Category: Medical Plan [place]ian #[id number], Jeff (She has had troubles for many years (10 years) with HB, diarrhea, vomiting, and a feeling like her intestines are gathering together and then she has pain that leads to N/V. She will have sweating and feel very weak. The pain starts periumbilically but when it is bad will radiate down to her midline to her rectum. ) The strong pain returned and she tried the bentyl and it did help, but it made her very sleepy. When she has the pain she can not leave the house, so this is very life limiting. But she does not feel that the bentyl is a fit for her (she also had this medication in [place] [facility] [place] was fearful of more pain. I try to explain that this medication is geared to relieving the pain as well as acting as a laxative. She suffers underlying CIC with very hard, small pebble-like Bm's and a lot of straining. She had a small bowel follow through study 09/2023 that was unremarkable. She has never had an EGD/colonoscopy and would desire these studies. She has had a cough for 3 mos with hoarse voice and rhonchi w/o a specific dx, has upcoming CT of lungs with PCP. Will refer to Pulmonlolgy to be safe and get PFT's to help her along. She is using albuterol. She has a heart murmur followed by cardiology. There are no prior problems with anesthesia or sedation. NO ID problems. She had a cousin with CRC but no known 1st degree relatives. Her father has a history of intestinal torsion and a lot of colon problems. She was told in the past that she had a fatty liver or an enlarged liver and this is not noted in my diagnostic list. She has normal liver function tests and an ultrasound showing a normal size of the liver; however, she had an MRI in 2020 showing an undetermined liver lesion with the recommendation of a 1 year follow-up that does not appear to have been ordered. This was not ordered by me but another provider and I am uncertain what prompted the initial study. However, I will see if we can get a repeat MRI to be safe. She says she has claustrophobia so I will request an open MRI if possible. We can also consider a benzodiazepine. ROV 2 weeks to anjana Castillo Orders: Orders EGD/Negley Combo - GI Use Only Today R10.33 - Periumbilical pain, R11.2 - Nausea with vomiting, unspecified MR abdomen wo/w con Today K76.9 - Liver disease, unspecified PFT pulmonary function test Today J98.01 - Acute bronchospasm, R06.02 - Shortness of breath Referrals Pulmonology Referral J98.01 - Acute bronchospasm, R06.02 - Shortness of breath Medications: New peg 3350-electrolytes 236-22.74-6.74 -5.86 gram (Golytely) until fecal effluent is clear; do not exceed a total volume of 2,000 mL 240 mL PO Q10M 4,000 mL 0RF 1 day Z12.11 - Encounter for screening for malignant neoplasm of colon bisacodyl (Dulcolax (bisacodyl)) 10 mg (2 x 5 mg) PO BEDTIME 4 tabs 0RF 2 days Resumed linaclotide (Linzess) 145 mcg PO QAM 30 caps 3RF G89.29 - Other chronic pain, K59.04 - Chronic idiopathic constipation, R10.9 - Unspecified abdominal pain linaclotide (Linzess) 145 mcg PO QAM 30 caps 3RF G89.29 - Other chronic pain, K59.04 - Chronic idiopathic constipation, R10.9 - Unspecified abdominal pain EGD/COLONOSCOPY BIOPSY <del>MRI</del> <del>OF</del> <del>THE</del> <del>ABDOMEN</del> PULMONARY FUNCTION TESTS sHE IS SEEING [facility] AND HAS NEW DX ASTHMA UPPER GI WITH SMALL-BOWEL FOLLOW-THROUGH 01/31/2025 FINDINGS: Following oral administration of thick barium and effervescent granules is normal propagation bolus from the oral cavity through the pharynx, esophagus into stomach without any evidence of obstruction, narrowing or stricture. The course, caliber and peristalsis in the esophagus is normal. On placing patient in supine and prone lying the course, caliber and peristalsis of this stomach, duodenal bulb and sweep is normal. The mucosal pattern of the stomach and the duodenum is normal. There are surgical springs along the anterior wall just above abdominal wall hernia repair. Sequential images obtained or the abdomen reveals normal course and caliber of the small bowel loops. The transit time is is delayed at approximately 105 minutes. Appendix is visualized and appears normal caliber. FLUOROSCOPY TIME: 1 minute 45 seconds DOSE AREA PRODUCT: 1797 uGy-m2 (microgray-meter squared) FL/FL upper GI small bowel IMPRESSION: Unremarkable upper GI contrast study and small bowel follow-through. There is evidence of abdominal wall hernia repair with mesh in place. Electronically signed by: Flakito Esquivel MD 01/31/2025 02:23 PM EDT CORRESPONDENCE On 06/18/24 @ 09:07 Kylah Reyna Wrote To [facility] attempts made with no response from pt. On 04/19/24 @ 08:55 Kylah Reyna Wrote To [facility] tried contacting pr 2x's phone continues to be busy, letter mailed to pateint. Kylah Reyna completed item. TODAY'S VISIT Latvian #Iam Chamorro (She has had troubles for many years (10 years) with HB, diarrhea, vomiting, and a feeling like her intestines are gathering together and then she has pain that leads to N/V. She will have sweating and feel very weak. The pain starts periumbilically but when it is bad will radiate down to her midline to her rectum. The strong pain returned and she tried the bentyl and it did help, but it made her very sleepy. When she has the pain she can not leave the house, so this is very life limiting. But she does not feel that the bentyl is a fit for her (she [place] had this medication in [place] It appears that a different provider ordered yet another small-bowel follow-through study that again was completely unremarkable. She also seems to have had a retroperitoneal ultrasound showing multiple uterine fibroids causing compression of the bladder. I explain the results of the US's and she is seeing urology regarding her urinary problems r/t the fibroids. It would not be certain if this is causing any other abd pain via referred pain. She has had less of the periabdominal pain that caused her severe sweating and chills and caused her to have diarrhea, but she is having a pain in the LUQ that was like when you run a lot and you get that pain. This is intermittent and will last minutes and occurs 2-3 times a month. This is not effected with the bentyl. This sounds to me more like a musculoskeletal problem so I will try getting some thoracic and lumbar back x-rays to shed light on it since so far we have not been able to find any GI cause. She does report intermittent rectal bleeding. She still suffers CIC, found that the LInzess worked w/o causing her abd pain like the otc laxative. Will restart. She has asthma that is controlled and she denies any cardiac problems. There are no prior problems with anesthesia and sedation No ID problems. Her father had colon polyps. ROV 3 mos. [facility] Medical History (Updated 04/11/25 @ 13:14 by ALLAN Soria) Shortness of breath COVID-19 Well woman exam [place] Cough due to bronchospasm Encounter for preoperative pulmonary examination Liver lesion Anxiety Chronic abdominal pain Goiter Vitamin D deficiency Hyperparathyroidism Hypercalcemia Surgical History History of surgery History of umbilical hernia repair Hx of section Family History Father Diabetes Hypertension Alzheimer disease FH: prostate cancer Emphysema of lung Mother Hypertension Diabetes Social History Household Members: Spouse Household Members Other:: son Housing: Apartment Alcohol intake: never Patient Tobacco Use Status: Never used Tobacco Current occupational status: unemployed Sexual orientation: Straight/Heterosexual Gender identity: Female Female Reproductive History Menstrual Age of Menarche: 13 Review of Systems Const Denies fatigue, Denies fever(s), Denies night sweats, Denies poor appetite and Denies weight loss ENT Reports Normal hearing present, Denies dental pain, Denies dysphagia, Denies hearing loss, Denies mouth pain, Denies odynophagia, Denies throat swelling, Denies tongue swelling and Reports other (Dentition adequate) Card Reports no additional complaints Resp Reports no additional complaints GI Details: Reports abdominal pain, Denies melena, Denies bloating, Reports hematochezia, Reports constipation, Denies GI cramping, Denies dysphagia, Denies excessive flatus, Denies early satiety, Reports heartburn, Denies diarrhea, Reports nausea, Denies odynophagia, Denies vomiting and Denies hematemesis Reports urinary urgency Skin/Breast Denies pruritus, Denies lesions, Denies rash and Denies jaundice Neuro Reports Normal hearing present and Denies Abnormal speech present Endo Denies fatigue Aller/Immun Denies throat swelling and Denies tongue swelling Physical Exam Vital Signs: Last Vital Signs Pulse 88 04/11/25 12:05 BP 108/62 04/11/25 12:05 Pulse Ox 98 04/11/25 12:05 Oxygen Delivery Method Room Air 04/11/25 12:05 BMI result Body Mass Index 29.2 Const General: cooperative, no acute distress, well developed and well groomed Nutritional Appearance: well nourished and obese Orientation/consciousness: oriented to person, oriented to place and oriented to time Limitations: language barrier HEENT Head: Yes normocephalic and Yes atraumatic Eyes General: appearance normal, both eyes and all related structures Pupils: Equal, round and reactive pupils present Neck Neck: Yes normal visual inspection and Yes no lymphadenopathy Thyroid: Thyroid normal Resp Effort & Inspection: normal respiratory effort and able to speak in complete sentences Auscultation: clear to auscultation bilaterally Cardio Rate: regular rate Rhythm: regular rhythm Heart sounds: Normal, physiologic split S2 sound present Peripheral pulses: radial pulses present and posterior tibial pulses present GI Inspection: No distended, No Abdominal panniculus present and Yes obesity Palpation (GI): Soft to palpation, nontender, no guarding, not rigid and No hepatosplenomegaly present Percussion: Yes normal to percussion Auscultation: normal bowel sounds Rectal Exam - Female: deferred Skin General skin exam: no rashes or lesions noted, turgor normal, skin not dry, no jaundice, No spider nevi and no striae Rashes: no rashes Nails: normal Neuro General: oriented to person, oriented to place and oriented to time Cranial nerves: Yes Equal, round and reactive pupils present and Yes Normal hearing present Speech: No Abnormal speech present Extrem General: Yes normal to inspection, No clubbing, No cyanosis and No edema Psych Appearance: grossly normal and well kempt Mental Status: mental status grossly normal Speech and movement: Normal speech and movement present Affect: normal affect Attitude: cooperative Thought process: Normal thought process present and not confabulating Thought content: Normal thought content present Insight: Limited insight present (Psych) Judgement: Limited judgement present (Psych) Results Reviewed Results Reviewed: PULMONARY FUNCTION TESTS sHE IS SEEING [facility] AND HAS NEW DX ASTHMA UPPER GI WITH SMALL-BOWEL FOLLOW-THROUGH 01/31/2025 FINDINGS: Following oral administration of thick barium and effervescent granules is normal propagation bolus from the oral cavity through the pharynx, esophagus into stomach without any evidence of obstruction, narrowing or stricture. The course, caliber and peristalsis in the esophagus is normal. On placing patient in supine and prone lying the course, caliber and peristalsis of this stomach, duodenal bulb and sweep is normal. The mucosal pattern of the stomach and the duodenum is normal. There are surgical springs along the anterior wall just above abdominal wall hernia repair. Sequential images obtained or the abdomen reveals normal course and caliber of the small bowel loops. The transit time is is delayed at approximately 105 minutes. Appendix is visualized and appears normal caliber. FLUOROSCOPY TIME: 1 minute 45 seconds DOSE AREA PRODUCT: 1797 uGy-m2 (microgray-meter squared) FL/FL upper GI small bowel IMPRESSION: Unremarkable upper GI contrast study and small bowel follow-through. There is evidence of abdominal wall hernia repair with mesh in ron Assessment & Plan Assessment & Plan (1) Chronic idiopathic constipation: Code(s): K59.04 - Chronic idiopathic constipation Category: Medical (2) Periumbilical abdominal pain: Code(s): R10.33 - Periumbilical pain Category: Surgical (3) Nausea and vomiting: Code(s): R11.2 - Nausea with vomiting, unspecified Category: Medical (4) Pre-op examination: Code(s): Z01.818 - Encounter for other preprocedural examination Category: Medical (5) Rectal bleeding: Code(s): K62.5 - Hemorrhage of anus and rectum Category: Medical Plan [place]ian #Tachiana then Ashtyn (She has had troubles for many years (10 years) with HB, diarrhea, vomiting, and a feeling like her intestines are gathering together and then she has pain that leads to N/V. She will have sweating and feel very weak. The pain starts periumbilically but when it is bad will radiate down to her midline to her rectum. The strong pain returned and she tried the bentyl and it did help, but it made her very sleepy. When she has the pain she can not leave the house, so this is very life limiting. But she does not feel that the bentyl is a fit for her (she [place] had this medication in [place] It appears that a different provider ordered yet another small-bowel follow-through study that again was completely unremarkable. She also seems to have had a retroperitoneal ultrasound showing multiple uterine fibroids causing compression of the bladder. I explain the results of the US's and she is seeing urology regarding her urinary problems r/t the fibroids. It would not be certain if this is causing any other abd pain via referred pain. She has had less of the periabdominal pain that caused her severe sweating and chills and caused her to have diarrhea, but she is having a pain in the LUQ that was like when you run a lot and you get that pain. This is intermittent and will last minutes and occurs 2-3 times a month. This is not effected with the bentyl. This sounds to me more like a musculoskeletal problem so I will try getting some thoracic and lumbar back x-rays to shed light on it since so far we have not been able to find any GI cause. She does report intermittent rectal bleeding. She still suffers CIC, found that the LInzess worked w/o causing her abd pain like the otc laxative. Will restart. She has asthma that is controlled and she denies any cardiac problems. There are no prior problems with anesthesia and sedation No ID problems. Her father had colon polyps. ROV 3 mos. Orders: Orders XR thoracic spine 2V Today K59.04 - Chronic idiopathic constipation, R10.33 - Periumbilical pain, R11.2 - Nausea with vomiting, unspecified XR lumbar spine 2-3V Today K59.04 - Chronic idiopathic constipation, R10.33 - Periumbilical pain, R11.2 - Nausea with vomiting, unspecified Comprehensive Met. Panel Today Z01.818 - Encounter for other preprocedural examination Complete Blood Count Auto Diff Today Z01.818 - Encounter for other preprocedural examination EGD/Negley Combo - GI Use Only Today K59.04 - Chronic idiopathic constipation, R10.33 - Periumbilical pain, R11.2 - Nausea with vomiting, unspecified Medications: New famotidine 20 mg PO BID 30 tabs 6RF peg 3350-electrolytes 236-22.74-6.74 -5.86 gram (Golytely) until fecal effluent is clear; do not exceed a total volume of 2,000 mL 240 mL PO Q10M 4,000 mL 0RF 1 day Z12.11 - Encounter for screening for malignant neoplasm of colon Refilled linaclotide (Linzess) 145 mcg PO QAM 30 caps 6RF G89.29 - Other chronic pain, K59.04 - Chronic idiopathic constipation, R10.9 - Unspecified abdominal pain dicyclomine 20 mg PO QID 360 tabs 1RF 90 days Coding Level of Care Code Est Pt Level 4 (39226) Diagnoses Chronic idiopathic constipation K59.04 Periumbilical abdominal pain R10.33 Nausea and vomiting R11.2 Pre-op examination Z01.818 Rectal bleeding K62.5 Time Spent (min) 37
[2025-04-11 12:05] VITALS: BP 108/62; PULSE 88; O2SAT 98; BMI 29.2
--- OUTSIDE RECORDS SUMMARY | 2025-04-11 12:08 | XMS_ITS | Clinical Summary ---
Author Organization [employer] Address [address] [place] [address] 7t [place] [address] Care Team Providers Care Advanced Research Programs Director Name Role Phone Haydee Jacinto [facility] Primary Care Provider [phone] Allergies Active Allergy Reactions Criticality Noted Date [...] 11 03/12/20 24 Active oxymetazoline (Afrin Nasal [place]) 0.05 % nasal spray Administer 2 sprays [...] irritable bowel syndrome 04/16/2024 Overview (04/16/2024): IBS-had [facility] GI follow up. Plan to trial bentyl [...] Uterine leiomyoma 01/31/2023 Overview (03/12/2024): Followed by EKG TECHNICIAN Ultrasound done in 02/03 showed multiple uterine fibroids. Plan for periodic ultrasound to monitor. Hyperparathyroidism 04/08/2022 Hepatomegaly 07/13/2021 Chronic low back pain 07/13/2021 Resolved Problems Problem Noted Date Diagnosed Date Resolved Date Acute frontal sinusitis 02/07/2023 07/04/2023 Encounters Date Type Department Care Team Description 02/25/2025 10:30 AM EDT Office Visit [address] [address] Hadyee Jacinto FNP Uterine leiomyoma, unspecified location (Primary Dx); Hyperparathyroidis m (CMS/HCC); Vitamin D deficiency; Dietary counseling; Exercise counseling 02/25/2025 Travel 02/14/2025 Patient Outreach [address] [address] Haydee Jacinto FNP Pre-visit Planning (SDOH screening completed on 12/24/2024) 02/09/2025 10:40 AM EDT Office Visit [facility] [address] [place] [address] Srini Gooden MD Viral URI with cough (Primary Dx) 02/06/[address] [address] Haydee Jacinto FNP 02/05/[address] [address] Haydee Jacinto FNP chart prep 01/31/2025 Orders Only [facility] External Provider, [facility] 01/28/2025 Patient Outreach [address] [place] [address] [place], [place]dee, BORING MACHINE OPERATOR VERTICAL Pre-visit Planning ((Unable to reach for PVP screening and or LVM)) 01/25/2025 Population Health Risk Score [facility] Department [address] [place] [phone] Provider, Population Health Generic from Last 3 Months Immunizations Immunization Administration [...] COVID Ag Negative QC Media Lot # [id number] Lot# Expiration Date 942,026 Swab 02/09/2025 11:2 9 AM EDT Srini Gooden MD POINT OF CARE TEST ENTER/EDIT OR DERABLES Final Result * POCT Rapid Influenza B MONAE ID NOW (02/09/2025 11:28 AM EDT) Pathologist [facility] Influenza B Negative Negative, Indeterminate [facility] QC Media Lot # [id number] [facility] Lot# Expiration Date [facility] Swab 02/09/2025 11:2 8 AM EDT Srini Gooden MD POINT OF CARE TEST ENTER/EDIT OR DERABLES Final Result Performing Organization Address City/[facility]/ZIP Co de Phone Number [facility] [address] [place] [phone] * POCT Rapid Influenza A MONAE ID NOW (02/09/2025 11:28 AM EDT) Pathologist [facility] Influenza A Negative Negative, Indeterminate [facility] QC Media Lot # [id number] [facility] Lot# Expiration Date [facility] Swab 02/09/2025 11:2 8 AM EDT us Srini Gooden MD POINT OF CARE TEST ENTER/EDIT OR DERABLES Final Result Performing Organization Address City/[facility]/ZIP Co de Phone Number [facility] [address] [place] [phone] * FL Upper GI w/Small Bowel (01/31/2025 8:02 AM EDT) Anatomical Region Laterality Modality Radiographic Stephie ging 01/31/2025 8:02 AM EDT Narrative 01/31/2025 2:26 PM EDT ? [facility] ?[address] ?[place], [place] [address] ? Fluoroscopy Report ? Signed ? Patient: Jocelynn Osborn ?MR#: M ?? [id number] ? : 1980 ?Acct:[id number] ? Age/Sex: 44 / F ?ADM Date: 01/31/25 ? Loc: HO.XRAY ? Attending Dr: Karla LEMUS ? Ordering Physician: Karla Fuller ?? Date of Service: 01/31/25 ?? Procedure(s): FL upper GI small bowel ?? Accession Number(s): [id number] ? cc: Karla Fuller; Haydee Jacinto ? EXAMINATION: ?? XR UPPER GI AIR [...] DD/ 0802 ? TD/TT: 01/31/25 1227 ? Credit Risk Analytics Manager: MSM ? Procedure Note Donotuseinterpreter, Image - 01/31/2025 [place] [address] Fluoroscopy Report Signed Patient: Mica Osborn#: M [id number] : 1980Acct:[id number] Age/Sex: 44 / FADM Date: 01/31/25 Loc: KATLYN Attending Dr: Karla LEMUS Ordering Physician: Karla Fuller Date of Service: 01/31/25 Procedure(s): FL upper GI small bowel Accession Number(s): [id number] cc: [facility]la Fuller; [facility]: XR UPPER GI AIR CONTRAST SERIES [...] 01/31/25 1423 DD/ 0802 TD/TT: 01/31/25 1227 Credit Risk Analytics Manager: NATY [facility] External Provider IMG FLU OROSCOPY PROCEDURES Final Result * BI Mammogram Screening Tomosynthesis Bilateral (08/24/2024 10:30 AM EDT) Anatomical Region Laterality Modality Breast Bilateral Mammography 08/24/2024 10:3 0 AM EDT Narrative 09/05/2024 8:17 AM EDT ? [facility] [place] ? [address] ?[place] [address] ? Mammography Report ? Signed ? Patient: Jocelynn Osborn ?MR#: M ?? [id number] ? : 1980 ?Acct:[id number] ? Age/Sex: 44 / F ?ADM Date: 10/11/24 ? Loc: HO.MAMMO ? Attending : Haydee OROSCOP ? Ordering Physician: Fly De Souza MD ?Results: 1Negativ ?? e ? Date of Service: 08/24/24 ?Follow Up: 1 Year From Orig ?? inal Mammogram ? Procedure(s): MM tomosynthesis screening BI ?? Accession Number(s): [id number] ? cc: Haydee Jacinto BORING MACHINE OPERATOR VERTICAL; Fly De Souza MD ? EXAMINATION: ?? [...] next mammogram. ? Electronically signed by: ??Arabella Nathanielrose DO ??09/05/2024 08:15 AM EDT ?? RP ? Dictated By: ?Arabella Glaser DO ? Signed By: ?<Electronically signed by Arabella Glaser, DO in OV> ? 09/05/24 0815 ? DD/ 1030 ? TD/TT: 08/24/24 1045 ? Credit Risk Analytics Manager: ? Procedure Note Nelda, Image - 09/05/2024 [facility] [address] [place], [place] [address] Mammography Report Signed Patient: Jocelynn OsbornMR#: M [id number] : 1980Acct:[id number] Age/Sex: 44 / FADM Date: 08/24/24 Loc: HO.MAMMO Attending Dr: Haydee Jacinot BORING MACHINE OPERATOR VERTICAL Ordering Physician: Fly De Souza MDResults: 1Negativ e Date of Service: 08/24/24Follow Up: 1 Year From Orig inal Mammogram Procedure(s): MM tomosynthesis screening BI Accession Number(s): [id number] cc: Haydee Jacinto; Fly De Souza MD [...] 09/05/24 0815 DD/ 1030 TD/TT: 08/24/24 1045 Credit Risk Analytics Manager: [facility] External Provider IMG BI PROCEDURES Edited Result - Final * Hm Pap Smear (07/19/2022) Pap Negative for intraephithelial lesion or malignancy Negative for intraephithelial lesion or malignancy, Other HPV Undetected us Historical Provider HEALTH MAINTENANCE Final Result from Last 3 Months or Most Recently Relevant to Health Maintenance Insurance [address] [address] C3 Care Teams Advanced Research Programs Director Relationship Specialty Start Date End Date Haydee Jacinto FNP [address] [place] [phone] PCP - General Family Medicine 07/12/22
== END 2025-04-11 12:42 | disposition home or self-care (01) ==
LOC: HO.HGI 12:03
PROVIDERS: PCP Registered Nurse; Visit Provider Nurse Practitioner
DX: K59.04 Chronic idiopathic constipation (principal); R10.33 Periumbilical pain; R11.2 Nausea with vomiting, unspecified; K62.5 Hemorrhage of anus and rectum
CPT/HCPCS: 99214

== ENCOUNTER → 2025-04-11 12:02 | Outpatient (BNVA) | payer MEDICAID, SELFPAY | PROVIDERS: PCP Registered Nurse; Visit Provider Nurse Practitioner | DX: Z01.818 Encounter for other preprocedural examination (principal); K58.9 Irritable bowel syndrome, unspecified; R10.9 Unspecified abdominal pain; G89.29 Other chronic pain; K59.04 Chronic idiopathic constipation; R11.2 Nausea with vomiting, unspecified; R10.33 Periumbilical pain; K62.5 Hemorrhage of anus and rectum | CPT/HCPCS: 99212 ==

== ENCOUNTER 2025-04-16 08:45 | Outpatient (REF) | payer MEDICAID, SELFPAY ==
--- NOTE | ~2025-04-16 | XR_ITS ---
CLINICAL HISTORY: R10.33 - Periumbilical pain Three views of the lumbar spine. COMPARISON: None FINDINGS: Hernia mesh repair clips along the lower abdomen and pelvis. Five nxo-vrb-gtyixvb lumbar type vertebral bodies. [place] right curvature of the lower lumbar spine. Vertebral body heights are maintained. No evidence of acute vertebral body injury. Vertebral disc space heights are preserved. Facet joint arthrosis in the mid to lower lumbar spine. Small marginal osteophytes along the lumbar spine. Visualized portions of the bones of the pelvis appear intact. IMPRESSION: 1. No radiographic evidence of acute injury to the lumbar spine. 2. Rightward curvature of the lower lumbar spine. 3. Mild multilevel degenerative changes of the lumbar spine. This document has been electronically signed by: Israel Mcmanus MD on 04/16/2025 15:56:35
--- NOTE | ~2025-04-16 | XR_ITS ---
CLINICAL HISTORY: R10.33 - Periumbilical pain Three views of the thoracic spine. COMPARISON: None FINDINGS: [place] right curvature of the lower thoracic spine. Vertebral body heights are maintained. No evidence of acute vertebral body injury. Small marginal osteophytes along the midthoracic spine. Vertebral disc space heights are maintained Visualized portions of the lungs are unremarkable. IMPRESSION: 1. No radiographic evidence of acute injury to the thoracic spine. 2. [place] right curvature of the lower thoracic spine. This document has been electronically signed by: Israel Mcmanus MD on 04/16/2025 15:57:45
[2025-04-16 09:05] LABS: MANUAL DIFF FLAG NO
--- OUTSIDE RECORDS SUMMARY | 2025-04-16 09:17 | XMS_ITS | Clinical Summary ---
Author Organization [email or web address] Address [address] [place] [address] 7t [place] [address] Care Team Providers Care Coating Mixer Supervisor Name Role Phone Haydee Jacinto [facility] Primary Care Provider [phone] Allergies Active Allergy Reactions Criticality Noted Date [...] 11 03/12/20 24 Active oxymetazoline (Afrin Nasal [place]) 0.05 % nasal spray Administer 2 sprays [...] irritable bowel syndrome 04/16/2024 Overview (04/16/2024): IBS-had [facility] GI follow up. Plan to trial bentyl [...] Uterine leiomyoma 01/31/2023 Overview (03/12/2024): Followed by ATMOSPHERIC TECHNICIAN Ultrasound done in 02/03 showed multiple uterine fibroids. Plan for periodic ultrasound to monitor. Hyperparathyroidism 04/08/2022 Hepatomegaly 07/13/2021 Chronic low back pain 07/13/2021 Resolved Problems Problem Noted Date Diagnosed Date Resolved Date Acute frontal sinusitis 02/07/2023 07/04/2023 Encounters Date Type Department Care Team Description 02/25/2025 10:30 AM EDT Office Visit [address] [address] Haydee Jacinto FNP Uterine leiomyoma, unspecified location (Primary Dx); Hyperparathyroidis m (CMS/HCC); Vitamin D deficiency; Dietary counseling; Exercise counseling 02/25/2025 Travel 02/14/2025 Patient Outreach [address] [address] Haydee Jacinto FNP Pre-visit Planning (SDOH screening completed on 12/24/2024) 02/09/2025 10:40 AM EDT Office Visit [facility] [address] [place] [address] Srini Gooden MD Viral URI with cough (Primary Dx) 02/06/[address] [address] Haydee Jacinto FNP 02/05/[address] [address] Haydee Jacinto FNP chart prep 01/31/2025 Orders Only [facility] External Provider, [facility] 01/28/2025 Patient Outreach [address] [place] [address] [place], Haydee, DIRECTOR OF HOUSING AND ENERGY SERVICES Pre-visit Planning ((Unable to reach for PVP screening and or LVM)) 01/25/2025 Population Health Risk Score [facility] [address] [place] [phone] Provider, Population Health Generic from Last [...] season) 2024 07/01/2022, 04/10/2021, 03/13/2021 Influenza Vaccine (Season Ended) 2025 01/21/2020 Mammogram 08/24/2025 08/24/2024, 08/18/2023 SDOH Screening [...] COVID Ag Negative QC Media Lot # [id number] Lot# Expiration Date 942,026 Swab 02/09/2025 11:2 9 AM EDT Srini Gooden MD POINT OF CARE TEST ENTER/EDIT OR DERABLES Final Result * POCT Rapid Influenza B MONAE ID NOW (02/09/2025 11:28 AM EDT) Pathologist [facility] Influenza B Negative Negative, Indeterminate [facility] QC Media Lot # [id number] [facility] Lot# Expiration Date [facility] Swab 02/09/2025 11:2 8 AM EDT Srini Gooden MD POINT OF CARE TEST ENTER/EDIT OR DERABLES Final Result Performing Organization Address City/[facility]/ZIP Co de Phone Number [facility] [address] [place] [phone] * POCT Rapid Influenza A MONAE ID NOW (02/09/2025 11:28 AM EDT) Pathologist [facility] Influenza A Negative Negative, Indeterminate [facility] QC Media Lot # [id number] [facility] Lot# Expiration Date [facility] Swab 02/09/2025 11:2 8 AM EDT us Srini Gooden MD POINT OF CARE TEST ENTER/EDIT OR DERABLES Final Result Performing Organization Address City/[facility]/ZIP Co de Phone Number [facility] [address] [place] [phone] * FL Upper GI w/Small Bowel (01/31/2025 8:02 AM EDT) Anatomical Region Laterality Modality Radiographic Stephie ging 01/31/2025 8:02 AM EDT Narrative 01/31/2025 2:26 PM EDT ? [facility] ?[address] ?[place], [place] [address] ? Fluoroscopy Report ? Signed ? Patient: Jocelynn Osborn ?MR#: M ?? [id number] ? : 1980 ?Acct:[id number] ? Age/Sex: 44 / F ?ADM Date: 01/31/25 ? Loc: HO.XRAY ? Attending Dr: Karla LEMUS ? Ordering Physician: Karla Fuller ?? Date of Service: 01/31/25 ?? Procedure(s): FL upper GI small bowel ?? Accession Number(s): [id number] ? cc: Karla Fuller; Haydee Jacinto ? [...] DD/ 0802 ? TD/TT: 01/31/25 1227 ? [employer] Promotional Sales: MSM ? Procedure Note Donotuseinterpreter, Image - 01/31/2025 [place] [address] Fluoroscopy Report Signed Patient: Mica Osborn#: M [id number] : 1980Acct:[id number] Age/Sex: 44 / FADM Date: 01/31/25 Loc: KATLYN Attending Dr: Karla LEMUS Ordering Physician: Karla Fuller Date of Service: 01/31/25 Procedure(s): FL upper GI small bowel Accession Number(s): [id number] cc: Karla Fuller; [facility] EXAM[facility]ATION: XR UPPER GI AIR CONTRAST [...] 01/31/25 1423 DD/ 0802 TD/TT: 01/31/25 1227 [employer] Sales: NATY [facility] External Provider IMG FLU OROSCOPY PROCEDURES Final Result * BI Mammogram Screening Tomosynthesis Bilateral (08/24/2024 10:30 AM EDT) Anatomical Region Laterality Modality Breast Bilateral Mammography 08/24/2024 10:3 0 AM EDT Narrative 09/05/2024 8:17 AM EDT ? [facility] [place] ? [address] ?[place] [address] ? Mammography Report ? Signed ? Patient: Jocelynn Osborn ?MR#: M ?? [id number] ? : 1980 ?Acct:[id number] ? Age/Sex: 44 / F ?ADM Date: 10/11/24 ? Loc: HO.MAMMO ? Attending : Haydee OROSCOP ? Ordering Physician: Fly De Souza MD ?Results: 1Negativ ?? e ? Date of Service: 08/24/24 ?Follow Up: 1 Year From Orig ?? inal Mammogram ? Procedure(s): MM tomosynthesis screening BI ?? Accession Number(s): [id number] ? cc: Haydee Jacinto DIRECTOR OF HOUSING AND ENERGY SERVICES; Fly De Souza MD ? EXAMINATION: ?? [...] DD/ 1030 ? TD/TT: 08/24/24 1045 ? [employer] Promotional Sales: ? Procedure Note Nelda, Image - 09/05/2024 [facility] [address] [place], [place] [address] Mammography Report Signed Patient: Jocelynn OsbornMR#: M [id number] : 1980Acct:[id number] Age/Sex: 44 / FADM Date: 08/24/24 Loc: HO.MAMMO Attending Dr: Haydee Jacinto DIRECTOR OF HOUSING AND ENERGY SERVICES Ordering Physician: Fly De Souza MDResults: 1Negativ e Date of Service: 08/24/24Follow Up: 1 Year From Orig inal Mammogram Procedure(s): MM tomosynthesis screening BI Accession Number(s): [id number] cc: Haydee Jacinto; Fly De Souza MD [...] 09/05/24 0815 DD/ 1030 TD/TT: 08/24/24 1045 [employer]: [facility] External Provider IMG BI PROCEDURES Edited Result - Final * Hm Pap Smear (07/19/2022) Pap Negative for intraephithelial lesion or malignancy Negative for intraephithelial lesion or malignancy, Other HPV Undetected us Historical Provider HEALTH MAINTENANCE Final Result from Last 3 Months or Most Recently Relevant to Health Maintenance Insurance [place] [address] C3 Care Teams Coating Mixer Supervisor Relationship Specialty Start Date End Date Haydee Jacinto FNP [address] [place] [phone] PCP - General Family Medicine 07/12/22
[2025-04-16 09:49] LABS: Basophils Percent Auto 0.4 % (0-2); Eosinophils Absolute Auto 0.1 X10*3/uL (0.0-0.4); Eosinophils Percent Auto 1.4 % (0-4); Hematocrit 37.5 % (37.0-47.0); Hemoglobin 12.2 g/dl (12.0-16.0); Imm Gran Abs Auto 0.01 X10*3/uL (0.00-0.03); Imm Gran Pct Auto 0.2 % (0.0-0.4); Lymphocytes Absolute Auto 1.7 X10*3/uL (1.2-4.9); Lymphocytes Percent Auto 33.6 % (20-40); Mean Corpuscular HGB Conc 32.5 g/dl (31.0-35.0); Mean Corpuscular Hemoglobin 27.7 pg (27.0-33.0); Mean Corpuscular Volume 85.2 fL (80.0-98.0); Mean Platelet Volume 11.4 fL (9.4-12.3); Monocytes Absolute Auto 0.4 X10*3/uL (0.1-1.2); Monocytes Percent Auto 7.5 % (2-11); Neutrophils Absolute Auto 2.9 x10*3/uL (2.0-8.3); Neutrophils Percent Auto 56.9 % (45-73); Platelet Count 249 X10*3/uL (160-400); Red Cell Distribution Width 13.3 % (11.0-16.0); White Blood Count 5.1 X10*3/uL (4.8-10.8)
[2025-04-16 10:49] LABS: Parathyroid Hormone Intact 95.7 pg/mL (8.7-77.1)
[2025-04-16 10:54] LABS: Alanine Aminotransferase 19 U/L (0-31); Albumin Level 4.5 g/dL (3.5-5.0); Alkaline Phosphatase 41 U/L (39-117); Anion Gap 8 (12-20); Aspartate Amino Transferase 19 U/L (5-31); Bilirubin Total 0.5 mg/dL (0.0-1.0); Blood Urea Nitrogen 14 mg/dL (9-16); Calcium 9.6 mg/dL (8.4-10.2); Carbon Dioxide 26 mmol/L (22-29); Chloride 108 mmol/L (96-108); Estimated Glomerular Filt Rate > 60; Glucose Random 82 mg/dL (60-115); Phosphorus 2.6 mg/dL (2.7-4.5); Potassium 4.1 mmol/L (3.3-5.1); Sodium 138 mmol/L (135-145); Total Protein 7.5 g/dL (6.5-8.0)
[2025-04-16 10:57] LABS: Vitamin D 25-OH Total 24.3 ng/mL (>30)
== END 2025-04-16 08:46 | disposition home or self-care (01) ==
LOC: HO.XRAY 08:45
PROVIDERS: Absent Provider Student in an Organized Health Care Education/Training Program; PCP Registered Nurse; Visit Provider Nurse Practitioner
DX: Z01.818 Encounter for other preprocedural examination (principal); R11.2 Nausea with vomiting, unspecified; K59.04 Chronic idiopathic constipation; R10.33 Periumbilical pain; E21.3 Hyperparathyroidism, unspecified; E55.9 Vitamin D deficiency, unspecified
CPT/HCPCS: 36415; 72070; 72100; 80053; 82306; 83970; 84100; 85025

== ENCOUNTER → 2025-04-16 09:04 | Outpatient (BNV) | payer MEDICAID, SELFPAY | PROVIDERS: Absent Provider Student in an Organized Health Care Education/Training Program; PCP Registered Nurse; Visit Provider Radiology Diagnostic Radiology | DX: M40.56 Lordosis, unspecified, lumbar region (principal); M40.55 Lordosis, unspecified, thoracolumbar region | CPT/HCPCS: 72070; 72100 ==

== ENCOUNTER 2025-04-26 10:14 | Outpatient (AMB) | payer MEDICAID, SELFPAY ==
--- NOTE | 2025-04-26 10:18 | A.OFFVIS_ITS ---
Vital Signs 04/26/25 10:20 Height 5 ft 4 in Weight 168 lb 2 oz BMI 28.9 BP 118/62 Blood Pressure Location Lt brachial Position Sitting Pulse 93 Pulse Source Pulse Oximeter Pulse Oximetry (%) 98 Oxygen Delivery Method Room Air Intake Visit Reasons: Shortness of breath Senior Data Architect Required: Yes Senior Data Architect Language: Network Relations Consultant Services: Senior Data Architect Present Senior Data Architect Name: Venice Iverson LM Allergies dog dander Allergy (Intermediate, Verified 04/26/25 10:23) Unknown seafood Allergy (Intermediate, Verified 04/26/25 10:23) Itching aspirin Allergy (Unknown, Verified 04/26/25 10:23) swelling HPI HPI Shortness of breath: Details: Jocelynn is a pleasant 44 year old female, never smoker, with underlying asthma, hyperparathyroidism and hypercalcemia. At the last visit, she was treated for bronchitic symptoms with azithromycin and prednisone with resolution of symptoms. Unfortunately over the last 4-5 days developed chills initially, no fevers, chest congestion, productive cough with yellow sputum, and sinus congestion. Denies wheezing. She has been using Breo with suboptimal effect and albuterol MDI on a daily basis. She also notes that son has similar symptoms. [facility] Medical History (Updated 04/11/25 @ 13:14 by ALLAN Soria) Shortness of breath COVID-19 Well woman exam [place] Cough due to bronchospasm Encounter for preoperative pulmonary examination Liver lesion Anxiety Chronic abdominal pain Goiter Vitamin D deficiency Hyperparathyroidism Hypercalcemia Surgical History History of surgery History of umbilical hernia repair Hx of section Family History Father Diabetes Hypertension Alzheimer disease FH: prostate cancer Emphysema of lung Mother Hypertension Diabetes Social History Household Members: Spouse Household Members Other:: son Housing: Apartment Alcohol intake: never Patient Tobacco Use Status: Never used Tobacco Current occupational status: unemployed Sexual orientation: Straight/Heterosexual Gender identity: Female Female Reproductive History Menstrual Age of Menarche: 13 Review of Systems Const Denies excessive sweating, Denies fever(s), Denies headache(s) and Denies night sweats Eyes Denies dry eyes, Denies irritation and Denies itchy eyes ENT Reports Normal hearing present, Denies headache(s), Reports nasal congestion and Reports post nasal drip Card Denies chest pain, Denies chest pain at rest, Denies chest pain with activity, Denies claudication, Denies leg edema, Reports dyspnea on exertion, Denies orthopnea and Denies paroxysmal nocturnal dyspnea Resp Reports change in phlegm color, Reports chest congestion, Reports cough, Denies excessive phlegm production, Denies pain on inspiration, Denies pain with cough, Reports dyspnea on exertion, Denies stridor and Denies wheezing Musc Denies myalgias Neuro Reports Normal hearing present and Denies headache(s) Endo Denies excessive sweating Frank/Lymph Denies lymphadenopathy Aller/Immun Denies itchy eyes, Reports seasonal rhinorrhea and Denies wheezing Physical Exam Vital Signs: Last Vital Signs Pulse 93 04/26/25 10:20 BP 118/62 04/26/25 10:20 Pulse Ox 98 04/26/25 10:20 Oxygen Delivery Method Room Air 04/26/25 10:20 BMI result Body Mass Index 28.9 Const General: cooperative, healthy appearing, comfortable, no acute distress, well developed and alert Orientation/consciousness: patient oriented x3 Limitations: no limitations HEENT Head: Yes normal to inspection, Yes normocephalic and Yes atraumatic Ears: hearing grossly normal bilaterally and external ears normal Eyes General: appearance normal, both eyes and all related structures Eyelids: Yes eyelids normal Sclerae: sclerae normal EOM: EOMs intact bilaterally Neck Neck: Yes normal visual inspection and Yes no lymphadenopathy Lymphatic: no lymphadenopathy noted Chest Chest palpation & inspection: normal inspection of the chest Resp Effort & Inspection: normal respiratory effort, able to speak in complete sentences, no audible wheezes, Actively coughing Quality: productive, no stridor, not tachypneic, no tripod positioning and no use of accessory muscles Auscultation: diminished lung sounds Cardio Jugular venous distension: no JVD Rate: regular rate Rhythm: regular rhythm Skin Other: warm, dry General skin exam: no rashes or lesions noted Neuro General: patient oriented x3 Cranial nerves: Yes Normal hearing present Cognition (Neuro): normal cognition Gait exam (Neuro): Normal gait present Extrem General: Yes normal to inspection, Yes capillary refill normal, Yes no clubbing, cyanosis or edema and Yes no pedal edema Psych Appearance: grossly normal and well kempt Speech and movement: Normal speech and movement present and Clear speech present Affect: normal affect Attitude: cooperative Thought process: Normal thought process present Thought content: Normal thought content present Insight: Good insight present (Psych) Judgement: Good judgement present (Psych) Assessment & Plan Assessment & Plan (1) Asthma: Code(s): J45.909 - Unspecified asthma, uncomplicated Category: Medical (2) Shortness of breath: Code(s): R06.02 - Shortness of breath Category: Medical (3) Environmental allergies: Code(s): Z91.09 - Other allergy status, other than to drugs and biological substances Category: Medical Plan Will treat bronchitic symptoms with doxycycline. She is aware to call if symptoms do not improve. Encouraged use of nebulized therapy and mucinex DM. Prior to bronchitic symptoms reported suboptimal control on Breo, will switch to Trelegy. All questions were answered and patient is in agreement of plan. Will follow up in 6-8 weeks or sooner if needed. Medications: New doxycycline hyclate 100 mg PO BID 14 caps 0RF fsjcyxavppz-bkcxnzkci-oanieidj 200-62.5-25 mcg (Trelegy Ellipta) 1 inh inhalation DAILY 60 ea 3RF Coding Level of Care Code Est Pt Level 4 (55717) Diagnoses Asthma J45.909 Shortness of breath R06.02 Environmental allergies Z91.09
[2025-04-26 10:20] VITALS: BP 118/62; PULSE 93; O2SAT 98; BMI 28.9
== END 2025-04-26 10:43 | disposition home or self-care (01) ==
LOC: HO.HPSW 10:15
PROVIDERS: PCP Registered Nurse; Visit Provider Nurse Practitioner Family
DX: J45.909 Unspecified asthma, uncomplicated (principal); R06.02 Shortness of breath; Z91.09 Other allergy status, other than to drugs and biological substances
CPT/HCPCS: 99214

== ENCOUNTER → 2025-04-26 10:14 | Outpatient (BNVA) | payer MEDICAID, SELFPAY | PROVIDERS: PCP Registered Nurse; Visit Provider Nurse Practitioner Family | DX: R06.02 Shortness of breath (principal); J45.909 Unspecified asthma, uncomplicated; R05.9 Cough, unspecified; Z91.09 Other allergy status, other than to drugs and biological substances; E83.52 Hypercalcemia | CPT/HCPCS: 99212 ==

== ENCOUNTER 2025-06-07 13:35 | Outpatient (REF) | payer MEDICAID, SELFPAY ==
--- NOTE | ~2025-06-07 | XR_ITS ---
EXAMINATION: XR FOOT 3 OR MORE VIEWS LEFT HISTORY: pain COMPARISON: There are no prior studies available for comparison. FINDINGS: Three views of the left foot are submitted. Osseous mineralization is normal. There is no fracture or dislocation. The joint spaces are preserved. There is calcification of the distal Achilles tendon. XR/XR foot LT min 3V IMPRESSION: Calcification of the distal Achilles tendon. Otherwise unremarkable examination of the left foot. Electronically signed by: Akbar Mckeon MD 06/07/2025 02:12 PM EDT
== END 2025-06-07 13:36 | disposition home or self-care (01) ==
LOC: HO.HHCX 13:35
PROVIDERS: Visit Provider Internal Medicine
DX: M79.672 Pain in left foot (principal)
CPT/HCPCS: 73630

== ENCOUNTER → 2025-06-07 13:36 | Outpatient (BNV) | payer MEDICAID, SELFPAY | PROVIDERS: Visit Provider Radiology Diagnostic Radiology | DX: M79.672 Pain in left foot (principal) | CPT/HCPCS: 73630 ==

== ENCOUNTER 2025-06-10 12:14 | Outpatient (REF) | payer MEDICAID, SELFPAY | END 2025-06-10 12:15 | disposition home or self-care (01) | LOC: HO.HHCL 12:14 | PROVIDERS: Visit Provider Student in an Organized Health Care Education/Training Program | DX: Z13.89 Encounter for screening for other disorder (principal) ==

== ENCOUNTER 2025-06-10 12:22 | Outpatient (REF) | payer MEDICAID, SELFPAY ==
[2025-06-10 13:39] LABS: Albumin Level 4.5 g/dL (3.5-5.0); Calcium 9.3 mg/dL (8.4-10.2)
== END 2025-06-10 12:23 | disposition home or self-care (01) ==
LOC: HO.HHCL 12:22
PROVIDERS: Visit Provider Student in an Organized Health Care Education/Training Program
DX: E55.9 Vitamin D deficiency, unspecified (principal); E21.3 Hyperparathyroidism, unspecified
CPT/HCPCS: 36415; 82040; 82310

== ENCOUNTER 2025-07-12 09:59 | Outpatient (AMB) | payer MEDICAID, SELFPAY ==
[2025-07-12 10:01] VITALS: BP 123/64; PULSE 82; RESP 14; BMI 28.8
--- NOTE | 2025-07-12 10:01 | A.OFFVIS_ITS ---
Vital Signs 07/12/25 10:01 Height 5 ft 4 in Weight 168 lb BMI 28.8 BP 123/64 Respiration 14 Pulse 82 Intake Visit Reasons: 3 months f/u Intake Note: Follow up constipation Advertising Space Clerk Required: Yes Advertising Space Clerk Language: Machine Molder Services: Advertising Space Clerk Present (in person) Advertising Space Clerk Name: Ailin DSOUZA Information Interpreted: non-clinical & clinical Accompanied by: Spouse Allergies dog dander Allergy (Intermediate, Verified 07/12/25 10:04) Unknown seafood Allergy (Intermediate, Verified 07/12/25 10:04) Itching aspirin Allergy (Unknown, Verified 07/12/25 10:04) swelling Is last menstrual period known: Yes HPI HPI 3 months f/u: Details: Assessment & Plan (1) Chronic idiopathic constipation: Code(s): K59.04 - Chronic idiopathic constipation Category: Medical (2) Periumbilical abdominal pain: Code(s): R10.33 - Periumbilical pain Category: Surgical (3) Nausea and vomiting: Code(s): R11.2 - Nausea with vomiting, unspecified Category: Medical (4) Pre-op examination: Code(s): Z01.818 - Encounter for other preprocedural examination Category: Medical (5) Rectal bleeding: Code(s): K62.5 - Hemorrhage of anus and rectum Category: Medical Plan Portuguese #Iam Chamorro (She has had troubles for many years (10 years) with HB, diarrhea, vomiting, and a feeling like her intestines are gathering together and then she has pain that leads to N/V. She will have sweating and feel very weak. The pain starts periumbilically but when it is bad will radiate down to her midline to her rectum. The strong pain returned and she tried the bentyl and it did help, but it made her very sleepy. When she has the pain she can not leave the house, so this is very life limiting. But she does not feel that the bentyl is a fit for her (she also had this medication in [place], she has had multiple unremarkable small-bowel follow-through studies, there is a retroperitoneal ultrasound showing multiple uterine fibroids causing compression of the bladder. She has a different pain described as a pain in the LUQ that was like when you run a lot and you get that pain. This is intermittent and will last minutes and occurs 2-3 times a month. This is not effected with the Bentyl). It appears that a different provider ordered yet another small-bowel follow-th rough study that again was completely unremarkable. She also seems to have had a retroperitoneal ultrasound showing multiple uterine fibroids causing compression of the bladder. I explain the results of the US's and she is seeing urology regarding her urinary problems r/t the fibroids. It would not be certain if this is causing any other abd pain via referred pain. She has had less of the periabdominal pain that caused her severe sweating and chills and caused her to have diarrhea, but she is having a pain in the LUQ that was like when you run a lot and you get that pain. This is intermittent and will last minutes and occurs 2-3 times a month. This is not effected with the bentyl. This sounds to me more like a musculoskeletal problem so I will try getting some thoracic and lumbar back x-rays to shed light on it since so far we have not been able to find any GI cause. She does report intermittent rectal bleeding. She still suffers CIC, found that the LInzess worked w/o causing her abd pain like the otc laxative. Will restart. She has asthma that is controlled and she denies any cardiac problems. There are no prior problems with anesthesia and sedation No ID problems. Her father had colon polyps. ROV 3 mos. Orders: Orders XR thoracic spine 2V Today K59.04 - Chronic idiopathic constipation, R10.33 - Periumbilical pain, R11.2 - Nausea with vomiting, unspecified XR lumbar spine 2-3V Today K59.04 - Chronic idiopathic constipation, R10.33 - Periumbilical pain, R11.2 - Nausea with vomiting, unspecified Comprehensive Met. Panel Today Z01.818 - Encounter for other preprocedural examination Complete Blood Count Auto Diff Today Z01.818 - Encounter for other preprocedural examination EGD/[place] Combo - GI Use Only Today K59.04 - Chronic idiopathic constipation, R10.33 - Periumbilical pain, R11.2 - Nausea with vomiting, unspecified Medications: New famotidine 20 mg PO BID 30 tabs 6RF peg 3350-electrolytes 236-22.74-6.74 -5.86 gram (Golytely) until fecal effluent is clear; do not exceed a total volume of 2,000 mL 240 mL PO Q10M 4,000 mL 0RF 1 day Z12.11 - Encounter for screening for malignant neoplasm of colon Refilled linaclotide (Linzess) 145 mcg PO QAM 30 caps 6RF G89.29 - Other chronic pain, K59.04 - Chronic idiopathic constipation, R10.9 - Unspecified abdominal pain dicyclomine 20 mg PO QID 360 tabs 1RF 90 days LABS; Laboratory Tests 04/16/25 09:03 WBC 5.1 Hgb 12.2 Hct 37.5 MCV 85.2 Plt Count 249 Estimated GFR > 60 Total Bilirubin 0.5 AST 19 ALT 19 Alkaline Phosphatase 41 25-OH Vitamin D Total 24.3 L PTH Intact 95.7 H XR LUMBAR AND THORACIC SPINE 04/16/2025 FINDINGS: [place] right curvature of the lower thoracic spine. Vertebral body heights are maintained. No evidence of acute vertebral body injury. Small marginal osteophytes along the midthoracic spine. Vertebral disc space heights are maintained Visualized portions of the lungs are unremarkable. IMPRESSION: 1. No radiographic evidence of acute injury to the thoracic spine. 2. [place] right curvature of the lower thoracic spine. * FINDINGS: Hernia mesh repair clips along the lower abdomen and pelvis. Five [id number] lumbar type vertebral bodies. [place] right curvature of the lower lumbar spine. Vertebral body heights are maintained. No evidence of acute vertebral body injury. Vertebral disc space heights are preserved. Facet joint arthrosis in the mid to lower lumbar spine. Small marginal osteophytes along the lumbar spine. Visualized portions of the bones of the pelvis appear intact. IMPRESSION: 1. No radiographic evidence of acute injury to the lumbar spine. 2. Rightward curvature of the lower lumbar spine. 3. Mild multilevel degenerative changes of the lumbar spine. EGD/COLONOSCOPY BIOPSY TODAYS VISIT Portuguese #Blanca Robin [facility], [facility] Medical History Shortness of breath COVID-19 Well woman exam [place] Cough due to bronchospasm Encounter for preoperative pulmonary examination Liver lesion Anxiety Chronic abdominal pain Goiter Vitamin D deficiency Hyperparathyroidism Hypercalcemia Surgical History History of surgery History of umbilical hernia repair Hx of section Family History Father Diabetes Hypertension Alzheimer disease FH: prostate cancer Emphysema of lung Mother Hypertension Diabetes Social History Household Members: Spouse Household Members Other:: son Housing: Apartment Alcohol intake: never Patient Tobacco Use Status: Never used Tobacco Current occupational status: unemployed Sexual orientation: Straight/Heterosexual Gender identity: Female Female Reproductive History Menstrual Age of Menarche: 13 Review of Systems Const Denies fatigue, Denies fever(s), Denies night sweats, Denies poor appetite and Denies weight loss ENT Reports Normal hearing present, Denies dental pain, Denies dysphagia, Denies hearing loss, Denies mouth pain, Denies odynophagia, Denies throat swelling, Denies tongue swelling and Reports other (Dentition adequate) Card Reports no additional complaints Resp Reports no additional complaints GI Details: Reports abdominal pain, Denies melena, Reports bloating, Denies hematochezia, Reports constipation, Denies GI cramping, Denies dysphagia, Denies excessive flatus, Denies early satiety, Reports heartburn, Denies diarrhea, Reports loose stools, Denies nausea, Denies odynophagia, Denies vomiting and Denies hematemesis Skin/Breast Denies pruritus, Denies lesions, Denies rash and Denies jaundice Neuro Reports Normal hearing present and Denies Abnormal speech present Endo Denies fatigue Aller/Immun Denies throat swelling and Denies tongue swelling Physical Exam Vital Signs: Last Vital Signs Pulse 82 07/12/25 10:01 Resp 14 07/12/25 10:01 BP 123/64 07/12/25 10:01 BMI result Body Mass Index 28.8 Const General: cooperative, no acute distress, well developed and well groomed Nutritional Appearance: average body habitus and well nourished Orientation/consciousness: oriented to person, oriented to place and oriented to time Limitations: language barrier HEENT Head: Yes normocephalic and Yes atraumatic Eyes General: appearance normal, both eyes and all related structures Pupils: Equal, round and reactive pupils present Neck Neck: Yes normal visual inspection and Yes no lymphadenopathy Thyroid: Thyroid normal Resp Effort & Inspection: normal respiratory effort and able to speak in complete sentences Auscultation: clear to auscultation bilaterally Cardio Rate: regular rate Rhythm: regular rhythm Heart sounds: Normal, physiologic split S2 sound present Peripheral pulses: radial pulses present and posterior tibial pulses present GI Inspection: No distended and No Abdominal panniculus present Palpation (GI): Soft to palpation, nontender, no guarding, not rigid and No hepatosplenomegaly present Percussion: Yes normal to percussion Auscultation: normal bowel sounds Rectal Exam - Female: deferred Skin General skin exam: no rashes or lesions noted, turgor normal, skin not dry, no jaundice, No spider nevi and no striae Rashes: no rashes Nails: normal Neuro General: oriented to person, oriented to place and oriented to time Cranial nerves: Yes Equal, round and reactive pupils present and Yes Normal hearing present Speech: No Abnormal speech present Extrem General: Yes normal to inspection, No clubbing, No cyanosis and No edema Psych Appearance: grossly normal and well kempt Mental Status: mental status grossly normal Speech and movement: Normal speech and movement present Affect: normal affect Attitude: cooperative Thought process: Circumstantial thought process present and not confabulating Thought content: Normal thought content present Insight: Fair insight present (Psych) and Limited insight present (Psych) Judgement: Fair judgement present (Psych) and Limited judgement present (Psych) Results Reviewed Results Reviewed: Laboratory Tests 04/16/25 09:03 WBC 5.1 Hgb 12.2 Hct 37.5 MCV 85.2 Plt Count 249 Estimated GFR > 60 Total Bilirubin 0.5 AST 19 ALT 19 Alkaline Phosphatase 41 25-OH Vitamin D Total 24.3 L PTH Intact 95.7 H XR LUMBAR AND THORACIC SPINE 04/16/2025 FINDINGS: [place] right curvature of the lower thoracic spine. Vertebral body heights are maintained. No evidence of acute vertebral body injury. Small marginal osteophytes along the midthoracic spine. Vertebral disc space heights are maintained Visualized portions of the lungs are unremarkable. IMPRESSION: 1. No radiographic evidence of acute injury to the thoracic spine. 2. [place] right curvature of the lower thoracic spine. * FINDINGS: Hernia mesh repair clips along the lower abdomen and pelvis. Five [id number] lumbar type vertebral bodies. [place] right curvature of the lower lumbar spine. Vertebral body heights are maintained. No evidence of acute vertebral body injury. Vertebral disc space heights are preserved. Facet joint arthrosis in the mid to lower lumbar spine. Small marginal osteophytes along the lumbar spine. Visualized portions of the bones of the pelvis appear intact. IMPRESSION: 1. No radiographic evidence of acute injury to the lumbar spine. 2. Rightward curvature of the lower lumbar spine. 3. Mild multilevel degenerative changes of the lumbar spine. Assessment & Plan Assessment & Plan (1) Irritable bowel syndrome with both constipation and diarrhea: Code(s): K58.2 - Mixed irritable bowel syndrome Category: Medical Plan Portuguese #Blanca Kelly Her current GI regimen consists of Linzess 145 micro g daily, famotidine twice a day and dicyclomine. She continues to struggle with abdominal pain, borborygmus, and a lot of bloating and gassiness. Again it was not sufficiently relieved with dicyclomine. So far the workup has not returned any severe pathology, including the x-ray of the thoracic spine which I obtained to see if there was any sort of referred pain. While there is some mild osteoarthritis I do not see any reason to think that this is the actual underlying cause of her abdominal pain. At this point I think will try progressing to imipramine to see if we can control her pain better. We will start low and titrate to affect her side effect. She also has not EGD/colonoscopy ordered which she would like to get us in his possible but the scheduling is quite backed up. She feels that the Linzess is working well to help her with her constipation phases but does not seem to be affecting the pain in the bloating. (She has had troubles for many years (10 years) with HB, diarrhea, vomiting, and a feeling like her intestines are gathering together and then she has pain that leads to N/V. She will have sweating and feel very weak. The pain starts periumbilically but when it is bad will radiate down to her midline to her rectum. The strong pain returned and she tried the bentyl and it did help, but it made her very sleepy. When she has the pain she can not leave the house, so this is very life limiting. But she does not feel that the bentyl is a fit for her (she also had this medication in [place], she has had multiple unremarkable small-bowel follow-through studies, there is a retroperitoneal ultrasound showing multiple uterine fibroids causing compression of the bladder. She has a different pain described as a pain in the LUQ that was like when you run a lot and you get that pain. This is intermittent and will last minutes and occurs 2-3 times a month. This is not effected with the Bentyl). Return office visit in 4 weeks. EGD/COLONOSCOPY BIOPSY Medications: New imipramine HCl 10 mg PO BEDTIME 30 tabs 6RF 30 days K58.2 - Mixed irritable bowel syndrome Coding Level of Care Code Est Pt Level 4 (08076) Diagnoses Irritable bowel syndrome with both constipation and diarrhea K58.2 Time Spent (min) 35
--- OUTSIDE RECORDS SUMMARY | 2025-07-12 10:44 | XMS_ITS | Clinical Summary ---
Author Organization [employer] Address [address] [place] [address] 7[address] [place] [address] Care Team Providers Care Sign Hanger Supervisor Name Role Phone Haydee Jacinto [facility] Primary Care Provider [phone] Allergies Active Allergy Reactions Criticality Noted Date [...] 11 03/12/20 24 Active oxymetazoline (Afrin Nasal Henniker) 0.05 % nasal spray Administer 2 sprays [...] 75 mL 1 08/14/20 24 025 Active Cholecalciferol (Vitamin D3) 10 MCG (400 UNIT) chewable tabletIndications: Vitamin D deficiency CHEW AND SWALLOW 4 TABLETS ONCE DAILY 360 tablet 1 05/20/20 25 Active acetaminophen (Tylenol) 160 MG chewable tabletIndications: Left foot pain Chew 4 tablets (640 mg) every 6 (six) hours if needed for mild pain for up to 10 days. 60 tablet 06/07/20 25 025 Hospital, Clinic, or Other Facility Administered Medication Ordered Dose Route Frequency Start Date End Date Status hydrOXYzine (Vistaril) injection 25 mgIndications:Hives 25 mg IM Nightly 02/04/2023 Activ e Active Problems Problem Noted Date Diagnosed Date Left foot pain 06/07/2025 Assessment & Plan (06/07/2025 3:50 PM EDT): X-ray ordered today patient will be contacted with results I will refer her to podiatry I will prescribe acetaminophen she cannot swallow tablets so I prescribed chewable tablets to be taken as needed Other irritable bowel syndrome 04/16/2024 Overview (04/16/2024): IBS-had [facility] follow up. Plan to trial bentyl [...] unremarkable Other chest pain 05/29/2023 Overview (05/29/2023): Followed by cardiology-Dr. Gusman Negative echo and stress test in 2020 Healthcare maintenance 05/29/2023 Overview (04/16/2024): Mammo: 08/2023- Birads 2 Pap: 07/2022, NIL HPV neg. Followed by Dr. De Souza [facility]. Hx of uterine fibroids. Serial ultrasound C-scope: Routine age 46 BMD: Negative 2021 Anxiety and depression 05/29/2023 Overview (05/29/2023): Established with psychiatry and therapy Sertraline, hydroxyzine, lorazepam Other dysphagia 05/29/2023 Overview (05/29/2023): Referred to GI Uterine leiomyoma 01/31/2023 Overview (03/12/2024): Followed by [facility] Ultrasound done in 02/03 showed multiple uterine fibroids. Plan for periodic ultrasound to monitor. Hyperparathyroidism 04/08/2022 Hepatomegaly 07/13/2021 Chronic low back pain 07/13/2021 Resolved Problems Problem Noted Date Diagnosed Date Resolved Date Acute frontal sinusitis 02/07/2023 07/04/2023 Encounters Date Type Department Care Team Description 06/07/2025 1:40 PM EDT Office Visit [facility] [address] [place], [place] [phone] Stephie Arroyo MD Left foot pain 06/07/2025 Results Follow-Up [facility] [address] [place] [address] Stephie Arroyo MD XR Foot 3+ Views Left 06/07/2025 Travel 05/19/2025 Refill [facility] [address] [place] [address] [place], Haydee, FORM SETTER/DRIVER Vitamin D deficiency 04/16/2025 Orders Only GENERIC EXTERNAL DATA DEPARTMENT Provider, Generic External Data from Last 3 Months Immunizations Immunization Administration [...] Sign Reading Time Taken Comments Blood Pressure 146/85 06/07/2025 1:01 PM EDT Pulse 89 06/07/2025 1:01 PM EDT Temperature 36.7 C (98 F) 06/07/2025 1:01 PM EDT Respiratory Rate 18 06/07/2025 1:01 PM EDT Oxygen Saturation 99% 06/07/2025 1:01 PM EDT Inhaled Oxygen Concentration - - Weight 77.2 kg (170 lb 3.2 oz) 06/07/2025 1:01 P M EDT Height 162.6 cm (5' 4 ) 02/25/2025 10:33 AM EDT Body Mass Index 29.21 02/25/2025 10:33 AM EDT Plan of Treatment Upcoming Encounters Date Type Department Care Team (Late st Contact Info) Description 08/28/2025 9:15 AM EDT Office Visit [facility] [address] [place] [address] [facility], [facility] [address] [place] [address] Health Maintenance Due Date Last Done Comments HIV Screening 1980 Disability Screening 1981 Family Planning (PISQ) 1996 HPV Vaccines (1 - 3-dose series) 1996 Hepatitis C Screening 1999 DTaP/Tdap/Td Vaccines (1 - Tdap) 2000 Hepatitis A Vaccines (1 of 2 - Risk 2-dose series) 2000 Hepatitis B Vaccines (1 of 3 - 19+ 3-dose series) 2000 COVID-19 Vaccine ( season) 2024 07/01/2022, 04/10/2021, 03/13/2021 Influenza Vaccine (#1) 2025 01/21/2020 Mammogram 08/24/2025 08/24/2024, 08/18/2023 SDOH [...] Years) and At-Risk Patients (6 to 49) Years Aged Out No longer eligible based on patient's age to complete this topic RSV under 20 months Aged Out No longe r eligible based on patient's age to complete this topic Rotavirus Vaccines Aged Out No longer eligible based on patient's age to complete this topic Procedures Procedure Name Priority Date/Time Associated Diagnosis Comments XR FOOT 3+ VIEWS LEFT Routine 06/07/2025 12:57 PM EDT Left foot pain XR THORACIC SPINE 2 VIEWS Routine 04/16/2025 3:57 PM EDT XR LUMBAR SPINE 2-3 VIEWS Routine 04/16/2025 3:56 PM EDT VITAMIN D,25-OH,TOTAL,IA Routine 04/16/2025 9:03 AM EDT PTH, INTACT WITHOUT CALCIUM Routine 04/16/2025 9:03 AM EDT CBC WITH AUTO DIFFERENTIAL Routine 04/16/2025 9:03 AM EDT BI MAMMOGRAM SCREENING TOMOSYNTHESIS BILATERAL Routine 08/24/2024 10:30 AM EDT HM PAP/HPV Routine 07/19/2022 from Last 3 Months or Most Recently Relevant to Health Maintenance Results * XR Foot 3+ Views Left (06/07/2025 12:57 PM EDT) Anatomical Region Laterality Modality Lower Extremities, Foot Left Radiogra phic Imaging 06/07/2025 12:5 7 PM EDT Narrative 06/07/2025 2:15 PM EDT [address] [address] XRay Report Signed Patient: Jocelynn Osborn MR#: M [id number] : 1980 Acct:[id number] Age/Sex: 44 / F ADM Date: 06/07/25 Loc: .HHCX Attending Dr: Stephie Amaya MD Ordering Physician: Stephie Arroyo MD Date of Service: 06/07/25 Procedure(s): XR foot LT min 3V Accession Number(s): [id number] cc: Stephie Arroyo MD EXAMINATION: XR FOOT 3 OR MORE VIEWS LEFT HISTORY: pain COMPARISON: There are no prior studies available for comparison. FINDINGS: Three views of the left foot are submitted. Osseous mineralization is normal. There is no fracture or dislocation. The joint spaces are preserved. There is calcification of the distal Achilles tendon. XR/XR foot LT min 3V IMPRESSION: Calcification of the distal Achilles tendon. Otherwise unremarkable examination of the left foot. Electronically signed by: Akbar Mckeon MD 06/07/2025 02:12 PM EDT Dictated By: Akbar Mckeon MD Signed By: <Electronically signed by Akbar Mckeon MD in OV> 06/07/25 1412 DD/ 1257 TD/TT: 06/07/25 1300 Combustion Engineer: Procedure Note Donotuseinterpreter, Image - 06/07/[address] [address] XRay Report Signed Patient: Jocelynn OsbornMR#: M [id number] : 1980Acct:[id number] Age/Sex: 44 / FADM Date: 06/07/25 Loc: HO.HHCX Attending Dr: Stephie Amaya MD Ordering Physician: Stephie Arroyo MD Date of Service: 06/07/25 Procedure(s): XR foot LT min 3V Accession Number(s): [id number] cc: Stephie Arroyo MD EXAMINATION: XR FOOT 3 OR MORE VIEWS LEFT HISTORY: pain COMPARISON: There are no prior studies available for comparison. FINDINGS: Three views of the left foot are submitted. Osseous mineralization is normal. There is no fracture or dislocation. The joint spaces are preserved. There is calcification of the distal Achilles tendon. XR/XR foot LT min 3V IMPRESSION: Calcification of the distal Achilles tendon. Otherwise unremarkable examination of the left foot. Electronically signed by: Akbar Mckeon MD 06/07/2025 02:12 PM EDT Dictated By: Akbar Mckeon MD Signed By: <Electronically signed by Akbar Mckeon MD in OV> 06/07/25 1412 DD/ 1257 TD/TT: 06/07/25 1300 Combustion Engineer: Stephie Amaya MD IMG XR PROCEDURES Edgar kinza Result - Final * XR Thoracic Spine 2 Views (04/16/2025 3:57 PM EDT) Anatomical Region Laterality Modality Spine, T-spine Radiographic Stephie ging 04/16/2025 3:57 PM EDT Narrative 04/16/2025 3:59 PM EDT [address] [address] XRay Report Signed Patient: Jocelynn Osborn MR#: M [id number] : 1980 Acct:[id number] Age/Sex: 44 / F ADM Date: 04/16/25 Loc: HO.XRAY Attending Dr: Karla Fuller ANP-C Ordering Physician: Karla Fuller Date of Service: 04/16/25 Procedure(s): XR thoracic spine 2V Accession Number(s): [id number] cc: Karla Fuller; [facility] CLINICAL HISTORY: R10.33 - Periumbilical pain Three views of the thoracic spine. COMPARISON: None FINDINGS: Hume right curvature of the lower thoracic spine. Vertebral body heights are maintained. No evidence of acute vertebral body injury. Small marginal osteophytes along the midthoracic spine. Vertebral disc space heights are maintained Visualized portions of the lungs are unremarkable. IMPRESSION: 1. No radiographic evidence of acute injury to the thoracic spine. 2. Hume right curvature of the lower thoracic spine. This document has been electronically signed by: Israel Mcmanus MD on 04/16/2025 15:57:45 Dictated By: Israel Mcmanus MD Signed By: <Electronically signed by Israel Mcmanus MD in OV> 04/16/25 1558 DD/ 1557 TD/TT: 04/16/25 1557 Combustion Engineer: Procedure Note Donotuseinterpreter, Image - 04/16/2025 [place] [address] XRay Report Signed Patient: Jocelynn Osborn#: M [id number] : 1980Acct:[id number] Age/Sex: 44 / FADM Date: 04/16/25 Loc: HO.CLIFFORD Attending Dr: Karla LEMUS Ordering Physician: Karla Fuller Date of Service: 04/16/25 Procedure(s): XR thoracic spine 2V Accession Number(s): [id number] cc: Karla Fuller; [facility] CLINICAL HISTORY: R10.33 - Periumbilical pain Three views of the thoracic spine. COMPARISON: None FINDINGS: Hume right curvature of the lower thoracic spine. Vertebral body heights are maintained. No evidence of acute vertebral body injury. Small marginal osteophytes along the midthoracic spine. Vertebral disc space heights are maintained Visualized portions of the lungs are unremarkable. IMPRESSION: 1. No radiographic evidence of acute injury to the thoracic spine. 2. Hume right curvature of the lower thoracic spine. This document has been electronically signed by: Israel Mcmanus MD on 04/16/2025 15:57:45 Dictated By: Israel Mcmanus MD Signed By: <Electronically signed by Israel Mcmanus MD in OV> 04/16/25 1558 DD/ 1557 TD/TT: 04/16/25 1557 Combustion Engineer: [facility] External Provider IMG XR PROCEDURES Final Result * XR Lumbar Spine 2-3 Views (04/16/2025 3:56 PM EDT) Anatomical Region Laterality Modality Spine, L-spine Radiographic Stephie ging 04/16/2025 3:56 PM EDT Narrative 04/16/2025 3:58 PM EDT [place] [address] XRay Report Signed Patient: Jocelynn Osborn MR#: M [id number] : 1980 Acct:[id number] Age/Sex: 44 / F ADM Date: 04/16/25 Loc: HO.XRAY Attending Dr: Karla LEMUS Ordering Physician: Karla Fuller Date of Service: 04/16/25 Procedure(s): XR lumbar spine 2-3V Accession Number(s): [id number] cc: Karla Fuller; [facility] CLINICAL HISTORY: R10.33 - Periumbilical pain Three views of the lumbar spine. COMPARISON: None FINDINGS: Hernia mesh repair clips along the lower abdomen and pelvis. Five agg-owv-zvhudbm lumbar type vertebral bodies. Hume right curvature of the lower lumbar spine. Vertebral body heights are maintained. No evidence of acute vertebral body injury. Vertebral disc space heights are preserved. Facet joint arthrosis in the mid to lower lumbar spine. Small marginal osteophytes along the lumbar spine. Visualized portions of the bones of the pelvis appear intact. IMPRESSION: 1. No radiographic evidence of acute injury to the lumbar spine. 2. Rightward curvature of the lower lumbar spine. 3. Mild multilevel degenerative changes of the lumbar spine. This document has been electronically signed by: Israel Mcmanus MD on 04/16/2025 15:56:35 Dictated By: Israel Mcmanus MD Signed By: <Electronically signed by Israel Mcmanus MD in OV> 04/16/251556 DD/ 155 TD/TT: 04/16/251555 Combustion Engineer: Procedure Note Donotuseinterpreter, Image - 04/16/[address] [address] XRay Report Signed Patient: Jocelynn OsbornMR#: M [id number] : 1980Acct:[id number] Age/Sex: 44 / FADM Date: 04/16/25 Loc: KATLYN Attending Dr: Karla LEMUS Ordering Physician: Karla Fuller Date of Service: 04/16/25 Procedure(s): XR lumbar spine 2-3V Accession Number(s): [id number] cc: Karla Fuller; [facility] CLINICAL HISTORY: R10.33 - Periumbilical pain Three views of the lumbar spine. COMPARISON: None FINDINGS: Hernia mesh repair clips along the lower abdomen and pelvis. Five fnn-oom-asukevn lumbar type vertebral bodies. Hume right curvature of the lower lumbar spine. Vertebral body heights are maintained. No evidence of acute vertebral body injury. Vertebral disc space heights are preserved. Facet joint arthrosis in the mid to lower lumbar spine. Small marginal osteophytes along the lumbar spine. Visualized portions of the bones of the pelvis appear intact. IMPRESSION: 1. No radiographic evidence of acute injury to the lumbar spine. 2. Rightward curvature of the lower lumbar spine. 3. Mild multilevel degenerative changes of the lumbar spine. This document has been electronically signed by: Israel Mcmanus MD on 04/16/2025 15:56:35 Dictated By: Israel Mcmanus MD Signed By: <Electronically signed by Israel Mcmanus MD in OV> 04/16/25 1557 DD/ 55 TD/TT: 04/16/251555 Combustion Engineer: [facility] External Provider IMG XR PROCEDURES Final Result * (ABNORMAL) Vitamin D, 25-Hydroxy, Total, Immunoassay (04/16/2025 9:03 AM EDT) Vitamin D 25-OH Total 24.3(L) >30 ng/mL [facility] Comment: Health Based Reference Values*< 20 ng/mL Uvbrhwuge96-93 ng/mL Insufficient> 30 ng/mL Sufficient*Juanis STEPHENSON. N Engl J Med. 2007;357:266-280There is no well-established upper level of normal vitamin Dlevels. Some laboratories use 50 ng/mL as an upper limit ofnormal. However, toxicity is patient-dependent and may occurat any level. Careful correlation with the patient'spresentation is necessary and, if there is concern forvitamin D toxicity, treatment should be consideredirrespective of the serum level.Care must be taken in interpreting Vitamin D [...] confirmed with another method such as LC-MS/MS. 04/16/2025 9:03 AM EDT 04/16/2025 9:03 AM EDT us Generic External Data Provider LAB BLOOD ORDERAB LES Final Result [facility] [address] [place] [address] [phone] * CBC auto differential (04/16/2025 9:03 AM EDT) White Blood Count 5.1 4.8 - 10.8 X10*3/uL [facility] Red Blood Count 4.40 4.20 - 5.50 X10*6/uL [facility] Hemoglobin 12.2 12.0 - 16.0 g/dl [facility] Hematocrit 37.5 37.0 - 47.0 % [facility] Mean Corpuscular Volume 85.2 80.0 - 98.0 fL [facility] Mean Corpuscular Hemoglobin 27.7 27.0 - 33.0 pg [facility] Mean Corpuscular HGB Conc 32.5 31.0 - 35.0 g/dl [facility] Red Cell Distribution Width 13.3 11.0 - 16.0 % [facility] Platelet Count 249 160 - 400 X10*3/uL [facility] Mean Platelet Volume 11.4 9.4 - 12.3 fL [facility] Neutrophils Percent Auto 56.9 45 - 73 % [facility] Imm Gran Pct Auto 0.2 0.0 - 0.4 % [facility] Lymphocytes Percent Auto 33.6 20 - 40 % [facility] Monocytes Percent Auto 7.5 2 - 11 % [facility] Eosinophils Percent Auto 1.4 0 - 4 % [facility] Basophils Percent Auto 0.4 0 - 2 % [facility] NRBC Pct Auto 0.0 0.0 - 0.2 /100WBC [facility] Neutrophils Absolute Auto 2.9 2.0 - 8.3 x10*3/uL [facility] Imm Gran Abs Auto 0.01 0.00 - 0.03 X10*3/uL [facility] Lymphocytes Absolute Auto 1.7 1.2 - 4.9 X10*3/uL [facility] Monocytes Absolute Auto 0.4 0.1 - 1.2 X10*3/uL [facility] Eosinophils Absolute Auto 0.1 0.0 - 0.4 X10*3/uL [facility] Basophils Absolute Auto 0.0 0.0 - 0.2 X10*3/uL [facility] NRBC Abs Auto 0.000 0.0 - 0.012 X10*3/uL [facility] 04/16/2025 9:03 AM EDT 04/16/2025 9:03 AM EDT us Generic External Data Provider LAB BLOOD ORDERAB LES Final Result Performing Organization Address City/[facility] Co de Phone Number [facility] [address] [place] [phone] [phone] * (ABNORMAL) PTH, Intact Without Calcium (04/16/2025 9:03 AM EDT) Parathyroid Hormone, Intact 95.7(H) 8.7 - 77.1 pg/mL [facility] 04/16/2025 9:03 AM EDT 04/16/2025 9:03 AM EDT us Generic External Data Provider LAB BLOOD ORDERAB LES Final Result Performing Organization Address [facility] Co de Phone Number [facility] [address] [place] [phone] * BI Mammogram Screening Tomosynthesis Bilateral (08/24/2024 10:30 AM EDT) Anatomical Region Laterality Modality Breast Bilateral Mammography 08/24/2024 10:3 0 AM EDT Narrative 09/05/2024 8:17 AM EDT [facility] [address] [place] [address] Mammography Report Signed Patient: Jocelynn Osborn MR#: M [id number] : 1980 Acct:[id number] Age/Sex: 44 / F ADM Date: 08/24/24 Loc: MAMMO Attending Dr: Haydee BRADLEY Ordering Physician: Fly De Souza MD Results: 1Negativ e Date of Service: 08/24/24 Follow Up: 1 Year From Orig ina Mammogram Procedure(s): MM tomosynthesis screening BI Accession Number(s): [id number] cc: Haydee Jacinto; Fly De Souza MD [...] Arabella Glaser DO 09/05/2024 08:15 AM EDT RP Dictated By: Arabella Glaser DO Signed By: <Electronically signed by Arabella Glaser DO in OV> 09/05/24 0815 DD/ 1030 TD/TT: 08/24/24 1045 Combustion Engineer: Procedure Note Donotuseinterpreter, Image - 09/05/2024 [facility] [address] [place] [address] Mammography Report Signed Patient: Jocelynn OsbornMR#: M [id number] : 1980Acct:[id number] Age/Sex: 44 / FADM Date: 08/24/24 Loc: MAMMO Attending Dr: Haydee BRADLEY Ordering Physician: Fly De Souza MDResults: 1Negativ e Date of Service: 08/24/24Follow Up: 1 Year From Orig ina Mammogram Procedure(s): MM tomosynthesis screening BI Accession Number(s): [id number] cc: Haydee Jacinto; Fly De Souza MD [...] 09/05/24 0815 DD/ 1030 TD/TT: 08/24/24 1045 Combustion Engineer: [facility] External Provider IMG BI PROCEDURES Edited Result - Final * Pap Smear (07/19/2022) Pap Negative for intraephithelial lesion or malignancy Negative for intraephithelial lesion or malignancy, Other HPV Undetected Historical Provider HEALTH MAINTENANCE Final Result from Last 3 Months or Most Recently Relevant to Health Maintenance Insurance C3 Care Teams Sign Hanger Supervisor Relationship Specialty Start Date End Date [place] FNP [address] [place] [phone] PCP - General Family Medicine 07/12/22
--- OUTSIDE RECORDS SUMMARY | 2025-07-12 10:45 | XMS_ITS | Encounter Summary ---
Author Organization [email or web address] Address [address] [place] [address] [address] [place] [address] Care Team Providers Care Master Tax Advisor Name Role Phone [facility] Primary Care Provider [phone] Reason for Visit * Reason Onset Date Comments Returning Call 11/23/2024 Encounter Details Date Type Department Care Team ([facility] st Contact Info) Description 11/23/2024 Telephone [facility] [address] [place], [place] [phone] [facility] [address] [place] [address] Returning Call Social History Tobacco Use Types [...] encounter Miscellaneous Notes * Telephone Encounter - Aldomarcus Linares - 11/23/2024 12:06 PM EST Tc from pt returning call regarding message below. CIARAN Christian placed outbound call to patient to complete pre-visit planning. No answer at this time. documented in this encounter Plan of Treatment Upcoming Encounters Date Type Department Care Team (Late st Contact Info) Description 08/28/2025 9:15 AM EDT Office Visit [facility] [address] [place] [address] Haydee Jacinto FNP [address] [place] [address] documented as of this encounter Visit Diagnoses Not on filedocumented in this encounter Additional Health Concerns Assessment Noted Time PHQ-9 Depression Total Score: 0 09/03/20 24 9:57 AM EDT documented as of this encounter Care Teams Master Tax Advisor Relationship Specialty Start Date End Date Haydee Jacinto FNP [address] [place] [address] PCP - General Family Medicine 07/12/22 documented as of this encounter
--- OUTSIDE RECORDS SUMMARY | 2025-07-12 10:45 | XMS_ITS | Encounter Summary ---
Author Organization [employer] Address [address] [facility] [address] [place] [address] Care Team Providers Care Mending Carrier Name Role Phone Haydee Jacinto [facility] Primary Care Provider [phone] Encounter Details Date Type Department Care Team ([facility] st Contact Info) Description 08/18/2023 Abstract [facility] [address] [place] [address] Kelsey Sims Social History Tobacco Use Types [...] Description 08/28/2025 9:15 AM EDT Office Visit [facility] [address] [place] [address] Haydee Jacinto FNP [address] [place] [address] documented as of this encounter Procedures Procedure [...] documented as of this encounter Care Teams Mending Carrier Relationship Specialty Start Date End Date Haydee Jacinto FNP [address] [place] [address] PCP - General Family Medicine 07/12/22 documented as of this encounter
== END 2025-07-12 11:01 | disposition home or self-care (01) ==
LOC: HO.HGI 10:00
PROVIDERS: PCP Registered Nurse; Visit Provider Nurse Practitioner
DX: K58.2 Mixed irritable bowel syndrome (principal)
CPT/HCPCS: 99214

== ENCOUNTER → 2025-07-12 09:59 | Outpatient (BNVA) | payer MEDICAID, SELFPAY | PROVIDERS: PCP Registered Nurse; Visit Provider Nurse Practitioner | DX: K58.2 Mixed irritable bowel syndrome (principal) | CPT/HCPCS: 99212 ==

== ENCOUNTER 2025-08-28 09:22 | Outpatient (REF) | payer MEDICAID, SELFPAY ==
--- NOTE | ~2025-08-28 | XR_ITS ---
EXAMINATION: XR HIP, RIGHT CLINICAL INFORMATION: Chronic right hip pain COMPARISON: 10/08/2019. TECHNIQUE: Two views of the right hip. FINDINGS: No fracture, dislocation, or suspicious bone lesion. Normal bone mineralization. Normal alignment. Hip joint space is normal. There is normal acetabular coverage. Normal femoral head contour without evidence of AVN. Incidental note made of periarticular sclerosis of the right SI joint. Partially imaged herniorrhaphy clips in the central upper pelvis. Soft tissues otherwise normal. XR/XR hip RT min 2V IMPRESSION: 1. Normal right hip. Electronically signed by: Waylon Colon MD 08/28/2025 09:50 AM EDT
--- NOTE | ~2025-08-28 | XR_ITS ---
EXAMINATION: XR PELVIS CLINICAL INFORMATION: 45 y.o F with chronic hip pain COMPARISON: X-ray 12/17/2019 TECHNIQUE: AP view of the pelvis. FINDINGS: Osseous mineralization is normal. No visible acute fracture or dislocation. Bilateral hip joints appear unremarkable. 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 SI joints are symmetric. Symphysis pubis is intact. Pelvic ring is intact.. No aggressive marrow replacing lesion. No abnormal soft tissue calcification. Redemonstrated herniography projected over the abdomen/pelvis. XR/XR pelvis 1-2V IMPRESSION: No acute osseous findings. Electronically signed by: Matthieu Roberson MD 08/28/2025 10:00 AM EDT
--- OUTSIDE RECORDS SUMMARY | 2025-08-28 10:33 | XMS_ITS | Clinical Summary ---
Author Organization [address] [facility] Address [address] [place] [address] Phone Care Team Providers Care Category Specialist Name Role Phone Stephie Arroyo MD Primary Care Provide r Social History Tobacco Use Types Packs/Day Years Used Date Smoking Tobacco: Never Assessed Comments Unknown Sex and Gender Information Value Date Recorded Sex Assigned at Not on file Legal Sex Female 9:23 AM EDT Gender Identity Not on file Sexual Orientation Not on file Plan of Treatment Upcoming Encounters Date Type Department Care Team ([facility] Contact Info) Description 08/29/2025 10:30 AM EDT Office Visit Orthopedic Surgery [facility] [address] [phone] Axel Han DPM [address] [phone] Health Maintenance Due Date Last Done Comments Breast Cancer Screening 1981 DTaP,Tdap,and Td Vaccines (1 - Tdap) 2000 Hepatitis B Vaccines (1 of 3 - 19+ 3-dose series) 2000 Cervical Cancer Screening: P ap Smear 2002 HPV Vaccines (1 - 3-dose SCD M series) 2008 Depression Screening 11/14/2024 HIV Screening 06/11/2025 Hepatitis C Screening 06/11/2025 Social Influencers of Health Screening 06/11/2025 COVID-19 Vaccine (1 - 2023-2 5 season) 2025 Influenza Vaccine (#1) 2025 RSV Immunization Adult Patie nts (1 - 1-dose 75+ series) 2056 HIB Vaccines Aged Out No longer eligi ble based on patient's age to complete this topic Hepatitis A Vaccines Aged Out No long er eligible based on patient's age to complete this topic IPV Vaccines Aged Out No longer eligi ble based on patient's age to complete this topic MMR Vaccines Aged Out No longer eligi ble based on patient's age to complete this topic Meningococcal ACWY Vaccine Aged Out N o longer eligible based on patient's age to complete this topic Meningococcal B Vaccine Aged Out No l onger eligible based on patient's age to complete this topic Pneumococcal Vaccine: Pediat rics (0 to 5 Years) and At-Risk Patients (6 to 49 Years) Aged Out No longer eligible b ased on patient's age to complete this topic RSV Immunization Patients Un mecca 20 months Aged Out No longer eligible b ased on patient's age to complete this topic Varicella Vaccines Aged Out No longer eligible based on patient's age to complete this topic Insurance MEDICAID - [place] Care Teams Category Specialist Relationship Specialty Start Date End Date Stephie Arroyo MD [address] [place] [phone] PCP - General Internal Medicine 06/11/25
== END 2025-08-28 09:23 | disposition home or self-care (01) ==
LOC: HO.HHCX 09:22
PROVIDERS: PCP Registered Nurse; Visit Provider Registered Nurse
DX: M25.551 Pain in right hip (principal); G89.29 Other chronic pain
CPT/HCPCS: 72170; 73502

== ENCOUNTER → 2025-08-28 09:30 | Outpatient (BNV) | payer MEDICAID, SELFPAY | PROVIDERS: PCP Registered Nurse; Visit Provider Radiology Diagnostic Radiology | DX: M25.551 Pain in right hip (principal) | CPT/HCPCS: 72170; 73502 ==

== ENCOUNTER 2025-08-30 07:41 | Outpatient (REF) | payer MEDICAID, SELFPAY ==
--- OUTSIDE RECORDS SUMMARY | 2025-08-28 09:15 | XMS_ITS | Encounter Summary ---
Author Organization [employer] Address [address] [place] [address] Care Team Providers Care Operational Risk Analyst Name Role Phone Haydee Jacinto Primary Care Provider [phone] Reason for Referral * Consultation (Routine) - Closed Specialty Diagnoses / Procedures Referred By Sveta pena Referred To Contact Physical Therapy Diagnoses Chronic right-sided low back pain without sciatica Chronic right hip pain Haydee Jacinto FNP [address] [place] [address] Phone: tel: fax: [facility] [address] [place] [address] Phone: tel: fax: Referral ID Status Reason Start Date Expiration Date V isits Requested Visits Authorized [id number] Closed Specialty Services Required 08/28/2025 08/28/2026 20 20 Reason for Visit * Reason Comments Follow-up Encounter Details Date Type Department Care Team (Late st Contact Info) Description 08/28/2025 9:15 AM EDT Office Visit [facility] [address] [place] [address] Haydee Jacinto FNP [address] [place] [address] Urge incontinence of urine (Primary Dx); Vitamin D deficiency; Chronic right-sided low back pain without sciatica; Chronic right hip pain; Hyperparathyroidism (CMS/HCC); Uterine leiomyoma, unspecified location Social History Tobacco Use Types Packs/Day Years Used Date Smoking Tobacco: Never Passive Smoke Exposure: Never Smokeless Tobacco: Never Tobacco Cessation:Counseling Given: Not Answered Alcohol Use Standard Drinks/Week Comments Never 0 (1 standard drink = 0.6 oz pur e alcohol) Depression Answer Date Recorded Patient Health Questionnaire-9 Score 10 08/28/2025 Patient Health Questionnaire-9 Score 10 08/28/2025 Last PHQ-9: Questionnaire Data Not on file 1 Housing Stability Answer Date Recorded What is your housing situation today? I have tawnya lindsay 08/31/[address] you li [...] Answer Date Recorded Patient Health Questionnaire-2 Score 1 08/28/2025 Internet Access Answer Date Recorded Internet Access Q1 Yes 11/23/2024 Internet Access Q2 Not on file 11/23/2024 Comments No Sex and Gender Information Value Date Recorded Sex Assigned at Female 09/13/2022 10:18 AM EDT Legal Sex Female 10:18 AM EDT Gender Identity Female 09/13/2022 10:18 AM EDT Sexual Orientation Don't know 09/13/2022 10 :18 AM EDT documented as of this encounter Last Filed Vital Signs Vital Sign Reading Time Taken Comments Blood Pressure 130/82 08/28/2025 8:41 AM EDT Pulse 86 08/28/2025 8:41 AM EDT Temperature 36.4 C (97.5 F) 08/28/2025 8:41 AM EDT Respiratory Rate 18 08/28/2025 8:41 AM EDT Oxygen Saturation - - Inhaled Oxygen Concentration - - Weight 78.2 kg (172 lb 6.4 oz) 08/28/2025 8:41 A M EDT Height 162.6 cm (5' 4 ) 08/28/2025 8:41 AM EDT Body Mass Index 29.59 08/28/2025 8:41 AM EDT documented in this encounter Functional Status * Over the past 2 weeks, how often have you been bothered by any of the following problems? Question Answer Date of Assessment Author Patient Health Questionnaire-2 Score 1 08/28/2025 9:31 AM EDT Ekaterina Duffy MA * Little interest or pleasure in doing things Answer Date of Assessment Author Several days 08/28/2025 9:31 AM EDT Ekaterina Cheng MA * Feeling down, depressed, or hopeless Answer Date of Assessment Author Not at all 08/28/2025 9:31 AM EDT Ekaterina Cheng MA * Trouble falling or staying asleep, or sleeping too much Answer Date of Assessment Author More than half the days 08/28/2025 9:31 AM EDT Ekaterina Cardenas MA * Feeling tired or having little energy Answer Date of Assessment Author More than half the days 08/28/2025 9:31 AM EDT Ekaterina Cardenas MA * Poor appetite or overeating Answer Date of Assessment Author Several days 08/28/2025 9:31 AM EDT Ekaterina Cheng MA * Feeling bad about yourself - or that you are a failure or have let yourself or your family down Answer Date of Assessment Author Not at all 08/28/2025 9:31 AM EDT Ekaterina Cheng MA * Trouble concentrating on things, such as reading the newspaper or watching television Answer Date of Assessment Author Nearly every day 08/28/2025 9:31 AM EDT Ekaterina Valdivia MA * Moving or speaking so slowly that other people could have noticed? Or the opposite - being so fidgety or restless that you have been moving around a lot more than usual. Answer Date of Assessment Author Several days 08/28/2025 9:31 AM EDT Ekaterina Cheng MA * Thoughts that you would be better off or hurting yourself in some way Answer Date of Assessment Author Not at all 08/28/2025 9:31 AM AMANDAT Ekaterina Cheng MA * Patient Health Questionnaire-9 Score Answer Date of Assessment Author 10 08/28/2025 9:31 AM EDT Ekaterina Cheng MA * How difficult have these problems made it for you to do your work, take care of things at home, or get along with other people? Answer Date of Assessment Author Somewhat difficult 08/28/2025 9:31 AM EDT Ekaterina Anne MA * Over the last 2 weeks, how often have you been bothered by any of the following problems? Question Answer Date of Assessment Author Feeling nervous, anxious, or on edge 0 08/28/2025 9:32 AM EDT Ekaterina Duffy MA Not being able to stop or control worrying 0 08/28/2025 9:32 AM EDT Ekaterina Duffy MA Worrying too much about different things 0 08/28/2025 9:32 AM EDT Ekaterina Duffy MA Trouble relaxing 0 08/28/2025 9:32 AM EDT Ekaterina Cardenas MA Being so restless that it is hard to sit still 0 08/28/2025 9:32 AM EDT Ekaterina Duffy MA Becoming easily annoyed or irritable 1 08/28/2025 9:32 AM EDT Ekaterina Duffy MA Feeling afraid as if something awful might happen 0 08/28/2025 9:32 AM EDT Ekaterina Valdivia MA DEIDRA-7 Total Score 1 08/28/2025 9:32 AM EDT Ekaterina Duffy MA documented as of this encounter Progress Notes * [facility], [facility] - 08/28/2025 9:15 AM EDT SUBJECTIVE: Jocelynn Navarro is a 45 y.o. year old female anxiety/depression, hyperparathyroidism and palpitations who presents for chronic disease management. Denies recent illness, injury, or hospitalization. 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 Awaiting follow-up with [facility] gynecology for monitoring fibroid size and ultrasound; was referred to [facility] for second opinion. HyperPTH: Parathyroid Hormone, Intact Date Value Ref Range Status 04/16/2025 95.7 (H) 8.7 - 77.1 pg/mL Final - Taking chewable vitamin D 1200IU daily, sometimes forgets. Vitamin D 24.3. Needs to contact endocrinology for follow up Mood: Increased fatigue. Under care of psychiatrist and psychologist, seen every other week. No SI/HI/self harm. - Persistent fatigue and sleepiness - Taking chewable vitamin D tablets daily, occasionally forgets doses - Recent blood work (approximately one month ago) showing low vitamin D and elevated parathyroid hormone GI - Endoscopy and colonoscopy performed, awaiting results--has follow up scheduled with [facility] GI. Healthcare Maintenance - Due for mammogram, appointment scheduled for August 30, 2025 Chronic Health Conditions Hyperparathyroidism secondary to vitamin D deficiency however patient has been unable to treat deficiency due to anxiety swallowing pills. Per last visit note endocrinology stated that if patient is noncompliant with vitamin D replacement they would not be able to treat effectively. 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 De Souza 10/2024 at which time possible total hysterectomy was discussed. Patient optedfor serial pelvic ultrasounds with next imaging due 08/2025 Gastroenterology - Follows with [facility] for chronic idiopathic constipation, rectal bleeding, frequent nausea, IBS - Using linzess PRN, famotidine, imipramine - Multiple negative small bowel follow through studies - EGD/colonoscopy pending 07/2025 Cardiology - Follows with Dr. Bhatanagar for history of palpitations Pulmonology Follows with [facility] Pulmonology for history of asthma - 04/2025 switched to trelegy Urology - Follows with [facility] urology for LUTS - retroperitoneal ultrasound with enlarged uterus with uterine fibroids causing compression of bladder but was otherwise unremarkable - On oxybutynin Social History Social History Narrative Current living environment: Lives with son Children: 1 (age 9), autism Employment/Education: Not currently Tobacco Use: None Alcohol Use: None Marijuana Use: None Other drug use: None Reproductive Health: Sexually Active: Occasionally Partners are: AMAB Control: None, would be OK with Problem List[1] Surgical History[2] Family History[3] Review of Systems Constitutional: Negative for fever. HENT: Negative. Respiratory: Negative for shortness of breath. Cardiovascular: Negative for chest pain. Gastrointestinal: Negative for abdominal pain. Musculoskeletal: Positive for arthralgias and back pain. Neurological: Negative for dizziness and weakness. OBJECTIVE: Vitals: 08/28/25 0841 BP: 130/82 Pulse: 86 Resp: 18 Temp: 97.5 ??F (36.4 ??C) Physical Exam Constitutional: General: [...] normal. Breath sounds: Normal breath sounds. Musculoskeletal: Cervical back: Normal. Thoracic back: Normal. Lumbar back: Tenderness present. No swelling or deformity. Normal range of motion. Right hip: No deformity, lacerations, tenderness or crepitus. Normal range of motion. Normal strength. Left hip: Normal. Comments: Tenderness over right SI joint. Strength, sensation, ROM otherwise intact throughout LE Skin: General: Skin is warm and dry. Neurological: General: No focal deficit present. Mental Status: She is alert and oriented to person, place, and time. Psychiatric: Mood and Affect: Mood normal. Behavior: Behavior normal. ASSESSMENT/PLAN Urge incontinence of urine: - Urge incontinence likely exacerbated by uterine fibroid-related bladder compression. - Refilled oxybutynin 10 mg daily. Recommended follow-up with gynecology for ongoing evaluation of fibroid size and management. Vitamin D deficiency/Hyper PTH - Persistent vitamin D deficiency with continued low levels despite supplementation. - Increased vitamin D chewable tablets from 4 to 6 daily. Advised follow-up with endocrinology to reassess dosing and management. Chronic right-sided low back pain ; right hip pain - Sx likely musculoskeletal. Non-focal, normal motor exam without neurological deficits. - Update xrays - Recommend NSAID and tylenol prn. - Accepts physical therapy referral -Lifting precautions and stretching reviewed. -ER precaution discussed. -Contact HC if no sx improvement with conservative tx Uterine fibroids: - Uterine fibroids causing bladder compression and contributing to urinary symptoms. - Recommended follow-up with gynecology, including scheduled ultrasound in September 2025 to monitorfibroid size. Provided contact information for [facility] referral and advised to maintain appointment with Dr. Rinaldi. Healthcare Maintenance Mammogram screening: - Due for routine mammogram in August 2025. - Confirmed appointment scheduled for August [facility], 2025, [facility]. Declines flu/covid vaccine Diagnosis Plan 1. Urge incontinence of urine oxybutynin XL (Ditropan XL) 10 MG 24 hr tablet 2. Vitamin D deficiency Cholecalciferol (Vitamin D3) 10 MCG (400 UNIT) chewable tablet 3. Chronic right-sided low back pain without sciatica Referral to Physical Therapy Referral to Physical Therapy 4. Chronic right hip pain XR Pelvis 1-2 Views XR Hip 2 or 3 Views Right XR Pelvis 1-2 Views XR Hip 2 or 3 Views Right Referral to Physical Therapy Referral to Physical Therapy 5. Hyperparathyroidism (CMS/HCC) 6. Uterine leiomyoma, unspecified location Follow Up: 6 months, PE Medications Ordered Prior to Encounter[4] Maori Translation: Provided by [facility] staff member MEET Torre [1] Patient Active Problem List Diagnosis Hepatomegaly Hyperparathyroidism (CMS/HCC) Uterine leiomyoma Chronic low back pain Other chest pain Healthcare maintenance Anxiety and depression Other dysphagia Other irritable bowel syndrome Chronic hoarseness Left foot pain [2] Past Surgical History: Procedure Laterality Date SECTION, UNSPECIFIED HERNIA REPAIR [3] Family History Problem Relation Name Age of Onset Diabetes type II Mother Hypertension Mother Prostate cancer Father Diabetes type II Father Hypertension Father Colon cancer Neg Hx Breast cancer Neg Hx [4] Current Outpatient Medications on File Prior to [...] needed for dry skin. 453 g 2 Cholecalciferol (Vitamin D3) 10 MCG (400 UNIT) chewable tablet CHEW AND SWALLOW 4 TABLETS ONCE DAILY 360 tablet 1 clonazePAM (KlonoPIN) 0.5 MG tablet Take 0.5 mg by mouth if needed each day. dicyclomine (Bentyl) 20 MG tablet Take 20 [...] FOR NAUSEA AND VOMITING oxymetazoline (Afrin Nasal [place]) 0.05 % nasal spray Administer 2 sprays [...] 25 mg Intramuscular Nightly Yahaira Sainz MD documented in this encounter Plan of Treatment Scheduled Referrals Name Type Priority Associated Diagnoses Orde r Schedule Referral to Physical Therapy Outpatient Referral Routine Chronic right-sided low back pain without sciatica Chronic right hip pain Expected: 08/28/2025 (Approximate), Expires: 08/28/2026 documented as of this encounter Procedures Procedure Name Priority Date/Time Associated Diagnosis Comments XR PELVIS 1-2 VIEWS Routine 08/28/2025 9 :45 AM EDT Chronic right hip pain XR HIP 2 OR 3 VIEWS RIGHT Routine 08/28/2025 9:45 AM EDT Chronic right hip pain documented in this encounter Results * XR Hip 2 or 3 Views Right (08/28/2025 9:45 AM EDT) Anatomical Region Laterality Modality Lower Extremities, Hip Right Radiograp hic Imaging 08/28/2025 9:45 AM EDT Narrative 08/28/2025 9:53 AM EDT [address] [address] XRay Report Signed Patient: Jocelynn Osborn MR#: [id number] : 1980 Acct:[id number] Age/Sex: 45 / F ADM Date: 08/28/25 Loc: [facility] Attending Dr: Haydee BRADLEY Ordering Physician: Haydee Jacinto Date of Service: 08/28/25 Procedure(s): XR hip RT min 2V Accession Number(s): [id number] cc: Haydee JacintoP Reason for Exam: Chronic right hip pain EXAMINATION: XR HIP, RIGHT CLINICAL INFORMATION: Chronic right hip pain COMPARISON: 10/08/2019. TECHNIQUE: Two views of the right hip. FINDINGS: No fracture, dislocation, or suspicious bone lesion. Normal bone mineralization. Normal alignment. Hip joint space is normal. There is normal acetabular coverage. Normal femoral head contour without evidence of AVN. Incidental note made of periarticular sclerosis of the right SI joint. Partially imaged herniorrhaphy clips in the central upper pelvis. Soft tissues otherwise normal. XR/XR hip RT min 2V IMPRESSION: 1. Normal right hip. Electronically signed by: Waylon Colon MD 08/28/2025 09:50 AM EDT Dictated By: Waylon Colon MD Signed By: <Electronically signed by Waylon Colon MD in OV> 08/28/2550 DD/ TD/TT: 08/28/[address] Sql Developer: Procedure Note Donotuseinterpreter, Image - 08/28/[address] [address] XRay Report Signed Patient: Jocelynn OsbornMR#: M [id number] : 1980Acct:[id number] Age/Sex: 45 / FADM Date: 08/28/25 Loc: [facility] Attending Dr: Haydee BRADLEY Ordering Physician: Haydee Jacinto Date of Service: 08/28/25 Procedure(s): XR hip RT min 2V Accession Number(s): [id number] cc: Haydee Jacinto Reason for Exam: Chronic right hip pain EXAMINATION: XR HIP, RIGHT CLINICAL INFORMATION: Chronic right hip pain COMPARISON: 10/08/2019. TECHNIQUE: Two views of the right hip. FINDINGS: No fracture, dislocation, or suspicious bone lesion. Normal bone mineralization. Normal alignment. Hip joint space is normal. There is normal acetabular coverage. Normal femoral head contour without evidence of AVN. Incidental note made of periarticular sclerosis of the right SI joint. Partially imaged herniorrhaphy clips in the central upper pelvis. Soft tissues otherwise normal. XR/XR hip RT min 2V IMPRESSION: 1. Normal right hip. Electronically signed by: Waylon Colon MD 08/28/2025 09:50 AM EDT Dictated By: Waylon Colon MD Signed By: <Electronically signed by Waylon Colon MD in OV> 08/28/2550 DD/ 4 TD/TT: 08/28/[address] Sql Developer: Haydee [facility] IMG XR PROCEDURES Final Resul t * XR Pelvis 1-2 Views (08/28/2025 9:45 AM EDT) Anatomical Region Laterality Modality Body, Pelvis Radiographic Stephie ging 08/28/2025 9:45 AM EDT Narrative 08/28/2025 10:03 [place] [address] XRay Report Signed Patient: Jocelynn Osborn MR#: [id number] : 1980 Acct:[id number] Age/Sex: 45 / F ADM Date: 08/28/25 Loc: HO.HHCX Attending Dr: Haydee BRADLEY Ordering Physician: Haydee Jacinto Date of Service: 08/28/25 Procedure(s): XR pelvis 1-2V Accession Number(s): [id number] cc: Haydee JacintoP Reason for Exam: 45 y.o F with chronic hip pain EXAMINATION: XR PELVIS CLINICAL INFORMATION: 45 y.o F with chronic hip pain COMPARISON: X-ray 12/17/2019 TECHNIQUE: AP view of the pelvis. FINDINGS: Osseous mineralization is normal. No visible acute fracture or dislocation. Bilateral hip joints appear unremarkable. 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 SI joints are symmetric. Symphysis pubis is intact. Pelvic ring is intact.. No aggressive marrow replacing lesion. No abnormal soft tissue calcification. Redemonstrated herniography projected over the abdomen/pelvis. XR/XR pelvis 1-2V IMPRESSION: No acute osseous findings. Electronically signed by: Matthieu Roberson MD 08/28/2025 10:00 AM EDT RP Dictated By: Matthieu Roberson MD Signed By: <Electronically signed by Matthieu Roberson MD in OV> 08/28/25 1000 DD/ 4 TD/TT: 08/28/[address] Sql Developer: ADENIKE Procedure Note Donotuseinterpreter, Image - 08/28/[address] [address] XRay Report Signed Patient: Jocelynn OsbornMR#: M [id number] : 1980Acct:[id number] Age/Sex: 45 / FADM Date: 08/28/25 Loc: HO.HHCX Attending Dr: Haydee Jacinto [facility] Ordering Physician: Haydee Jacinto IDENTITY ACCESS MANAGEMENT ARCHITECT Date of Service: 08/28/25 Procedure(s): XR pelvis 1-2V Accession Number(s): [id number] cc: Haydee Jacinto [facility] Reason for Exam: 45 y.o F with chronic hip pain EXAMINATION: XR PELVIS CLINICAL INFORMATION: 45 y.o F with chronic hip pain COMPARISON: X-ray 12/17/2019 TECHNIQUE: AP view of the pelvis. FINDINGS: Osseous mineralization is normal. No visible acute fracture or dislocation. Bilateral hip joints appear unremarkable. 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 SI joints are symmetric. Symphysis pubis is intact. Pelvic ring is intact.. No aggressive marrow replacing lesion. No abnormal soft tissue calcification. Redemonstrated herniography projected over the abdomen/pelvis. XR/XR pelvis 1-2V IMPRESSION: No acute osseous findings. Electronically signed by: Matthieu Roberson MD 08/28/2025 10:00 AM EDT RP Dictated By: Matthieu Roberson MD Signed By: <Electronically signed by Matthieu Roberson MD in OV> 08/28/25 1000 DD/ TD/TT: 08/28/[address] Sql Developer: ADENIKE [facility] IM[facility] XR PROCEDURES Final Resul t documented in this encounter Visit Diagnoses Diagnosis Urge incontinence of urine- Primary Urge incontinence Vitamin D deficiency Chronic right-sided low back pain without sciatica Chronic right hip pain Hyperparathyroidism (CMS/HCC) Hyperparathyroidism, unspecified Uterine leiomyoma, unspecified location documented in this encounter Additional Health Concerns Assessment Noted Time PHQ-9 Depression Total Score: 10 025 9:31 AM EDT documented as of this encounter Care Teams Operational Risk Analyst Relationship Specialty Start Date End Date Haydee Jacinto FNP [address] [place] [address] PCP - General Family Medicine 07/12/22 documented as of this encounter
--- NOTE | ~2025-08-30 | MM_ITS ---
EXAMINATION: MM SCREENING DIGITAL BREAST TOMOSYNTHESIS, BILATERAL CLINICAL INFORMATION: Screening. Asymptomatic. COMPARISON: Mammography: Comparison is made with available priors TECHNIQUE: Digital breast mammography with tomosynthesis is performed in both the craniocaudal and mediolateral oblique views along with computer-aided detection (CAD). FINDINGS: The breasts are heterogeneously dense, which may obscure small masses. Bilateral scattered benign-appearing calcifications are stable. There are no significant masses, abnormal calcifications, or other abnormalities. MM/MM tomosynthesis screening BI IMPRESSION: No mammographic evidence of malignancy. ASSESSMENT: BI-RADS Category 2: Benign RECOMMENDATION: Routine annual mammography screening. 1 year F/U This examination should not preclude the clinical evaluation of a suspicious palpable abnormality. This patient's information was entered into a reminder system with a target due date for their next mammogram. Electronically signed by: Arabella Glaser DO 09/02/2025 02:38 PM EDT
--- OUTSIDE RECORDS SUMMARY | 2025-08-30 07:45 | XMS_ITS | Clinical Summary ---
Author Organization [employer] Address [address] [place] [address] 7[address] [place] [address] Care Team Providers Care Cake Mixer Name Role Phone Haydee Jacinto [facility] Primary Care Provider [phone] Allergies Active Allergy Reactions Criticality Noted Date [...] MOUTH TWICE A DAY 180 capsule 1 023 Active acetaminophen (Tylenol) 500 MG tablet take [...] of candidiasis. Do not swallow. 1 each 024 Active oxymetazoline (Afrin Nasal Saucier) 0.05 % nasal spray Administer 2 sprays into each nostril every 12 (twelve) hours if needed for congestion for up to 2 days. Do not use for more than 3 days. 30 mL 024 Active sertraline (Zoloft) 100 MG tablet Take 100 mg by mouth in the morning. 023 Active Linzess 145 MCG capsule Take 145 [...] or shortness of breath. 75 mL 1 10/01/2 024 Active oxybutynin XL (Ditropan XL) 10 MG 24 hr tabletIndications :Urge incontinence of urine Take 1 tablet (10 mg) by mouth Once per day. Do not crush, chew, or split. 30 tablet 11 025 2025 Active Cholecalciferol (Vitamin D3) 10 MCG (400 UNIT) chewable tabletIndications :Vitamin D deficiency CHEW AND SWALLOW 6 TABLETS ONCE DAILY 360 tablet 1 025 Active Cholecalciferol (Vitamin D3) 10 MCG (400 UNIT) chewable tabletIndications :Vitamin D deficiency CHEW AND SWALLOW 4 TABLETS ONCE DAILY 360 tablet 1 025 2024 Discontinued(R eorder (will not trigger notification to Pharmacy)) Hospital, Clinic, or Other Facility Administered Medication [...] irritable bowel syndrome 04/16/2024 Overview (04/16/2024): IBS-had [facility] [place]. Plan to trial bentyl [...] HPV neg. [place] [place] [facility]. De Souza [facility] Hx of uterine fibroids. Serial ultrasound C-scope: Routine age 46 BMD: Negative 2021 Anxiety and depression 05/29/2023 Overview (05/29/2023): Established with psychiatry and therapy Sertraline, hydroxyzine, lorazepam Other dysphagia 05/29/2023 Overview (05/29/2023): Referred to GI Uterine leiomyoma 01/31/2023 Overview (03/12/2024): Followed by [facility] Ultrasound done in 02/03 showed multiple uterine fibroids. Plan for periodic ultrasound to monitor. Hyperparathyroidism 04/08/2022 Hepatomegaly 07/13/2021 Chronic low back pain 07/13/2021 Resolved Problems Problem Noted Date Diagnosed Date Resolved Date Acute frontal sinusitis 02/07/202305/14 Encounters Date Type Department Care Team Description 08/28/2025 9:15 AM EDT Office Visit [facility] [address] [place] [phone] Haydee Jacinto FNP Urge incontinence of urine (Primary Dx); Vitamin D deficiency; Chronic right-sided low back pain without sciatica; Chronic right hip pain; Hyperparathyroidism (CMS/HCC); Uterine leiomyoma, unspecified location 08/28/2025 Travel 08/27/2025 Telephone [facility] [address] [place] [address], [place] [address] Haydee Jacinto FNP Chart Prep 08/20/2025 Patient Outreach [facility] [address] [place] [address] Haydee Jacinto FNP Pre-visit Planning ([facility] screening was completed on 12/24/2024) 08/16/2025 Orders Only GENERIC EXTERNAL DATA DEPARTMENT Provider, Generic External Data 06/07/2025 1:40 PM EDT Office Visit [facility] [address] [place] [address] Stephie Arroyo MD Left foot pain 06/07/2025 Results Follow-Up [facility] [address] [place] [address] Stephie Arroyo MD XR Foot 3+ Views Left 06/07/2025 Travel from Last 3 Months Immunizations Immunization Administration [...] 18 08/28/2025 8:41 AM EDT Oxygen Saturation 99% 06/07/2025 1:01 PM EDT Inhaled Oxygen Concentration - - Weight 78.2 kg (172 lb 6.4 oz) 08/28/2025 8:41 A M EDT Height 162.6 cm (5' 4 ) 08/28/2025 8:41 AM EDT Body Mass Index 29.59 08/28/2025 8:41 AM EDT Plan of Treatment Health Maintenance Due Date Last Done Comments HIV Screening 1980 Family Planning (PISQ) 1996 HPV Vaccines (1 - 3-dose series) 1996 Hepatitis C Screening 1999 DTaP/Tdap/Td Vaccines (1 - Tdap) 2000 Hepatitis A Vaccines (1 of 2 - Risk 2-dose series) 2000 Hepatitis B Vaccines (1 of 3 - 19+ 3-dose series) 2000 Pneumococcal Vaccine: Pediatrics (0 to 5 Years) and At-Risk Patients (6 to 49) Years (1 of 2 - PCV) 2000 COVID-19 Vaccine (4 - season) 2025 07/01/2022, 04/10/2021, 03/13/2021 Influenza Vaccine (#1) 2025 01/21/2020 Mammogram 08/24/2025 08/24/2024, 08/18/2023 SDOH Screening 12/24/2025 12/24/2024 Alcohol/Substance Use Screening 02/25/2026 02/25/2025 Depression Monitoring 02/26/2026 08/28/2025, 025 Disability Screening 08/28/2026 08/28/2025 Tobacco Screening 08/28/2026 08/28/2025 Cervical Cancer Screening 07/19/2027 HPV/Cotest 07/19/2027 07/19/2022, 09/0 11/2021, 07/15/2022, Additional history exists Pap Smear [...] Name Priority Date/Time Associated Diagnosis Comments XR HIP 2 OR 3 VIEWS RIGHT Routine 08/28/2025 9:45 AM EDT Chronic right hip pain XR PELVIS 1-2 VIEWS Routine 08/28/2025 9 :45 AM EDT Chronic right hip pain HEMATOXYLIN AND EOSIN STAIN Routine 08/16/2025 12:38 PM EDT HCG, QL, URINE Routine 08/16/2025 11:00 AM EDT XR FOOT 3+ VIEWS LEFT Routine 06/07/2025 12:57 PM EDT Left foot pain BI MAMMOGRAM SCREENING TOMOSYNTHESIS BILATERAL Routine 08/24/2024 10:30 AM EDT HM PAP/HPV Routine 07/19/2022 from Last 3 Months or Most Recently Relevant to Health Maintenance Results * XR Pelvis 1-2 Views (08/28/2025 9:45 AM EDT) Anatomical Region Laterality Modality Body, Pelvis Radiographic Stephie ging 08/28/2025 9:45 AM EDT Narrative 08/28/2025 10:03 [place] [address] XRay Report Signed Patient: Jocelynn Osborn MR#: [id number] : 1980 Acct:[id number] Age/Sex: 45 / F ADM Date: 08/28/25 Loc: HO.HHCX Attending Dr: Haydee BRADLEY Ordering Physician: Haydee Jacinto Date of Service: 08/28/25 Procedure(s): XR pelvis 1-2V Accession Number(s): [id number] cc: Haydee Jacinto Reason for Exam: 45 y.o F with [...] OV> 08/28/25 1000 DD/ 4 TD/TT: 08/28/25945 Case Repairer: ADENIKE Procedure Note Donotuseinterpreter, Image - 08/28/2025 [facility] [address] [place] [address] XRay Report Signed Patient: Jocelynn OsbornMR#: M [id number] : 1980Acct:[id number] Age/Sex: 45 / FADM Date: 08/28/25 [facility] Dr: Haydee Jacinto [facility] Ordering Physician: Haydee Jacinto Date of Service: 08/28/25 Procedure(s): XR pelvis 1-2V Accession Number(s): [id number] cc: Haydee Jacinto [facility] Reason for Exam: 45 y.o F with [...] in OV> 08/28/25 1000 DD/ TD/TT: 08/28/25945 Case Repairer: ADENIKE [facility] IMG XR PROCEDURES Final Resul t * XR Hip 2 or 3 Views Right (08/28/2025 9:45 AM EDT) Anatomical Region Laterality Modality Lower Extremities, Hip Right Radiograp hic Imaging 08/28/2025 9:45 AM EDT Narrative 08/28/2025 9:53 AM EDT [address] [address] XRay Report Signed Patient: Jocelynn Osborn MR#: [id number] : 1980 Acct:[id number] Age/Sex: 45 / F ADM Date: 08/28/25 Loc: HO.HHCX Attending Dr: Haydee BRADLEY Ordering Physician: Haydee Jacinto Date of Service: 08/28/25 Procedure(s): XR hip RT min 2V Accession Number(s): [id number] cc: Haydee Jacinto [facility] Reason for Exam: Chronic right hip pain [...] in OV> 08/28/2550 DD/ 4 TD/TT: 08/28/25945 Case Repairer: Procedure Note Donjanessainterpreter, Image - 08/28/[address] [address] XRay Report Signed Patient: Jocelynn Osborn#: M [id number] : 1980Acct:[id number] Age/Sex: 45 / FADM Date: 08/28/25 Loc: HO.HHCX Attending Dr: Haydee BRADLEY Ordering Physician: Haydee Jacinto Date of Service: 08/28/25 Procedure(s): XR hip RT min 2V Accession Number(s): [id number] cc: Haydee Jacinto [facility] Reason for Exam: Chronic right hip pain [...] MD in OV> 08/28/2550 DD/ TD/TT: 08/28/25945 Case Repairer: [facility] IMG XR PROCEDURES Final Resul t * Hematoxylin and Eosin Stain (08/16/2025 12:38 PM EDT) 08/16/2025 12:3 8 PM EDT 08/16/2025 1:39 PM EDT [facility] - 08/20/2025 3:38 PM EDT ----- ------- Name: Jocelynn Osborn Age/Sex: 45/F : 1980 [facility]#: [id number] Unit#: [id number] Attend Dr: Mehul Michaels MD Re08/16/25 Status: [facility] Location: [facility] Disch: ----- ------- SPEC : [id number] RECD: 08/16/25-1395 STATUS: AMBAR FOX NUM: [id number] JALEN: 08/16/25-12[address] [facility] [address]: Mehul Michaels MD ENTERED: 08/16/25-3201 SP TYPE: Surgical OTHR DR: Haydee Jacinto [facility] ORDERED: HE Stain/, Gross Micro L4/8, IHC/3, Special st. 2/4, H. pylori/3, AB/PAS/4 Diagnosis A. Small bowel, biopsy: Small intestinal mucosa within normal limits. B. Stomach, antrum, biopsy: Antral-type mucosa with mild chronic inactive inflammation; no Helicobacter organisms seen. C. Stomach, body, biopsy: Oxyntic mucosa with mild chronic inactive inflammation; no Helicobacter organisms seen. D. Stomach, polypectomies: Fundic gland polyps with background mild chronic inactive inflammation; no Helicobacter organisms seen. E. Colon, ascending, polypectomy: Sessile serrated lesion/polyp; negative for cytologic dysplasia. F. Colon, right, biopsy: Colonic mucosa within normal limits. G. Colon, transverse, polypectomy: Hyperplastic mucosal polyp. H. Colon, left, biopsy: Colonic mucosa within normal limits. Comment: Diagnostic morphologic features of celiac disease or microscopic colitis are not seen. Clinical History Pre-Op Dx: Nausea with vomiting Post-Op Dx: Gastritis, gastric polyps, colon polyps, diverticulosis, hemorrhoids Microscopic Description A-H. Microscopic sections examined. No metaplastic changes are seen, supported by AB/PAS stains (A, B, C and D); no Helicobacter organisms are seen, supported by H. pylori immunostain (B, C and D). Material Received A. Small bowel bx's r/o celiac disease B. Gastric antrum bx's r/o H. Pylori C. Gastric body bx's D. Gastric polyps E. Ascending colon polyp F. Right colon bx's r/o microscopic colitis CONTINUED ON NEXT PAGE ----- ------- Name: Jocelynn Osborn Age/Sex: 45/F : 1980 Unit#: [id number] Attend Dr: Mehul Michaels MD Re08/16/25 Status: [facility] Location: [facility] Disch: ----- ------- SPEC : [id number] RECD: 08/16/252014 STATUS: AMBAR FOX NUM: [id number] JALEN: 08/16/25-1234 [facility] [address]: Mehul Michaels MD ENTERED: 08/16/25-1182 SP TYPE: Surgical OTHR DR: Haydee Jacinto ORDERED: HE Stain/24, Gross Micro L4/8, IHC/3, Special st. 2/4, H. pylori/3, AB/PAS/4 Material Received (Continued) G. Transverse colon polyp H. Left colon bx's r/o microscopic colitis Gross Description Received in 8 parts. A. Received in formalin labeled small bowel biopsies R/0 celiac disease are 2 fragments of diehl-white soft tissue measuring 0.3 and 0.4 cm in greatest dimension which are wrapped in lens paper and entirely submitted for microscopic examination, 2 pieces in cassette A. B. Received in formalin labeled gastric antrum biopsies R/0 H pylori are 2 fragments of pink white soft tissue measuring 0.2 and 0.4 cm in greatest dimension which are wrapped in lens paper and entirely submitted for microscopic examination, 2 pieces in cassette B. C. Received in formalin labeled gastric body biopsies are 2 fragments of diehl-white soft tissue measuring 0.2 and 0.4 cm in greatest dimension which are wrapped in lens paper and entirely submitted for microscopic examination, 2 pieces in cassette C. D. Received in formalin labeled gastric polyps are 6 fragments of diehl-white soft tissue measuring 0.2-0.5 cm in greatest dimension which are wrapped in lens paper and entirely submitted for microscopic examination, 6 pieces in cassette D. E. Received in formalin labeled ascending colon polyp is a fragment of pink-diehl soft tissue measuring 0.6 cm in greatest dimension which is wrapped in lens paper and entirely submitted for microscopic examination, 1 piece in cassette E. F. Received in formalin labeled right colon biopsies are 3 fragments of translucent, white soft tissue measuring 0.2-0.3 cm in greatest dimension which are wrapped in lens paper and entirely submitted for microscopic examination, 3 pieces in cassette F. G. Received in formalin labeled transverse colon polyp are 2 fragments of diehl-white soft tissue measuring 0.3 and 0.4 cm in greatest dimension which are wrapped in lens paper and entirely submitted for microscopic examination, 2 pieces in cassette G. H. Received in formalin labeled left colon biopsies are 2 fragments of diehl-white soft tissue measuring 0.3 and 0.3 cm in greatest dimension which are wrapped in lens paper and entirely submitted for microscopic examination, 2 pieces in cassette H. ([facility]) Special studies ordered and performed: Immunostain for H. pylori on B, C and D; AB/PAS stains on A, B, C and D CONTINUED ON NEXT PAGE ----- ------- Name: Jocelynn Osborn Age/Sex: 45/F : 1980 Unit#: [id number] Attend Dr: Mehul Michaels MD Re08/16/25 Status: [facility] Location: [facility] Disch: ----- ------- SPEC : [id number] RECD: 08/16/25 STATUS: AMBAR FOX NUM: [id number] JALEN: 08/16/25-1238 [facility] [address]: Mehul Michaels MD ENTERED: 08/16/254686 SP TYPE: Surgical OTHR DR: Haydee Jacinto ORDERED: HE Stain/24, Gross Micro L4/8, IHC/3, Special st. 2/4, H. pylori/3, AB/PAS/4 IHC S/NG Disclaimer NOTE: Unless otherwise stated, all tissue is formalin-fixed and paraffin-embedded. Some or all of the immunohistochemical tests reported herein may have been developed and their performance characteristics determined by [facility]. They have not been cleared or approved by the U.S. Food and Drug Administration (FDA). However, the FDA has determined that such clearance or approval is not necessary. This laboratory is certified under the Clinical Laboratory Improvement Amendments of 1988 (CLIA) as qualified to perform high complexity clinical laboratory testing. Copies To: Mehul Michaels MD [facility] [address] [place] [phone] Haydee Jacinto [address] [phone] ----- ------- Signed (signature on file) Dago Boston MD 08/20/25 1538 ----- ------- END OF REPORT [employer] External Data Provider LAB BLOOD ORDERAB LES Final Result Performing Organization Address [facility] de Phone Number [facility] [address] [place] [phone] * HCG, Qualitative, Urine (08/16/2025 11:00 AM EDT) Urine NEGATIVE NEGATIVE [facility] Comment:This test was develo ped to detect early . Falsenegative results may occur after the 5th - 7th week ofpregnancy when using this test method. If clinicallyindicated, consider a serum hCG. 08/16/2025 11:0 0 AM EDT 08/16/2025 11:08 AM EDT [employer] External Data Provider LAB URINE ORDERAB LES Final Result Performing Organization Address [facility] de Phone Number [facility] [address] [place] [phone] * XR Foot 3+ Views Left (06/07/2025 12:57 PM EDT) Anatomical Region Laterality Modality Lower Extremities, Foot Left Radiogra phic Imaging 06/07/2025 12:5 7 PM EDT Narrative 06/07/2025 2:15 PM EDT [address] [address] XRay Report Signed Patient: Jocelynn Osborn MR#: M [id number] : 1980 Acct:[id number] Age/Sex: 44 / F ADM Date: 06/07/25 Loc: HO.HHCX Attending Dr: Stephie Amaya MD Ordering Physician: Stephie Arroyo MD Date of Service: 06/07/25 Procedure(s): XR foot LT min 3V Accession Number(s): [id number] cc: Stephie Arroyo MD EXAMINATION: XR FOOT [...] 06/07/25 1412 DD/ 1257 TD/TT: 06/07/25 1300 Case Repairer: Procedure Note Donotuseinterpreter, Image - 06/07/[address] [address] XRay Report Signed Patient: Jocelynn OsbornMR#: M [id number] : 1980Acct:[id number] Age/Sex: 44 / FADM Date: 06/07/25 Loc: HO.HHCX Attending Dr: Stephie Amaya MD Ordering Physician: Stephie Arroyo MD Date of Service: 06/07/25 Procedure(s): XR foot LT min 3V Accession Number(s): [id number] cc: Stephie Arroyo MD EXAMINATION: XR FOOT [...] 06/07/25 1412 DD/ 1257 TD/TT: 06/07/25 1300 Case Repairer: Stephie Amaya MD IMG XR PROCEDURES Edgar kinza Result - Final * BI Mammogram Screening Tomosynthesis Bilateral (08/24/2024 10:30 AM EDT) Anatomical Region Laterality Modality Breast Bilateral Mammography 08/24/2024 10:3 0 AM EDT Narrative 09/05/2024 8:17 AM EDT [facility] [address] [place] [address] Mammography Report Signed Patient: Jocelynn Osborn MR#: M [id number] : 1980 Acct:[id number] Age/Sex: 44 / F ADM Date: 08/24/24 Loc: HO.MAMMO Attending Dr: Haydee BRADLEY Ordering Physician: Fly De Souza MD Results: 1Negativ e Date of Service: 08/24/24 Follow Up: 1 Year From Orig ina Mammogram Procedure(s): MM tomosynthesis screening BI Accession Number(s): [id number] cc: Haydee Jacinto; Fly De Souza MD [...] 09/05/24 0815 DD/ 1030 TD/TT: 08/24/24 1045 Case Repairer: Procedure Note Donotuseinterpreter, Image - 09/05/2024 [place] [facility] [address] [place], [place] [address] Mammography Report Signed Patient: Jocelynn OsbornMR#: M [id number] : 1980Acct:[id number] Age/Sex: 44 / FADM Date: 08/24/24 Loc: JACEO Attending Dr: Haydee BRADLEY Ordering Physician: Fly De Souza MDResults: 1Negativ e Date of Service: 08/24/24Follow Up: 1 Year From Orig inal Mammogram Procedure(s): MM tomosynthesis screening BI Accession Number(s): [id number] cc: Haydee Jacinto; Fly De Souza MD [...] 09/05/24 0815 DD/ 1030 TD/TT: 08/24/24 1045 Case Repairer: [facility] External Provider IMG BI PROCEDURES Edited Result - Final * Pap Smear (07/19/2022) Pap Negative for intraephithelial lesion or malignancy Negative for intraephithelial lesion or malignancy, Other HPV Undetected Historical Provider HEALTH MAINTENANCE Final Result from Last 3 Months or Most Recently Relevant to Health Maintenance Insurance [employer] Care Teams Cake Mixer Relationship Specialty Start Date End Date Haydee Jacinto FNP [address] [place] [phone] PCP - General Family Medicine 07/12/22
--- OUTSIDE RECORDS SUMMARY | 2025-08-30 07:45 | XMS_ITS | Clinical Summary ---
Author Organization [facility] Address [address] [place] [address] Phone Care Team Providers Care Pipe Maker Name Role Phone Stephie Arroyo MD Primary [...] Upcoming Encounters Date Type Department Care Team ([facility] Contact Info) Description 10/23/2025 9:30 AM EST Office Visit Orthopedic Surgery - [place] [address] [phone] Axel Han DPM [address] [phone] Health Maintenance Due Date Last Done Comments Breast Cancer Screening 1981 DTaP,Tdap,and Td Vaccines (1 - Tdap) 2000 Hepatitis A Vaccines (1 of 2 - Risk 2-dose series) 2000 Hepatitis B Vaccines (1 of 3 - 19+ 3-dose series) 2000 Cervical Cancer Screening: P ap Smear 2002 HPV Vaccines (1 - 3-dose SCD M series) 2008 Depression Screening 11/14/2024 HIV Screening 06/11/2025 Hepatitis C Screening 06/11/2025 Social Influencers of Health Screening 06/11/2025 COVID-19 Vaccine (4 - 2024-2 6 season) 2025 07/01/2022, 04/10/2021, 03/13/2021 Influenza Vaccine (#1) 2025 01/21/2020 RSV Immunization Adult Patients (1 - 1-dose 75+ series) 2056 HIB [...] to complete this topic RSV Immunization Patients Under 20 months Aged Out No longer eligible b ased on patient's age to complete this topic Varicella Vaccines Aged Out No longer eligible based on patient's age to complete this topic Insurance MEDICAID - [place] Care Teams Pipe Maker Relationship Specialty Start Date End Date Stephie Arroyo MD [address] [place] [phone] PCP - General Internal Medicine 06/11/25
--- OUTSIDE RECORDS SUMMARY | 2025-08-30 07:45 | XMS_ITS | Encounter Summary ---
Author Organization [employer] Address [address] [place] [address] 7 [place] [address] Care Team Providers Care Rubber Roller Grinder Operator Name Role Phone [facility] Primary Care Provider [phone] Reason for Visit * Reason Onset Date Comments Returning Call 11/23/2024 Encounter Details Date Type Department Care Team ([facility] st Contact Info) Description 11/23/2024 Telephone [facility] [address] [place], [place] [phone] [facility] [address] [place] [address] Returning Call Social History Tobacco Use Types [...] documented as of this encounter Care Teams Rubber Roller Grinder Operator Relationship Specialty Start Date End Date Haydee Jacinto FNP [address] [place] [phone] PCP - General Family Medicine 07/12/22 documented as of this encounter
--- OUTSIDE RECORDS SUMMARY | 2025-08-30 07:45 | XMS_ITS | Encounter Summary ---
Author Organization [employer] Address [address] [facility] 7t [place] [address] Care Team Providers Care Home Care Consultant Name Role Phone Haydee Jacinto [facility] Primary Care Provider [phone] Encounter Details Date Type Department Care Team (Latest Contact Info) Description 08/28/2025 Travel Social History Tobacco Use Types Packs/Day [...] AM EDT documented as of this encounter Functional Status * Over the [...] Author Not at all 08/28/2025 9:31 AM Ekaterina Briggs MA * Trouble concentrating on things, such [...] Assessment Author Several days 08/28/2025 9:31 AM Ekaterina Briggs MA * Thoughts that you would be better off or hurting yourself in some way Answer Date of Assessment Author Not at all 08/28/2025 9:31 AM Ekaterina Briggs MA * Patient Health Questionnaire-9 Score Answer Date of Assessment Author 10 08/28/2025 9:31 AM AMANDAT Ekaterina Cheng MA * How difficult have [...] or control worrying 0 08/28/2025 9:32 AM AMANDAT Ekaterina Duffy MA Worrying too much about different things 0 08/28/2025 9:32 AM EDT Ekaterina Duffy MA Trouble relaxing 0 08/28/2025 9:32 AM EDT Ekaterina Cardenas MA Being so restless that it is hard to sit still 0 08/28/2025 9:32 AM EDT Ekaterina Duffy MA Becoming easily annoyed or irritable 1 08/28/2025 9:32 AM Ekaterina Pacheco MA Feeling afraid as if something awful might happen 0 08/28/2025 9:32 AM EDT Ekaterina Valdivia MA DEIDRA-7 Total Score 1 08/28/2025 9:32 AM Ekaterina Pacheco MA documented as of this encounter Plan of Treatment Not on file documented as of this encounter Visit Diagnoses Not on filedocumented in this encounter Additional Health Concerns Assessment Noted Time PHQ-9 Depression Total Score: 10 025 9:31 AM EDT documented as of this encounter Care Teams Home Care Consultant Relationship Specialty Start Date End Date Haydee Jacinto FNP [address] [place] [address] PCP - General Family Medicine 07/12/22 documented as of this encounter
--- OUTSIDE RECORDS SUMMARY | 2025-08-30 07:45 | XMS_ITS | Encounter Summary ---
Author Organization [employer] Address [address] [place] [address] 7 [place] [address] Care Team Providers Care Strip Machine Tender Name Role Phone [facility] Primary Care Provider [phone] Reason for Visit * Reason Onset Date Comments Chart Prep 08/27/2025 Encounter Details Date Type Department Care Team ([facility] st Contact Info) Description 08/27/2025 Telephone [facility] MED[facility]INE [address] [place] [address] [facility] [address] [place] [address] Chart Prep Social History Tobacco Use Types Packs/Day Years [...] encounter Miscellaneous Notes * Telephone Encounter - Caryl Aviles [place] - 08/27/2025 2:29 PM EDT Chart Prep Labs: done Images: done Referrals: appointment pending Vaccines due: Covid, Flu, PCV20, Tdap, Hep B, Hep A, and HPV Screenings: mammogram, LMP, and Hepatitis C Screening, HIV Screening Overdue care gaps: PHQ-9, DEIDRA-7, and Disability screen documented in this encounter Plan of Treatment Not on file documented as of this encounter Visit Diagnoses Not on filedocumented in this encounter Additional Health Concerns Assessment Noted Time PHQ-9 Depression Total Score: 0 02/26/20 25 10:34 AM EDT documented as of this encounter Care Teams Strip Machine Tender Relationship Specialty Start Date End Date Haydee Jacinto FNP [address] [place] [id number] PCP - General Family Medicine 07/12/22 documented as of this encounter
--- OUTSIDE RECORDS SUMMARY | 2025-08-30 07:45 | XMS_ITS | Encounter Summary ---
Author Organization [employer] Address [address] [facility] [address] [place] [address] Care Team Providers Care Manager Room Name Role Phone Haydee Jacinto [facility] Primary Care Provider [phone] Encounter Details Date Type Department Care Team ([facility] st Contact Info) Description 08/18/2023 Abstract [facility] MEDICINE [address] [place] [address] Kelsey Sims Social History Tobacco Use Types [...] documented as of this encounter Care Teams Manager Room Relationship Specialty Start Date End Date aHydee Jacinto FNP [address] [place] [id number] PCP - General Family Medicine 07/12/22 documented as of this encounter
== END 2025-08-30 07:42 | disposition home or self-care (01) ==
LOC: HO.MAMMO 07:41
PROVIDERS: PCP Registered Nurse; Visit Provider Registered Nurse
DX: Z12.31 Encounter for screening mammogram for malignant neoplasm of breast (principal)
CPT/HCPCS: 77063; 77067; 99212

== ENCOUNTER 2025-08-30 08:48 | Outpatient (AMB) | payer MEDICAID, SELFPAY ==
--- NOTE | 2025-08-30 09:24 | MHC.OFFVIS ---
Vital Signs 08/30/25 09:29 Height 5 ft 4 in Weight 170 lb 3.15 oz BMI 29.2 BP 121/74 Blood Pressure Location Lt brachial Position Sitting Pulse 73 Intake Visit Reasons: S/p Double Brando Intake Note: Patient in office today in follow up s/p colonoscopy and EGD. CC:Patient denies having any GI symptoms today. 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 Estate Director Required: Yes Real Estate Director Language: Croatian Accompanied by: Self / Same As Patient Allergies dog dander Allergy (Intermediate, Verified 08/30/25 09:33) Unknown seafood Allergy (Intermediate, Verified 08/30/25 09:33) Itching aspirin Allergy (Unknown, Verified 08/30/25 09:33) swelling HPI HPI S/p Double Brando: Details: ssessment & Plan (1) Irritable bowel syndrome with both constipation and diarrhea: Code(s): K58.2 - Mixed irritable bowel syndrome Category: Medical Plan Croatian #Blanca Kelly Her current GI regimen consists of Linzess 145 micro g daily, famotidine twice a day and dicyclomine. She continues to struggle with abdominal pain, borborygmus, and a lot of bloating and gassiness. Again it was not sufficiently relieved with dicyclomine. So far the workup has not returned any severe pathology, including the x-ray of the thoracic spine which I obtained to see if there was any sort of referred pain. While there is some mild osteoarthritis I do not see any reason to think that this is the actual underlying cause of her abdominal pain. At this point I think will try progressing to imipramine to see if we can control her pain better. We will start low and titrate to affect her side effect. She also has not EGD/colonoscopy ordered which she would like to get us in his possible but the scheduling is quite backed up. She feels that the Linzess is working well to help her with her constipation phases but does not seem to be affecting the pain in the bloating. (She has had troubles for many years (10 years) with HB, diarrhea, vomiting, and a feeling like her intestines are gathering together and then she has pain that leads to N/V. She will have sweating and feel very weak. The pain starts periumbilically but when it is bad will radiate down to her midline to her rectum. The strong pain returned and she tried the bentyl and it did help, but it made her very sleepy. When she has the pain she can not leave the house, so this is very life limiting. But she does not feel that the bentyl is a fit for her (she also had this medication in [place], she has had multiple unremarkable small-bowel follow-through studies, there is a retroperitoneal ultrasound showing multiple uterine fibroids causing compression of the bladder. She has a different pain described as a pain in the LUQ that was like when you run a lot and you get that pain. This is intermittent and will last minutes and occurs 2-3 times a month. This is not effected with the Bentyl). Return office visit in 4 weeks. Medications: New imipramine HCl 10 mg PO BEDTIME 30 tabs 6RF 30 days K58.2 - Mixed irritable bowel syndrome EGD/COLONOSCOPY 08/16/25 Findings: Larynx: Normal Esophagus: GE junction at 35 cms. Mildly tortuous esophagus without stricture or ring, esophagitis or Mortensen's. Stomach: A few 4-5 mm benign appearing polyps in the gastric fundus - on polyp was removed with a cold snare. Moderate diffuse gastric erythema - biopsies were obtained from the gastric body and antrum. Grade 2 flap valve on retroflexed examination of the cardia. Duodenum: Normal bulb and descending duodenum Biopsies were obtained from descending duodenum to check for celiac sprue Intervention: Biopsies as noted above COLONOSCOPY PROCEDURE NOTE Instrument: Olympus PCF H 190 L variable stiffness pediatric colonoscope Monitoring: Vital signs and clinical assessment, intermittent blood pressure monitoring, continuous EKG monitoring, Pulse oximetry and Carbon Dioxide monitoring were done throughout the procedure. Please see anesthesia flowsheet. Colon withdrawl time was 18 minutes. Procedure: The patient was placed in the left lateral decubitis position and pre-procedure medications were administered. After a digital rectal examination of the ano-rectum, the video colonoscope was inserted into the rectum and advanced through the colon to the cecum. The colonoscope was slowly withdrawn in a retrograde panoramic fashion and the colon mucosa was carefully examined including a retroflexed view of the rectum. Findings and interventions are described below. Procedure Difficulty: Colon was long and tortuous and there was some loop formation. LLQ pressure was applied to intubate the ascending colon Findings: Terminal Ileum: Not evaluated Cecum: Normal Ascending Colon: A 10-12 mm sessile polyp in the distal ascending, - removed with a hot snare. Transverse Colon: A 7-8 mm sessile polyp - removed with a cold snare. Descending Colon: Normal Sigmoid Colon: Moderate diverticulosis Rectum: Normal Ano-rectum: Moderate internal hemorrhoids Impression and Post Procedure Diagnosis: Endoscopy Findings: ESOPHAGUS: [] STOMACH: [] DUODENUM: [] Colonoscopy Findings: Two polyps were removed Random biopsies were obtained for right right and left colon to check for microscopic colitis Moderate diverticulosis seen in the sigmoid colon Moderate hemorrhoids on retroflexed exam. Plan: Pt has a FU appointment on 08/30/25 with Karla Fuller NP, Repeat Colonoscopy in 3-5 years if polyps are adenomatous and 10 year if polyps are hyperplastic. BIOPSY Received: 08/16/25 Diagnosis A. Small bowel, biopsy: Small intestinal mucosa within normal limits. B. Stomach, antrum, biopsy: Antral-type mucosa with mild chronic inactive inflammation; no Helicobacter organisms seen. C. Stomach, body, biopsy: Oxyntic mucosa with mild chronic inactive inflammation; no Helicobacter organisms seen. D. Stomach, polypectomies: Fundic gland polyps with background mild chronic inactive inflammation; no Helicobacter organisms seen. E. Colon, ascending, polypectomy: Sessile serrated lesion/polyp; negative for cytologic dysplasia. F. Colon, right, biopsy: Colonic mucosa within normal limits. G. Colon, transverse, polypectomy: Hyperplastic mucosal polyp. H. Colon, left, biopsy: Colonic mucosa within normal limits. Comment: Diagnostic morphologic features of celiac disease or microscopic colitis are not seen TODAYS VISIT Japanese #Tyler Live Her current GI regimen consists of Linzess 145 micro g daily, famotidine twice a day and dicyclomine. [facility] Medical History (Updated 08/30/25 @ 16:51 by ALLAN Soria) Nausea and vomiting Chronic idiopathic constipation Rectal bleeding Asthma Murmur Shortness of breath COVID-19 Well woman exam Flushing Cough due to bronchospasm Encounter for preoperative pulmonary examination Liver lesion Anxiety Chronic abdominal pain Goiter Vitamin D deficiency Hyperparathyroidism Hypercalcemia Surgical History (Updated 08/30/25 @ 16:51 by ALLAN Soria) H/O esophagogastroduodenoscopy H/O colonoscopy History of surgery History of umbilical hernia repair Hx of section Family History Father Diabetes Hypertension Alzheimer disease FH: prostate cancer Emphysema of lung Mother Hypertension Diabetes Social History Household Members: Spouse Household Members Other:: son Housing: Apartment Alcohol intake: never Patient Tobacco Use Status: Never used Tobacco Current occupational status: unemployed Sexual orientation: Straight/Heterosexual Gender identity: Female Female Reproductive History Menstrual Age of Menarche: 13 Review of Systems Const Denies fatigue, Denies fever(s), Denies night sweats, Denies poor appetite and Denies weight loss ENT Reports Normal hearing present, Denies dental pain, Denies dysphagia, Denies hearing loss, Denies mouth pain, Denies odynophagia, Denies throat swelling, Denies tongue swelling and Reports other (Dentition adequate) Card Reports no additional complaints Resp Reports no additional complaints GI Details: Reports abdominal pain, Denies melena, Reports bloating, Denies hematochezia, Reports constipation, Denies GI cramping, Denies dysphagia, Denies excessive flatus, Denies early satiety, Reports heartburn, Reports diarrhea, Denies nausea, Denies odynophagia, Denies vomiting and Denies hematemesis Skin/Breast Denies pruritus, Denies lesions, Denies rash and Denies jaundice Neuro Reports Normal hearing present and Denies Abnormal speech present Endo Denies fatigue Aller/Immun Denies throat swelling and Denies tongue swelling Physical Exam Vital Signs: Last Vital Signs Pulse 73 08/30/25 09:29 BP 121/74 08/30/25 09:29 BMI result Body Mass Index 29.2 Const General: cooperative, no acute distress, well developed and well groomed Nutritional Appearance: well nourished and overweight Orientation/consciousness: oriented to person, oriented to place and oriented to time Limitations: language barrier HEENT Head: Yes normocephalic and Yes atraumatic Eyes General: appearance normal, both eyes and all related structures Pupils: Equal, round and reactive pupils present Neck Neck: Yes normal visual inspection and Yes no lymphadenopathy Thyroid: Thyroid normal Resp Effort & Inspection: normal respiratory effort and able to speak in complete sentences Auscultation: clear to auscultation bilaterally Cardio Rate: regular rate Rhythm: regular rhythm Heart sounds: Normal, physiologic split S2 sound present Peripheral pulses: radial pulses present and posterior tibial pulses present GI Inspection: No distended, No Abdominal panniculus present and Yes obesity Palpation (GI): Soft to palpation, nontender, no guarding, not rigid and No hepatosplenomegaly present Percussion: Yes normal to percussion Auscultation: normal bowel sounds Rectal Exam - Female: deferred Skin General skin exam: no rashes or lesions noted, turgor normal, skin not dry, no jaundice, No spider nevi and no striae Rashes: no rashes Nails: normal Neuro General: oriented to person, oriented to place and oriented to time Cranial nerves: Yes Equal, round and reactive pupils present and Yes Normal hearing present Speech: No Abnormal speech present Extrem General: Yes normal to inspection, No clubbing, No cyanosis and No edema Psych Appearance: grossly normal and well kempt Mental Status: mental status grossly normal Speech and movement: Normal speech and movement present Affect: normal affect Attitude: cooperative Thought process: Normal thought process present and not confabulating Thought content: Normal thought content present Insight: Limited insight present (Psych) Judgement: Limited judgement present (Psych) Results Reviewed Results Reviewed: EGD/COLONOSCOPY 08/16/25 Findings: Larynx: Normal Esophagus: GE junction at 35 cms. Mildly tortuous esophagus without stricture or ring, esophagitis or Mortensen's. Stomach: A few 4-5 mm benign appearing polyps in the gastric fundus - on polyp was removed with a cold snare. Moderate diffuse gastric erythema - biopsies were obtained from the gastric body and antrum. Grade 2 flap valve on retroflexed examination of the cardia. Duodenum: Normal bulb and descending duodenum Biopsies were obtained from descending duodenum to check for celiac sprue Intervention: Biopsies as noted above COLONOSCOPY PROCEDURE NOTE Instrument: Olympus PCF H 190 L variable stiffness pediatric colonoscope Monitoring: Vital signs and clinical assessment, intermittent blood pressure monitoring, continuous EKG monitoring, Pulse oximetry and Carbon Dioxide monitoring were done throughout the procedure. Please see anesthesia flowsheet. Colon withdrawl time was 18 minutes. Procedure: The patient was placed in the left lateral decubitis position and pre-procedure medications were administered. After a digital rectal examination of the ano-rectum, the video colonoscope was inserted into the rectum and advanced through the colon to the cecum. The colonoscope was slowly withdrawn in a retrograde panoramic fashion and the colon mucosa was carefully examined including a retroflexed view of the rectum. Findings and interventions are described below. Procedure Difficulty: Colon was long and tortuous and there was some loop formation. LLQ pressure was applied to intubate the ascending colon Findings: Terminal Ileum: Not evaluated Cecum: Normal Ascending Colon: A 10-12 mm sessile polyp in the distal ascending, - removed with a hot snare. Transverse Colon: A 7-8 mm sessile polyp - removed with a cold snare. Descending Colon: Normal Sigmoid Colon: Moderate diverticulosis Rectum: Normal Ano-rectum: Moderate internal hemorrhoids Impression and Post Procedure Diagnosis: Endoscopy Findings: ESOPHAGUS: [] STOMACH: [] DUODENUM: [] Colonoscopy Findings: Two polyps were removed Random biopsies were obtained for right right and left colon to check for microscopic colitis Moderate diverticulosis seen in the sigmoid colon Moderate hemorrhoids on retroflexed exam. Plan: Pt has a FU appointment on 08/30/25 with Karla Fuller NP, Repeat Colonoscopy in 3-5 years if polyps are adenomatous and 10 year if polyps are hyperplastic. BIOPSY Received: 08/16/25 Diagnosis A. Small bowel, biopsy: Small intestinal mucosa within normal limits. B. Stomach, antrum, biopsy: Antral-type mucosa with mild chronic inactive inflammation; no Helicobacter organisms seen. C. Stomach, body, biopsy: Oxyntic mucosa with mild chronic inactive inflammation; no Helicobacter organisms seen. D. Stomach, polypectomies: Fundic gland polyps with background mild chronic inactive inflammation; no Helicobacter organisms seen. E. Colon, ascending, polypectomy: Sessile serrated lesion/polyp; negative for cytologic dysplasia. F. Colon, right, biopsy: Colonic mucosa within normal limits. G. Colon, transverse, polypectomy: Hyperplastic mucosal polyp. H. Colon, left, biopsy: Colonic mucosa within normal limits. Comment: Diagnostic morphologic features of celiac disease or microscopic colitis are not see Assessment & Plan Assessment & Plan (1) Tubular adenoma of colon: Comment: 2024 scope= 1 TA 1 hyperplastic polyp repeat in 5 years Code(s): D12.6 - Benign neoplasm of colon, unspecified Category: Medical (2) Irritable bowel syndrome with both constipation and diarrhea: Code(s): K58.2 - Mixed irritable bowel syndrome Category: Medical (3) Chronic abdominal pain: Code(s): R10.9 - Unspecified abdominal pain; G89.29 - Other chronic pain Category: Medical (4) Periumbilical abdominal pain: Code(s): R10.33 - Periumbilical pain Category: Surgical Plan Croatian #Tyler live We review the colonoscopy in the upper endoscopy. She is only taking the famotidine as needed and given that there is still active esophagitis I suggest that she should take it every night at bedtime. Unfortunately, she is not well acquainted with her pills and she is uncertain if she ever tried the imipramine. With this of course there has been no change in her abdominal pain. She does have significant diverticulosis of the sigmoid colon but this is not the site of her pain. She was counseled the just because she has diverticulosis does not mean she will get diverticulitis but educated about what the signs and symptoms would be in case she does contact this in the future. I right down the name of the medication as she says this is what she needs to check if she has it. Also resend it to the pharmacy. With this I hope to see her again in 6 weeks to evaluate her response. She is agreeable to a 5 year follow-up for colonoscopy. The procedure was well tolerated. The results were explained and the patient is agreeable to the follow-up interval as stated. The bowel pattern has returned to normal. Education was provided to tell any 1st degree relatives about their findings to be sure that they are screened by age 45. Educated that they will be put on a recall list when it is time for their repeat scope but should they move out of state or away from the hospital they will need to remember along with their primary to repeat the procedure in a timely fashion to avoid any adverse complications. (She has had troubles for many years (10 years) with HB, diarrhea, vomiting, and a feeling like her intestines are gathering together and then she has pain that leads to N/V. She will have sweating and feel very weak. The pain starts periumbilically but when it is bad will radiate down to her midline to her rectum. The strong pain returned and she tried the bentyl and it did help, but it made her very sleepy. When she has the pain she can not leave the house, so this is very life limiting. But she does not feel that the bentyl is a fit for her (she also had this medication in [place], she has had multiple unremarkable small-bowel follow-through studies, there is a retroperitoneal ultrasound showing multiple uterine fibroids causing compression of the bladder. She has a different pain described as a pain in the LUQ that was like when you run a lot and you get that pain. This is intermittent and will last minutes and occurs 2-3 times a month. This is not effected with the Bentyl) Coding Level of Care Code Est Pt Level 4 (00723) Diagnoses Tubular adenoma of colon D12.6 Irritable bowel syndrome with both constipation and diarrhea K58.2 Chronic abdominal pain R10.9; G89.29 Periumbilical abdominal pain R10.33 Time Spent (min) 37
[2025-08-30 09:29] VITALS: BP 121/74; PULSE 73; BMI 29.2
== END 2025-08-30 10:07 | disposition home or self-care (01) ==
LOC: HO.HGI 08:49
PROVIDERS: PCP Registered Nurse; Visit Provider Nurse Practitioner
DX: D12.6 Benign neoplasm of colon, unspecified (principal); K58.2 Mixed irritable bowel syndrome; R10.9 Unspecified abdominal pain; G89.29 Other chronic pain; R10.33 Periumbilical pain
CPT/HCPCS: 99214

== ENCOUNTER → 2025-08-30 10:45 | Outpatient (BNV) | payer MEDICAID, SELFPAY | PROVIDERS: PCP Registered Nurse; Visit Provider Internal Medicine | DX: Z12.31 Encounter for screening mammogram for malignant neoplasm of breast (principal) | CPT/HCPCS: 77063; 77067 ==

== ENCOUNTER 2025-09-18 09:03 | Outpatient (AMB) | payer MEDICAID, SELFPAY ==
--- NOTE | 2025-09-18 08:40 | MHC.OFFVIS ---
Vital Signs 09/18/25 09:07 Height 5 ft 4 in Weight 171 lb 2 oz BMI 29.4 BP 110/58 L Blood Pressure Location Rt brachial Position Sitting Pulse 90 Pulse Source Pulse Oximeter Pulse Oximetry (%) 98 Oxygen Delivery Method Room Air Intake Visit Reasons: Shortness of breath Supervisor Plasma Required: Yes Supervisor Plasma Language: Supply Service Worker Services: Supervisor Plasma Present Supervisor Plasma Name: Venice Iverson LM Allergies dog dander Allergy (Intermediate, Verified 09/18/25 09:11) Unknown seafood Allergy (Intermediate, Verified 09/18/25 09:11) Itching aspirin Allergy (Unknown, Verified 09/18/25 09:11) swelling HPI HPI Shortness of breath: Details: Jocelynn is a pleasant 45 year old female, never smoker, with underlying asthma, hyperparathyroidism and hypercalcemia. Prior RAST + dog, IgE 128. Patient last seen in April 2025, reporting bronchitic symptoms, treated with Doxycycline with resolution of symptoms. She also reported suboptimal effect with Breo and Singulair requiring Albuterol MDI frequently and Incruse was added to regimen. She notes overall improvements since initiating, rarely requiring Albuterol MDI however she does reports symptoms suggestive of sleep apnea including daytime fatigue, nonrestorative sleep, morning headaches, and paroxsymal nocturnal hypoxemia. Denies prior sleep studies. She also reports increased allergy symptoms despite Claritin. She denies any visits to urgent care or hospitalizations related to respiratory distress since the last visit. Today she presents for routine follow up. [facility] Medical History (Updated 09/18/25 @ 09:43 by Celeste Rosas NP) Nausea and vomiting Chronic idiopathic constipation Rectal bleeding Asthma Murmur Shortness of breath COVID-19 Well woman exam Flushing Cough due to bronchospasm Encounter for preoperative pulmonary examination Liver lesion Anxiety Chronic abdominal pain Goiter Vitamin D deficiency Hyperparathyroidism Hypercalcemia Surgical History (Updated 08/30/25 @ 16:51 by ALLAN Soria) H/O esophagogastroduodenoscopy H/O colonoscopy History of surgery History of umbilical hernia repair Hx of section Family History Father Diabetes Hypertension Alzheimer disease FH: prostate cancer Emphysema of lung Mother Hypertension Diabetes Social History Household Members: Spouse Household Members Other:: son Housing: Apartment Alcohol intake: never Patient Tobacco Use Status: Never used Tobacco Current occupational status: unemployed Sexual orientation: Straight/Heterosexual Gender identity: Female Female Reproductive History Menstrual Age of Menarche: 13 Review of Systems ENT Reports Normal hearing present Neuro Reports Normal hearing present Physical Exam Vital Signs: Last Vital Signs Pulse 90 09/18/25 09:07 BP 110/58 L 09/18/25 09:07 Pulse Ox 98 09/18/25 09:07 Oxygen Delivery Method Room Air 09/18/25 09:07 BMI result Body Mass Index 29.4 Const General: cooperative, healthy appearing, comfortable, no acute distress, well developed and alert Orientation/consciousness: patient oriented x3 Limitations: no limitations HEENT Head: Yes normal to inspection, Yes normocephalic and Yes atraumatic Ears: hearing grossly normal bilaterally and external ears normal Eyes General: appearance normal, both eyes and all related structures Eyelids: Yes eyelids normal Sclerae: sclerae normal EOM: EOMs intact bilaterally Neck Neck: Yes normal visual inspection and Yes no lymphadenopathy Lymphatic: no lymphadenopathy noted Chest Chest palpation & inspection: normal inspection of the chest Resp Effort & Inspection: normal respiratory effort, able to speak in complete sentences, no audible wheezes, no cough, no stridor, not tachypneic, no tripod positioning and no use of accessory muscles Auscultation: clear to auscultation bilaterally Cardio Jugular venous distension: no JVD Rate: regular rate Rhythm: regular rhythm Skin Other: warm, dry General skin exam: no rashes or lesions noted Neuro General: patient oriented x3 Cranial nerves: Yes Normal hearing present Cognition (Neuro): normal cognition Gait exam (Neuro): Normal gait present Extrem General: Yes normal to inspection, Yes capillary refill normal, Yes no clubbing, cyanosis or edema and Yes no pedal edema Psych Appearance: grossly normal and well kempt Speech and movement: Normal speech and movement present and Clear speech present Affect: normal affect Attitude: cooperative Thought process: Normal thought process present Thought content: Normal thought content present Insight: Good insight present (Psych) Judgement: Good judgement present (Psych) Assessment & Plan Assessment & Plan (1) Asthma: Code(s): J45.909 - Unspecified asthma, uncomplicated Category: Medical (2) Environmental allergies: Code(s): Z91.09 - Other allergy status, other than to drugs and biological substances Category: Medical (3) Daytime somnolence: Code(s): R40.0 - Somnolence Category: Medical (4) Non-restorative sleep: Code(s): G47.8 - Other sleep disorders Category: Medical Plan At this time patient reports good control on current regimen of Breo, Incruse, Singulair and Albuterol MDI PRN, advised to continue. Will switch Claritin to Xyzal. She is aware to call if symptoms do not improve. She reports symptoms suggestive of KOKO, will send for HST. All questions were answered and patient is in agreement of plan. Will follow up to review results or sooner if needed. Orders: Orders RT home sleep study Today G47.8 - Other sleep disorders, R40.0 - Somnolence Medications: New levocetirizine (Xyzal) 5 mg PO DAILY 30 tabs 3RF Refilled albuterol sulfate 2.5 mg (3 mL) inhalation QID PRN 75 mL 0RF shortness of breath or wheezing fluticasone furoate-vilanterol 200-25 mcg/dose (Breo Ellipta) 1 inh inhalation DAILY 60 ea 6RF albuterol sulfate 90 mcg/actuation 2 puffs inhalation Q4-6H PRN 1 ea 3RF shortness of breath or wheezing Discontinued loratadine (Allergy Relief (loratadine)) Discontinued Reason: Patient Completed Course 10 mg PO DAILY 30 tabs 2RF Coding Level of Care Code Est Pt Level 4 (75225) Diagnoses Asthma J45.909 Environmental allergies Z91.09 Daytime somnolence R40.0 Non-restorative sleep G47.8
[2025-09-18 09:07] VITALS: BP 110/58; PULSE 90; O2SAT 98; BMI 29.4
--- OUTSIDE RECORDS SUMMARY | 2025-09-18 09:42 | XMS_ITS | Encounter Summary ---
Author Organization [employer] Address [address] [facility] [address] [place] [address] Care Team Providers Care Bag Adjuster Name Role Phone Haydee Jacinto [facility] Primary Care Provider [phone] Encounter Details Date Type Department Care Team ([facility] st Contact Info) Description 08/18/2023 Abstract [facility] MEDICINE [address] [place] [address] Kelsey Sims Social History Tobacco Use Types [...] documented as of this encounter Care Teams Bag Adjuster Relationship Specialty Start Date End Date Haydee Jacinto FNP [address] [place] [id number] PCP - General Family Medicine 07/12/22 documented as of this encounter
--- OUTSIDE RECORDS SUMMARY | 2025-09-18 09:42 | XMS_ITS | Encounter Summary ---
Author Organization [employer] Address [address] [place] [address] [address] [place] [address] Care Team Providers Care Paleology Professor Name Role Phone [facility] Primary Care Provider [phone] Reason for Visit * Reason Onset Date Comments Returning Call 11/23/2024 Encounter Details Date Type Department Care Team ([facility] st Contact Info) Description 11/23/2024 Telephone [facility] MEDICINE [address] [place], [place] [phone] [facility] [address] [place] [address] Returning Call Social History Tobacco Use Types [...] documented as of this encounter Care Teams Paleology Professor Relationship Specialty Start Date End Date Haydee Jacinto FNP [address] [place] [phone] PCP - General Family Medicine 07/12/22 documented as of this encounter
--- OUTSIDE RECORDS SUMMARY | 2025-09-18 09:42 | XMS_ITS | Clinical Summary ---
Author Organization [address] [facility] Address [address] [place] [address] Phone Care Team Providers Care Tmh Teacher Name Role Phone Stephie Arroyo MD Primary [...] Upcoming Encounters Date Type Department Care Team ([facility] st Contact Info) Description 10/23/2025 9:30 AM EST Office Visit Orthopedic Surgery - [place] [address] [facility] [address] [place] [address] Axel Han, DPM [address] [place] [phone] Health Maintenance Due Date Last Done Comments [...] topic Insurance MEDICAID - [place] Care Teams Tmh Teacher Relationship Specialty Start Date End Date Stephie Arroyo MD [address] [phone] PCP - General Internal Medicine 06/11/25
--- OUTSIDE RECORDS SUMMARY | 2025-09-18 09:42 | XMS_ITS | Clinical Summary ---
Author Organization [employer] Address [address] [place] [address] [address] [place] [address] Care Team Providers Care Electronic Semiconductor Processor Name Role Phone Haydee Jacinto [facility] Primary Care Provider [phone] Allergies Active Allergy Reactions Criticality Noted Date [...] 1 each 024 Active oxymetazoline (Afrin Nasal [place]) 0.05 % nasal spray Administer 2 sprays [...] 30 tablet 11 025 2025 Active Cholecalciferol 10 MCG (400 UNIT) chewable tabletIndications :Vitamin D deficiency CHEW AND SWALLOW 6 TABLETS ONCE DAILY 540 tablet 2 025 Active Cholecalciferol (Vitamin D3) 10 MCG (400 UNIT) chewable tabletIndications :Vitamin D deficiency CHEW AND SWALLOW 4 TABLETS ONCE DAILY 360 tablet 1 025 2024 Discontinued(R eorder (will not trigger notification to Pharmacy)) Cholecalciferol (Vitamin D3) 10 MCG (400 UNIT) chewable tabletIndications :Vitamin D deficiency CHEW AND SWALLOW 6 TABLETS ONCE DAILY 360 tablet 1 025 2024 Discontinued Hospital, Clinic, or Other Facility Administered Medication [...] irritable bowel syndrome 04/16/2024 Overview (04/16/2024): IBS-had [facility] follow up. Plan to trial bentyl [...] HPV neg. Followed by Dr. De Souza [facility]. Hx of uterine fibroids. Serial ultrasound C-scope: Routine age 46 BMD: Negative 2021 Anxiety and depression 05/29/2023 Overview (05/29/2023): Established with psychiatry and therapy Sertraline, hydroxyzine, lorazepam Other dysphagia 05/29/2023 Overview (05/29/2023): Referred to GI Uterine leiomyoma 01/31/2023 Overview (03/12/2024): Followed by [facility] [employer]R[facility] Ultrasound done in 02/03 showed multiple uterine fibroids. Plan for periodic ultrasound to monitor. Hyperparathyroidism 04/08/2022 Hepatomegaly 07/13/2021 Chronic low back pain 07/13/2021 Resolved Problems Problem Noted Date Diagnosed Date Resolved Date Acute frontal sinusitis 02/07/202305/14 Encounters Date Type Department Care Team Description 09/04/2025 Refill [facility] [address] [place] [address] [facility] Vitamin D deficiency 08/30/2025 Results Follow-Up [facility] [address] [place] [address] Haydee Jacinto FNP XR Hip 2 or 3 Views Right 08/28/2025 9:15 AM EDT Office Visit [facility] [address] [place] [address] Haydee Jacinto FNP Urge incontinence of urine (Primary Dx); Vitamin D deficiency; Chronic right-sided low back pain without sciatica; Chronic right hip pain; Hyperparathyroidism (CMS/HCC); Uterine leiomyoma, unspecified location 08/28/2025 Travel 08/27/2025 Telephone [facility] [address] [place] [address] Haydee Jacinto FNP Chart Prep 08/20/2025 Patient Outreach [address] [address] Haydee Jacinto FNP Pre-visit Planning (SDOH screening was completed on 12/24/2024) 08/16/2025 Orders [...] of 2 - PCV) 2000 COVID-19 Vaccine ( - season) 2025 07/01/2022, 04/10/2021, 03/13/2021 Influenza Vaccine (#1) 2025 01/21/2020 SDOH Screening 12/24/2025 12/24/2024 Alcohol/Substance Use Screening 02/25/2026 02/25/2025 Depression Monitoring 02/26/2026 08/28/2025, 025 Disability Screening 08/28/2026 08/28/2025 Tobacco Screening 08/28/2026 08/28/2025 Mammogram 08/30/2026 08/30/2025, 08/14, 08/18/2023 Cervical Cancer Screening 07/19/2027 HPV/Cotest 07/19/2027 07/19/2022, 090 11/2021, 07/15/2022, Additional history exists Pap Smear [...] Procedure Name Priority Date/Time Associated Diagnosis Comments BI MAMMOGRAM SCREENING TOMOSYNTHESIS BILATERAL Routine 08/30/2025 8:10 AM EDT XR HIP 2 OR 3 VIEWS RIGHT Routine 08/28/2025 9:45 AM EDT Chronic right hip pain XR PELVIS 1-2 VIEWS Routine 08/28/2025 9 :45 AM EDT Chronic right hip pain HEMATOXYLIN AND EOSIN STAIN Routine 08/16/2025 12:38 PM EDT HCG, QL, URINE Routine 08/16/2025 11:00 AM EDT HM PAP/HPV Routine 07/19/2022 from Last 3 Months or Most Recently Relevant to Health Maintenance Results * BI Mammogram Screening Tomosynthesis Bilateral (08/30/2025 8:10 AM EDT) Anatomical Region Laterality Modality Breast Bilateral Mammography 08/30/2025 8:10 AM EDT Narrative 09/02/2025 2:41 PM EDT [facility] [address] [place] [address] Mammography Report Signed with Mina Patient: Jocelynn Osborn MR#: [id number] : 1980 Acct:[id number] Age/Sex: 45 / F ADM Date: 08/30/25 Loc: HO.MAMMO Attending Dr: Haydee Jacinto DIESEL LOCOMOTIVE CRANE OPERATOR Ordering Physician: Haydee Jacinto Results: 2Beni gn Date of Service: 08/30/25 Follow Up: 1 Year From Orig ina Mammogram Procedure(s): MM tomosynthesis screening BI Accession Number(s): [id number] cc: Haydee Jacinto DIESEL LOCOMOTIVE CRANE OPERATOR Reason For Exam: SCREENING ADDENDUM ADDENDUM #1 ADDENDUM: Due to a software issue this mammogram was reviewed a second time. The findings and recommendations remain the same. OVERALL ASSESSMENT: Category 2: Benign RECOMMENDATION: 1 year F/U Electronically signed by: Arabella Glaser DO 09/16/2025 02:36 PM [facility] Addendum Dictated By: Arabella Glaser DO Addendum Signed By: <Electronically signed by Arabella Glaser DO in OV> 09/16/25 1436 Addendum Cosigned By: DD/ TD/TT: 08/30/25 EXAMINATION: MM SCREENING DIGITAL BREAST TOMOSYNTHESIS, BILATERAL CLINICAL INFORMATION: Screening. Asymptomatic. COMPARISON: Mammography: Comparison is made with available priors TECHNIQUE: Digital breast mammography with tomosynthesis is performed in both the craniocaudal and mediolateral oblique views along with computer-aided detection (CAD). FINDINGS: The breasts are heterogeneously dense, which may obscure small masses. Bilateral scattered benign-appearing calcifications are stable. There are no significant masses, abnormal calcifications, or other abnormalities. MM/MM tomosynthesis screening BI IMPRESSION: No mammographic evidence of malignancy. ASSESSMENT: BI-RADS Category 2: Benign RECOMMENDATION: Routine annual mammography screening. 1 year F/U This examination should not preclude the clinical evaluation of a suspicious palpable abnormality. This patient's information was entered into a reminder system with a target due date for their next mammogram. Electronically signed by: Arabella Glaser DO 09/02/2025 02:38 PM EDT Dictated By: Arabella Glaser DO Signed By: <Electronically signed by Arabella Glaser DO in OV> 09/02/25 1438 DD/ 9 TD/TT: 08/30/25829 Land Acquisition Analyst: Procedure Note Donotuseinterpreter, Image - 09/16/2025 [facility] [address] [place] [address] [address] [place], [place] [address] Mammography Report Signed with Addenda Patient: Jocelynn OsbornMR#: M [id number] : 1980Acct:[id number] Age/Sex: 45 / FADM Date: 08/30/25 Loc: JACEO Attending Dr: Haydee Jacinto DIESEL LOCOMOTIVE CRANE OPERATOR Ordering Physician: Haydee Jacinto FNPResults: 2Beni gn Date of Service: 08/30/25Follow Up: 1 Year From Orig inal Mammogram Procedure(s): MM tomosynthesis screening BI Accession Number(s): [id number] cc: OrvilleHaydee DIESEL LOCOMOTIVE CRANE OPERATOR Reason For Exam: SCREENING ADDENDUM ADDENDUM #1 ADDENDUM: Due to a software issue this mammogram was reviewed a second time. The findings and recommendations remain the same. OVERALL ASSESSMENT: Category 2: Benign RECOMMENDATION: 1 year F/U Electronically signed by: Arabella Glaser DO 09/16/2025 02:36 PM EST RP Addendum Dictated By: Arabella Glaser DO Addendum Signed By: <Electronically signed by DO Autumn in OV> 09/16/25 1436 Addendum Cosigned By: DD/ TD/TT: 08/30/25 EXAMINATION: MM SCREENING DIGITAL BREAST TOMOSYNTHESIS, BILATERAL CLINICAL INFORMATION: Screening. Asymptomatic. COMPARISON: Mammography: Comparison is made with available priors TECHNIQUE: Digital breast mammography with tomosynthesis is performed in both the craniocaudal and mediolateral oblique views along with computer-aided detection (CAD). FINDINGS: The breasts are heterogeneously dense, which may obscure small masses. Bilateral scattered benign-appearing calcifications are stable. There are no significant masses, abnormal calcifications, or other abnormalities. MM/MM tomosynthesis screening BI IMPRESSION: No mammographic evidence of malignancy. ASSESSMENT: BI-RADS Category 2: Benign RECOMMENDATION: Routine annual mammography screening. 1 year F/U This examination should not preclude the clinical evaluation of a suspicious palpable abnormality. This patient's information was entered into a reminder system with a target due date for their next mammogram. Electronically signed by: Arabella Glaser DO 09/02/2025 02:38 PM EDT RP Dictated By: Arabella Glaser DO Signed By: <Electronically signed by Arabella Glaser DO in OV> 09/02/25 1438 DD/ 9 TD/TT: 08/30/25829 Land Acquisition Analyst: [facility] DIESEL LOCOMOTIVE CRANE OPERATOR IMG BI PROCEDURES Edited Resu lt - Final * XR Pelvis 1-2 Views (08/28/2025 9:45 AM EDT) Anatomical Region Laterality Modality Body, Pelvis Radiographic Stephie ging 08/28/2025 9:45 AM EDT Narrative 08/28/2025 10:03 AM EDT [address] [address] XRay Report Signed Patient: Jocelynn Osborn MR#: [id number] : 1980 Acct:[id number] Age/Sex: 45 / F ADM Date: 08/28/25 Loc: HO.HHCX Attending Dr: Haydee BRADLEY Ordering Physician: Haydee Jacinto Date of Service: 08/28/25 Procedure(s): XR pelvis 1-2V Accession Number(s): [id number] cc: Haydee Jacinto Reason for Exam: 45 [...] Matthieu Roberson MD 08/28/2025 10:00 AM EDT Dictated By: Matthieu Roberson MD Signed By: <Electronically signed by Matthieu Roberson MD in OV> 08/28/25 1000 DD/ 4 TD/TT: 08/28/25945 Land Acquisition Analyst: ADENIKE Procedure Note Donotuseinterpreter, Image - 08/28/[address] [address] XRay Report Signed Patient: Jocelynn OsbornMR#: M [id number] : 1980Acct:[id number] Age/Sex: 45 / FADM Date: 08/28/25 Loc: HO.HHCX Attending Dr: Haydee BRADLEY Ordering Physician: Haydee Jacinto Date of Service: 08/28/25 Procedure(s): XR pelvis 1-2V Accession Number(s): [id number] cc: [facility] Reason for Exam: 45 y.o F with [...] Matthieu Roberson MD 08/28/2025 10:00 AM EDT Dictated By: Matthieu Roberson MD Signed By: <Electronically signed by Matthieu Roberson MD in OV> 08/28/25 1000 DD/ TD/TT: 08/28/25945 Land Acquisition Analyst: ADENIKE [facility] IMG XR PROCEDURES Final Resul t * XR Hip 2 or 3 Views Right (08/28/2025 9:45 AM EDT) Anatomical Region Laterality Modality Lower Extremities, Hip Right Radiograp hic Imaging 08/28/2025 9:45 AM EDT Narrative 08/28/2025 9:53 AM EDT [address] [address] XRay Report Signed Patient: Jocelynn Osborn MR#: M [id number] : 1980 Acct:[id number] Age/Sex: 45 / F ADM Date: 08/28/25 Loc: KATHLEENX Attending Dr: Haydee BRADLEY Ordering Physician: Haydee Jacinto Date of Service: 08/28/25 Procedure(s): XR hip RT min 2V Accession Number(s): [id number] cc: Haydee Jacinto Reason for Exam: Chronic [...] MD in OV> 08/28/2550 DD/ TD/TT: 08/28/25945 Land Acquisition Analyst: Procedure Note Donotuseinterpreter, Image - 08/28/[address] [address] XRay Report Signed Patient: Jocelynn OsbornMR#: M [id number] : 1980Acct:[id number] Age/Sex: 45 / FADM Date: 08/28/25 Loc: RAFAEL Attending Dr: Haydee BRADLEY Ordering Physician: Haydee Jacinto Date of Service: 08/28/25 Procedure(s): XR hip RT min 2V Accession Number(s): [id number] cc: Haydee Jacinto Reason for Exam: Chronic [...] in OV> 08/28/2550 DD/ 4 TD/TT: 08/28/25945 Land Acquisition Analyst: [facility] DIESEL LOCOMOTIVE CRANE OPERATOR IMG XR PROCEDURES Final Resul t * Hematoxylin and Eosin Stain (08/16/2025 12:38 PM EDT) 08/16/2025 12:3 8 PM EDT 08/16/2025 1:39 PM EDT [facility] - 08/20/2025 3:38 PM EDT ----- ------- Name: Jocelynn Osborn Age/Sex: 45/F : 1980 Unit#: [id number] Attend Dr: Meuhl Michaels MD Re08/16/25 Status: [facility] Location: [facility] Disch: ----- ------- SPEC : [id number] RECD: 08/16/258 STATUS: AMBAR FOX NUM: [id number] JALEN: 08/16/25-1238 [facility] DR: Mehul Michaels MD ENTERED: 08/16/253758 SP TYPE: Surgical OTHR DR: Haydee Jacinto [facility] ORDERED: HE Stain/, Gross Micro L4/8, IHC/3, Special st. 2/, H. pylori/3, AB/PAS/4 Diagnosis A. Small bowel, [...] Jocelynn Osborn Age/Sex: 45/F : 1980 Unit#: [id number] Attend Dr: Mehul Michaels MD Re08/16/25 Status: [facility] Location: [facility] Disch: ----- ------- SPEC : [id number] RECD: 08/16/253 STATUS: AMBAR FOX NUM: [id number] JALEN: 08/16/25-12[address] [facility] [address]: Mehul Michaels MD ENTERED: 08/16/25-1581 SP TYPE: Surgical OTHR DR: Haydee Jacinto [facility] ORDERED: HE Stain/, Gross Micro L4/8, IHC/3, [...] microscopic examination, 2 pieces in cassette H. ([facility]) Special studies ordered and performed: Immunostain for H. pylori on B, C and D; AB/PAS stains on A, B, C and D CONTINUED ON NEXT PAGE ----- ------- Name: Jocelynn Osborn Age/Sex: 45/F : 1980 Unit#: [id number] Attend Dr: Mehul Michaels MD Re08/16/25 Status: [facility] Location: [facility] Disch: ----- ------- SPEC : [id number] RECD: 08/16/25 STATUS: AMBAR FOX NUM: [id number] JALEN: 08/16/[address] [facility] [address]: Mehul Michaels MD ENTERED: 08/16/250338 SP TYPE: Surgical OTHR DR: Haydee Jacinto [facility] ORDERED: HE Stain/, Gross Micro L4/8, IHC/3, Special st. 2/, H. pylori/3, AB/PAS/4 IHC S/NG Disclaimer NOTE: Unless otherwise stated, all tissue is formalin-fixed and paraffin-embedded. Some or all of the immunohistochemical tests reported herein may have been developed and their performance characteristics determined by [facility]. They have not been cleared or approved by the U.S. Food and Drug Administration (FDA). However, the FDA has determined that such clearance or approval is not necessary. This laboratory is certified under the Clinical Laboratory Improvement Amendments of 1988 (CLIA) as qualified to perform high complexity clinical laboratory testing. Copies To: Mehul Michaels MD [facility] [address] [place] [phone] Haydee Jacinto [address] [address] ----- ------- Signed (signature on file) Dago Boston MD 08/20/25 1538 ----- ------- END OF REPORT Generic External Data Provider LAB BLOOD ORDERAB LES Final Result Performing Organization Address [facility] Co de Phone Number [facility] [address] [place] [phone] * HCG, Qualitative, Urine (08/16/2025 11:00 AM EDT) Urine NEGATIVE NEGATIVE [facility] Comment:This test was develo ped to detect early . Falsenegative results may occur after the 5th - 7th week ofpregnancy when using this test method. If clinicallyindicated, consider a serum hCG. 08/16/2025 11:0 0 AM EDT 08/16/2025 11:08 AM EDT Generic External Data Provider LAB URINE ORDERAB LES Final Result Performing Organization Address [facility] Co de Phone Number [facility] [address] [place] [phone] * Hm Pap Smear (07/19/2022) Pap Negative for intraephithelial lesion or malignancy Negative for intraephithelial lesion or malignancy, Other HPV Undetected Historical Provider HEALTH MAINTENANCE Final Result from Last 3 Months or Most Recently Relevant to Health Maintenance Insurance [employer] Care Teams Electronic Semiconductor Processor Relationship Specialty Start Date End Date Haydee Jacinto FNP [address] [place] [phone] PCP - General Family Medicine 07/12/22
== END 2025-09-18 09:41 | disposition home or self-care (01) ==
LOC: HO.HPSW 09:04
PROVIDERS: PCP Registered Nurse; Visit Provider Nurse Practitioner Family
DX: J45.909 Unspecified asthma, uncomplicated (principal); Z91.09 Other allergy status, other than to drugs and biological substances; R40.0 Somnolence; G47.8 Other sleep disorders
CPT/HCPCS: 99214

== ENCOUNTER → 2025-09-18 09:03 | Outpatient (BNVA) | payer MEDICAID, SELFPAY | PROVIDERS: PCP Registered Nurse; Visit Provider Nurse Practitioner Family | DX: R06.02 Shortness of breath (principal); J45.909 Unspecified asthma, uncomplicated; Z91.09 Other allergy status, other than to drugs and biological substances; R40.0 Somnolence; G47.8 Other sleep disorders | CPT/HCPCS: 99212 ==

== ENCOUNTER 2025-09-19 07:54 | Outpatient (AMB) | payer MEDICAID, SELFPAY ==
[2025-09-19 07:58] VITALS: BP 110/74; PULSE 80; O2SAT 98; BMI 29.6
--- NOTE | 2025-09-19 07:58 | A.OFFVIS_ITS ---
Vital Signs 09/19/25 07:58 Height 5 ft 4 in Weight 172 lb 6.424 oz BMI 29.6 BP 110/74 Blood Pressure Location Lt brachial Position Sitting Pulse 80 Pulse Source Pulse Oximeter Pulse Oximetry (%) 98 Oxygen Delivery Method Room Air Intake Visit Reasons: Hyperparathyroid Intake Note: Patient presents here today for Hyperthyroidism follow-up after completion of work-up: Patient of DR Ginger White MD. Operations Analyst Required: No Operations Analyst Services: Operations Analyst Present Operations Analyst Name: Misael [id number] Information Interpreted: non-clinical & clinical Accompanied by: Self / Same As Patient Allergies dog dander Allergy (Intermediate, Verified 09/19/25 08:04) Unknown seafood Allergy (Intermediate, Verified 09/19/25 08:04) Itching aspirin Allergy (Unknown, Verified 09/19/25 08:04) swelling HPI Comments Details: 43 YO Female with a PMHx Anxiety who is seen in F/U for 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 Last seen by Dr. White on October 2024. This is my 1st time seeing this patient. HPI from prior visit The patient had been complaining of chronic abdominal pain. She has episodes with severe cramping abdominal pain accompanied by watery diarrhea, facial flushing and sweating. She also has nausea at these times. She was referred to GI and underwent a thorough evaluation. 5HIAA was negative. Serum and Urinary 24 hour metanephrines were negative. Her 24 hour urine free cortisol level was elevated to 56.9. This was an adequate collection with a volume of 1.45 L and a Creatinine of 1.27. She was subsequently referred to Endocrinology. She had a CT of the abdomen 04/11/2020 which revealed no adrenal adenoma. This was not a dedicated adrenal protocol. After our initial visit we repeated her 24 hour urine cortisol, which was WNL. She also had a DSST which was WNL. Midnight salivary Cortisol was also WNL, effectively ruling out bandar's disease. She underwent lab workup for hypoglycemia, and this was also WNL. Gastrin was WNL. Her Calcium was, however, noted to have been elevated in the past. She underwent a biochemical evaluation for hyperparathyroidism which is concerning w ith Vitamin D 22.1, Calcium 9.9, and PTH inappropriately normal at 50. Albumin in the past was 5.0. Her 24 hour urine Calcium was elevated to 396 and this was an adequate collection. Labs were repeated 12/09/2020 with Calcium 9.6, Albumin 4.5, Vitamin D 23.5, PTH elevated to 89 and Phos 2.6. She was asked to increase her Vitamin D to 2000 IU daily and have labs repeated. Repeat labs 03/19/2021 with Calcium 9.8, PTH 76, Vitamin D 26.5 and Albumin 4.7. She had an US of the neck which revealed no evidence of a parathyroid adenoma. DEXA 02/01 was completely WNL. Father: lots of kidney stones Last visit she was noted to have poor adherence with vitamin-D. Interval history 09/19/25 She reports taking vitamin D, unknown dosage, she is taking now 6 chewable pills. She was previously taking 4 chewable pills. She reports that she has been taking it consistently for 4-5 months Denies calcium supplement and calcium in the diet seems insufficient Despite this, her vitamin D levels were low in April 2025 She reports that she has had issues with swallowing. She is being seen by GI and she uderwent EGD and Colonoscopy No kidney stones No fractures She reports fatigue, bone pain, constipation. Denies polydypsia, seems to have nocturia of multiple etiologies. Physical exam General: Well appearing. NAD. Neck/Thyroid: Thyroid not palpable, no nodules. CV: RRR, no murmur. No edema. Resp:Lungs clear to auscultation bilaterally Abdomen: Soft, nontender. nondistended Extremities/Neuro: No weakness or tremor of outstretched hands Laboratory Tests 04/16/25 09:03 Sodium 138 Creatinine 0.71 Estimated GFR > 60 Calcium 9.6 Phosphorus 2.6 L Alkaline Phosphatase 41 Albumin 4.5 25-OH Vitamin D Total 24.3 L PTH Intact 95.7 H Labs: Laboratory Tests 03/28/23 03/28/23 03/30/23 10:40 10:40 08:25 Sodium 138 Potassium 4.2 Creatinine 0.77 Estimated GFR > 60 Albumin 4.2 25-OH Vitamin D Total 26.0 PTH Intact 98 H Calcium (PTH Intact) 9.6 Ur 24 Hour Volume Ur Creatinine 24 Hour 1.21 Ur Calcium 24 Hr 246 03/30/23 08:25 Sodium Potassium Creatinine Estimated GFR Albumin 25-OH Vitamin D Total PTH Intact Calcium (PTH Intact) Ur 24 Hour Volume 1225 Ur Creatinine 24 Hour Ur Calcium 24 Hr Laboratory Tests 09/03/24 10/22/24 11:40 10:19 Phosphorus 2.5 L 2.5 L 25-OH Vitamin D Total 26.8 L 21.5 L PTH Intact 104.4 H 77.3 H Laboratory Tests 09/03/24 10/22/24 11:40 10:19 Calcium 10.2 9.9 Ionized Calcium 5.1 5.3 Albumin 4.7 4.4 Laboratory Tests 09/03/24 11:40 Plasma Free Metaneph <25 Plasma Free Normeta 74 Plas Total Metaneph 74 Laboratory Tests 09/03/24 11:40 TSH 1.10 Thyroid US: 12/09/2020 Right Thyroid Lobe: 4.6 x 1.8 x 1.4 cm, volume 5.9 mL. Parenchyma: The gland echotexture is homogeneous. Thyroid vascularity is normal. Left Thyroid Lobe: 4.2 x 1.5 x 1.3 cm, volume 4.0 mL. Parenchyma: The gland echotexture is homogeneous. Thyroid vascularity is normal. Isthmus: 0.4 cm in maximum AP dimension. RIGHT THYROID LOBE: No nodules. ISTHMUS: No nodules. LEFT THYROID LOBE: No nodules. NODES: No lymphadenopathy is seen in the tissue surrounding the thyroid gland. No parathyroid adenoma is seen. DEXA 02/03/2021: FINDINGS: AP SPINE L1-L3 (excluding L4): The data of L1-L4 has been changed to exclude the L4 vertebral body, because probable degenerative changes at this level may cause overestimation of lumbar spine density. Current: BMD 1.258 g/cm2, T-score 0.7, Z-score 0.6, Z-score within expected range for age, 2.1% increase from baseline (<5% change is not significant). Baseline: BMD 1.232 g/cm2. LEFT FEMUR, NECK: Current: BMD 1.073 g/cm2, T-score 0.3, Z-score 0.6, Z-score within expected range for age. Baseline: BMD 1.001 g/cm2. LEFT FEMUR, TOTAL: Current: BMD 1.153 g/cm2, T-score 1.2, Z-score 1.3, Z-score within expected range for age, 9.1% increase from baseline (<5% change is not significant). Baseline: BMD 1.057 g/cm2. LEFT FOREARM RADIUS 33%: Current: BMD 0.865 g/cm2, T-score -0.1, Z-score -0.1, Z-score within expected range for age, 1.9% decrease from baseline (<5% change is not significant). Baseline: BMD 0.882 g/cm2. [facility] Medical History (Updated 09/18/25 @ 09:43 by Celeste Rosas NP) Nausea and vomiting Chronic idiopathic constipation Rectal bleeding Asthma Murmur Shortness of breath COVID-19 Well woman exam Flushing Cough due to bronchospasm Encounter for preoperative pulmonary examination Liver lesion Anxiety Chronic abdominal pain Goiter Vitamin D deficiency Hyperparathyroidism Hypercalcemia Surgical History H/O esophagogastroduodenoscopy H/O colonoscopy History of surgery History of umbilical hernia repair Hx of section Family History Father Diabetes Hypertension Alzheimer disease FH: prostate cancer Emphysema of lung Mother Hypertension Diabetes Social History Household Members: Spouse Household Members Other:: son Housing: Apartment Alcohol intake: never Patient Tobacco Use Status: Never used Tobacco Current occupational status: unemployed Sexual orientation: Straight/Heterosexual Gender identity: Female Female Reproductive History Menstrual Age of Menarche: 13 Physical Exam Vital Signs: Last Vital Signs Pulse 80 09/19/25 07:58 BP 110/74 09/19/25 07:58 Pulse Ox 98 09/19/25 07:58 Oxygen Delivery Method Room Air 09/19/25 07:58 BMI result Body Mass Index 29.6 Assessment & Plan Assessment & Plan (1) Hypercalcemia: Code(s): E83.52 - Hypercalcemia Category: Medical Plan: In the past she has history of hypercalcemia. More recent blood work over the last few years, showed elevated PTH levels, normal calcium levels and low vitamin-D levels. Was thought that she has secondary hyperparathyroidism in the setting of vitamin-D deficiency. She has had trouble being adherent to her vitamin-D tablets due to anxiety with swallowing big pills. I discussed with her today to start taking gummies. She is amenable to that idea. Once she has been adherent to vitamin-D for 2 months, I have asked her to repeat her blood work. Her more recent blood work in March 07, showed improved vitamin-D levels of 35, and her PTH level is normal. Her total calcium level is mildly elevated at 10.3, though no albumin or ionized calcium was done. It could be that the total calcium as high in the setting of high albumin albumin. Labs repeated 09/03/2024 showed low vitamin-D levels of 26.8 with PTH elevated at 104.4. Ionized calcium normal at 5.1, calcium 10.2 with albumin of 4.7, corrected calcium would be within normal range. Labs repeated 10/22/2024 showed even worsening vitamin-D of 21.5 with PTH at 77.3. Phosphorus also low at 2.7 in the setting of elevated PTH levels. Normal calcium of 9.9, normal ionized calcium of 5.3. Albumin 4.4. We reviewed that low Vitamin D can lead to elevations in parathyroid hormone levels, which can lead to primary hyperparathyroidism, osteoporosis and fractures. In order to prevent this she needs to increase her Vitamin D. she says she is willing to try, but expresses low motivation. Labs repeated in April 2025, she was found to have again, elevated PTH 95.7, but vitamin D still low at 24.3. She reports that she has been consistently taking vitamin D since, hence will repeat labs now. She has maintained normocalcemia for many labs since 08/2024. Plan: Continue vitamin D supplementation Repeat labs now Advice to increase calcium intake to a 800 mg daily We provided her with a guide on calcium food content (2) Hyperparathyroidism: Code(s): E21.3 - Hyperparathyroidism, unspecified Category: Medical Plan: See above (3) Vitamin D deficiency: Code(s): E55.9 - Vitamin D deficiency, unspecified Category: Medical Plan: See above Plan I spent 30 minutes in reviewing the record, seeing the patient and documenting in the medical record. Orders: Orders Comprehensive Met. Panel Today E21.3 - Hyperparathyroidism, unspecified, E55.9 - Vitamin D deficiency, unspecified Parathyroid Hormone Intact Today E21.3 - Hyperparathyroidism, unspecified, E55.9 - Vitamin D deficiency, unspecified Calcium, 24 Hr Ur Today E21.3 - Hyperparathyroidism, unspecified, E55.9 - Vitamin D deficiency, unspecified Creatinine, 24 Hr Group Today E21.3 - Hyperparathyroidism, unspecified, E55.9 - Vitamin D deficiency, unspecified Phosphorus Today E21.3 - Hyperparathyroidism, unspecified, E55.9 - Vitamin D deficiency, unspecified Vitamin D 25-OH Total Today E21.3 - Hyperparathyroidism, unspecified, E55.9 - Vitamin D deficiency, unspecified Patient Instructions: Por favor, real?cese los an?lisis de derrell y/o orina en [facility], en cualquiera de las siguientes direcciones: [address] [place] [address] o [address] [facility], [facility] [address], [place] [address]. Instrucciones para la Recolecci?n de Calcio en Orina de 24 Horas Prop?sito: Esta prueba mide la cantidad de calcio excretado en la orina ángel un per?odo de 24 horas. Ayuda a evaluar el metabolismo del calcio y a diagnosticar ciertas condiciones. Materiales Necesarios: * Recipiente para recolecci?n de orina de 24 horas (proporcionado por el laboratorio o la cl?frieda) * Dispositivo para recolectar orina (opcional, para facilitar la recolecci?n) * Instrucciones escritas (esta hoja) Instrucciones: Inicio de la Recolecci?n: * Elija un d?a en el que pueda estar en casa o tenga f?cil acceso a un ba?o. * Al despertarse el primer d?a, orine y deseche esta primera orina de la ma?navya. No la recoja. Anote la hora exacta; esta ser? huber hora de inicio. Recolecci?n de Toda la Orina: * Ángel las siguientes 24 horas, recolecte toda la orina que elimine en el recipiente proporcionado. * Cada vez que orine, h?yandy en un recipiente limpio y luego transfi?ralo al recipiente de recolecci?n de 24 horas. * Mantenga el recipiente de recolecci?n en un lugar fresco, preferiblemente en el refrigerador o sobre hielo, ángel el per?odo de recolecci?n. Finalizaci?n de la Recolecci?n: * Exactamente 24 horas despu?s de la hora de inicio, orine por ?ltima vez y agregue esta orina al recipiente. [place] completa la recolecci?n. Despu?s de la Recolecci?n: * Aseg?rese de que la tapa est? yonis cerrada. * Etiquete el recipiente con huber nombre, la fecha y las horas de inicio y finalizaci?n. * Devuelva el recipiente al laboratorio o al consultorio de huber m?dico lo antes posible despu?s de completar la recolecci?n. Consejos Importantes: * No omita ninguna micci?n ángel el per?odo de 24 horas. Si lo hace, es posible que deba repetir la prueba. * No permita que papel higi?kirit, heces u otros materiales entren en la muestra de orina. * Contin?e con huber dieta habitual, a menos que se le indique lo contrario. * Algunas pruebas pueden requerir que evite ciertos alimentos o medicamentos; siga cualquier instrucci?n adicional proporcionada por huber m?dico. Coding Level of Care Code Est Pt Level 4 (70716) Diagnoses Hypercalcemia E83.52 Hyperparathyroidism E21.3 Vitamin D deficiency E55.9
--- OUTSIDE RECORDS SUMMARY | 2025-09-19 07:59 | XMS_ITS | Encounter Summary ---
Author Organization [employer] Address [address] [place] [address] [address] [place] [address] Care Team Providers Care Rn Maternity Name Role Phone [facility] Primary Care Provider [phone] Reason for Visit * Reason Onset Date Comments Returning Call 11/23/2024 Encounter Details Date Type Department Care Team ([facility] st Contact Info) Description 11/23/2024 Telephone [facility] MEDICINE [address] [place], [place] [phone] [facility] [address] [place] [address] Returning Call Social History Tobacco Use Types [...] documented as of this encounter Care Teams Rn Maternity Relationship Specialty Start Date End Date Haydee Jacinto FNP [address] [place] [phone] PCP - General Family Medicine 07/12/22 documented as of this encounter
--- OUTSIDE RECORDS SUMMARY | 2025-09-19 07:59 | XMS_ITS | Clinical Summary ---
Author Organization [facility] Address [address] [place] [address] Phone Care Team Providers Care Airline Radio Operator Name Role Phone Stephie Arroyo MD Primary [...] Upcoming Encounters Date Type Department Care Team ([facility] Contact Info) Description 10/23/2025 9:30 AM EST Office Visit Orthopedic Surgery - [place] [address] [phone] Axel Han DPM [address] [phone] Health Maintenance Due Date Last [...] topic Insurance MEDICAID - [place] Care Teams Airline Radio Operator Relationship Specialty Start Date End Date Stephie Arroyo MD [address] [place] [phone] PCP - General Internal Medicine 06/11/25
--- OUTSIDE RECORDS SUMMARY | 2025-09-19 07:59 | XMS_ITS | Encounter Summary ---
Author Organization [employer] Address [address] [facility] [address] [place] [address] Care Team Providers Care Instructor Programmable Controllers Name Role Phone Haydee Jacinto [facility] Primary Care Provider [phone] Encounter Details Date Type Department Care Team ([facility] st Contact Info) Description 08/18/2023 Abstract [facility] MEDICINE [address] [place] [address] Kelsey Sims Social History Tobacco Use Types [...] documented as of this encounter Care Teams Instructor Programmable Controllers Relationship Specialty Start Date End Date Haydee Jacinto FNP [address] [place] [id number] PCP - General Family Medicine 07/12/22 documented as of this encounter
--- OUTSIDE RECORDS SUMMARY | 2025-09-19 07:59 | XMS_ITS | Clinical Summary ---
Author Organization [employer] Address [address] [place] [address] [address] [place] [address] Care Team Providers Care Plan Examiner Name Role Phone Haydee Jacinto [facility] Primary Care Provider [phone] Allergies Active Allergy Reactions Criticality Noted Date [...] 1 each 024 Active oxymetazoline (Afrin Nasal [place]) 0.05 % nasal spray Administer 2 sprays [...] irritable bowel syndrome 04/16/2024 Overview (04/16/2024): IBS-had [facility] follow up. Plan to trial bentyl [...] HPV neg. Followed by Dr. De Souza [facility]. Hx of uterine fibroids. Serial ultrasound C-scope: Routine age 46 BMD: Negative 2021 Anxiety and depression 05/29/2023 Overview (05/29/2023): Established with psychiatry and therapy Sertraline, hydroxyzine, lorazepam Other dysphagia 05/29/2023 Overview (05/29/2023): Referred to GI Uterine leiomyoma 01/31/2023 Overview (03/12/2024): Followed by [employer] Ultrasound done in 02/03 showed multiple uterine fibroids. Plan for periodic ultrasound to monitor. Hyperparathyroidism 04/08/2022 Hepatomegaly 07/13/2021 Chronic low back pain 07/13/2021 Resolved Problems Problem Noted Date Diagnosed Date Resolved Date Acute frontal sinusitis 02/07/202305/14 Encounters Date Type Department Care Team Description 09/04/2025 Refill [facility] [address] [place] [address] [facility] Vitamin D deficiency 08/30/2025 Results Follow-Up [facility] [address] [place] [address] Haydee Jacinto FNP XR Hip 2 or 3 Views Right 08/28/2025 9:15 AM EDT Office Visit [facility] [address] [place] [address] Haydee Jacinto FNP Urge incontinence of urine (Primary Dx); Vitamin D deficiency; Chronic right-sided low back pain without sciatica; Chronic right hip pain; Hyperparathyroidism (CMS/HCC); Uterine leiomyoma, unspecified location 08/28/2025 Travel 08/27/2025 Telephone [facility] [address] [place] [address] Haydee Jacinto FNP Chart Prep 08/20/2025 Patient Outreach [address] [address] Haydee Jacinto FNP Pre-visit Planning (SDOH screening [...] AM EDT Narrative 09/02/2025 2:41 PM EDT [facility] [address] [place] [address] Mammography Report Signed with Mina Patient: Jocelynn Osborn MR#: M [id number] : 1980 Acct:[id number] Age/Sex: 45 / F ADM Date: 08/30/25 Loc: HO.MAMMO Attending Dr: Haydee Jacinto [employer] Ordering Physician: Haydee Jacinto Results: 2Beni gn Date of Service: 08/30/25 Follow Up: 1 Year From Orig ina Mammogram Procedure(s): MM tomosynthesis screening BI Accession Number(s): [id number] cc: Haydee Jacinto DIETARY AIDE TEACHER Reason For Exam: SCREENING ADDENDUM ADDENDUM #1 [...] OV> 09/02/25 1438 DD/ 9 TD/TT: 08/30/25829 Nuclear Physician: Procedure Note Donotuseinterpreter, Image - 09/16/2025 [facility] [address] [place] [address] [place], [place] [address] Mammography Report Signed with Addenda Patient: Jocelynn OsbornMR#: M [id number] : 1980Acct:[id number] Age/Sex: 45 / FADM Date: 08/30/25 Loc: JACEO Attending Dr: Haydee Jacinto [employer]ETARY AIDE TEACHER Ordering Physician: Haydee Jacinto FNPResults: 2Beni gn Date of Service: 08/30/25Follow Up: 1 Year From Orig inal Mammogram Procedure(s): MM tomosynthesis screening BI Accession Number(s): [id number] cc: OrvilleHaydee DIETARY AIDE TEACHER Reason For Exam: SCREENING ADDENDUM ADDENDUM #1 [...] OV> 09/02/25 1438 DD/ 9 TD/TT: 08/30/25829 Nuclear Physician: [facility] DIETARY AIDE TEACHER IMG BI PROCEDURES Edited Resu lt - Final * XR Pelvis 1-2 Views (08/28/2025 9:45 AM EDT) Anatomical Region Laterality Modality Body, Pelvis Radiographic Stephie ging 08/28/2025 9:45 AM EDT Narrative 08/28/2025 10:03 AM EDT [address] [address] XRay Report Signed Patient: Jocelynn Osborn MR#: [id number] : 1980 Acct:[id number] Age/Sex: 45 / F ADM Date: 08/28/25 Loc: HO.HHCX Attending Dr: Haydee BRADLEY Ordering Physician: Haydee Jacinto Date of Service: 08/28/25 Procedure(s): XR pelvis 1-2V Accession Number(s): [id number] cc: Haydee Jacinto Reason for Exam: 45 [...] acute osseous findings. Electronically signed by: Matthieu Roberosn MD 08/28/2025 10:00 AM EDT Dictated By: Matthieu Roberson MD Signed By: <Electronically signed by Matthieu Roberson MD in OV> 08/28/25 1000 DD/ 4 TD/TT: 08/28/25945 Nuclear Physician: ADENIKE Procedure Note Donotuseinterpreter, Image - 08/28/[address] [address] XRay Report Signed Patient: Jocelynn OsbornMR#: M [id number] : 1980Acct:[id number] Age/Sex: 45 / FADM Date: 08/28/25 Loc: HO.HHCX Attending Dr: Haydee BRADLEY Ordering Physician: Haydee Jacinto Date of Service: 08/28/25 Procedure(s): XR pelvis 1-2V Accession Number(s): [id number] cc: [facility] Reason for Exam: 45 y.o F with [...] acute osseous findings. Electronically signed by: Matthieu Rboerson MD 08/28/2025 10:00 AM EDT Dictated By: Matthieu Roberson MD Signed By: <Electronically signed by Matthieu Roberson MD in OV> 08/28/25 1000 DD/ TD/TT: 08/28/25945 Nuclear Physician: ADENIKE [facility] IMG XR PROCEDURES Final Resul t * XR Hip 2 or 3 Views Right (08/28/2025 9:45 AM EDT) Anatomical Region Laterality Modality Lower Extremities, Hip Right Radiograp hic Imaging 08/28/2025 9:45 AM EDT Narrative 08/28/2025 9:53 AM EDT [address] [address] XRay Report Signed Patient: Jocelynn Osborn MR#: M [id number] : 1980 Acct:[id number] Age/Sex: 45 / F ADM Date: 08/28/25 Loc: KATHLEENX Attending Dr: Haydee BRADLEY Ordering Physician: Haydee Jacinto Date of Service: 08/28/25 Procedure(s): XR hip RT min 2V Accession Number(s): [id number] cc: Haydee Jacinto Reason for Exam: Chronic [...] MD in OV> 08/28/2550 DD/ TD/TT: 08/28/25945 Nuclear Physician: Procedure Note Donotuseinterpreter, Image - 08/28/[address] [address] XRay Report Signed Patient: Jocelynn OsbornMR#: M [id number] : 1980Acct:[id number] Age/Sex: 45 / FADM Date: 08/28/25 Loc: RAFAEL Attending Dr: Haydee BRADLEY Ordering Physician: Haydee Jacinto Date of Service: 08/28/25 Procedure(s): XR hip RT min 2V Accession Number(s): [id number] cc: Haydee Jacinto Reason for Exam: Chronic [...] in OV> 08/28/2550 DD/ 4 TD/TT: 08/28/25945 Nuclear Physician: [facility] DIETARY AIDE TEACHER IMG XR PROCEDURES Final Resul t * Hematoxylin and Eosin Stain (08/16/2025 12:38 PM EDT) 08/16/2025 12:3 8 PM EDT 08/16/2025 1:39 PM EDT [facility] - 08/20/2025 3:38 PM EDT ----- ------- Name: Jocelynn Osborn Age/Sex: 45/F : 1980 Unit#: [id number] Attend Dr: Mehul Michaels MD Re08/16/25 [address]: [facility] Location: [facility] Disch: ----- ------- SPEC : [id number] RECD: 08/16/257 STATUS: AMBAR FOX NUM: [id number] JALEN: 08/16/25-[address] [facility] [address]: Mehul Michaels MD ENTERED: 08/16/251388 SP TYPE: Surgical OTHR DR: Haydee Jacinto [facility] ORDERED: HE Stain/, Gross Micro [...] Jocelynn Osborn Age/Sex: 45/F : 1980 Unit#: [id number] Attend Dr: Mehul Michaels MD Re08/16/25 Status: [facility] Location: [facility] Disch: ----- ------- SPEC : [id number] RECD: 08/16/256 STATUS: AMBAR FOX NUM: [id number] JALEN: 08/16/25-[address] [facility] [address]: Mehul Michaels MD ENTERED: 08/16/25-5549 SP TYPE: Surgical OTHR DR: Haydee Jacinto [facility] ORDERED: HE Stain/, Gross Micro [...] microscopic examination, 2 pieces in cassette H. ([facility]) Special studies ordered and performed: Immunostain for H. pylori on B, C and D; AB/PAS stains on A, B, C and D CONTINUED ON NEXT PAGE ----- ------- Name: Jocelynn Osborn Age/Sex: 45/F : 1980 Unit#: [id number] Attend Dr: Mehul Michaels MD Re08/16/25 Status: [facility] Location: [facility] Disch: ----- ------- SPEC : [id number] RECD: 08/16/25 STATUS: AMBAR FOX NUM: [id number] JALEN: 08/16/[address] [facility] [address]: Mehul Michaels MD ENTERED: 08/16/256756 SP TYPE: Surgical OTHR DR: Haydee Jacinto [facility] ORDERED: HE Stain/, Gross Micro L4/8, IHC/3, Special st. 2/, H. pylori/3, AB/PAS/4 IHC S/NG Disclaimer NOTE: Unless otherwise stated, all tissue is formalin-fixed and paraffin-embedded. Some or all of the immunohistochemical tests reported herein may have been developed and their performance characteristics determined by [facility]. They have not been cleared or approved by the U.S. Food and Drug Administration (FDA). However, the FDA has determined that such clearance or approval is not necessary. This laboratory is certified under the Clinical Laboratory Improvement Amendments of 1988 (CLIA) as qualified to perform high complexity clinical laboratory testing. Copies To: Mehul Michaels MD [facility] [address] [place] [address] [phone] Haydee Jacinto [address] [address] ----- ------- Signed (signature on file) Dago Boston MD 08/20/25 1538 ----- ------- END OF REPORT Generic External Data Provider LAB BLOOD ORDERAB LES Final Result Performing Organization Address [facility] Co de Phone Number [facility] [address] [place] [phone] HCG, Qualitative, Urine (08/16/2025 11:00 AM EDT) Urine NEGATIVE NEGATIVE [facility] Comment:This test was develo ped to detect early . Falsenegative results may occur after the 5th - 7th week ofpregnancy when using this test method. If clinicallyindicated, consider a serum hCG. 08/16/2025 11:0 0 AM EDT 08/16/2025 11:08 AM EDT Generic External Data Provider LAB URINE ORDERAB LES Final Result Performing Organization Address [facility] Co de Phone Number [facility] [address] [place] [phone] * Hm Pap Smear (07/19/2022) Pap Negative for intraephithelial lesion or malignancy Negative for intraephithelial lesion or malignancy, Other HPV Undetected Historical Provider HEALTH MAINTENANCE Final Result from Last 3 Months or Most Recently Relevant to Health Maintenance Insurance [employer] Care Teams Plan Examiner Relationship Specialty Start Date End Date Haydee Jacinto FNP [address] [place] [id number] PCP - General Family Medicine 07/12/22
== END 2025-09-19 08:36 | disposition home or self-care (01) ==
LOC: HO.ENCR 07:55
PROVIDERS: PCP Registered Nurse; Visit Provider Student in an Organized Health Care Education/Training Program
DX: E83.52 Hypercalcemia (principal); E21.3 Hyperparathyroidism, unspecified; E55.9 Vitamin D deficiency, unspecified
CPT/HCPCS: 99214

== ENCOUNTER → 2025-09-19 07:54 | Outpatient (BNVA) | payer MEDICAID, SELFPAY | PROVIDERS: PCP Registered Nurse; Visit Provider Student in an Organized Health Care Education/Training Program | DX: E83.52 Hypercalcemia (principal) | CPT/HCPCS: 99212 ==